=== PATIENT | female | born 1960 | race Caucasian/White ===

== ENCOUNTER → 2023-04-25 | Outpatient (CLI) | payer OTHER, SELFPAY ==
--- OUTSIDE RECORDS SUMMARY | 2023-04-25 17:25 | XMS RPT_ITS | CCD ---
Author Name Unknown Address [address] [place] [address] Organization [facility] Care Team Providers Care Logistics Team Leader Name Role Phone VITO BOYKINNE Unavailable Unavailable TABETCORINNA Unavailable Unavail able BRADLY COLON Attending Unavailable BRADLY COLON Referring Unavailable JACQUELINE MARTEL Primary Care Unavailable Jacqueline Martel Primary Care Provider [phone] Jacqueline Martel Primary Care Provider [phone] TONEY VARGAS Primary Care Unavailable TONEY VARGAS Attending Unavailable TONEY VARGAS Admitting Unavailable JACQUELINE CRONIN MD Admitting Unavailable JACQUELINE CRONIN MD Primary Care Unavailable JACQUELINE CRONIN MD Consulting Unavailable JACQUELINE CRONIN MD Attending Unavailable JACQUELINE CRONIN MD Referring Unavailable PROVIDER, UNKNOWN Consulting Unavailable PROVIDER, UNKNOWN Consulting Unavailable PROVIDER, UNKNOWN Consulting Unavailable ARACELIS, DR JHONY Robles Admitting Unavaila ble ARACELIS, DR JHONY Robles Primary Care Unavaila ble ARACELIS, DR JHONY Robles Attending Unavaila ble MANDYNICOLASA Grigsby PAC Admitting Unavailable MANDY NICOLASA PAC Primary Care Unavailable MANDY NICOLASA PAC Attending Unavailable JACQUELINE CRONIN MD Consulting Unavailable PROVIDER, UNKNOWN Consulting Unavailable PROVIDER, UNKNOWN Consulting Unavailable PROVIDER, UNKNOWN Consulting Unavailable TONEY VARGAS Admitting Unavailable TONEY VARGAS Primary Care Unavailable TONEY VARGAS Attending Unavailable MATT BUTLER DO Attending Unavailable JACQUELINE MARTEL MD Primary Care Unavailable Problems Active Problems Problem Classification Problem Date Documented Da te Episodic/Chronic Other congenital anomalies (1 source) Finding of lower limb; Translations: [Localized swelling, mass and lump, lower limb, bilateral] Chronic Other connective tissue disease (3 sources) Pain in left foot; Translations: [Pain in left foot] Onset: 01-14-2022 Episodic Other connective tissue disease (1 source) Pain in bilateral legs; Translations: [Pain in both lower extremities] Other non-traumatic joint disorders (1 source) Pain in left ankle and joints of left foot; Translations: [Pain in left ankle and joints of left foot] Onset: 01-14-2022 Episodic Sprains and strains (1 source) Unspecified sprain of left wrist, initial encounter; Translations: [Unspecified sprain of left wrist, initial encounter] Onset: 01-14-2022 Episodic Superficial injury; contusion (3 sources) Contusion of left wrist, initial encounter; Translations: [Contusion of left wrist, initial encounter] Onset: 01-27-2022 Episodic Unclassified (1 source) Cough, unspecified; Translations: [Cough, unspecified] Onset: 04-12-2021 Viral infection (1 source) COVID-19; Translations: [COVID-19] Onset: 04-12-2021 Past or Other Problems Problem Classification Problem Date Documented Da te Episodic/Chronic Other complications of (1 source) deep vein thrombosis - delivered; Translations: [Deep phlebothrombosis, antepartum, with delivery (HCC)] Episodic Screening and history of mental health and substance abuse codes (1 source) Personal history of nicotine dependence; Translations: [Personal history of nicotine dependence] Onset: 04-12-2021 Episodic Unclassified (4 sources) Encounter for screening for malignant neoplasm of cervix; Translations: [Encounter for screening for malignant neoplasm of cervix] Onset: 09-22-2017 Episodic Unclassified (1 source) Cough, unspecified; Translations: [Cough, unspecified] Onset: 04-12-2021 Results Test Name Value Interpretation Reference Range Facil ity Encounters Encounter Date Encounter Type Care Provider Facility Start: 01-27-2022 End: 02-16-2022 ambulatory NICOLASA GALVAN [facility] Start: 01-14-2022 End: 01-14-2022 ambulatory JACQUELINE CRONIN [facility] Start: 04-30-2021 End: 05-05-2021 ambulatory MATT BUTLER DO Facility:[facility] Start: 04-14-2021 End: 04-14-2021 ambulatory TONEY VARGAS [facility] Start: 04-13-2021 End: 04-13-[address] JHONY HSU [facility] Start: 04-12-2021 End: 04-12-2021 Emergency department patient visit TONEY VARGAS [facility] Start: 06-11-2020 End: 06-11-2020 Orders Only Alyx Huerta Work Phone: [facility] Start: 01-18-2019 End: 01-19-2019 Patient encounter procedure BRADLY COLON [facility] Start: 01-18-2019 End: 01-18-2019 Subsequent hospital visit by physician Bradly Colon Work Phone: [facility] Date Procedure Procedure Detail Performing Clinician Start: 01-18-2019 Dup-scan xtr veins c omplete bilateral study External Transcribed Plan of Treatment Date Care Activity Detail Author Start: 12-04-2019 Influenza vaccination given Se quential Influenza Vaccine (#1) [facility] Start: 12-03-2018 Influenza vaccination given SE QUENTIAL INFLUENZA VACCINE (#1) [facility] Start: 2012 Administration of he rpes zoster vaccine Zoster Vaccines (1 of 2) [facility] Start: 2012 Screening for malign ant neoplasm of colon [facility] Start: 1980 Hepatitis C antibody , confirmatory test Hepatitis C Screening [facility] Start: 1978 COVID-19 Vaccine (1 of 2) COVID-19 V accine (1 of 2) [facility] Start: 1977 HIV screening HIV Screening [facility] Start: 1974 Adolescent depressio n screening assessment Depression Screening (PHQ9) [facility] Start: 1965 History and physical examination, annual for health maintenance Wellness Visit [facility] Start: 1962 Hepatitis C antibody , confirmatory test HEPATITIS C SCREENING [facility] Start: 1962 Screening for malign ant neoplasm of cervix PAP SMEAR [facility] Start: 1962 Screening mammography Mamm[facility] Start: 1962 Tetanus vaccination [facility] Payers Date Payer Category Payer Unknown [id number] 2018 Unknown [employer] xxxxxxxxxxx 2018-Present xxxxxxxxxxx [id number] 2018 Unknown COMMERCIAL COMME RCIAL MISCELLANEOUS [id number] 2018-Present [id number] 2017 Unknown [id number] 1962 Unknown [id number] 1962 Unknown [id number] 1962 Unknown [id number] 1962 Unknown [id number] 1962 Unknown [id number] 1962 Unknown [id number] 1962 Unknown [id number] Social History Date Type Detail Facility Tobacco smoking status COIS Unknown if ev er smoked [facility] Sex Assigned At Not on file [facility] Progress note 08-29-2020 Note Date & Type Note Facility 08-29-2020 Note HNO ID: [id number] Author: Kolby Felton MD Service: ? Author Type: Physician Type: Progress Notes Filed: 08/29/2020 3:40 PM Note Text: INITIAL REFLECTIONS VEIN CENTER EVALUATION (This was a 30 minute office visit with more than 50% of time spent counseling the patient. 08/29/2020 Referring Physician: Juan R Romero MD [facility] [address] [facility] [address] Primary Care Physician: Jacqueline Martel CLINICAL INDICATION/HISTORY: The [facility] questionnaire was reviewed with the patient. The patient is a 59 year old female with a history of chronic longstanding venous insufficiency with varicosities involving the left leg and new onset of varicosities involving the right leg. The patient has had previous endovenous laser ablation of the left greater saphenous vein which appeared to have been successful and then had bilateral sclerotherapy with hypertonic saline. She feels that the varicosities in the left leg behind the distal thigh have become much more prominent. She has had significant diffuse increase in spider veins and venulectasias in each leg. There is a new varicosity that has developed over the right knee. She has constant ggbo-xis-[id number] sensation in her legs.She has been using compression stocking pantyhose to treat her varicosities and symptoms and they have progressed despite the use of conservative management. She also states that her compression stockings are starting to wear out and she wants a new set. FOCUSED PHYSICAL EXAM: Varicose Veins: There are large varicosities in the distal posterior thigh on the left and small varicosities over the anterior right knee. Reticular veins/venulectasias/spider veins: Extensive bilaterally. Swelling: Both calves are swollen. Hyperpigmentation: No Stasis dermatitis: No Ulceration: No US IMPRESSION: The left greater saphenous vein is still patent but it is small and shows no venous insufficiency. There is junctional reflux of the left anterior accessory greater saphenous vein with reflux of 1.4 seconds. It measures 5.1 mm. There is no other venous insufficiency in either leg. The varicosities around the right knee are primary. The deep venous system of each leg is normal. CEAP classification: C3 Ec As Pr RECOMMENDATION:The patient is being given a prescription for 20-30 mmHg Pair Pantyhose. She would be an excellent candidate for endovenous laser ablation of the junctionally refluxing left anterior accessory greater saphenous vein with follow-up ambulatory phlebectomy and/or sclerotherapy for residual varicosities. On the right leg the patient would require ambulatory phlebectomy and/or sclerotherapy for primary varicosities. Kolby Felton MD [facility] Summary Purpose Family History No Family History Records FoundNo Family History Records FoundNo Family History Records FoundNo Family History Records FoundNo Family History Records FoundNo Family History Records FoundNo Family History Records FoundNo Family History Records Found Advance Directives No Advanced Directives Records FoundDocuments on File Type Date Recorded Patient Assistant Cook Expl anation Advance Directives and Livin g Will 01/18/2019 10:59 AM Documents on File Type Date Recorded Patient Assistant Cook Expl anation Advance Directives and Livin g Will 01/18/2019 10:59 AM Reason for Referral Status Reason Specialty Diagnoses / Procedures Referre d By Contact Referred To Contact Closed Cardiology Diagnoses Localized swelling, mass and lump, lower limb, bilateral Deep phlebothrombosis, antepartum, with delivery (HCC) Pain in both lower extremities Procedures Ultrasound duplex venous legs Bradly Millan Kyra, DO [address] [facility] [address] [place] [address] Assessments Diagnosis Localized swelling, mass and lump, lower limb, bilateral Deep phlebothrombosis, antepartum, with delivery (HCC) Deep phlebothrombosis, antepartum, with delivery Pain in both lower extremities Additional Source Comments INFORMATION SOURCE (unrecogn ized section and content) DATE CREATED AUTHOR AUTHOR'S ORGANIZ ATION 08/19/2019 [facility] DATE CREATED AUTHOR AUTHOR'S ORGANIZ ATION 08/09/2020 [facility] DATE CREATED AUTHOR AUTHOR'S ORGANIZ ATION 09/29/2020 [facility] DATE CREATED AUTHOR AUTHOR'S ORGANIZ ATION 12/05/2020 [facility] DATE CREATED AUTHOR AUTHOR'S ORGANIZ ATION 05/11/2021 [facility] DATE CREATED AUTHOR AUTHOR'S ORGANIZ ATION 02/16/2022 [facility] DATE CREATED AUTHOR AUTHOR'S ORGANIZ ATION 04/03/2022 [facility] Reason for Visit (unrecogniz ed section and content) FOR RECORDS PERTAINING TO PATIENTS WHO ARE OR HAVE BEEN ENROLLED IN A CHEMICAL DEPENDENCY/SUBSTANCEABUSE PROGRAM, SOME INFORMATION MAY BE OMITTED. This clinical summary was aggregated from multiple sources. Caution should be exercised in using it in the provision of clinical care. This summary normalizes information from multiple sources, and as a consequence, information in this document may materially change the coding, format and clinical context of patient data. In addition, data may be omitted in some cases. CLINICAL DECISIONS SHOULD BE BASED ON THE PRIMARY CLINICAL RECORDS. [facility] [employer] provides no warranty or guarantee of the accuracy or completeness of information in this document.
[2023-04-28 13:08] LABS: HPV APTIMA, High Risk Negative (Negative)
== END | disposition home or self-care (01) ==
PROVIDERS: PCP Nurse Practitioner Family; Visit Provider Advanced Practice Midwife
DX: Z12.4 Encounter for screening for malignant neoplasm of cervix (principal)
CPT/HCPCS: 87624; 88175; G0145

== ENCOUNTER → 2023-05-04 | Outpatient (CLI) | payer OTHER, SELFPAY ==
--- NOTE | 2023-05-04 12:25 | US_ITS ---
STUDY: ULTRASOUND OF THE FEMALE PELVIS - COMPLETE REASON FOR EXAM: Female, 62 years old. Fibroid follow up LMP: Patient is postmenopausal. TECHNIQUE: Transvaginal TECHNICAL QUALITY: Adequate. COMPARISON: None. FINDINGS: The uterus is anteverted and is in a midline position. The uterus is enlarged and measures 14.1 cm x 10.6 cm x 10.8 cm. Normal uterine cervix. The endometrium was not measured due to the large fibroid. There is no demonstrated endometrial mass. There is a large uterine fibroid measuring 10.7 cm x 10.2 cm x 10.6 cm. I.U.D. - The patient does not have an I.U.D. The right ovary is non-visualized. The left ovary is non-visualized. There is no fluid in the cul-de-sac. US/Transvaginal Non- IMPRESSION: Large uterine fibroid measuring 10.7 cm x 10.2 cm x 10.6 cm. Electronically Signed: Addison Carlson MD at 14:47 EST ,
== END | disposition home or self-care (01) ==
PROVIDERS: PCP Nurse Practitioner Family; Referring Provider Advanced Practice Midwife; Visit Provider Advanced Practice Midwife
DX: D25.9 Leiomyoma of uterus, unspecified (principal)
CPT/HCPCS: 76830

== ENCOUNTER → 2023-05-26 | Outpatient (CLI) | payer OTHER, SELFPAY ==
--- NOTE | 2023-05-26 12:26 | BI_ITS ---
MAMMOGRAPHY - BILATERAL SCREENING REASON FOR EXAM: Female, 62 years old. Routine annual screening examination. PERTINENT HISTORY: Non-contributory. TECHNIQUE: Digital bilateral breast domo (3D mammographic acquisition) in the CC and MLO projections. 2-D mediolateral oblique (MLO) and craniocaudad (CC) views of both breasts were obtained. CAD: Full Field Digital Mammography with Computer Added Detection was performed. COMPARISON: Comparison is made with prior outside examination dated April 30, 2021. FINDINGS: Breast Composition: The breasts are almost entirely fatty. There are no dominant masses or suspicious calcifications. No other significant abnormalities are identified. There has been no significant change since the prior study. BI/SCRN MAMM (CAD)W/DOMO BILAT IMPRESSION: Stable bilateral screening mammogram. Yearly follow-up mammogram recommended. (A) ASSESSMENT CATEGORY: BIRADS Category 1: Negative. A letter regarding these results will be sent to the patient by the facility within 30 days. Approximately 10% of breast cancers are not detected by mammography. A normal mammogram should not delay biopsy of a clinically suspicious abnormality. [id number] Electronically Signed: Addison Carlson MD at 14:35 EST ,
--- NOTE | 2023-05-26 12:35 | BD_ITS ---
STUDY: DUAL ENERGY X-RAY ABSORPTIOMETRY / DXA REASON FOR EXAM: Female, 62 years old. Routine screening TECHNIQUE: Bone Mineral Density (BMD) measurements of lumbar spine and bilateral hips were obtained. COMPARISON: None. FINDINGS: Lumbar Spine (L1-L4): g/cm2 (0.789) / T-score (-2.6) / Z-score (-1.1) Findings are suggestive of osteoporosis with a high fracture risk. Left Femur Total: g/cm2 (0.757) / T-score (-1.5) / Z-score (-0.5) Left Femoral Neck: g/cm2 (0.593) / T-score (-2.3) / Z-score (-1.0) Right Femur Total: g/cm2 (0.758) / T-score (-1.5) / Z-score (-0.5) Right Femoral Neck: g/cm2 (0.674) / T-score (-1.6) / Z-score (-0.3) BD/Dexa Bone Density Study IMPRESSION: The patient is considered osteoporotic as outlined below according to World [employer] Organization (WHO) criteria with a high fracture risk. Reference Information: The T-score is the number of standard deviations above or below the standard which is normal for young adults at their peak bone mineral density. The World Health Organization (WHO) interprets the T-scores as follows: Above -1 Normal bone density Between -1 and -2.5 Osteopenia Equal to / or below -2.5 Osteoporosis As a practical clinical guideline, osteopenia may be graded as follows: Mild -1 through -1.5 Moderate -1.6 through -2.0 Severe -2.1 through -2.4 The Z-score is the number of standard deviations above or below age-matched controls. A Z-score of less than -1.5 would be considered abnormal. References: 1. NIH Osteoporosis and Related Bone Diseases www osteo.org 2. International Society for Clinical Densitometry www iscd.org 3. National Osteoporosis Foundation www nof.org Electronically Signed: Addison Carlson MD at 9:13 EST ,
== END | disposition home or self-care (01) ==
LOC: OPBD 12:24
PROVIDERS: PCP Internal Medicine; Referring Provider Advanced Practice Midwife; Visit Provider Advanced Practice Midwife
DX: M81.8 Other osteoporosis without current pathological fracture (principal); Z12.31 Encounter for screening mammogram for malignant neoplasm of breast
CPT/HCPCS: 77063; 77067; 77080

== ENCOUNTER → 2023-06-01 | Outpatient (CLI) | payer OTHER, SELFPAY ==
[2023-06-01 16:38] LABS: Absolute Lymphocyte Count 1.79 X10^3/uL (0.83-4.51); Absolute Neutrophil Count 4.3 X10^3/uL (2.0-7.7); Basophil# 0.05 X10^3/uL; Basophil% 0.7 % (0-1); Eosinophil# 0.15 X10^3/uL; Eosinophils% 2.2 % (0-5); Hematocrit 46.3 % (37-47); Hemoglobin 15.1 g/dL (12.0-15.0); Lymphocyte # 1.79 X10^3/ul (0.83-4.51); Lymphocyte % 26.6 % (19-41); Mean Corp Hgb Conc 32.6 g/dL (32-36); Mean Corpuscular Hgb 28.8 pg (27.0-32.0); Mean Corpuscular Volume 88.4 fL (81-99); Mean Platelet Vol. 10.6 fl (6.2-12.0); Monocyte# 0.43 X10^3/uL; Monocyte% 6.4 % (0-10); NRBC Flagged by Analyzer 0 % (0-5); Neutrophil # 4.29 X10^3/uL (2.7-7.7); Neutrophil % 63.8 % (47-70); Platelet Count 219 K/mm3 (150-450); RBC Distribution Width CV 12.9 % (11.6-14.6); RBC Distribution Width SD 41.6 fl (35.1-43.9); Red Blood Count 5.24 M/mm3 (4.2-5.4); White Blood Count 6.7 K/mm3 (4.4-11.0)
[2023-06-01 16:57] LABS: Vitamin D,25 Hydroxy 45.8 ng/mL
[2023-06-01 17:06] LABS: ALB/GLOB Ratio 1.2 RATIO (0.9-2.4); AST(SGOT) 26 U/L (15-37); Alanine Aminotransfer ALT/SGPT 43 U/L (13-56); Albumin, Serum 3.8 g/dL (3.2-5.0); Alkaline Phosphatase 61 U/L (45-117); Anion Gap 5 (5-15); BUN 15 mg/dL (7-18); BUN/Creat Ratio 20.2 RATIO (10-20); Chloride 106 mmol/L (98-107); Cholesterol 162 mg/dL (200); Creatinine, Serum 0.74 mg/dL (0.55-1.02); EST Glomerular Filtration Rate 85 mL/min (>60); Est Glom Filt Rate - Afr Amer 102 mL/min (>60); Globulin 3.2 g/dL (2.2-4.2); Glucose 86 mg/dL (74-106); High Density Lipoprotein 50 mg/dL; Potassium 4.3 mmol/L (3.5-5.1); Sodium Level 137 mmol/L (136-145); Thyroid Stim Hormone (TSH) 1.47 uIU/mL (0.358-3.74); Triglycerides 81 mg/dL; Very Low Density Lipoprotein 16 mg/dL (5-40)
--- OUTSIDE RECORDS SUMMARY | 2023-06-02 00:03 | XMS RPT_ITS | CCD ---
Author Name Unknown Address [address] [place] [address] Organization [facility] Care Team Providers Care Departure Clerk Name Role Phone CECILIAVITO BARTLETTNE Unavailable Unavailable CORINNA NICKERSON Unavailable Unavail able BRADLY COLON Attending Unavailable BRADLY COLON Referring Unavailable JACQUELINE MARTEL Primary Care Unavailable Jacqueline Martel Primary Care Provider Jacqueline Martel Primary Care Provider TONEY VARGAS Primary Care Unavailable TONEY VARGAS [...] ARACELIS, DR JHONY Robles Attending Unavaila ble MANDY, NICOLASA PAC Admitting Unavailable MANDY, NICOLASA PAC Primary Care Unavailable MANDY, NICOLASA PAC Attending Unavailable JACQUELINE CRONIN MD Consulting Unavailable PROVIDER, UNKNOWN Consulting Unavailable PROVIDER, UNKNOWN Consulting Unavailable PROVIDER, UNKNOWN Consulting Unavailable TONEY VARGAS Admitting Unavailable TONEY VARGAS Primary Care Unavailable TONEY VARGAS Attending Unavailable MATT BUTLER DO Attending Unavailable JACQUELINE MARTEL MD Primary Care Unavailable TAHMINA PETIT, MARTIN Loredo Unavailable [phone] ORTHOPEDICS, STEPHANIE Unavailable ORTHOPEDICS, MATTHEW Unavailable JERRY APODACA MD Unavailable ORTHOPEDICS, GENERAL Unavailable Unavailable BALTIC Unavailable Unavailable DAVID PETIT, TRACEY Van Unavailable MEETFÉLIX Unavailable Unavailable MEHRDAD PETIT, Nate HINOJOSA Unavailable THAMINA PETIT, JACQUELINE Robles Unavailable Tuan ESPITIA MD Unavailable LUCY PETIT, CATARINA Parker Unavailable Cuco STRONG, Kandy Unavailable Unavailable Ruchi RN, Seble Unavailable Unavaila ble DOREEN, SHEMAR Unavailable Unavailable Liang RN, Yulissa Unavailable Unavailable Cadence Alexander Unavailable Unavailable JESUSITA ESPITIA Unavailable Unavailable MICHELLE PARISH Unavailable Unavailable ALEXANDER RN, PRIETO Unavailable Unavailable Andreea Espitia Unavailable Unavailable GORDO ASBESTOS HANDLER-C, BRITTNEY Hayden Unavailable [phone] DOREEN STRONG, LULY Unavailable Unavaila ble Unavailable Unavailable Medications Current Medications Medication Drug Class(es) Dates Sig (Normalized) Sig (Original) DAILY MULTIPLE VITAMINS (Oral Tablet) (1 source) take 1 tablet by anupama th once daily DAILY MULTIPLE VITAMINS (Oral Tablet) ; 1 daily Completed/Discontinued Medications Medication Drug Class(es) Dates Sig (Normalized) Sig (Original) atropine sulfate 0.0194 mg / hyoscyamine sulfate 0.1037 mg / PHENobarbital 16.2 mg / scopolamine hydrobromide 0.0065 mg oral tablet (1 source) Anticholinergic, Cholinergic Muscarinic Antagonist Start: 08-27-2010 End: 09-03-2010 take 1 tablet by mouth four times daily as needed BELLADONNA ALK-PHENOBARBITA L, 16.2MG (Oral Tablet) ; 1 Tablet four times daily, as needed for 7 days Quantity: 21 {Tablet} Refills: 0 Ordered: 03-Sep-2010 MD CATARINA AYALA Start: 27-Aug-2010 End: 03-Sep-2010 Status: Inactive Comments: Medication taken as needed. Problems Active Problems Problem Classification Problem Date Documented Da te Episodic/Chronic Administrative/social admission (7 sources) Patient encounter status; Translations: [Counseling, unspecified] 04-02-2022 Episodic Benign neoplasm of uterus (3 sources) Uterine leiomyoma; Translations: [Leiomyoma of uterus, unspecified] 08-21-2020 Episodic Cancer; other and unspecified primary (2 sources) History of gynecological disorder; Translations: [Personal history of other benign neoplasm] 02-03-2017 Episodic Gastroduodenal ulcer (except hemorrhage) (3 sources) Peptic ulcer; Translations: [Peptic ulcer, site unspecified, unspecified as acute or chronic, without hemorrhage or perforation] 2010 Chronic Genitourinary symptoms and ill-defined conditions (2 sources) Female stress incontinence; Translations: [Stress incontinence (female) (male)] 04-02-2022 Chronic Immunizations and screening for infectious disease (5 sources) Requires varicella vaccination; Translations: [Encounter for immunization] 04-02-2022 Episodic Lymphadenitis (1 source) Cervical lymphadenopathy; Translations: [Localized enlarged lymph nodes] 07-25-2020 Episodic Malaise and fatigue (1 source) Fatigue; Translations: [Other fatigue] 07-25-2020 Episodic Menopausal disorders (1 source) Postmenopausal bleeding; Translations: [Postmenopausal bleeding] 10-31-2018 Chronic Noninfectious gastroenteritis (2 sources) Acute gastroenteritis; Translations: [Noninfective gastroenteritis and colitis, unspecified] 09-10-2010 Episodic Osteoporosis (4 sources) Osteoporosis; Translations: [Age-related osteoporosis without current pathological fracture] 04-02-2022 Chronic Other and unspecified benign neoplasm (2 sources) Adrenal adenoma; Translations: [Benign neoplasm of unspecified adrenal gland] 04-02-2022 Episodic Other bone disease and musculoskeletal deformities (5 sources) Osteopenia; Translations: [Other specified disorders of bone density and structure, right thigh] 04-02-2022 Episodic Past or Other Problems Problem Classification Problem Date Documented Date Episodic/Chronic Other complications of (1 source) deep vein thrombosis - delivered; Translations: [Deep phlebothrombosis, antepartum, with delivery (HCC)] Episodic Screening and history of mental health and substance abuse codes (1 source) Personal history of nicotine dependence; Translations: [Personal history of nicotine dependence] Onset: 04-12-2021 Episodic Unclassified (1 source) Cough, unspecified; Translations: [Cough, unspecified] Onset: 04-12-2021 Unclassified (1 source) !Patient notification of lab results - Dr. Espitia. Note for !Patient notification of lab results : Kina, your labs looked great. You will see that your triglycerides are marked as elevated. That is not very accurate if you aren't fasting, so no worries there. Your cholesterol panel is actually excellent. I suspect you will never have trouble with your cholesterol and wouldn't recommend that you recheck that any sooner than in 5 years.Let us know if you have any questions. 04-06-2022 Unclassified (1 source) Physical examination - The patient is here for a annual physical. The patinet denies tobacco use. Note for Physical examination : sees [facility] yearly for pap, mammogram and bone density. Last visit 04-25. 04-02-2022 Unclassified (1 source) [ADDITIONAL REASON] Immunization - Note for For immmunization : declines flu shot, Last tetanus 2005. Did not have shingles vaccine. 04-02-2022 Unclassified (1 source) !Patient notification of lab results - Dr. Cronin. The test(s) that you had done were/was an xray of the foot and ankle (The xray of the wrist showed no obvious fracture, but based on your pain, I think you should keep the appointment with the orthopedic doctor. Sometimes a CT scan or bone scan are used to evaluate for a very subtle fracture so you may discuss these options with the orthopedic doctor.You do have a bone spur of the left heel so I would suggest that we schedule you a visit with Dr. Mcdonald (our local sample tester grinder).). You should call our office if you have any questions. 01-18-2022 Unclassified (1 source) Wrist Pain - The injury involved the left wrist. This occurred 2 month(s) ago at home. The injury resulted from a fall onto the hand. 01-14-2022 Unclassified (1 source) [ADDITIONAL REASON] Ankle Pain - This condition occurred following a specific injury (fall). This occurred at home. 01-14-2022 Unclassified (1 source) [ADDITIONAL REASON] Foot pain - Note for Foot pain : Left foot pain after fall 01-14-2022 Unclassified (1 source) Leg pain - The leg pain has been occurring for 3 days. The leg pain is described as being located in the posterior thigh (Reddened and painful.). Note for Leg pain : Pt. states she has had vascular procedures on this leg in the past. 11-26-2020 Unclassified (1 source) Abdominal Pain, Female - Symptoms include abdominal pain. The pain is located in the left lower quadrant. Onset was gradual 2 month(s) ago. Note for Abdominal pain : Pt. has also had more pelvic pressure that causes her to urinate more frequently. This symptoms has happened for some time. 08-21-2020 Unclassified (1 source) [ADDITIONAL REASON] test results - Pt. here to discuss results of scans. 08-21-2020 Unclassified (1 source) !Patient notification of lab results - FRANK Hernadez. The test(s) that you had done were/was a CT scan. Your tests were abnormal You should call our office to schedule a referral. Please follow up as scheduled. Note for !Patient notification of lab results : Your US showed the uterine fibroid has gotten just a little bit larger. If you aren't having symptoms such as bleeding or pain, I wouldn't worry about it. However, the CT scan showed an adrenal adenoma. This is a benign (not dangerous) tumor on your adrenal gland. This isn't something to worry about. What I am concerned about, is another fracture. There was an old T7 fracture that wasn't seen on any of your previous images. I would like you to see either endocrinology again or a manpower development specialist to get some answers as to why you have had so many vertebral compression fractures with relatively little trauma. Please let me know if you are willing to do this. Thanks! 08-20-2020 Unclassified (1 source) Skin lesion - Note for Skin lesion : Pt c/o lump on right hand 5th finger. Getting bigger and more painful. 07-30-2020 Unclassified (1 source) !Patient notification of lab results - Dr. Martel. The test(s) that you had done were/was an EMG and nerve conduction test of the left arm. The results of your testing were normal (no sign of carpal tunnel syndrome or nerve damage) . Please let us know if your symptoms do not improve (may consider a medication for nerve irritation). 11-07-2018 Unclassified (1 source) Leg pain - The onset of the leg pain has been sudden and has been occurring for 1 month. The leg pain involves the right leg. The leg pain is described as being located in the calf. There has been associated numbness and tingling. Note for Leg pain : Was seen by Dr. Landeros - had US which showed Blood Clot in Muscle. Took ASA for 12 days.. 10-31-2018 Unclassified (1 source) [ADDITIONAL REASON] Chest pain - The onset of the chest pain has been sudden. Note for Chest pain : Has had intermittent pain since Leg Pain - Dr. Landeros was not concerned. Patient concerned about numbness of upper extremity and Blood Clots in Lung 10-31-2018 Unclassified (1 source) Transition into care - The patient is transitioning into care from a hospital ([place]) and a summary of care was reviewed. Note for Transition into care : Patient had back surgery by Dr. Nickerson. Patient had low oxygen level and abnormal chest xray. Here for evaluation 10-11-2017 Unclassified (1 source) [ADDITIONAL REASON] Abnormal Chest Imaging - Note for Abnormal chest imaging : See Report. 10-11-2017 Unclassified (1 source) Pre-Op Visit - The procedure scheduled is a T8 Kyphoplasty on 09/30/17. The surgeon for the procedure will be Dr. Nickerson. Note for Pre-op visit : . 09-29-2017 Unclassified (1 source) !Patient notification of lab results - Martel. The test(s) that you had done were/was x-rays. The results of your testing were negative (no new fractures were seen) . Please be aware that we have sent copies to Dr Nickerson. 02-04-2017 Unclassified (1 source) Injury - The patient reports that it was accidental. The date of the injury was on 01/28/17. The injury happened due to a falling down (stairs). Note for Injury : Pt had back surgery recently by Dr. Nickerson. She said her left butt and upper leg are bruised.. 02-03-2017 Unclassified (1 source) !Patient notification of lab results - Martel. The test(s) that you had done were/was blood work. The results of your testing were normal . Please note that we have included copies of your results. 01-13-2017 Unclassified (1 source) recheck after being in the hospital - The patient reports feeling improved. The date of admission was 12/27/2016 (procedure with Dr Nickerson, outpatient). The hospitalization was at [facility]. Note for recheck after being in the hospital : . 01-11-2017 Unclassified (1 source) [ADDITIONAL REASON] Transition into care 01-11-2017 Unclassified (1 source) !Patient notification of lab results - Tahmina. The test(s) that you had done were/was an ultrasound exam (there appears to be a benign fibroid growth on the uterus). Please follow up as scheduled (fibroids usually do not need treatment if not causing problems). 12-28-2016 Unclassified (1 source) Back Pain - The last clinic visit was 1 week(s) ago. Management changes made at the last visit include adding Prednisone (took last pill today). Symptoms are located in the left lower back. Note for Back pain : Pt would like referral to Dr Nickerson. XRay done 12/15/16.. 12-21-2016 Unclassified (1 source) !Patient notification of lab results - Tahmina. The test(s) that you had done were/was x-rays. Your tests showed the following abnormalities: there is a partial collapse (10-20%) of the L-1 vertebra . You should call our office to schedule a referral (recommend seeing an instructional specialist to see if you are a candidiate for kyphoplasty to restore the height of the vertebra). 12-16-2016 Unclassified (1 source) Back Pain Lumbar, Acute - This condition occurred following a specific injury (lifting). Symptoms are located in the left low back. There is no radiation. Note for Acute lumbar back pain : Saw Dr Tristin Martel on 12/03/16, given Naproxen and Flexeril, not much improvement. Back surgery in 1999.. 12-14-2016 Unclassified (1 source) Back Pain Lumbar, Acute - This occurred 6 hour(s) ago at home. The injury resulted from lifting. Symptoms include pain, muscle spasm and decreased range of motion. Symptoms are located symmetrically. The patient describes the pain as throbbing. Past treatment has included back surgery (1999, Dr. Nickerson). 12-03-2016 Unclassified (1 source) Immunization - Influenza immunization was given. An immunization information sheet was provided. 01-06-2012 Unclassified (1 source) Peptic Ulcer Disease - Symptoms do not include pain or heartburn. 2010 Unclassified (1 source) [ADDITIONAL REASON] Obesity - Note for Obesity : concerned with weight 2010 Unclassified (1 source) [ADDITIONAL REASON] recheck pud and gastritis - feeling well. 2010 Unclassified (1 source) *Patient notification of lab results 1 - Dr. Ayala. The test(s) that you had done were/was a liver panel. The results of your testing were normal . 09-11-2010 Unclassified (1 source) Abdominal pain - Note for Abdominal pain : feeling much better. Using no meds any longer. 09-10-2010 Unclassified (1 source) [ADDITIONAL REASON] Edema - The edema involves both lower extremities. Onset was sudden. Note for Edema : noted ankle edema on 09/05-09/06 but has now resolved. 09-10-2010 Unclassified (1 source) *Patient notification of lab results 1 - Dr. Ayala. The test(s) that you had done were/was a stool O&P. The results of your testing were normal . 09-04-2010 Unclassified (1 source) *Patient notification of lab results 1 - Dr. Ayala. The test(s) that you had done were/was a stool culture. The results of your testing were normal . 09-02-2010 Unclassified (1 source) *Patient notification of lab results 1 - Dr. Ayala. The test(s) that you had done were/was CBC (checks for anemia and infection) and CMP (kidneys, liver, nutrition, sugar). For your age and medical condition your tests showed the following abnormalities: mildly elevated liver enzymes . You should call our office to schedule an appointment for repeat lab in 2 weeks. 08-28-2010 Unclassified (1 source) Vomiting - The onset of the vomiting has been acute and has been occurring in an intermittent pattern for 9 days. The course has been constant. The symptoms have been associated with abdominal pain (intermittent), diarrhea (8x/day), fever, headache, myalgia and vertigo. Note for Vomiting : had vomiting for first 24 hrs then started with diarrhea daily x 8 days. stormach rolls and rolls. is very weak and lightheaded. 08-27-2010 Results Test Name Value Interpretation Reference Range Facil ity Vital Signs Date Time Vital Sign Value Performing Clinician Marlin sahni 04-02-2022 14:21-0500 Body height 161.29 cm Seble Hopper RN [facility] [employer] [facility] [employer] [facility] 04-02-2022 14:21-0500 Body mass index (BMI) [Ratio] 33.51 kg/m2 Seble Hopper RN [facility] [employer] [facility] 04-02-2022 14:21-0500 Body surface area Derived from formula 1.91 m2 Seble Hopper [facility] [employer] [facility] 04-02-2022 14:0500 Body weight 87.18 kg Seble Hopper RN [facility] [employer] [facility] [employer] [facility] [employer] [facility] 04-02-2022 14:0500 Diastolic blood pressure 86 mm[Hg] Seble Hopper RN [facility] [facility] [employer] [facility] Encounters Encounter Date Encounter Type Care Provider Facility Start: 04-03-2022 End: 04-03-2022 Results Review MARTIN MARTEL MD Work Phone: [facility] [employer] [facility] Start: 04-02-2022 End: 04-02-2022 Lab Only MARTIN MARTEL MD Work Phone: [facility] [employer] [facility] [employer] Start: 04-02-2022 End: 04-02-2022 Office outpatient visit 25 minutes MARTIN MARTEL MD Work Phone: [facility] [employer] [facility] [employer] Start: 04-02-2022 End: 04-02-2022 Patient encounter status MARTIN MARTEL MD Work Phone: [facility] [employer] [facility] [employer] [facility] [employer] Start: 01-27-2022 End: 02-16-2022 ambulatory [facility] Start: 01-16-2022 End: 01-16-2022 Patient encounter procedure MARTIN MARTEL MD Work Phone: [facility] [employer] [facility] Start: 01-14-2022 End: 01-14-2022 ambulatory JACQUELINE CRONIN [facility] Start: 01-14-2022 End: 01-14-2022 Patient encounter procedure MARTIN MARTEL MD Work Phone: [facility] [facility] [employer] Start: 04-30-2021 End: 05-05-2021 ambulatory MATT BUTLER Facility:A Start: 04-14-2021 End: 04-14-2021 ambulatory TONEY Trejo [facility] Start: 04-13-2021 End: 04-13-[address] JHONY HSU [facility] Start: 04-12-2021 End: 04-12-2021 Emergency department patient visit TONEY Trejo [facility] Start: 11-26-2020 End: 11-26-2020 Office outpatient visit 15 minutes MARTIN MARTEL MD [facility] [employer] Start: 08-21-2020 End: 08-21-2020 Office outpatient visit 15 minutes MARTIN MARTEL MD Work Phone: [facility] [employer] [facility] Start: 08-20-2020 End: 08-20-2020 Follow-up encounter MARTIN MARTEL MD Work Phone: [facility] [employer] Start: 08-15-2020 End: 08-15-2020 Procedure Order MARTIN MARTEL MD Work Phone: [facility] [employer] Start: 08-07-2020 End: 08-07-2020 Procedure Order MARTIN MARTEL MD Work Phone: [facility] Start: 07-30-2020 End: 07-30-2020 Office outpatient visit 15 minutes MARTIN MARTEL MD Work Phone: [facility] [employer] [facility] Start: 07-28-2020 End: 07-28-2020 Procedure Order MARTIN MARTEL [facility] Start: 07-25-2020 End: 07-25-2020 Office outpatient visit 40 minutes [facility]IN [facility]ARTEL MD [facility] Start: 06-11-2020 End: 06-11-2020 Orders Only Alyx Huerta Work Phone: [facility] Start: 01-18-2019 End: 01-19-2019 Patient encounter procedure BRADLY SERA [facility] Start: 01-18-2019 End: 01-18-2019 Subsequent hospital visit by physician Bradly Colon Work Phone: [facility] Date Procedure Procedure Detail Performing Clinician Start: 04-02-2022 End: 04-02-2022 Shingrix Tuan ESPITIA MD Work Phone: Start: 04-02-2022 End: 04-02-2022 TDAP - Adacel/Boostrix Tuan ESPITIA MD Work Phone: Start: 01-16-2022 End: 01-16-2022 Radex wrist complete minimum 3 views R JACQUELINE CRONIN MD Work Phone: Start: 01-14-2022 End: 01-14-2022 Dischrg meds reconciled w/current med list MARTIN MARTEL MD Work Phone: Start: 04-30-2021 End: 04-30-2021 Screening mammography Tuan ESPITIA MD Work Phone: Plan of Treatment Date Care Activity Detail Author Start: 01-14-2022 Radex foot complete minimum 3 views X-RAY FOOT - COMPLETE - 3 VIEWS (83754) : Fall 6 weeks ago. L 5th metatarsal pain Start: 14-Jan-2022 [facility] [employer] [facility] Start: 11-26-2020 Dup-scan xtr veins unilateral/limited study UNILATERAL DOPPLER ULTRASOUND OF VEINS OF EXTREMITIES (25001) : left lower extremity Start: 26-Nov-2020 [facility] Start: 11-26-2020 Patient Education [facility] [employer] Start: 08-07-2020 Us pelvic nonobstetr ic real-time image complete US PELVIS, COMPLETE (08774) Start: 07-Aug-2020 [facility] [employer]; [facility] Start: 07-30-2020 Mri spinal canal lum bar w/o & w/contr matrl MRI LUMBAR SPINE W/O & W CONTRAST for post surgery/mass/infection (82653) - IV Contrast per Protocol Start: 30-Jul-2020 Intent Comments: 6MM lesion in L5 vertebral body [facility] [employer]; [facility] [employer] Immunizations Immunization Date Immunization Notes Care Provider [facility] 04-02-2022 zoster vaccine recombinant MARTIN MARTEL MD Work Phone: [facility]; [facility] [employer] Payers Date Payer Category Payer Unknown [id number] 2018 Unknown [employer] [facility] [employer] xxxxxxxxxxx 2018-Present xxxxxxxxxxx [id number] 2018 Unknown [employer] RCIAL MISCELLANEOUS [id number] 2018-Present [id number] 2017 Unknown [id number] 1962 Unknown [id number] 1962 Unknown [id number] 1962 Unknown [id number] 1962 Unknown [id number] 1962 Unknown [id number] 1962 Unknown [id number] 1962 Unknown [id number] Unknown [facility] Social History Date Type Detail Facility Tobacco smoking status NHIS Unknown if ev er smoked [facility] file [facility] Alcohol Use: Alcohol Use: ; N o Alcohol Use. [employer]; [employer] [facility] [employer] [facility] Tobacco use: Tobacco use: ; F ormer smoker. [employer] [facility] [employer] [facility] [employer]. Female [facility] [employer] [facility] IllIntent [employer]; [place] [employer] [facility] [employer] Work Phone: Ex-smoker [facility] [employer]; [employer] [facility] [employer] [facility] IllForesight [employer]otherapeutics Work Phone: Progress note 08-29-2020 Note Date & Type Note Facility 08-29-2020 Note HNO ID: [id number] Author: Kolby Felton MD Service: ? Author Type: Physician Type: Progress Notes Filed: 08/29/2020 3:40 PM Note Text: [facility]IAL [facility] EVALUATION (This was a 30 minute office visit with more than 50% of time spent counseling the patient. 08/29/2020 Referring Physician: Juan R Espitia MD [address] [place] [phone] Primary Care Physician: Jacqueline Martel CLINICAL INDICATION/HISTORY: The [facility] questionnaire was reviewed with the [...] over the right knee. 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 oKlby Felton MD [facility] Summary Purpose Family History Brother (s) Status:Active Comments:In good health. 2. Father Status:Active Comments:In good health. Mother Status:Active Comments:In good health. Genie Gatten. Osteoporosis. Sister (s) Status:Active Comments:0. Advance Directives Documents on File Type Date Recorded Patient Business Resiliency Manager Expl anation Advance Directives and Iliana núñez Will 01/18/2019 10:59 AM Documents on File Type Date Recorded Patient Business Resiliency Manager Expl teri Advance Directives and Iliana núñez Will 01/18/2019 10:59 AM Reason for Referral Status Reason Specialty Diagnoses / Procedures Referre d By Contact Referred To Contact Closed Cardiology Diagnoses Localized swelling, mass and lump, lower limb, bilateral Deep phlebothrombosis, antepartum, with delivery (HCC) Pain in both lower extremities Procedures Ultrasound duplex venous legs Bradly Millan, DO [address] [address] Assessments Diagnosis Localized swelling, mass and lump, lower limb, bilateral Deep phlebothrombosis, antepartum, with delivery (HCC) Deep phlebothrombosis, antepartum, with delivery Pain in both lower extremities Additional Source Comments INFORMATION SOURCE (unrecogn ized section and content) DATE CREATED AUTHOR AUTHOR'S ORGANIZ ATION 08/19/2019 [facility] DATE CREATED AUTHOR AUTHOR'S ORGANIZ ATION 08/09/2020 [facility] DATE CREATED AUTHOR AUTHOR'S ORGANIZ ATION 09/29/2020 [facility] DATE CREATED AUTHOR AUTHOR'S ORGANIZ ATION 12/05/2020 [facility] DATE CREATED AUTHOR AUTHOR'S ORGANIZ ATION 05/11/2021 [facility] DATE CREATED AUTHOR AUTHOR'S ORGANIZ ATION 02/16/2022 [facility] DATE CREATED AUTHOR AUTHOR'S ORGANIZ ATION 04/03/2022 [facility] Reason for Visit (unrecogniz ed section [...] BE BASED ON THE PRIMARY CLINICAL RECORDS. [facility]. provides no warranty or guarantee of the accuracy or completeness of information in this document.
== END | disposition home or self-care (01) ==
LOC: BIMLAB 14:45
PROVIDERS: PCP Internal Medicine; Visit Provider Internal Medicine
DX: Z13.6 Encounter for screening for cardiovascular disorders (principal); M81.0 Age-related osteoporosis without current pathological fracture
CPT/HCPCS: 36415; 80053; 80061; 82306; 84443; 85025

== ENCOUNTER → 2023-07-25 | Outpatient (CLI) | payer OTHER, SELFPAY ==
--- NOTE | 2023-07-25 14:05 | VDLE_ITS ---
Reason For Study: Swelling BLE RIGHT LEFT GSV is normal. CFV is compressible, spontaneous, phasic, CFV is compressible, spontaneous, phasic, competent, and demonstrates normal competent and demonstrates normal augmentation. augmentation. FV is compressible, spontaneous, phasic, FV is compressible, spontaneous, phasic, competent and demonstrates normal competent and demonstrates normal augmentation. augmentation. POP V is compressible, spontaneous, phasic, POP V is compressible, spontaneous, phasic, competent and demonstrates normal competent and demonstrates normal augmentation. augmentation. T/P Trunk is compressible. T/P Trunk is compressible. PTV is compressible. PTV is compressible. LT PerV is compressible. RT PerV is compressible. SFJ is competent and measures 0.69cm x 0.63 SFJ is competent and measures 0.54cmx 0.59 cm. cm. GSV proximal thigh measures 0.36cm x 0.37 cm. GSV proximal thigh measures 0.51cm x 0.55 cm. GSV at knee measures 0.25cm x 0.25 cm. GSV at knee measures 0.28cmx 0.29 cm. GSV INCOMPETENT throughout for greater than GSV is competent throughout. 0.5 seconds. ASV proximal thigh is INCOMPETENT for greater ASV proximal calf is INCOMPETENT for greater than 0.5 seconds and measures 0.30cm x 0.32 than 0.5 seconds and measures 0.29cm x 0.31 cm. cm. SSV proximal calf is competent and measures SSV proximal calf is competent and measures 0.28cm x 0.25 cm. 0.25cm x0.24 cm. Procedure This is a venous duplex using B-mode, color flow and spectral Doppler. Exam performed in department. A preliminary report was called and/or faxed to Michelle Tuttle. VL/Venous Duplex US - Young Extrem Interpretation Summary Deep veins of the bilateral lower extremities are patent and compressible segme ntally. There is no evidence of bilateral lower extremity deep vein thrombosis. The bilateral great saphenous veins appear patent and compressible segmentally. Positive for reflux in the right thigh accessory saphenous vein. Positive for reflux in the left great saphenous vein throughout, accessory saph enous vein in the calf Ordering Physician: Michelle Tuttle Referring Physician: Leeann Riley Performed By: Marta Ladd, MICHELE, RVT
== END | disposition home or self-care (01) ==
LOC: CVS 14:04
PROVIDERS: PCP Internal Medicine; Referring Provider Physician Assistant; Visit Provider Physician Assistant
DX: I87.2 Venous insufficiency (chronic) (peripheral) (principal); R60.0 Localized edema
CPT/HCPCS: 93970

== ENCOUNTER → 2023-08-08 | Outpatient (CLI) | payer OTHER, SELFPAY ==
--- NOTE | 2023-08-08 16:55 | RAD_ITS ---
INDICATION: chest pain EXAMINATION/TECHNIQUE: X-RAY - XR Chest 2 Views COMPARISON: No previous relevant examinations available for comparison.. FINDINGS: LIFE-SUPPORT AND LINES: 1. None HEART AND VESSELS: The cardiac silhouette, pulmonary vasculature have normal appearance. No evidence of congestive failure. LUNGS AND PLEURAL SPACES: Lungs are clear. No focal infiltrate, consolidation or effusions. No evidence of pneumothorax. No pulmonary mass is noted. MEDIASTINUM AND HILAR REGIONS: No masses adenopathy noted. No areas of calcification. Visualized upper airway is normal in position. BONY ELEMENTS: Previous kyphoplasty is noted in the midthoracic spine, estimated at T8, and at approximately L1. No acute bony changes noted. There is osteopenia RAD/Chest PA and Lateral IMPRESSION: 1. No evidence of acute cardiopulmonary process 2. Prior kyphoplasty in the mid thoracic spine at approximately T8, as well as at L1. No acute bony changes. Electronically Signed: Aki Villagomez MD at 17:21 EDT ,
== END | disposition home or self-care (01) ==
LOC: RAD 16:54
PROVIDERS: PCP Internal Medicine; Referring Provider Internal Medicine; Visit Provider Internal Medicine
DX: R07.9 Chest pain, unspecified (principal)
CPT/HCPCS: 71046

== ENCOUNTER 2023-08-19 05:23 | Inpatient (IN) | payer OTHER, SELFPAY ==
[2023-08-16 12:36] LABS: Hematocrit 46.2 % (37-47); Hemoglobin 15.1 g/dL (12.0-15.0); Mean Corp Hgb Conc 32.7 g/dL (32-36); Mean Corpuscular Hgb 28.8 pg (27.0-32.0); Mean Corpuscular Volume 88.2 fL (81-99); Mean Platelet Vol. 10.8 fl (6.2-12.0); Platelet Count 220 K/mm3 (150-450); RBC Distribution Width CV 13.2 % (11.6-14.6); RBC Distribution Width SD 42.5 fl (35.1-43.9); Red Blood Count 5.24 M/mm3 (4.2-5.4); White Blood Count 5.6 K/mm3 (4.4-11.0)
[2023-08-16 13:58] LABS: Magnesium 2.2 mg/dL (1.6-2.6)
[2023-08-16 14:00] LABS: ALB/GLOB Ratio 1.1 RATIO (0.9-2.4); AST(SGOT) 24 U/L (15-37); Alanine Aminotransfer ALT/SGPT 33 U/L (13-56); Albumin, Serum 3.7 g/dL (3.2-5.0); Alkaline Phosphatase 64 U/L (45-117); Anion Gap 6 (5-15); BUN 14 mg/dL (7-18); BUN/Creat Ratio 21.6 RATIO (10-20); Calcium,Total 9.1 mg/dL (8.5-10.1); Chloride 108 mmol/L (98-107); Creatinine, Serum 0.65 mg/dL (0.55-1.02); EST Glomerular Filtration Rate 99 mL/min (>60); Est Glom Filt Rate - Afr Amer 120 mL/min (>60); Globulin 3.3 g/dL (2.2-4.2); Glucose 94 mg/dL (74-106); Sodium Level 140 mmol/L (136-145)
[2023-08-19] VITALS (17 sets, daily range): BP systolic 101–143; BP diastolic 54–95; PULSE 55–88; RESP 14–16; TEMP 36.6–37.2; O2SAT 92–99; BMI 33.8
--- NOTE | 2023-08-19 02:54 | HP.PCM_ITS ---
History and Physical MR#: [id number] Acct: [id number] Name: LAN OTT Rep #: [id number] : 1960 Provider: Dr. Kayla Johnson MD Age/Sex: 62/F Location: [facility] Status: Signed Intake Vital Signs 06/23/2409:50 07/31/2412:37 07/31/2412:39 Height 5 ft 3 in 5 ft 3 in 5 ft 3 in Weight: 187 lb BMI 33.1 BP 121/81 H Intake Visit Reasons: BRINA [employer] Required: No Is patient in pain?: No Allergies No Known Allergies Allergy (Verified 08/01/23 13:38) Medications cholecalciferol (vitamin D3) 125 mcg (5,000 unit) capsule 125 mcg PO DAILY 09/17/20 [History Confirmed 08/01/23] omega-3 fatty acids 1,250 mg capsule 1,250 mg PO DAILY 09/17/20 [History Confirmed 08/01/23] calcium nekf-Q6-aoewfyij-inosit-silicon 300 mg-200 unit-37.5 mg tablet (Bone Density Calcium Plus D) tab PO 05/30/23 [History Confirmed 08/01/23] magnesium glycinate mg PO 05/30/23 [History Confirmed 08/01/23] multivitamin (Daily Multi-Vitamin tablet) 1 tab PO DAILY 05/30/23 [History Confirmed 08/01/23] Post menopausal: Yes : No PFSH Medical History (Updated 08/01/23 @ 13:[address] 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 current occupational exposures/hazards: No pets and animals: No history of recent travel: No sexually active: Yes Smoking Status: Former smoker quit date: 04/04/93 pack-years: 5 Electronic Cigarette Use: not used alcohol intake: never substance use type: does not use caffeine: Yes Type: coffee Number of servings: 2 eating out: rarely or never what type of physical activity do you participate in: walking and weight training frequency: 3-4 times per week dex/confucianism: None seatbelt use: always do you feel safe at home: Yes additional social history: - Er[employer] - [employer]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 HPI VIANEYHBANNIE garcia combo Details: LAN OTT is a 62 year old who presents for preop visit, planning hysterectomy for fibroid with urinary symptoms, no bleeding, has been 8-10 cm in size has seen since 2019, saw another provider and now wanting surgery. Female Reproductive History Menopausal Symptoms: No night sweats ROS Const Constitutional: Denies fatigue, night sweats, weight gain or weight loss ENT ENT: Reports system reviewed and no additional complaints, except as documented Cardio Card: Denies chest pain Resp Resp: Denies cough or dyspnea GI GI: Reports as per HPI; Denies constipation, nausea or vomiting : Reports urinary frequency, urinary incontinence and urinary urgency; Denies nipple discharge, urinary hesitancy, vaginal discharge, vaginal dryness, vaginal odor or vaginal pruritus Musc Musc: Denies arthralgias, back pain or muscle weakness Skin Skin/Breast: Denies alopecia, change in hair, dry skin, breast mass, breast pain, breast skin changes or nipple discharge Neuro Neuro: Reports system reviewed and no additional complaints, except as documented Psych Psych: Reports system reviewed and no additional complaints, except as documented Endo Endo: Denies cold intolerance, excessive sweating, heat intolerance or polydipsia Tejas/Lymph Hematologic/Lymphatic: Denies easy bleeding, Denies easy bruising and Denies lymphadenopathy Exam Const General: cooperative, healthy appearing, comfortable and no acute distress Orientation: alert HENDC Head: normal to inspection and normocephalic Ears: hearing grossly normal bilaterally and external ears normal Nose: external nose normal and nares normal Face and sinus: normal facial exam Neck Neck: normal visual inspection and no lymphadenopathy Thyroid: thyroid normal Chest Chest palpation & inspection: normal inspection of the chest Resp Effort & Inspection: normal respiratory effort Auscultation: clear to auscultation bilaterally Cardio Rate: regular rate Rhythm: regular rhythm Heart Sounds: S1 normal and S2 normal GI Inspection: normal to inspection and non-distended Palpation: soft and no hepatosplenomegaly Other: 16 week size uterus increased, tender. Musc Other: gross motor intact no deficits, full bilateral strength Skin General: no rashes or lesions noted Neuro General: patient alert, patient awake, moves all extremities and no focal motor deficits Motor: muscle tone normal throughout Extrem General: normal to inspection and no pedal edema Psych Appearance: grossly normal Mental Status: mental status grossly normal Affect: normal affect Speech and Movement: speech and movement normal Coding Level of Care Code No Charge Diagnoses Uterine leiomyoma, unspecified location D25.9 Uterine leiomyoma location: unspecified location Assessment and Plan Assessment and Plan (1) Fibroid uterus: Status: Acute Qualifiers: Uterine leiomyoma location: unspecified location Qualified Code(s): D25.9 - Leiomyoma of uterus, unspecified Comment: 10 cm fibroid uterus, discussed management, recommend surgical removal. plan LOLIS BSO. plan perioperative anticoagulation due to history of DVT. Plan After discussing the patient's diagnosis and treatment plan options, patient wishes to proceed with surgical management. I have discussed with the patient the risks, benefits, and alternatives of the procedure which include but are not limited to risks of anesthesia, bleeding, infection, possible damage to bowel, bladder, or surrounding vasculature which could lead to additional surgery to evaluate any complications. Patient agrees to procedure and wishes to proceed. ACOG/uptodate references given for additional information regarding procedure.
[2023-08-19] MEDS: dexAMETHasone 4 MG/ML Vial 8 MG IV (06:22)
[2023-08-19] MEDS: Lactated Ringers 1,000 ML 40 ML IV (06:22)
[2023-08-19] MEDS: Scopolamine 1mg/72hr Patch 1 PATCH TD (06:26)
[2023-08-19] MEDS: Enoxaparin 40 MG/0.4 ML Syringe SC (06:30)
[2023-08-19] MEDS: Phenazopyridine 95 MG Tablet 190 MG PO (06:47)
[2023-08-19] MEDS: Celecoxib 200 MG Capsule 400 MG PO (06:47)
[2023-08-19] MEDS: Magnesium 1 GM over 15 mins IV (06:47)
[2023-08-19] MEDS: Acetaminophen 500 MG Tablet 1000 MG PO (06:47)
[2023-08-19] MEDS: Gabapentin 600 MG Tablet PO (06:47)
--- NOTE | 2023-08-19 07:30 | HYST_PTH ---
PATIENT: LAN OTT LOC: MS3 U#:[id number] AGE/SX: 62/F ROOM: [facility] RE08/19/[address]: Dr. Kayla Johnson MD : 1960 BED: 1 DIS: 08/21/2023 SPEC #: [id number] RECD: 08/19/23 10:39 STATUS: GRETCHEN HERNANDEZ #: [id number] CLARA: 08/19/23 07:[address]: Kayla Johnson DEPT: SURGICAL PATHOLOGY RECD BY: Marianela Lubin ENTERED: 08/19/23 10:57 SP TYPE: HYSTERECT OTHR DR: MD Dr. Judith Shah MD Tissues: Uterus, NOS Procedures: Surgery Specimen Level V HEADER OPERATION: ERAS, hysterecetomy, LOLIS, bilateral salpingo-oopherectomy PRE-OP DIAGNOSIS: Fibroid uterus, leiomyoma of uterus, uterovaginal prolapse, incontience TISSUE SUBMITTED: Uterus, cervix, bilateral fallopian tubes and ovaries MICROSCOPIC DIAGNOSIS Uterus, hysterectomy: Cervix - Mild chronic inflammation Endometrium - Simple hyperplasia without atypia Myometrium - Leiomyoma , focally inflamed Right ovary- Corpora albicantia. Right fallopian tube- No pathologic change. Left ovary- Corpora albicantia. Left fallopian tube- No pathologic change. KEY/ 08/22/2023 MICROSCOPIC DESCRIPTION Slides are reviewed. GROSS DESCRIPTION Received in fixative is one container labeled with the patient's name and designated uterus, cervix, bilateral fallopian tubes and ovaries. The specimen consists of a hysterectomy specimen consisting of uterus, cervix with attached bilateral fallopian tubes, left ovary and possible right ovary. The uterus with cervix weighs 646 gm and measures 16.5 x 12.0 x 11.0 cm. The serosal surface is sifuentes glistening and unremarkable. The ectocervical mucosa is unremarkable. The external os is circular in contour. The endometrium is distorted due to the presence of large mass at the fundus. The endocervical canal measures 3.5 cm in length and the endocervical mucosa is sifuentes glistening and unremarkable. The endometrial cavity is compressed to one side and measures 6.0cm in length and 3.0cm in width. The endometrium is sifuentes glistening without any mass lesions and measures up to 0.3cm in thickness. Section of the uterine wall reveals a large nodular mass measuring 10.0cm in diameter. Sections of the mass reveal sifuentes whorled cut surfaces without areas of hemorrhage, necrosis or cystic degeneration. Uterine wall measures up to 3.5cm in thickness. Right fallopian tube measures 4.0cm in length and 0.6cm in diameter. The fimbral end is identified. Sections reveal unremarkable cut surfaces. Possible small right ovary is present measuring 1.0 x 1.0 x 0.5cm. The left fallopian tube measures 4.5cm in length and 0.5cm in diameter. It has a similar appearance to the right fallopian tube. The ovary measures 1.5 x 1.0 x 0.6cm. Sections reveal unremarkable cut surfaces. External Grinder sections are submitted in 11 cassettes as follows: 1 - anterior cervix, 2 - posterior cervix, 3 & 4 - anterior uterine wall, 5 & 6 - posterior uterine wall, 7-9- nodular mass, 10- right fallopian tube and ovary (right ovary submitted in entirety), 11- left fallopian tube and ovary. SJ: 08/19/2023 TC:1 CPT: 02568
[2023-08-19] MEDS: Cefazolin 2 GM in 0.9% Normal Saline (100mL Bag) 100 ML IV (08:00)
[2023-08-19 08:17] LABS: Bedside Glucose 81 mg/dL (74-106)
[2023-08-19] MEDS: Estrogens,Conj. 1 Tube 1 DOSE (11:24)
[2023-08-19] MEDS: Lidocaine 1% /Epi 1:100 (20ml) 20 ML Vial (11:24)
--- NOTE | 2023-08-19 11:38 | PCM.OPRPT ---
Report of Operation Date of Procedure: 08/19/23 Pre-Operative Diagnosis: Incomplete uterovaginal prolapse, stress urinary incontinence Post-Operative Diagnosis: Same Surgery/Procedure Performed:: Anterior repair, posterior repair, mid urethral sling insertion, cystoscopy with bilateral ureteral catheterization Surgeon: Judith Barnett Type of Anesthesia: General Estimated Blood Loss (mL): 25 cc Description of Procedure: The patient is a 62-year-old female with a large fibroid uterus and incomplete utero vaginal prolapse with stress incontinence who presents for surgical intervention. Informed consent was obtained. She underwent a total abdominal hysterectomy per Dr. Zackary Alexis. Once the patient was closed, the case was turned over to dc. At this time there was a small cystocele and a small rectocele remaining with no evidence of apical defect. A Bateman catheter was indwelling. Her mucosa was very fragile. The submucosa posteriorly was injected with 1% lidocaine with epinephrine for hydrostatic dissection and hemostatic control. A midline incision was then made and sharp and blunt dissection was performed very carefully until the rectovaginal fascia was identified. This was then brought together in a 2 layer closure using 3-0 PDS and 2-0 Vicryl interrupted sutures. Once the defect was completely closed, the vaginal mucosa was closed using running interlocking 2-0 Vicryl. Attention was then turned towards the anterior vaginal wall where it was once again injected and a midline incision was made. Sharp and blunt dissection was performed with care being taken to avoid entrance into the urinary bladder or ureteral injury. The pubocervical fascia was identified and brought together in a 2 layer closure with interrupted sutures using 3-0 PDS and 2-0 Vicryl. Once this closure was complete, the mucosa was closed with running interlocking 2-0 Vicryl. Attention was then turned to the mid urethra where once again the 1% lidocaine with epinephrine was injected for hydrostatic dissection and hemostatic control. A midline incision was made. Sharp and blunt dissection was performed on either side of the urethra with care being taken to avoid entrance into the urethra or the vaginal mucosa. Using the trocars provided, the Altis mid urethral sling trocars were placed through the obturator complexes bilaterally. The sling was positioned using the tensioning suture. When it lay flat against the urethra in good position, the tensioning suture was then cut. The incision was closed using running interlocking 2-0 Vicryl. The Bateman catheter was then removed and a cystoscope was inserted through the urethra under direct visualization revealing no evidence of injury to the urethra or the urinary bladder. There was no evidence of hemorrhage or foreign body present. Each ureteral orifice was cannulated with a 5 Luxembourger whistle-tip catheter with easy advancement up to 20 cm bilaterally. Each side was flushed with normal saline revealing proof that the ureters were intact bilaterally. At this time the cystoscope was removed and the Bateman catheter was reinserted with 10 cc of saline in the balloon. The vagina was then packed with vaginal packing and estrogen cream. She was awakened and taken to the recovery room in good condition. There were no complications during the procedure. Grafts/Implants Used: Altis mid urethral sling Complications None Admit VTE Documentation VTE Present on Admission: Yes VTE Mechan Device Prophylaxis: SCD's VTE Pharm Prophylaxis ordered?: Yes
--- NOTE | 2023-08-19 11:44 | DCINST_ITS ---
Discharge Instructions Diet Discharge Diet: No restrictions Activity Discharge Activity: May Shower May resume sexual activity in: 8 weeks Lifting Restrictions: 5 pounds for 8 weeks Additional Activity Instructions:: No exercise, strenuous activity, sexual activity, swimming, hot tubs or tub bathing Dressing / Incision Call your doctor if your incision/area has: Continuous Slow Oozing, Sudden Increased Bleeding, Increased Pain/ Swelling and Foul Smelling Discharge Call your doctor if you observe: Fever of 101 or Higher, Inability to urinate and Inability to have a bowel movement Follow Up Care Please Follow Up With: Judith Barnett MD When: The office will call the patient to make follow-up arrangements. Test Results: Test results from this visit will be discussed in further detail at your follow- up appointment, if applicable. Discharge Plan Admission Admit Date/Time: 08/19/23 05:23 Attending Provider: Kayla Johnson Primary Care Provider: Leeann Riley Consulting Providers: Judith Barnett Discharge Orders/Prescriptions Prescriptions: New oxycodone-acetaminophen [Percocet] 5-325 mg tablet 1 tab PO Q8H PRN (Reason: pain) 3 Days Qty: 10 0RF cephalexin 500 mg capsule 500 mg PO Q12 3 Days Qty: 6 0RF enoxaparin [Lovenox] 40 mg/0.4 mL syringe 40 mg SQ DAILY 40 Days Qty: 20 1RF Continued omega-3 fatty acids 1,250 mg capsule 1,250 mg PO DAILY cholecalciferol (vitamin D3) 125 mcg (5,000 unit) capsule 125 mcg PO DAILY Bone Density Calcium Plus D 300-200-37.5 mg-unit-mg tablet 1 tab PO DAILY multivitamin [Daily Multi-Vitamin] Tablet 1 tab PO DAILY magnesium glycinate 100 mg magnesium capsule 250 mg PO DAILY Referrals / Follow Up: Leeann Riley MD [Primary Care Provider] - Disposition Disposition (needs filled in before D/C Order can be placed): Home, Self Care
[2023-08-19] MEDS: Lactated Ringers 1,000 ML 100 ML IV ×2 (11:59→23:40)
[2023-08-19] MEDS: Ondansetron 4 MG/2 ML Vial IV (12:02)
--- NOTE | 2023-08-19 12:11 | DCINST_ITS ---
Discharge Instructions Diet Discharge Diet: No restrictions Activity Discharge Activity: Return to Normal Activity, May Not Drive (while taking narcotic pain medications.) and May Shower May resume sexual activity in: 8 weeks Weight Bearing Status: Weight bearing as tolerated Additional Activity Instructions:: No exercise, strenuous activity, sexual activity, swimming, hot tubs or tub bathing Dressing / Incision Call your doctor if your incision/area has: Continuous Slow Oozing, Sudden Increased Bleeding, Increased Pain/ Swelling and Foul Smelling Discharge Call your doctor if you observe: Fever of 101 or Higher, Inability to urinate and Inability to have a bowel movement Follow Up Care Please Follow Up With: Judith Barnett MD Test Results: Test results from this visit will be discussed in further detail at your follow- up appointment, if applicable. Discharge Plan Admission Admit Date/Time: 08/19/23 05:23 Attending Provider: Kayla Johnson Primary Care Provider: Leeann Riley Consulting Providers: Judith Barnett Discharge Orders/Prescriptions Prescriptions: New oxycodone-acetaminophen [Percocet] 5-325 mg tablet 1 tab PO Q8H PRN (Reason: pain) 3 Days Qty: 10 0RF cephalexin 500 mg capsule 500 mg PO Q12 3 Days Qty: 6 0RF Continued omega-3 fatty acids 1,250 mg capsule 1,250 mg PO DAILY cholecalciferol (vitamin D3) 125 mcg (5,000 unit) capsule 125 mcg PO DAILY Bone Density Calcium Plus D 300-200-37.5 mg-unit-mg tablet 1 tab PO DAILY multivitamin [Daily Multi-Vitamin] Tablet 1 tab PO DAILY magnesium glycinate 100 mg magnesium capsule 250 mg PO DAILY Referrals / Follow Up: Leeann Riley MD [Primary Care Provider] - Disposition Disposition (needs filled in before D/C Order can be placed): Home, Self Care
--- NOTE | 2023-08-19 12:11 | PCM.OPRPT ---
Problems Associated Problem List Diagnoses (1) Venous insufficiency (chronic) (peripheral): (2) ROWENA (stress urinary incontinence, female): (3) DVT (deep venous thrombosis): (4) Fibroid uterus: Report of Operation Date of Procedure: 08/19/23 Pre-Operative Diagnosis: see problem list Post-Operative Diagnosis: same Surgery/Procedure Performed:: BRINA Description of Surgical Findings:: enlarged fibroid uterus right pelvic congestion Surgeon: Kayla Johnson conditioning yard supervisor: Gloria Terry conditioning yard supervisor: Deven Calzada Specimen's removed: uterus tubes Estimated Blood Loss (mL): 200 Fluids Replaced: crystalloid Description of Procedure: The patient was taken to the operating room and placed under general anesthesia in the dorsal supine position. She was prepped and draped in the normal sterile fashion. Bateman catheter was placed in the bladder SCDs were on and preoperative antibiotics were given. A pfannensteil skin incision was made with the scalpel and carried through the underlying layer of the fascia with the scalpel, fascia was nicked in the midline, incision extended laterally. Rectus bellies were dissected off superiorly and inferiorly sharply and bluntly and peritoneum entered digitally, incision stretched laterally and the retractor was placed after the bowel was packed away. The uterus was identified and noted to be significantly enlarged approximately 18 cm. The ovaries were noted to be within normal limits. The fallopian tubes and ovaries were elevated bilaterally and the IP ligament was transected with the ligasure after suture ligating with monocryl and after the round ligaments were transected bilaterally and the broad ligament was opened up and the utero-ovarian ligament vessels were clamped cut and suture ligated with 0 Monocryl. The bladder flap was created taking down the vesicouterine peritoneum and the uterine vessels were skeletonized and clamped cut and ligated with the ligasure device. The cardinal ligament were then clamped cut and ligated with the ligasure followed by progressive bites of the parametrium down to the level of the cervix. Good attention was paid to keep the bladder inferior to the clamps and dissected off of the cervix and lower uterine corpus. The clamps were then placed underneath the cervix bilaterally the uterus amputated off of the vaginal stump and the vaginal cuff was suture ligated with 0 Monocryl [id number] sutures ?3. Excellent hemostasis was noted after irrigation. all instruments removed from the abdomen and the peritoneum was closed hemoblast placed over the muscles and then with 3-0 Monocryl fascia closed with 0 PDS subcutaneous tissue reapproximated with 3-0 Monocryl and the skin closed with 4-0 Monocryl. jose then performed her portion of the procedure Procedure Start Time: 07:57 Procedure Stop Time: 11:39 Multi Select Codes Urinary/Genital Urinary/Genital CPT Codes: 20765 [facility]
[2023-08-19] MEDS: Ketorolac 15 MG/ML Vial IV ×2 (12:17→23:40)
[2023-08-19 12:56] LABS: Hematocrit 43.7 % (37-47); Hemoglobin 14.1 g/dL (12.0-15.0); Mean Corp Hgb Conc 32.3 g/dL (32-36); Mean Corpuscular Hgb 28.3 pg (27.0-32.0); Mean Corpuscular Volume 87.6 fL (81-99); Mean Platelet Vol. 10.4 fl (6.2-12.0); Platelet Count 168 K/mm3 (150-450); RBC Distribution Width SD 41.4 fl (35.1-43.9); Red Blood Count 4.99 M/mm3 (4.2-5.4); White Blood Count 10.9 K/mm3 (4.4-11.0)
[2023-08-19 13:15] LABS: Anion Gap 4 (5-15); BUN 11 mg/dL (7-18); Calcium,Total 8.6 mg/dL (8.5-10.1); Chloride 108 mmol/L (98-107); Creatinine, Serum 0.79 mg/dL (0.55-1.02); EST Glomerular Filtration Rate 79 mL/min (>60); Est Glom Filt Rate - Afr Amer 96 mL/min (>60); Estimated Creatinine Clearance 76.11 ml/min; Glucose 160 mg/dL (74-106); Potassium 4.3 mmol/L (3.5-5.1); Sodium Level 139 mmol/L (136-145)
[2023-08-19] MEDS: Cefazolin 1 GM/50 ML BAG IV ×2 (15:53→23:40)
[2023-08-19] MEDS: 0.9% Saline Lock 10 ML Syringe IV (23:41)
[2023-08-20] MEDS: oxyCODONE 5 MG Tablet PO ×3 (00:33→17:06)
[2023-08-20 04:50] VITALS: BP 106/60; PULSE 79; RESP 18; TEMP 36.7; O2SAT 95
[2023-08-20] MEDS: 0.9% Saline Lock 10 ML Syringe IV ×3 (04:57→20:44)
[2023-08-20] MEDS: Morphine 4 MG/ML Syringe IV (04:57)
[2023-08-20] MEDS: Enoxaparin 40 MG/0.4 ML Syringe SC (06:15)
[2023-08-20 06:27] LABS: Absolute Lymphocyte Count 1.11 X10^3/uL (0.83-4.51); Absolute Neutrophil Count 6.9 X10^3/uL (2.0-7.7); Basophil# 0.02 X10^3/uL; Basophil% 0.2 % (0-1); Eosinophil# 0.02 X10^3/uL; Eosinophils% 0.2 % (0-5); Hematocrit 37.8 % (37-47); Hemoglobin 12.1 g/dL (12.0-15.0); Lymphocyte # 1.11 X10^3/ul (0.83-4.51); Lymphocyte % 12.7 % (19-41); Mean Corpuscular Hgb 28.3 pg (27.0-32.0); Mean Corpuscular Volume 88.3 fL (81-99); Mean Platelet Vol. 10.6 fl (6.2-12.0); Monocyte# 0.68 X10^3/uL; Monocyte% 7.8 % (0-10); NRBC Flagged by Analyzer 0 % (0-5); Neutrophil # 6.87 X10^3/uL (2.7-7.7); Neutrophil % 78.6 % (47-70); Platelet Count 164 K/mm3 (150-450); RBC Distribution Width CV 13.2 % (11.6-14.6); RBC Distribution Width SD 42.7 fl (35.1-43.9); Red Blood Count 4.28 M/mm3 (4.2-5.4); White Blood Count 8.7 K/mm3 (4.4-11.0)
[2023-08-20 08:27] VITALS: O2SAT 93
--- NOTE | 2023-08-20 08:37 | PN.URO_ITS ---
Subjective Subjective No issues overnight. Objective Data Objective Data O2 sats are little low, we discussed IS and deep breathing. Vital Signs: Vital Signs Temp Pulse Resp BP Pulse Ox O2 Del Method O2 Flow Rate 98.1 F 79 18 106/60 93 Room Air 2 08/20/23 04:50 08/20/23 04:50 08/20/23 04:50 08/20/23 04:50 08/20/23 08:27 08/20/23 08:27 08/19/23 19:00 Oxygen Flow Rate (L/min) 2 Oxygen Delivery Method Room Air Weight: 83.915 kg Body Mass Index (BMI) 33.8 Intake & Output: Intake and Output for Last 24 Hours 08/18/23 08/19/23 08/20/23 23:59 23:59 23:59 Intake Total 2622 / 3272 700 / 700 Output Total 550 / 1200 1100 / 1100 Balance 2071 / 2071 -400 / -400 Lab / Micro Data 08/20/23 05:50 08/19/23 12:25 Labs: Laboratory Results - last 24 hr 08/19/23 12:25: WBC 10.9, RBC 4.99, Hgb 14.1, Hct 43.7, MCV 87.6, MCH 28.3, MCHC 32.3, RDW Std Deviation 41.4, RDW Coeff of Madalyn 13.0, Plt Count 168, MPV 10.4, Sodium 139, Potassium 4.3, Chloride 108 H, Carbon Dioxide 27.0, Anion Gap 4 L, BUN 11, Creatinine 0.79, Estim Creat Clear Calc 76.11, Est GFR (MDRD) Af Amer 96, Est GFR (MDRD) Non-Af 79, BUN/Creatinine Ratio 14.0, Glucose 160 H, Calcium 8.6 08/20/23 05:50: WBC 8.7, RBC 4.28, Hgb 12.1, Hct 37.8, MCV 88.3, MCH 28.3, MCHC 32.0, RDW Std Deviation 42.7, RDW Coeff of Madalyn 13.2, Plt Count 164, MPV 10.6, Immature Gran % (Auto) 0.500, Neut % (Auto) 78.6 H, Lymph % (Auto) 12.7 L, Mitchell % (Auto) 7.8, Eos % (Auto) 0.2, Baso % (Auto) 0.2, Absolute Neuts (auto) 6.9, Absolute Lymphs (auto) 1.11, Nucleated RBC % 0 Physical Exam Narrative urine clear. SCD's in place. Bateman and packing removed without issues. Const alert, oriented x3 and no apparent distress Assessment & Plan Assessment/Plan (1) Incomplete uterovaginal prolapse: (2) ROWENA (stress urinary incontinence, female): PLAN: Plan trial of void today supportive care with increased IS, cough & deep breathing home later today is the plan
--- NOTE | 2023-08-20 08:51 | EKG12_ITS ---
Test Reason : Blood Pressure : / mmHG Vent. Rate : 070 BPM Atrial Rate : 070 BPM P-R Int : 150 ms QRS Dur : 092 ms QT Int : 402 ms P-R-T Axes : 040 005 019 degrees QTc Int : 434 ms Normal sinus rhythm Minor Nonspecific T wave changes Borderline No previous ECGs available Confirmed by Sarath Polo ([id number]), video news editor ASHOK BLAND ([id number]) on 08/24/2023 8:58:56 AM Referred By: Kayla Johnson Confirmed By:Sarath Polo
[2023-08-20 08:53] VITALS: BP 107/58; PULSE 74; RESP 18; TEMP 37.2; O2SAT 95
[2023-08-20 10:15] LABS: Troponin-I HS < 3 pg/mL (3.0-54.0)
--- NOTE | 2023-08-20 11:24 | PCM.PN.OB ---
Subjective Subjective pt tolerating po, no longer experiencing left shoulder pain. denies sob/cp/calf tenderness or pain. Objective Data Objective Data Vital Signs: Vital Signs Temp Pulse Resp BP Pulse Ox O2 Del Method O2 Flow Rate 99 F 74 18 107/58 L 95 Room Air 2 08/20/23 08:53 08/20/23 08:53 08/20/23 08:53 08/20/23 08:53 08/20/23 08:53 08/20/23 08:53 08/19/23 19:00 Oxygen Flow Rate (L/min) 2 Oxygen Delivery Method Room Air Weight: 185 lb Body Mass Index (BMI) 33.8 Intake & Output: Intake and Output for Last 24 Hours 08/18/23 08/19/23 08/20/23 23:59 23:59 23:59 Intake Total 2622 / 3272 1608.33 / 1608.33 Output Total 550 / 1200 1350 / 1350 Balance 2072 / 2072 258.33 / 258.33 Lab / Micro Data Attestation: I reviewed the patient's lab results. 08/20/23 05:50 08/19/23 12:25 Labs: Laboratory Results - last 24 hr 08/19/23 12:25: WBC 10.9, RBC 4.99, Hgb 14.1, Hct 43.7, MCV 87.6, MCH 28.3, MCHC 32.3, RDW Std Deviation 41.4, RDW Coeff of Madalyn 13.0, Plt Count 168, MPV 10.4, Sodium 139, Potassium 4.3, Chloride 108 H, Carbon Dioxide 27.0, Anion Gap 4 L, BUN 11, Creatinine 0.79, Estim Creat Clear Calc 76.11, Est GFR (MDRD) Af Amer 96, Est GFR (MDRD) Non-Af 79, BUN/Creatinine Ratio 14.0, Glucose 160 H, Calcium 8.6 08/20/23 05:50: WBC 8.7, RBC 4.28, Hgb 12.1, Hct 37.8, MCV 88.3, MCH 28.3, MCHC 32.0, RDW Std Deviation 42.7, RDW Coeff of Madalyn 13.2, Plt Count 164, MPV 10.6, Immature Gran % (Auto) 0.500, Neut % (Auto) 78.6 H, Lymph % (Auto) 12.7 L, Buchanan % (Auto) 7.8, Eos % (Auto) 0.2, Baso % (Auto) 0.2, Absolute Neuts (auto) 6.9, Absolute Lymphs (auto) 1.11, Nucleated RBC % 0 08/20/23 09:45: Troponin I High Sens < 3 L Physical Exam Const alert and oriented x3 Eyes PERRL Neck full ROM Chest inspection of chest normal Resp normal respiratory effort, normal air movement and no retractions Auscultation: clear to auscultation bilaterally Cardio regular rate and regular rhythm GI normal to inspection, nondistended, normoactive bowel sounds Narrative: no vaginal bleeding. Extremity normal to inspection and full ROM Skin no rashes or lesions noted Skin Narrative: dressing intact, old drainage marked. Psych mental status grossly normal Assessment & Plan (1) Incomplete uterovaginal prolapse: COMMENT: s/p LOLIS BSO (2) Fibroid uterus: QUALIFIERS: Uterine leiomyoma location: unspecified location Qualified Code(s): D25.9 - Leiomyoma of uterus, unspecified COMMENT: 10 cm fibroid uterus, discussed management, recommend surgical removal. plan LOLIS BSO. plan perioperative anticoagulation due to history of DVT. PLAN: s/p LOLIS BSO. on lovenox. PLAN: Plan -pending medical consult for chest pain, negative troponin. currently stable VS and no longer complaining of chest pain or left shoulder pain. - due to void -discharge per Dr. Barnett
[2023-08-20 12:26] LABS: Troponin-I HS 3 pg/mL (3.0-54.0)
--- NOTE | 2023-08-20 13:00 | CASEMGMT ---
Addendum entered by Damon Burris 08/20/23 15:33: Rx's for Lovenox, cephalexin, and percocet were e-scribed to [facility] retail pharmacy yesterday by Dr Johnson. Pt states she has received a call from the pharmacy and was told the cost would be approx $31/32 and they will deliver medications to pt's room. Per RNRabia, Dr Barnett states pt is not discharging home today. Rabia aware meds are being delivered to pt's room and she will lock them up. Pt to be given medications at discharge. Original Note: RN?CM?VASCULAR PHYSICIAN?CM?to room to meet with patient for initial transition planning/care coordination?assessment.?RN?CM?introduced self and role at [facility].? Pt voices understanding and consents to?assessment?at this time.? Pt resting in bed in no distress at this time.? Pt is A/O at this time and answers all questions appropriately.?? Care providers, pharmacy, and demographics verified/updated at this time. PCP: Dr Riley Specialists: Dr Barnett-SEWAGE DISPOSAL WORKER. Dr Curran-endocrinology (1st appt is scheduled in October). Dr Michel-vascular Preferred Pharmacy: [facility] in [place] @ [place]. Insurance: [employer] Prescription Benefit:?yes LNOK: , Ernie Living Arrangements: Lives w/ in 2-story home w/2 steps to enter. [employer]. Independent. Transportation:?Pt states drives self and states no transportation concerns at this time.? also drives. DME: ? Denies using any DME and denies needs.? HHC/SNF: No hx of either. No needs identified. Pt wishes to return home and states has no concerns with going home at time of discharge.? Follow for any further discharge planning/needs.? Pt voices no further concerns/needs at this time. PLAN:??Home. Pt to discharge home on Lovenox injections. Nursing to education on self-administration. Paul BSN?RN?CM
--- NOTE | 2023-08-20 13:04 | PN.HOSP_ITS ---
Reason for Visit Reason for Visit: Diagnoses Leiomyoma of uterus, unspecified (08/19/23) Acute embolism and thrombosis of unspecified deep veins of unspecified lower extremity (08/19/23) Venous insufficiency (chronic) (peripheral) (08/19/23) Stress incontinence (female) (male) (08/19/23) Incomplete uterovaginal prolapse (08/19/23) Encounter for other preprocedural examination (08/19/23) Subjective Subjective Patient was seen and examined today at the request of her attending urologist, last night the patient had an episode of right shoulder discomfort which lasted several hours according to the patient, she was told this could be secondary to gas, she denied any chest discomfort, she denied any shortness of breath. She is not able to fully describe what the shoulder pain felt like-she said it had a sharp nature and a dull nature to it. Patient has no history of cardiac disease. Patient underwent surgery yesterday for incomplete uterovaginal prolapse and stress urinary incontinence. She underwent a total abdominal hysterectomy and anterior and posterior repair with mid urethral sling insertion and cystoscopy with bilateral ureteral catheterization. Patient's EKG done preop does not show any evidence of injury pattern or ischemia. Patient had a repeat twelve-lead EKG today which showed no evidence of any ischemic changes or injury pattern also. Patient also a troponin series drawn, the first 2 results were normal, the third one has yet to result. At this time, patient has no complaints of any chest discomfort or shoulder pain, she has no complaints of any shortness of breath. Her pulse ox is 95% on room air. Objective Data Objective Data Vital Signs: Vital Signs Temp Pulse Resp BP Pulse Ox O2 Del Method O2 Flow Rate 99 F 74 18 107/58 L 95 Room Air 2 08/20/23 08:53 08/20/23 08:53 08/20/23 08:53 08/20/23 08:53 08/20/23 08:53 08/20/23 08:53 08/19/23 19:00 Oxygen Flow Rate (L/min) 2 Oxygen Delivery Method Room Air Weight: 83.915 kg Body Mass Index (BMI) 33.8 Intake & Output: Intake and Output for Last 24 Hours 08/18/23 08/19/23 08/20/23 23:59 23:59 23:59 Intake Total 2622 / 3272 1848.33 / 1848.33 Output Total 550 / 1200 1350 / 1350 Balance 2071 498.33 / 498.33 Lab / Micro Data 08/20/23 05:50 08/19/23 12:25 Labs: Laboratory Results - last 24 hr 08/19/23 12:25: Sodium 139, Potassium 4.3, Chloride 108 H, Carbon Dioxide 27.0, Anion Gap 4 L, BUN 11, Creatinine 0.79, Estim Creat Clear Calc 76.11, Est GFR (MDRD) Af Amer 96, Est GFR (MDRD) Non-Af 79, BUN/Creatinine Ratio 14.0, Glucose 160 H, Calcium 8.6 08/20/23 05:50: WBC 8.7, RBC 4.28, Hgb 12.1, Hct 37.8, MCV 88.3, MCH 28.3, MCHC 32.0, RDW Std Deviation 42.7, RDW Coeff of Madalyn 13.2, Plt Count 164, MPV 10.6, Immature Gran % (Auto) 0.500, Neut % (Auto) 78.6 H, Lymph % (Auto) 12.7 L, Richardson % (Auto) 7.8, Eos % (Auto) 0.2, Baso % (Auto) 0.2, Absolute Neuts (auto) 6.9, Absolute Lymphs (auto) 1.11, Nucleated RBC % 0 08/20/23 09:45: Troponin I High Sens < 3 L 08/20/23 09:45: Troponin I High Sens 3 Physical Exam Const alert, oriented x3, no apparent distress and healthy appearing General Appearance: cooperative, well kempt and well developed Orientation / Consciousness: awake, oriented to person, oriented to place and oriented to time HEENT normocephalic, head/scalp atraumatic and moist oral mucous membranes Eyes PERRL, EOMs intact bilaterally and conjunctivae normal Neck supple, no JVD, thyroid normal and no carotid bruits General: trachea midline Resp normal respiratory effort, no retractions, no use of accessory muscles and clear to auscultation bilaterally Auscultation: Negative for rales, rhonchi or wheezes Cardio regular rate, regular rhythm, S1 normal heart sound, S2 normal heart sound, no murmurs, no rub and no gallops Extremity no clubbing, cyanosis or edema Skin no rashes or lesions noted Neuro oriented x3, CN's II-XII intact bilaterally, no focal motor deficits and no sensory deficits noted Sensorium / Orientation: awake and alert Speech: speech normal Psych affect normal Assessment & Plan Assessment/Plan (1) Right shoulder pain: PLAN: Plan 1. Right shoulder pain-etiology unclear, I think this is unlikely to be an anginal equivalent, patient's troponins have remained normal so far with one left to result. I do not feel the patient needs to be monitored on telemetry. I think it is unlikely the patient has had a pulmonary embolism. #2 degenerative disc disease lumbar spine #3 status post hysterectomy with urological surgery for urinary incontinence Total clinical time spent by myself addressing the patient's medical issues, reviewing all of her data, and collaborating with patient's care team: 25 minutes Charges/Coding Visit Charges Inpatient E&M: 28535 Subs Hosp L1
[2023-08-20 14:07] VITALS: BP 122/79; PULSE 75; RESP 18; TEMP 36.8; O2SAT 96
--- NOTE | 2023-08-20 14:29 | DCINST_ITS ---
Discharge Instructions Diet Discharge Diet: No restrictions Activity May resume sexual activity in: 8 weeks Weight Bearing Status: Weight bearing as tolerated Additional Activity Instructions:: No exercise, strenuous activity, sexual activity, swimming, hot tubs or tub bathing Dressing / Incision Call your doctor if your incision/area has: Continuous Slow Oozing, Sudden Increased Bleeding, Increased Pain/ Swelling and Foul Smelling Discharge Call your doctor if you observe: Fever of 101 or Higher, Inability to urinate and Inability to have a bowel movement Follow Up Care Please Follow Up With: Judith Barnett MD Test Results: Test results from this visit will be discussed in further detail at your follow- up appointment, if applicable. Discharge Plan Admission Admit Date/Time: 08/19/23 05:23 Attending Provider: Kayla Johnson Primary Care Provider: Leeann Riley Consulting Providers: Judith Barnett; Zackary Kerns Discharge Orders/Prescriptions Prescriptions: New oxycodone-acetaminophen [Percocet] 5-325 mg tablet 1 tab PO Q8H PRN (Reason: pain) 3 Days Qty: 10 0RF cephalexin 500 mg capsule 500 mg PO Q12 3 Days Qty: 6 0RF enoxaparin [Lovenox] 40 mg/0.4 mL syringe 40 mg SQ DAILY 40 Days Qty: 20 1RF enoxaparin [Lovenox] 40 mg/0.4 mL syringe 40 mg subcut Q24H 42 Days Qty: 16.8 0RF Continued omega-3 fatty acids 1,250 mg capsule 1,250 mg PO DAILY cholecalciferol (vitamin D3) 125 mcg (5,000 unit) capsule 125 mcg PO DAILY Bone Density Calcium Plus D 300-200-37.5 mg-unit-mg tablet 1 tab PO DAILY multivitamin [Daily Multi-Vitamin] Tablet 1 tab PO DAILY magnesium glycinate 100 mg magnesium capsule 250 mg PO DAILY Referrals / Follow Up: Leeann Riley MD [Primary Care Provider] - Disposition Disposition (needs filled in before D/C Order can be placed): Home, Self Care
[2023-08-20] MEDS: Ketorolac 15 MG/ML Vial IV ×2 (14:40→20:44)
[2023-08-20 16:11] LABS: Troponin-I HS < 3 pg/mL (3.0-54.0)
[2023-08-20 17:28] VITALS: BP 119/85; PULSE 82; RESP 18; TEMP 36.8; O2SAT 96
[2023-08-20 20:38] VITALS: BP 112/75; PULSE 80; RESP 16; TEMP 36.8; O2SAT 95
[2023-08-21] MEDS: oxyCODONE 5 MG Tablet PO ×3 (03:41→16:10)
[2023-08-21 03:59] VITALS: BP 122/76; PULSE 61; RESP 16; TEMP 36.6; O2SAT 96
[2023-08-21] MEDS: Enoxaparin 40 MG/0.4 ML Syringe SC (06:31)
[2023-08-21] MEDS: Ketorolac 15 MG/ML Vial IV (06:31)
[2023-08-21 07:49] VITALS: O2SAT 95
--- NOTE | 2023-08-21 09:35 | PCM.PN.OB ---
Subjective Subjective pt tolerating po, no nausea/vomiting. pain controlled by PO medication.ambulating in halls, pain to left shoulder described as a burning sensation only with ambulation, is not experiencing any pain currently. denies sob/cp/calf tenderness or pain. 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 Vital Signs: Vital Signs Temp Pulse Resp BP Pulse Ox O2 Del Method O2 Flow Rate 97.8 F 61 16 122/76 H 95 Room Air 2 08/21/23 03:59 08/21/23 03:59 08/21/23 03:59 08/21/23 03:59 08/21/23 07:49 08/21/23 07:49 08/19/23 19:00 Oxygen Flow Rate (L/min) 2 Oxygen Delivery Method Room Air Weight: 185 lb Body Mass Index (BMI) 33.8 Intake & Output: Intake and Output for Last 24 Hours 08/19/23 08/20/23 08/21/23 23:59 23:59 23:59 Intake Total 2622 / 3272 2088.33 / 2088.33 400 / 400 Output Total 550 / 1200 1375 / 1375 650 / 650 Balance 2071 / 2071 713.33 / 713.33 -250 / -250 Lab / Micro Data Attestation: I reviewed the patient's lab results. 08/20/23 05:50 08/19/23 12:25 Labs: Laboratory Results - last 24 hr 08/20/23 09:45: Troponin I High Sens < 3 L 08/20/23 09:45: Troponin I High Sens 3 08/20/23 15:45: Troponin I High Sens < 3 L Physical Exam Const alert, oriented x3, no apparent distress and healthy appearing General Appearance: cooperative, well kempt and well developed Orientation / Consciousness: awake, oriented to person, oriented to place and oriented to time HEENT normocephalic, head/scalp atraumatic and moist oral mucous membranes Eyes PERRL, EOMs intact bilaterally and conjunctivae normal Neck supple, no JVD, thyroid normal and no carotid bruits General: trachea midline Chest inspection of chest normal Resp normal respiratory effort, no retractions, no use of accessory muscles and clear to auscultation bilaterally Auscultation: Negative for rales, rhonchi or wheezes Cardio regular rate, regular rhythm, S1 normal heart sound, S2 normal heart sound, no murmurs and no rub GI normal to inspection, nondistended, normoactive bowel sounds Narrative: no vaginal bleeding. Extremity no clubbing, cyanosis or edema Skin no rashes or lesions noted Skin Narrative: dressing intact, old drainage marked. Neuro oriented x3, CN's II-XII intact bilaterally, no focal motor deficits and no sensory deficits noted Sensorium / Orientation: awake and alert Speech: speech normal Psych affect normal Assessment & Plan (1) Right shoulder pain: PLAN: negative cardiac enzymes. recommended abdominal binder during ambulation (2) Incomplete uterovaginal prolapse: COMMENT: s/p LOLIS BSO PLAN: stable postoperative course. discharge based on Dr. Barnett pain well managed.
[2023-08-21 09:59] VITALS: BP 109/69; PULSE 75; RESP 18; TEMP 36.9; O2SAT 94
--- NOTE | 2023-08-21 14:16 | PCM.PN.GU ---
Subjective Subjective She is feeling much better this afternoon. The pain is improved. She is now passing flatus and there is no nausea or any issue with oral intake. There is no shortness of breath. She is ready to go home. We discussed her removing the catheter Tuesday and seeing me in the office on Tuesday. Objective Data Objective Data Vital Signs: Vital Signs Temp Pulse Resp BP Pulse Ox O2 Del Method O2 Flow Rate 98.5 F 75 18 109/69 94 Room Air 2 08/21/23 09:59 08/21/23 09:59 08/21/23 09:59 08/21/23 09:59 08/21/23 09:59 08/21/23 09:59 08/19/23 19:00 Oxygen Flow Rate (L/min) 2 Oxygen Delivery Method Room Air Weight: 83.915 kg Body Mass Index (BMI) 33.8 Intake & Output: Intake and Output for Last 24 Hours 08/19/23 08/20/23 08/21/23 23:59 23:59 23:59 Intake Total 2622 / 3272 2088.33 / 2088.33 640 / 640 Output Total 550 / 1200 1375 / 1375 650 / 650 Balance 2072 / 2072 713.33 / 713.33 -10 / -10 Lab / Micro Data 08/20/23 05:50 08/19/23 12:25 Labs: Laboratory Results - last 24 hr 08/20/23 15:45: Troponin I High Sens < 3 L Physical Exam Narrative Urine is clear, abdomen is soft. SCDs are in place. Const alert, oriented x3 and no apparent distress Assessment & Plan Assessment/Plan (1) Incomplete uterovaginal prolapse: PLAN: Discharge home with follow-up on Tuesday Prescription written, she will continue Lovenox for 6 weeks and antibiotics for 3 days (2) ROWENA (stress urinary incontinence, female):
[2023-08-21 14:19] VITALS: BP 105/76; PULSE 81; RESP 18; TEMP 37.1; O2SAT 94
== END 2023-08-21 16:56 | disposition home or self-care (01) | DRG 743 ==
LOC: ACINP 05:23 → MS3 11:47
PROVIDERS: Anesthesiology; Urology; Admitting Provider Obstetrics & Gynecology; PCP Internal Medicine; Referring Provider Obstetrics & Gynecology; Visit Provider Obstetrics & Gynecology
PROC: 0UT90ZZ Resection of Uterus, Open Approach (ICD-10-PCS; CPT 58150; principal; 2023-08-19 07:10)
PROC: 0TSC0ZZ Reposition Bladder Neck, Open Approach (ICD-10-PCS; CPT 57260; 2023-08-19 07:10)
DX: D25.9 Leiomyoma of uterus, unspecified (principal); I87.2 Venous insufficiency (chronic) (peripheral); M25.512 Pain in left shoulder; N81.2 Incomplete uterovaginal prolapse; N83.291 Other ovarian cyst, right side; N83.292 Other ovarian cyst, left side; N39.46 Mixed incontinence; N32.81 Overactive bladder; N95.2 Postmenopausal atrophic vaginitis; N94.11 Superficial (introital) dyspareunia; Z79.01 Long term (current) use of anticoagulants; Z86.718 Personal history of other venous thrombosis and embolism; Z87.891 Personal history of nicotine dependence
CPT/HCPCS: 36415; 80048; 80053; 82962; 83735; 84484; 85025; 85027; 86850; 86900; 86901; 88307; 93005; 94668; J7120; A4216; C1758; J2405; J3475

== ENCOUNTER → 2023-10-24 | Outpatient (CLI) | payer OTHER, SELFPAY ==
[2023-10-24 17:40] LABS: PTHIN 35.4 pg/mL (18.4-80.1)
[2023-10-24 17:42] LABS: AST(SGOT) 17 U/L (15-37); Alanine Aminotransfer ALT/SGPT 27 U/L (13-56); Albumin, Serum 3.6 g/dL (3.2-5.0); Alkaline Phosphatase 65 U/L (45-117); Anion Gap 5 (5-15); BUN 23 mg/dL (7-18); BUN/Creat Ratio 34.5 RATIO (10-20); Calcium,Total 9.1 mg/dL (8.5-10.1); Chloride 105 mmol/L (98-107); Creatinine, Serum 0.67 mg/dL (0.55-1.02); EST Glomerular Filtration Rate 96 mL/min (>60); Est Glom Filt Rate - Afr Amer 116 mL/min (>60); Globulin 3.6 g/dL (2.2-4.2); Glucose 96 mg/dL (74-106); Potassium 3.7 mmol/L (3.5-5.1); Protein, Total 7.2 g/dL (6.4-8.2); Sodium Level 140 mmol/L (136-145)
[2023-10-24 17:43] LABS: Vitamin D,25 Hydroxy 50.7 ng/mL
== END | disposition home or self-care (01) ==
LOC: LAB 16:11
PROVIDERS: PCP Internal Medicine; Referring Provider Internal Medicine Endocrinology, Diabetes & Metabolism; Visit Provider Internal Medicine Endocrinology, Diabetes & Metabolism
DX: E55.9 Vitamin D deficiency, unspecified (principal); M81.0 Age-related osteoporosis without current pathological fracture
CPT/HCPCS: 36415; 80053; 82306; 83970

== ENCOUNTER → 2023-11-24 | Outpatient (CLI) | payer OTHER, SELFPAY ==
--- NOTE | 2023-11-24 12:45 | RAD_ITS ---
STUDY: X-RAY - PELVIS AND RIGHT HIP REASON FOR EXAM: Female, 63 years old. Acute on chronic back pain. TECHNIQUE: 3 views of the pelvis and hip. COMPARISON: None. FINDINGS: Normal bowel gas pattern. Moderate amount feces colon. Mild osteopenia. Normal bilateral iliac wings, sacroiliac joints and visualized sacrum. Normal bilateral superior and inferior pubic rami. Normal pubic symphysis. Normal bilateral ischial tuberosities. Normal visualized femoral head. Normal acetabulum. Normal hip joint. RAD/HIP, UNI W/ Pelvis 2-3 Views IMPRESSION: Osteopenia with no other abnormality. Electronically Signed: Darrius Dorado MD at 15:01 EDT ,
--- NOTE | 2023-11-24 12:45 | RAD_ITS ---
STUDY: X-RAY - LUMBAR SPINE REASON FOR EXAM: Female, 63 years old. Acute on chronic back pain. TECHNIQUE: 2 view(s) of the lumbar spine were obtained. COMPARISON: None FINDINGS: Osteopenia. Slight exaggerated lordosis. No scoliosis. 7 mm of anterolisthesis of L3 on L4. Loss of height of the L1 vertebral body status post kyphoplasty. Kyphoplasty of the T8 vertebral body. Loss of height of the T11 vertebral body. Endplate can cavities compatible with osteoporosis. Diffuse moderate lower thoracic and lumbosacral facet sclerosis. Intervertebral disc space narrowing most marked at L3-4 and L4-5. Vascular calcification. RAD/Lumbar Spine 2 or 3 Views IMPRESSION: Osteopenia with kyphoplasty of L1, endplate concavities compatible with osteoporosis and moderate lower lumbosacral spondylosis. Electronically Signed: Darrius Dorado MD at 15:34 EDT ,
--- NOTE | 2023-11-24 12:45 | RAD_ITS ---
STUDY: X-RAY - THORACIC SPINE REASON FOR EXAM: Female, 63 years old. Acute on chronic back pain. TECHNIQUE: 2 view(s) of the thoracic spine were obtained. COMPARISON: None. FINDINGS: Osteopenia. Marked increased kyphosis. Minimal thoracolumbar scoliosis. Kyphoplasty changes at T8 and L1 with loss of height of both vertebral bodies. Loss of height of the T12 vertebral body. Endplate can cavities compatible with osteoporosis. Diffuse mild intervertebral disc space narrowing with small osteophytes. Vascular calcification. RAD/Thoracic Spine 2 Views IMPRESSION: Osteopenia with diffuse moderate thoracic spondylosis and increased kyphosis. Loss of height of the T8, T12 and L1 vertebral bodies with kyphoplasty changes at T8 and L1. Electronically Signed: Darrius Dorado MD at 15:35 EDT ,
== END | disposition home or self-care (01) ==
LOC: RAD 12:36
PROVIDERS: PCP Internal Medicine; Referring Provider Nurse Practitioner Family; Visit Provider Nurse Practitioner Family
DX: M54.50 Low back pain, unspecified (principal)
CPT/HCPCS: 72070; 72100; 73502

== ENCOUNTER 2024-01-11 08:29 | Day surgery (SDC) | payer OTHER, SELFPAY ==
[2024-01-11 08:56] LABS: Hematocrit 42.7 % (37-47); Mean Corp Hgb Conc 32.8 g/dL (32-36); Mean Corpuscular Hgb 28.5 pg (27.0-32.0); Mean Corpuscular Volume 86.8 fL (81-99); Mean Platelet Vol. 9.4 fl (6.2-12.0); Platelet Count 224 K/mm3 (150-450); RBC Distribution Width CV 12.7 % (11.6-14.6); Red Blood Count 4.92 M/mm3 (4.2-5.4); White Blood Count 5.5 K/mm3 (4.4-11.0)
[2024-01-11 09:08] VITALS: BMI 34.0
--- NOTE | 2024-01-11 09:30 | HP.PCM_ITS ---
HPI - General HPI Narrative LAN OTT, is a 63 F who presents to the office today for follow up of bilateral lower extremity tightness/pain/edema, painful varicose veins, reticular veins, prior GSV ablations and phlebectomies. She also had a significantly enlarged uterus and recently underwent hysterectomy. There was hope that removal of enlarged uterus would relieve any potential compression of pelvic veins but she unfortunately has had no significant change in symptoms. [facility] Medical History Incomplete uterovaginal prolapse Wears contact lenses Wears glasses Post-menopausal Arthritis Injury of back Back pain History of diverticulitis Former smoker History of pain when walking History of edema DVT (deep venous thrombosis) Psoriasis Roxanne's disease Vision problems Vascular disease Osteoporosis Osteopenia Bone fracture Back problem Fibroid uterus Home Medications ?Medication ?Instructions ?Recorded ?Last Taken ?Type omega-3 fatty acids 1,250 mg 1,250 mg PO DAILY SUPPLEMENT 09/17/20 08/12/23 History capsule calcium 1 tab PO DAILY SUPPLEMENT 05/30/23 08/12/23 History [id number]-inosit-silicon 300 mg-200 unit-37.5 mg tablet (Bone Density Calcium Plus D) magnesium glycinate 250 mg PO DAILY SUPPLEMENT 05/30/23 08/12/23 History multivitamin (Daily Multi-Vitamin 1 tab PO DAILY SUPPLEMENT 05/30/23 08/12/23 History tablet) Evenity 210 mg/2.34 mL (105 210 mg (2.34 mL) subcut QMONTH 12 10/24/23 Unknown Rx mg/1.17 mL x 2) subcutaneous months #2.34 mL syringe (romosozumab-aqqg) estradiol 0.01% (0.1 mg/gram) 2 g vaginal 2XW 10/24/23 Unknown History vaginal cream Allergy/AdvReac Type Severity Reaction Status Date / Time gluten Allergy Intermediate Upset Verified 11/10/23 13:35 Stomach Family History Mother Age: 83 Osteoporosis Diabetes Hypertension Grandmother Heart disease Grandfather Myocardial infarction Surgical History Status post LOLIS-BSO Status post ablation of incompetent vein using laser H/O kyphoplasty History of back surgery S/P T&A (status post tonsillectomy and adenoidectomy) Social History adopted: No household members: spouse housing: house number of children: 2 current occupational status: employed 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 current occupational exposures/hazards: No pets and animals: No history of recent travel: No sexually active: Yes Smoking Status: Former smoker quit date: 04/04/93 pack-years: 5 Electronic Cigarette Use: not used alcohol intake: never substance use type: does not use caffeine: Yes Type: coffee Number of servings: 2 eating out: rarely or never what type of physical activity do you participate in: walking and weight training frequency: 3-4 times per week dex/confucianist: None seatbelt use: always do you feel safe at home: Yes additional social history: - [employer] - [employer]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 ROS Constitutional Constitutional: Denies chills, fever(s), frequent falls, lethargy or weakness Eyes Eyes: Denies blind spots, change in vision or loss of vision ENT HEENT: Denies bleeding gums, hoarseness or sore throat Cardiovascular Cardiovascular: Denies abdominal pain, bluish discoloration of hand/feet, chest pain with activity, claudication, cold extremities, cyanosis, dyspnea on exertion, erythema on extremities, irregular heart rhythm, leg edema, leg ulcers, numbness in extremities or weakness in extremities Respiratory/Chest Respiratory/Chest: Denies cough, excessive phlegm production, shortness of breath at rest, shortness of breath with exertion or wheezing Gastrointestinal Gastrointestinal: Denies anorexia, change in stool character, constipation, diarrhea, melena or rectal bleeding Genitourinary Genitourinary: Denies dysuria or hematuria Musculoskeletal Musculoskeletal: Denies abnormal gait Integumentary Integumentary: Reports other Details: ; Denies erythema, non-healing lesions or wounds Neurologic Neurologic: Denies abnormal speech, focal weakness, headache(s), loss of vision, numbness, paresthesias or sensory deficit Hematologic/Lymphatic Hematologic/Lymphatic: Denies easy bleeding, easy bruising or lymphadenopathy Vital Signs Vital Signs Vital Signs: Weight Weight: 186 lb Body Mass Index (BMI) 34.0 Physical Exam Const alert, oriented x3, no apparent distress and healthy appearing General Appearance: cooperative; Negative for combative or lethargic Orientation / Consciousness: awake Exam Limitations: no limitations HEENT Head and Scalp: normocephalic and atraumatic Eyes EOMs intact bilaterally General Eye: normal appearance of both eyes Neck full ROM, no lymphadenopathy and thyroid normal General: trachea midline Thyroid: thyroid normal Resp normal respiratory effort and no use of accessory muscles Effort and Inspection: Negative for labored, stridor or audible wheezes Cardio regular rate and regular rhythm Back/Spine Cervical Spine: cervical ROM normal Extremity full ROM, normal capillary refill and no clubbing, cyanosis or edema Skin no rashes or lesions noted and no wounds Neuro oriented x3, CN's II-XII intact bilaterally, no focal motor deficits and no sensory deficits noted Psych thought process normal, cooperative, affect normal, speech normal and activity/motor behavior normal Results Lab / Micro Data 01/11/24 08:38 01/11/24 08:38 Labs: Laboratory Results - last 24 hr 01/11/24 08:38: WBC 5.5, RBC 4.92, Hgb 14.0, Hct 42.7, MCV 86.8, MCH 28.5, MCHC 32.8, RDW Std Deviation 40.0, RDW Coeff of Madalyn 12.7, Plt Count 224, MPV 9.4 Assessment & Plan Assessment/Plan (1) Varicose veins of bilateral lower extremities with pain: PLAN: -venogram
[2024-01-11 09:42] LABS: Anion Gap 4 (5-15); BUN 17 mg/dL (7-18); Calcium,Total 8.9 mg/dL (8.5-10.1); Chloride 109 mmol/L (98-107); Creatinine, Serum 0.71 mg/dL (0.55-1.02); EST Glomerular Filtration Rate 89 mL/min (>60); Est Glom Filt Rate - Afr Amer 108 mL/min (>60); Estimated Creatinine Clearance 83.82 ml/min; Glucose 96 mg/dL (74-106); Potassium 4.1 mmol/L (3.5-5.1); Sodium Level 140 mmol/L (136-145)
--- NOTE | 2024-01-11 17:27 | PCM.OPRPT ---
Report of Operation Date of Procedure: 01/11/24 Pre-Operative Diagnosis: Varicose veins of the bilateral lower extremities with pain Post-Operative Diagnosis: Same Surgery/Procedure Performed:: Venogram inferior vena cava, bilateral common iliac veins, bilateral external iliac veins Intravascular ultrasound of inferior vena cava, bilateral common iliac veins, bilateral external iliac veins Surgeon: Juan R iMchel Type of Anesthesia: Local and Sedation,Conscious Estimated Blood Loss (mL): 3 Description of Procedure: HPI: Patient is a 63-year-old female with recurrent bilateral lower extremity painful varicose veins with prior history of bilateral saphenous vein treatment. Given her recurring symptoms and varicosities despite prior ablation she is taken now for venogram to assess for any central venous pathology for further pursuit of infrainguinal venous disease. Description of procedure: Upon obtaining form consent and verification correct patient procedure site patient taken to the Actuarial Consultant she was positioned prepped and draped in usual sterile fashion. Timeouts performed conscious sedation was administered Versed and fentanyl. Skin overlying the right common femoral vein was anesthetized 1% lidocaine the vessel accessed with a micropuncture needle wire under ultrasound guidance. This was exchanged for micropuncture sheath through which an ileal caval venogram was performed revealing satisfactory positioning no extravasation or dissection. This also revealed patent normal-appearing right iliac vein system with brisk contrast transit into the vena cava. Through the micropuncture sheath Bentson wire was advanced and the micropuncture sheath exchanged for an 8 [place] sheath. Intravascular thrombi was then advanced recorded pullback performed of the IVC, right common iliac vein, right external iliac vein. This revealed normal caliber right iliac vein system with no obstruction or compression. Neck skin overlying the left common femoral vein was anesthetized 1% lidocaine the vessel accessed with micropuncture needle wire under ultrasound guidance. This was exchanged for micropuncture sheath through which injection ilio caval venogram was performed revealed satisfactory position with no extravasation or dissection. This also revealed brisk contrast transit with an area of luminal irregularity in the mid common iliac vein but otherwise no other suggestion of obstruction and no significant pelvic collaterals. Through the micropuncture sheath Bentson wire is advanced the micropuncture sheath exchanged for an 8 [place] Island[place] sheath. Through this an intravascular ultrasound probe was advanced and recorded pullback performed of the IVC, left common iliac vein, left external leg vein. This revealed minimal compression of the mid common iliac vein which was very eccentric and focused on the lateral to the vessel though less than 50% loss. Is felt that this lesion did not require treatment so wires and catheters were withdrawn. The sheath withdrawn a minute pressure held for 5 minutes until hemostasis was noted at which point patient was taken to the recovery area for bedrest prior to discharge home. Of note she did develop a small right groin hematoma which stabilized with further manual pressure.
== END 2024-01-11 14:35 | disposition home or self-care (01) ==
PROVIDERS: PCP Internal Medicine; Referring Provider Surgery Trauma Surgery; Visit Provider Surgery Trauma Surgery
DX: I83.813 Varicose veins of bilateral lower extremities with pain (principal); Z87.891 Personal history of nicotine dependence; Z86.718 Personal history of other venous thrombosis and embolism
CPT/HCPCS: 36010; 36415; 37252; 37253; 75825; 76937; 80048; 85027; 86850; 86900; 86901; 99152; 99153; C1753; C1769; C1894; J7040; Q9967

== ENCOUNTER 2024-03-15 08:13 | Day surgery (SDC) | payer OTHER, SELFPAY ==
[2024-03-14 08:42] VITALS: BMI 33.3
[2024-03-15 08:39] LABS: Hematocrit 46.6 % (37-47); Hemoglobin 15.2 g/dL (12.0-15.0); Mean Corp Hgb Conc 32.6 g/dL (32-36); Mean Corpuscular Hgb 28.4 pg (27.0-32.0); Mean Corpuscular Volume 86.9 fL (81-99); Platelet Count 187 K/mm3 (150-450); RBC Distribution Width CV 12.5 % (11.6-14.6); RBC Distribution Width SD 39.6 fl (35.1-43.9); Red Blood Count 5.36 M/mm3 (4.2-5.4); White Blood Count 5.6 K/mm3 (4.4-11.0)
[2024-03-15 09:05] LABS: Anion Gap 5 (5-15); BUN 13 mg/dL (7-18); BUN/Creat Ratio 19.3 RATIO (10-20); Calcium,Total 9.4 mg/dL (8.5-10.1); Chloride 109 mmol/L (98-107); Creatinine, Serum 0.68 mg/dL (0.55-1.02); EST Glomerular Filtration Rate 94 mL/min (>60); Est Glom Filt Rate - Afr Amer 114 mL/min (>60); Estimated Creatinine Clearance 86.52 ml/min; Glucose 99 mg/dL (74-106); Potassium 3.8 mmol/L (3.5-5.1); Sodium Level 141 mmol/L (136-145)
--- NOTE | 2024-03-15 10:13 | PCM.HP.STD ---
HPI - General HPI Narrative LAN OTT, is a 63 F who presents with recurrent LLE venous insufficiency with heaviness/pain and painful varicose veins worse at the end of the day. She previously underwent GSV ablation and it appears to have recanalized. [facility] Medical History Incomplete uterovaginal prolapse Wears contact lenses Wears glasses Post-menopausal Arthritis Injury of back Back pain History of diverticulitis Former smoker History of pain when walking History of edema DVT (deep venous thrombosis) Psoriasis Roxanne's disease Vision problems Vascular disease Osteoporosis Osteopenia Bone fracture Back problem Fibroid uterus Home Medications ?Medication ?Instructions ?Recorded ?Last Taken ?Type omega-3 fatty acids 1,250 mg 1,250 mg PO DAILY SUPPLEMENT 09/17/20 08/12/23 History capsule calcium 1 tab PO DAILY SUPPLEMENT 05/30/23 08/12/23 History qtky-Y5-iyydhzky-inosit-silicon 300 mg-200 unit-37.5 mg tablet (Bone Density Calcium Plus D) magnesium glycinate 250 mg PO DAILY SUPPLEMENT 05/30/23 08/12/23 History multivitamin (Daily Multi-Vitamin 1 tab PO DAILY SUPPLEMENT 05/30/23 08/12/23 History tablet) estradiol 0.01% (0.1 mg/gram) 2 g vaginal 2XW 10/24/23 Unknown History vaginal cream Allergy/AdvReac Type Severity Reaction Status Date / Time gluten Allergy Intermediate Upset Verified 02/01/24 08:31 Stomach Family History Mother Age: 84 Osteoporosis Diabetes Hypertension Grandmother Heart disease Grandfather Myocardial infarction Surgical History Status post LOLIS-BSO Status post ablation of incompetent vein using laser H/O kyphoplasty History of back surgery S/P T&A (status post tonsillectomy and adenoidectomy) Social History adopted: No household members: spouse housing: house number of children: 2 current occupational status: employed 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 current occupational exposures/hazards: No pets and animals: No history of recent travel: No sexually active: Yes Smoking Status: Former smoker quit date: 04/04/93 pack-years: 5 Electronic Cigarette Use: not used alcohol intake: never substance use type: does not use caffeine: Yes Type: coffee Number of servings: 2 eating out: rarely or never what type of physical activity do you participate in: walking and weight training frequency: 3-4 times per week dex/yarsanism: None seatbelt use: always do you feel safe at home: Yes additional social history: - Er[employer] - [employer]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 ROS Constitutional Constitutional: Denies chills, fever(s), frequent falls, lethargy or weakness Eyes Eyes: Denies blind spots, change in vision or loss of vision ENT HEENT: Denies bleeding gums, hoarseness or sore throat Cardiovascular Cardiovascular: Denies abdominal pain, bluish discoloration of hand/feet, chest pain with activity, claudication, cold extremities, cyanosis, dyspnea on exertion, erythema on extremities, irregular heart rhythm, leg edema, leg ulcers, numbness in extremities or weakness in extremities Respiratory/Chest Respiratory/Chest: Denies cough, excessive phlegm production, shortness of breath at rest, shortness of breath with exertion or wheezing Gastrointestinal Gastrointestinal: Denies anorexia, change in stool character, constipation, diarrhea, melena or rectal bleeding Genitourinary Genitourinary: Denies dysuria or hematuria Musculoskeletal Musculoskeletal: Denies abnormal gait Integumentary Integumentary: Reports other Details: ; Denies erythema, non-healing lesions or wounds Neurologic Neurologic: Denies abnormal speech, focal weakness, headache(s), loss of vision, numbness, paresthesias or sensory deficit Hematologic/Lymphatic Hematologic/Lymphatic: Denies easy bleeding, easy bruising or lymphadenopathy Vital Signs Vital Signs Vital Signs: Weight Weight: 182 lb Body Mass Index (BMI) 33.3 Physical Exam Const alert, oriented x3, no apparent distress and healthy appearing General Appearance: cooperative; Negative for combative or lethargic Orientation / Consciousness: awake Exam Limitations: no limitations HEENT Head and Scalp: normocephalic and atraumatic Eyes EOMs intact bilaterally General Eye: normal appearance of both eyes Neck full ROM General: trachea midline Resp normal respiratory effort and no use of accessory muscles Effort and Inspection: Negative for labored, stridor or audible wheezes Cardio regular rate and regular rhythm Back/Spine Cervical Spine: cervical ROM normal Extremity full ROM, normal capillary refill and no clubbing, cyanosis or edema Skin no rashes or lesions noted and no wounds Neuro oriented x3, CN's II-XII intact bilaterally, no focal motor deficits and no sensory deficits noted Psych thought process normal, cooperative, affect normal, speech normal and activity/motor behavior normal Results Lab / Micro Data 03/15/24 08:27 03/15/24 08:27 Labs: Laboratory Results - last 24 hr 03/15/24 08:27: WBC 5.6, RBC 5.36, Hgb 15.2 H, Hct 46.6, MCV 86.9, MCH 28.4, MCHC 32.6, RDW Std Deviation 39.6, RDW Coeff of Madalyn 12.5, Plt Count 187, MPV 10.0, Sodium 141, Potassium 3.8, Chloride 109 H, Carbon Dioxide 27.0, Anion Gap 5, BUN 13, Creatinine 0.68, Estim Creat Clear Calc 86.52, Est GFR (MDRD) Af Amer 114, Est GFR (MDRD) Non-Af 94, BUN/Creatinine Ratio 19.3, Glucose 99, Calcium 9.4 Assessment & Plan Assessment/Plan (1) Symptomatic varicose veins of left lower extremity: PLAN: -SFJ ligation -chemical ablation
--- NOTE | 2024-03-15 13:17 | PCM.OPRPT ---
Operative Report (Standard) Operative Information Date of Procedure: 03/15/24 Pre-Operative Diagnosis: Painful varicose veins of the left lower extremity Post-Operative Diagnosis: Same Surgery/Procedure Performed: Left saphenofemoral junction ligation sunglass clip attacher: No Type of Anesthesia: Local and MAC Procedure Start Time: 10:00 Procedure Stop Time: 12:00 Select all DRAINS/GRAFTS/IMPLANTS that apply: None Estimated Blood Loss: 4 Specimen collected: No Description of surgery: HPI: Patient is a 63-year-old female with recurrent painful left lower extremity varicose veins despite prior ablation many years prior. She had reflux venous duplex which revealed reflux within what appeared to be a recanalized great saphenous vein. She also had significant reflux at the saphenofemoral junction which was enlarged with multiple accessory branches emanating from this point. She is felt to be appropriate for saphenofemoral ligation and chemical ablation if possible of the great saphenous vein. Description of procedure: Upon obtaining form consent and verification correct patient procedure site patient was taken to the Foreign Language Instructor where she was positioned prepped and draped in you sterile fashion. Time was performed and conscious sedation administered Versed and fentanyl. Ultrasound used to evaluate the great saphenous vein from the mid calf to the saphenofemoral junction. This was noted to be small in caliber, tortuous at some segments, and potentially in discontinuity with some segments of the prior ablation appeared to be intact. The hope was that if we were able to access in the proximal calf would be able to perform chemical ablation up to the proximal thigh though not entirely to the saphenofemoral junction. The saphenofemoral junction was significantly dilated with multiple branches so the ligation was likely to be of significant benefit. Skin overlying the saphenofemoral junction was anesthetized 1% lidocaine and transverse incision made. Bovie electrocautery was dissect down through subcutaneous tissue and self-retaining retractors put in position. Further dissection was carried down to the proximal great saphenous vein was identified. Sharp dissection was then used to dissect free proximal to the saphenofemoral junction with sidebranches ligated with silk ties and divided. The vessel proximal and distal were then clamped and the vessel divided and then oversewn with 5-0 Prolene in 2 layers both proximal and distal. The clamps removed and satisfactory stasis was noted. We then turned our attention to the saphenous vein and upon further ultrasound evaluation it was even smaller caliber than upon initial evaluation. We did feel that we potentially could still access it so skin overlying the proximal calf saphenous vein was anesthetized and the vessel accessed under ultrasound guidance with a micropuncture needle wire. We order to advance the wire however 1 we exchanged for the 7 [place] sheath the vessel did not accommodate the sheath and we were unable to advance without significant discomfort. Further assessment revealed the vessel was even further constricted and it was felt that further efforts would be unlikely to be successful and only potentially cause harm. Manual pressure was held at the puncture site. The femoral incision was then closed with 3-0 Vicryl, 4-0 Vicryl, 4 Monocryl and Dermabond for the skin. The patient was then taken the recovery with plan discharged home Surgical Findings: See above Complications Complications: No
== END 2024-03-15 13:20 | disposition home or self-care (01) ==
PROVIDERS: PCP Internal Medicine; Referring Provider Surgery Trauma Surgery; Visit Provider Surgery Trauma Surgery
DX: I83.812 Varicose veins of left lower extremity with pain (principal); I87.2 Venous insufficiency (chronic) (peripheral); Z87.891 Personal history of nicotine dependence; Z86.718 Personal history of other venous thrombosis and embolism
CPT/HCPCS: 36415; 37700; 80048; 85027; 99152; 99153; C1894

== ENCOUNTER → 2024-03-19 | Outpatient (CLI) | payer OTHER, SELFPAY ==
--- NOTE | 2024-03-19 13:20 | VDLE_ITS ---
Reason For Study: HX LLE Ligation/ Ablation RIGHT LEFT FV is compressible, spontaneous, phasic, HX GSV Stripping / SFJ Ligation. Vessel is competent and demonstrates normal dilated and NONCOMPRESSIBLE at prox. augmentation. GSV / ASV compressible from mid to ankle. Procedure CFV is compressible, spontaneous, phasic, This is a venous duplex using B-mode, color competent and demonstrates normal flow and spectral Doppler. augmentation. Exam performed in department. FV is compressible, spontaneous, phasic, The exam was diagnostic. competent and demonstrates normal augmentation. POP V is compressible, spontaneous, phasic, competent and demonstrates normal augmentation. T/P Trunk is compressible. PTV is compressible. Aneudy V is compressible. VL/Venous Duplex US, Unilateral Interpretation Summary Left saphenofemoral junction and proximal great saphenous vein occluded consist ent with recent ligation. Deep veins of the left lower extremity are patent and compressible segmentally. There is no evidence of left lower extremity deep vein thrombosis. Ordering Physician: Michelle Tuttle Referring Physician: Leeann Riley Performed By: Beto Espinal RVT
== END | disposition home or self-care (01) ==
LOC: CVS 13:20
PROVIDERS: PCP Internal Medicine; Referring Provider Physician Assistant; Visit Provider Physician Assistant
DX: I83.892 Varicose veins of left lower extremity with other complications (principal); Z48.812 Encounter for surgical aftercare following surgery on the circulatory system
CPT/HCPCS: 93971

== ENCOUNTER → 2024-06-13 | Outpatient (CLI) | payer OTHER, SELFPAY ==
--- NOTE | 2024-06-13 07:56 | BI_ITS ---
PROCEDURE: SCRN MAMM (CAD)W/DOMO BILAT REASON FOR EXAM: F, Age 63 y/o , SCREENING MAMMOGRAM FOR BREAST CANCER. No family history of breast cancer. TECHNIQUE: Bilateral screening digital breast tomosynthesis with 2D and 3D images. Computer aided detection. COMPARISON: 05/26/2023 FINDINGS: The breasts are almost entirely fatty. No suspicious masses, areas of developing architectural distortion, or suspicious calcifications. BI/SCRN MAMM (CAD)W/DOMO BILAT IMPRESSION: There is no mammographic evidence of malignancy. BI-RADS 1: NEGATIVE. RECOMMEND ANNUAL MAMMOGRAPHIC SCREENING. Follow-up code: Routine Follow-up The patient will be notified of the results by letter. Reading Location: [id number]
== END | disposition home or self-care (01) ==
LOC: OPBI 07:53
PROVIDERS: PCP Internal Medicine; Referring Provider Advanced Practice Midwife; Visit Provider Advanced Practice Midwife
DX: Z12.31 Encounter for screening mammogram for malignant neoplasm of breast (principal)
CPT/HCPCS: 77063; 77067

== ENCOUNTER 2025-01-06 18:50 | Emergency (ER) | payer OTHER, SELFPAY ==
[2025-01-06 18:51] VITALS: BP 173/102; PULSE 99; RESP 20; TEMP 36.1; O2SAT 98; BMI 33.0
--- NOTE | 2025-01-06 19:12 | ED.RN ---
Per Dr. Ling, we can order a CT non contrast of chest.
--- NOTE | 2025-01-06 19:20 | CT_ITS ---
PROCEDURE: CHEST WITHOUT CONTRAST 01/06/2025 REASON FOR EXAM: FALL TECHNIQUE: Chest CT without contrast. Coronal and Sagittal reconstruction series were provided. One or more dose reduction techniques were used (e.g., Automated exposure control, adjustment of the mA and/or kV according to patient size, use of iterative reconstruction technique RADIATION DOSE SUMMARY: DLP: 417 mGycm COMPARISON: None FINDINGS: LUNGS AND PLEURA: No focal consolidations. Left base atelectasis. Mild pulmonary emphysema. No pleural effusion. No pneumothorax. No pleural thickening. No nodules or masses. MEDIASTINUM: No lymphadenopathy or mass. The heart shows no acute findings. The aorta shows no acute findings. Atherosclerotic aortic arch. The pulmonary trunk and branches of the vessels in the mediastinum are within normal limits. SUPRACLAVICULAR AND AXILLARY: No abnormalities seen in these regions. No mass or significant lymphadenopathy. UPPER ABDOMEN: Right adrenal gland nodule measuring 1.5 x 1.3 cm. Scattered tiny subcentimeter hypodensities too small to accurately characterize. BONES AND SOFT TISSUES: T8 and L1 vertebral body cement vertebroplasty material. Mild T12 vertebral body compression deformity. The subcutaneous soft tissues are unremarkable. CT/Chest without Contrast IMPRESSION: No focal consolidations. Left base atelectasis. Mild pulmonary emphysema. T8 and L1 vertebral body cement vertebroplasty material. Mild T12 vertebral body compression deformity of indeterminate acuity. Reading Location: [facility]
--- OUTSIDE RECORDS SUMMARY | 2025-01-06 21:07 | XMS RPT_ITS | CCD ---
Author Organization [facility] Inform ion Partnership [facility] Care Team Providers Care Helicopter Pilot Name Role Phone MARISELA BOYKIN Unavailable Unavailable TABETCORINNA Unavailable Unavail able SMITHA CARRION Attending Unavailable SMITHA CARRION Referring Unavailable ASHISH MARTEL Primary Care Unavailable Ashish Martel Primary Care Provider [phone] Ashish Martel Primary Care Provider MATT BUTLER DO Attending Unavailable ASHISH MARTEL MD Primary Care Unavailable Gordo SOIL CONSERVATION AIDE, SOIL CONSERVATION AIDE-C Renetta Primary Care Provide r Gordo SOIL CONSERVATION AIDE, SOIL CONSERVATION AIDE-C Renetta Referring Provider FERNANDO Lerma Attending Provider [phone] TAHMINA PETIT, MARTIN Loredo Unavailable ORTHOPEDICS, HENOK Unavailable ORTHOPEDICS, MATTHEW Unavailable [phone] JERRY APODACA MD Unavailable ORTHOPEDICS, GENERAL Unavailable Unavailable [place] Unavailable Unavailable TRACEY HERNANDEZ MD Unavailable [phone] FÉLIX DSOUZA Unavailable Unavailable MEHRDAD PETIT, Nate HINOJOSA Unavailable ASHISH MARTEL MD Unavailable Tuan ROMERO MD Unavailable CATARINA DRUMMOND MD Unavailable Cuco STRONG, Kandy Unavailable Unavailable Ruchi STRONG, Seble Unavailable UnavailSHEMAR Hancock Unavailable Unavailable Liang STRONG, Yulissa Unavailable Unavailable Benjamin, Cadence Unavailable Unavailable ROMERO, CODEE D Unavailable Unavailable MICHELLE PARISH Unavailable Unavailable ALEXANDER RN, PRIETO Unavailable Unavailable Nupur Andreea A Unavailable Unavailable GORDO SYRUP MIXER ASSISTANT-C, RENETTA M Unavailable DOREEN RN, LULY Unavailable Unavaila ble Unavailable Unavailable Dr. Andre Graves Attending Provider Dr. Kayla Johnson Attending Provider [phone] Dr. Orlando Riley Primary Care Provider Dr. Orlando Riley Attending Provider [phone] Gordo SOIL CONSERVATION AIDE, SOIL CONSERVATION AIDE-C Renetta Primary Care Provide r Gordo SOIL CONSERVATION AIDE, SOIL CONSERVATION AIDE-C Renetta Referring Provider FERNANDO Lerma Attending Provider Dr. Andre Graves Attending Provider Dr. Kayla Johnson Attending Provider Dr. Orlando Riley Primary Care Provider Dr. Orlando Riley Attending Provider [phone] Dr. Orlando Riley Referring Provider [phone] MARCELA Tuttle Attending Provider [phone] Sammie Michel Attending Provider [phone] MARCELA Tuttle Referring Provider [phone] NUPUR SYRUP MIXER ASSISTANT-BC, MORENITA R Unavailable Unavailable Unavailable Ashish Martel Primary Care Provider UnavailJOANNA Zhao Referring Unavailable ASHISH MARTEL Primary Care Unavailable Unavailable Primary Care Provider UnavailDr. Orlando Escalona MD Primary Care Provider [phone] Michelle Landis Other Provider Dr. Sammie Michel MD Attending Provider [phone] Dr. Sammie Michel MD Referring Provider [phone] Marilu MD, Dr. Sammie Other Provider [phone] Michelle Landis Attending Provider [phone] Michelle Landis Referring Provider Dr. Orlando Riley MD Referring Provider Karl CNM, Joanna Attending Provider Karl CNM, Joanna Referring Provider VICKIE, ANABELLE Admitting Unavailable ANABELLE CASTELLON Attending Unavailable VICKIE, ANABELLE Consulting Unavailable SPAR, JENNIFER Primary Care Unavailable HORN, FÉLIX DPM Primary Care Unavailable HORN, FÉLIX DPM Admitting Unavailable ORLANDO RILEY MD Consulting Unavailable HORN, FÉLIX DPM Attending Unavailable PROVIDER, UNKNOWN Consulting Unavailable HORN, FÉLIX DPM Attending Unavailable HORN, FÉLIX DPM Primary Care Unavailable HORN, FÉLIX DPM Admitting Unavailable ORLANDO RILEY MD Consulting Unavailable PROVIDER, UNKNOWN Consulting Unavailable Abernathy, Sammie Attending Unavailable Osvaldo, Orlando Primary Care Unavailable Tuttle, Michelle Referring Unavailable Osvaldo, Orlando Primary Care Unavailable Magdy, Juan A Referring Unavailable Magdy, Juan A Attending Unavailable Osvaldo, Orlando Primary Care Unavailable Greer, Orlando Attending Unavailable Osvaldo, Orlando Referring Unavailable Greer, Orlando Primary Care Unavailable Osvaldo, Orlando Referring Unavailable Osvaldo, Orlando Attending Unavailable My Malin Attending Unavailable Osvaldo, Orlando Primary Care Unavailable Osvaldo, Orlando Referring Unavailable Greer, Orlando Primary Care Unavailable Tuttle, Michelle Referring Unavailable Tuttle, Michelle Attending Unavailable Abernathy, Sammie Referring Unavailable Marilu, Sammie Attending Unavailable Greer, Orlando Primary Care Unavailable Greer, Orlando Primary Care Unavailable Joanna Lerma Referring Unavailable Joanna Lerma Attending Unavailable Osvaldo, Orlando Primary Care Unavailable Referred, Self Referring Unavailable Referred, Self Attending Unavailable Greer, Orlando Referring Unavailable Osvaldo, Orlando Primary Care Unavailable Tuttle, Michelle Attending Unavailable Osvaldo, Orlando Primary Care Unavailable Greer, Orlando Referring Unavailable Tuttle, Michelle Attending Unavailable Morenita Romero Referring Unavailable Morenita Romero Attending Unavailable Osvaldo, Orlando Primary Care Unavailable Abernathy, Sammie Attending Unavailable Marilu, Sammie Referring Unavailable Tuttle, Michelle Consulting Unavailable Greer, Orlando Primary Care Unavailable Osvaldo, Orlando Primary Care Unavailable Greer, Orlando Referring Unavailable Joanna Lerma Attending Unavailable Osvaldo, Orlando Primary Care Unavailable Greer, Orlando Attending Unavailable Osvaldo, Orlando Referring Unavailable Osvaldo, Orlando Attending Unavailable Osvaldo, Orlando Primary Care Unavailable Greer, Orlando Referring Unavailable Greer, Orlando Referring Unavailable Osvaldo, Orlando Primary Care Unavailable Juan A Curran Attending Unavailable Marilu, Sammie Attending Unavailable Marilu, Sammie Consulting Unavailable Marilu, Sammie Referring Unavailable Greer, Orlando Primary Care Unavailable Greer, Orlando Primary Care Unavailable Juan A Curran Attending Unavailable Greer, Orlando Referring Unavailable Abernathy, Sammie Attending Unavailable Greer, Orlando Primary Care Unavailable Abernathy, Sammie Attending Unavailable Abernathy, Sammie Referring Unavailable Osvaldo, Orlando Primary Care Unavailable Tuttle, Michelle Consulting Unavailable Abernathy, Sammie Consulting Unavailable Osvaldo, Orlando Referring Unavailable Abernathy, Sammie Attending Unavailable Allergies Allergy Classification Reported Allergen(s) Allergy Type Date of Onset Reaction(s) Facility (2 sources) Wheat gluten extract Drug Allergy 08-08-2023 Upset Stomach [facility] (1 source) Gluten Drug allergy (disorder) 08-01-2024 [facility] Repository Medications Current Medications Medication Drug Class(es) Dates Sig (Normalized) Sig (Original) Ca Snfb-C7-Wehsai-Inos- Silicon (Bone Density Calcium Plus D) 300-200-37.5 mg-unit-mg tablet (4 sources) Start: 05-30-2023 Ca Eyae-Y9-Llsyxt-Inos -Silicon (Bone Density Calcium Plus D) 300-200-37.5 mg-unit-mg tablet Active 1 {tbl} PO DAILY May 30, 2023 1:00am Start: 05-30-2023 [facility] Ca Scmo-E7-Tssrvu-Inos-Silicon (Bone Den sity Calcium Plus D) 300-200-37.5 mg-unit-mg tablet Active 1 TABLET PO DAILY May 30, 2023 1:00am Start: 05-30-2023 take 1 tablet by anupama th once Ca Gbco-L0-Yfwxph-Inos-Silicon (Bone Den sity Calcium Plus D) 300-200-37.5 mg-unit-mg tablet Active TABLET PO May 30, 2023 1:00am Start: 05-30-2023 take 1 tablet by anupama th once Ca Tyua-J2-Tyozya-Inos-Silicon (Bone Den sity Calcium Plus D) 300-200-37.5 mg-unit-mg tablet Active TABLET PO May 30, 2023 12:00am cyclobenzaprine hydrochloride 5 mg oral tablet (5 sources) Muscle Relaxant Start: 11-23-2023 cyclobenzaprin e 5 mg tablet ; 1 (one) Tablet three times daily for 0 days Quantity: 21 {Tablet} Refills: 1 Ordered: 23-Nov-2023 KERWIN ROMERO Start: 23-Nov-2023 Start: 01-06-2017 End: 01-11-2017 take 1 tablet by mouth three times daily Cyclobenzaprine HCl 5 MG Oral Tablet ; 1 (one) Tablet three times daily for 0 days Quantity: 21 {Tablet} Refills: 1 Ordered: 11-Jan-2017 JESUSITA ROMERO Start: 06-Jan-2017 End: 11-Jan-2017 Status: Inactive DAILY MULTIPLE VITAMINS (Oral Tablet) (5 sources) take 1 tablet by mouth once daily DAILY MULTIPLE VITAMINS (Oral Tablet) ; 1 daily estradiol 0.1 mg/ml vaginal cream (1 source) Estrogen Start: 10-24-2023 Estradiol 0.01 % (0.1 mg/gram) cream Active 2 g VAGINAL TWICE A WEEK October 24, 2023 12:00am Magnesium glycinate (3 sources) Start: 05-30-2023 take 250 mg by mouth once daily Magnesium Glycinate Active 250 MG PO DAILY May 30, 2023 1:00am Start: 05-30-2023 Magnesium Glyc inate Active MG PO May 30, 2023 1:00am Start: 05-30-2023 Magnesium Glyc inate Active MG PO May 30, 2023 12:00am Magnesium Glycinate 100 mg magnesium capsule (1 source) Start: 05-30-2023 Magnesium Glyc inate 100 mg magnesium capsule Active 250 mg PO DAILY May 30, 2023 1:00am Multivitamin (Daily Multi-Vitamin) tablet (4 sources) Start: 05-30-2023 Multivitamin ( Daily Multi-Vitamin) tablet Active 1 {tbl} PO DAILY May 30, 2023 1:00am Start: 05-30-2023 take 1 tablet by anupama th once daily Multivitamin (Daily Multi-Vitamin) tablet Active 1 TABLET PO DAILY May 30, 2023 1:00am Start: 05-30-2023 take 1 tablet by anupama th once daily Multivitamin (Daily Multi-Vitamin) tablet Active 1 TABLET PO DAILY May 30, 2023 12:00am naproxen 500 mg oral tablet (5 sources) Nonsteroidal Anti-inflammatory Drug Start: 11-23-2023 naproxen 500 mg tablet ; 1 (one) Tablet two times daily for 0 days Quantity: 30 {Tablet} Refills: 1 Ordered: 23-Nov-2023 KERWIN ROMERO Start: 23-Nov-2023 Start: 12-14-2016 End: 01-11-2017 take 1 tablet by mouth twice daily Naproxen 500 MG Oral Tablet ; 1 (one) Tablet two times daily for 0 days Quantity: 30 {Tablet} Refills: 1 Ordered: 11-Jan-2017 JESUSITA ROMERO Start: 14-Dec-2016 End: 11-Jan-2017 Status: Inactive [place]-3 Fatty Acids (6 sources) Start: 09-17-2020 take 1 capsule by mo uth once daily [place]-3 Fatty Acids 1,250 mg capsule Active 1250 mg PO DAILY September 17, 2020 12:00am Start: 09-17-2020 take 1250 mg by mouth once manav ly [place]-3 Fatty Acids Active 1250 MG PO DAILY September 17, 2020 12:00am Start: 09-17-2020 take 1250 mg by mouth once manav ly [place]-3 Fatty Acids Active 1250 MG PO DAILY September 16, 2020 11:00pm Completed/Discontinued Medications Medication Drug Class(es) Dates Sig (Normalized) Sig (Original) acetaminophen 325 mg / oxyCODONE hydrochloride 5 mg oral tablet (1 source) Opioid Agonist Start: 08-19-2023 End: 10-24-2023 Oxycodone-Acetamino phen (Percocet) 5-325 mg tablet Discontinued 1 {tbl} PO Q8H as needed for pain 10 3 August 19, 2023 October 234 2:32pm atropine sulfate 0.0194 mg / hyoscyamine sulfate 0.1037 mg / PHENobarbital 16.2 mg / scopolamine hydrobromide 0.0065 mg oral tablet (5 sources) Anticholinergic, Cholinergic Muscarinic Antagonist Start: 08-27-2010 End: 09-03-2010 take 1 tablet by mouth four times daily as needed BELLADONNA ALK-PHENOBARBITAL, 16.2MG (Oral Tablet) ; 1 Tablet four times daily, as needed for 7 days Quantity: 21 {Tablet} Refills: 0 Ordered: 03-Sep-2010 MD CATARINA DRUMMOND Start: 27-Aug-2010 End: 03-Sep-2010 Status: Inactive Comments: Medication taken as needed. Comment on above: Medication taken as needed. cephalexin 500 mg oral capsule (1 source) Cephalosporin Antibacterial Start: 08-19-2023 End: 10-24-2023 take 1 capsule by mouth every twelve hours Cephalexin 500 mg capsule Discontinued 500 mg PO EVERY 12 HOURS 6 3 August 19, 2023 12:00am October 24, 2023 2:31pm cholecalciferol 0.125 mg oral capsule (6 sources) Vitamin D Start: 09-17-2020 End: 10-24-2023 take 1 capsule by mouth once daily Cholecalciferol (Vitamin D3) 125 mcg (5,000 unit) capsule Discontinued 125 ug PO DAILY September 17, 2020 12:00am October 24, 2023 2:32pm clobetasol propionate 0.5 mg/ml topical foam (3 sources) Corticosteroid Start: 06-19-2024 clobetasoL (OLUX) 0.05 % foam Apply 1 Application topically 2 (two) times daily 06/19/2024 Active Start: 05-24-2024 Clobetasol 0.0 5 % foam Active TOPICAL TWICE A DAY as needed May 24, 2024 1:00am Start: 05-07-2024 clobetasoL (TE MOVATE) 0.05 % cream Apply 1 Application topically 2 (two) times daily 05/07/2024 Active Comment on above: Apply 1 Application topically 2 (two) times daily 0.4 ml enoxaparin sodium 100 mg/ml prefilled syringe (2 sources) Low Molecular Weight Heparin Start: 08-20-2023 End: 10-24-2023 Enoxaparin (Lovenox) 40 mg/0.4 mL syringe Discontinued 40 mg SC Q24H 16.8 42 August 20, 2023 12:00am October 24, 2023 2:32pm Start: 08-19-2023 End: 10-24-2023 Enoxaparin (Lovenox) 40 mg/0 .4 mL syringe Discontinued 40 mg SQ DAILY 20 40 August 19, 2023 12:00am October 24, 2023 2:32pm esomeprazole 20 mg delayed release oral capsule (6 sources) Proton Pump Inhibitor Start: 09-17-2020 End: 05-30-2023 take 1 capsule by mouth once daily Esomeprazole Magnesium 20 mg capsule,delayed release(DR/EC) Discontinued 20 mg PO DAILY September 17, 2020 12:00am May 30, 2023 11:55am omeprazole 20 mg delayed release oral capsule (5 sources) Proton Pump Inhibitor Start: 08-27-2010 End: 12-03-2016 Omeprazole 20 MG Oral Capsule Delayed Release ; [address] daily for 14 days Quantity: 14 {Capsule_DR} Refills: 1 Ordered: 03-Dec-2016 Andreea Romero Start: 27-Aug-2010 End: 03-Dec-2016 Status: Inactive oxyCODONE hydrochloride 5 mg oral tablet (1 source) Opioid Agonist Start: 03-15-2024 End: 03-17-2024 take 1 tablet by mouth every eight hours as needed for pain Oxycodone 5 mg tablet Discontinued 5 mg PO Q8H as needed for pain 6 2 March 15, 2024 March 16, 2024 1:00am March 17, 2024 1:17am predniSONE 20 mg oral tablet (5 sources) Start: 12-14-2016 End: 01-11-2017 take 1 tablet by mouth twice daily, then take 1 tablet by mouth once daily PredniSONE 20 MG Oral Tablet ; 1 (one) Tablet Tablet two times daily for 2 days, then 1 daily for 0 days Quantity: 10 {Tablet} Refills: 1 Ordered: 11-Jan-2017 JESUSITA ROMERO Start: 14-Dec-2016 End: 11-Jan-2017 Status: Inactive Romosozumab-Aqqg (1 source) Start: 10-24-2023 End: 02-01-2024 Romosozumab-Aqqg (Evenity) 210mg/2.34mL ( 105mg/1.17mLx2) syringe Discontinued 210 mg SC EVERY MONTH 2.34 360 October 24, 2023 12:00am October 17, 2024 12:00am February 01, 2024 8:31am zinc acetate 50 mg oral capsule (6 sources) Start: 09-17-2020 End: 05-30-2023 take 1 capsule by mouth once daily Zinc Acetate (Galzin) 50 mg (zinc) capsule Discontinued 50 mg PO DAILY September 17, 2020 12:00am May 30, 2023 11:55am Problems Active Problems Problem Classification Problem Date Documented Da te Episodic/Chronic Administrative/social admission (20 sources) Patient encounter status; Translations: [Counseling, unspecified] 04-02-2022 Episodic Benign neoplasm of uterus (20 sources) Uterine leiomyoma; Translations: [Leiomyoma of uterus, unspecified] 04-25-2023 Episodic Comment on above: 10 cm fibroid uterus , discussed management, recommend surgical removal. plan LOLIS BSO. plan perioperative anticoagulation due to history of DVT. Cancer; other and unspecified primary (10 sources) History of gynecological disorder; Translations: [Personal history of other benign neoplasm] 02-03-2017 Episodic Gastroduodenal ulcer (except hemorrhage) (15 sources) Peptic ulcer; Translations: [Peptic ulcer, site unspecified, unspecified as acute or chronic, without hemorrhage or perforation] 2010 Chronic Genitourinary symptoms and ill-defined conditions (14 sources) Female stress incontinence; Translations: [Stress incontinence (female) (male)] 04-02-2022 Chronic Immunizations and screening for infectious disease (20 sources) Requires varicella vaccination; Translations: [Encounter for immunization] 04-02-2022 Episodic Lymphadenitis (5 sources) Cervical lymphadenopathy; Translations: [Localized enlarged lymph nodes] 07-25-2020 Episodic Malaise and fatigue (5 sources) Fatigue; Translations: [Other fatigue] 07-25-2020 Episodic Menopausal disorders (5 sources) Postmenopausal bleeding; Translations: [Postmenopausal bleeding] 10-31-2018 Chronic Noninfectious gastroenteritis (10 sources) Acute gastroenteritis; Translations: [Noninfective gastroenteritis and colitis, unspecified] 09-10-2010 Episodic Nonspecific chest pain (1 source) Chest pain, unspecified; Translations: [Chest pain, unspecified] 08-08-2023 Episodic Nutritional deficiencies (1 source) Vitamin D deficiency, unspecified; Translations: [Vitamin D deficiency, unspecified] Onset: 4 Chronic Osteoporosis (20 sources) Adult idiopathic generalized osteoporosis; Translations: [Other osteoporosis without current pathological fracture] Onset: 4 09-17-2020 Chronic Other acquired deformities (6 sources) Degenerative spondylolisthesis; Translations: [Spondylolisthesis, site unspecified] 09-17-2020 Episodic Other and unspecified benign neoplasm (10 sources) Adrenal adenoma; Translations: [Benign neoplasm of unspecified adrenal gland] 04-02-2022 Episodic Other bone disease and musculoskeletal deformities (20 sources) Osteopenia; Translations: [Other specified disorders of bone density and structure, right thigh] 04-02-2022 Episodic Comment on above: and hips Other bone disease and musculoskeletal deformities (5 sources) Lesion of vertebra; Translations: [Disorder of bone, unspecified] 07-30-2020 Episodic Other congenital anomalies (1 source) Finding of lower limb; Translations: [Localized swelling, mass and lump, lower limb, bilateral] Chronic Other connective tissue disease (10 sources) History of osteopenia; Translations: [Personal history of other diseases of the musculoskeletal system and connective tissue] 04-02-2022 Episodic Other connective tissue disease (5 sources) Calcaneal spur of left foot; Translations: [Calcaneal spur, left foot] 01-18-2022 Episodic Other connective tissue disease (5 sources) Pain in left foot; Translations: [Pain in left foot] 01-14-2022 Episodic Other connective tissue disease (5 sources) Tenderness in lower limb; Translations: [Pain in left leg] 11-26-2020 Episodic Other connective tissue disease (10 sources) Digital mucous cyst; Translations: [Ganglion, unspecified hand] 07-30-2020 Episodic Other connective tissue disease (3 sources) Pain in right foot; Translations: [Pain in limb] Onset: 5 08-08-2023 Episodic Other connective tissue disease (1 source) Pain in bilateral legs; Translations: [Pain in both lower extremities] Other diseases of veins and lymphatics (3 sources) Peripheral venous insufficiency; Translations: [Venous insufficiency (chronic) (peripheral)] 06-15-2023 Episodic Other ear and sense organ disorders (1 source) Impacted cerumen, unspecified ear; Translations: [Impacted cerumen, unspecified ear] Onset: Episodic Other endocrine disorders (5 sources) Adrenal mass; Translations: [Other specified disorders of adrenal gland] 07-25-2020 Chronic Other female genital disorders (10 sources) Mass of uterus; Translations: [Other specified noninflammatory disorders of uterus] Onset: 7 04-02-2022 Episodic Comment on above: apparent fibroid on US Other fractures (10 sources) Fracture of seventh thoracic vertebra; Translations: [Wedge compression fracture of T7-T8 vertebra, initial encounter for closed fracture] 08-21-2020 Episodic Other fractures (5 sources) Closed fracture thoracic vertebra; Translations: [Unspecified fracture of T7-T8 vertebra, sequela] 10-11-2017 Episodic Other fractures (5 sources) Compression fracture of thoracic spine; Translations: [Collapsed vertebra, not elsewhere classified, thoracic region, initial encounter for fracture] 09-29-2017 Episodic Other fractures (10 sources) Compression fracture of lumbar spine; Translations: [Wedge compression fracture of first lumbar vertebra, initial encounter for closed fracture] 01-11-2017 Episodic Other infections; including parasitic (5 sources) Personal history of other infectious and parasitic diseases 07-30-2020 Episodic Other inflammatory condition of skin (3 sources) Psoriasis, unspecified; Translations: [Other psoriasis] 05-30-2023 Chronic Other inflammatory condition of skin (1 source) Psoriasis; Translations: [Psoriasis, unspecified] 06-28-2024 Chronic Other injuries and conditions due to external causes (15 sources) H/O: vertebral fracture; Translations: [Personal history of (healed) traumatic fracture] 04-02-2022 Episodic Other liver diseases (5 sources) Elevated liver enzymes level; Translations: [Abnormal levels of other serum enzymes] 09-10-2010 Episodic Other nervous system disorders (5 sources) Polyneuropathy; 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] 10-31-2018 Chronic Other nervous system disorders (1 source) Paresthesia of hand ; Translations: [Anesthesia of skin] 11-06-2018 Episodic Other non-traumatic joint disorders (5 sources) Ankle pain; Translations: [Pain in left ankle and joints of left foot] 01-14-2022 Episodic Other non-traumatic joint disorders (5 sources) Joint pain; Translations: [Pain in unspecified joint] 07-25-2020 Episodic Other non-traumatic joint disorders (1 source) Pain in right shoulder; Translations: [Right shoulder pain] 08-20-2023 Episodic Other nutritional; endocrine; and metabolic disorders (15 sources) Overweight; Translations: [Overweight] 2010 Episodic Phlebitis; thrombophlebitis and thromboembolism (9 sources) Thrombophlebitis of superficial vein of left lower limb; Translations: [Phlebitis and thrombophlebitis of superficial vessels of left lower extremity] 11-26-2020 Episodic Comment on above: after back surgery Pleurisy; pneumothorax; pulmonary collapse (10 sources) Atelectasis; Translations: [Atelectasis] 08-21-2020 Episodic Prolapse of female genital organs (1 source) Incomplete uterovaginal prolapse; Translations: [Incomplete uterovaginal prolapse] 08-20-2023 Chronic Comment on above: s/p LOLIS BSO Residual codes; unclassified (3 sources) Immunization not carried out because of patient refusal; Translations: [Vaccination not carried out because of patient refusal] 05-30-2023 Episodic Spondylosis; intervertebral disc disorders; other back problems (20 sources) Degeneration of lumbar intervertebral disc; Translations: [Other intervertebral disc degeneration, lumbar region] 09-17-2020 Chronic Spondylosis; intervertebral disc disorders; other back problems (20 sources) Radicular syndrome of lower limbs; Translations: [Radiculopathy, site unspecified] 10-31-2018 Episodic Comment on above: Has seen Dr Krishan wolf spinal surgery as well as Dr. Zaragoza in [place]; both of which have retired. Dr. Duong has taken over [facility]. Sprains and strains (10 sources) Injury of wrist; Translations: [Strain of unspecified muscle, fascia and tendon at wrist and hand level, left hand, initial encounter] 01-14-2022 Episodic Superficial injury; contusion (10 sources) Hematoma of lower limb; Translations: [Contusion of right lower leg, initial encounter] 10-31-2018 Episodic Unclassified (4 sources) Hand pain - The pain affects the right hand. The pain is located in the small finger. Note for Hand pain: Pt states thought she had a splinter in top of finger at distal knuckle -- present for few months. Tried to remove splinter but nothing found. squeezes it and white gel like substance comes out. Pt states very tender to touch. Pt is right handed and area painful w/ bumping. 07-25-2020 Unclassified (5 sources) [ADDITIONAL REASON] Varicose Veins - Note for Varicose veins: Pt concerned w/ spider veins & varicosities bilaterally. H/O superficial clot in right calf approx 2 yrs ago[address] Pt saw Dr. Montalvo. Removed greater sapphenous vein on left leg. Varicosities started after that. Pt states constant pressure now in right calf. 07-25-2020 Unclassified (4 sources) [ADDITIONAL REASON] adrenal nodule - Pt had MRI thoracic spine 09/27/[address] Nickerson. Adrenal nodule seen. Pt wondering about follow up on this.Uterine Mass seen on Lumbar MRI and US Pelvis. Pt questions follow up.MRIs of spine show abnormalities and pt questions follow up on these as well. 07-25-2020 Unclassified (4 sources) Low back pain - The onset of the low back pain has been sudden following no specific incident (fell on steps approx 10 days ago - sat down hard) and has been occurring in a persistent pattern for 10 days. The low back pain is described as a dull aching (low back). The pain radiates to the right thigh (sharp pain in hip) and right foot (numbness). Note for Low back pain: Pt. reports history of back problems - had kyphoplasty in the past 11-23-2023 Unclassified (1 source) adrenal nodule - Pt had MRI thoracic spine 09/27/[address] Nickerson. Adrenal nodule seen. Pt wondering about follow up on this.Uterine Mass seen on Lumbar MRI and US Pelvis. Pt questions follow up.MRIs of spine show abnormalities and pt questions follow up on these as well. 07-25-2020 Unclassified (1 source) [ADDITIONAL REASON] Hand pain - The pain affects the right hand. The pain is located in the small finger. Note for Hand pain: Pt states thought she had a splinter in top of finger at distal knuckle -- present for few months. Tried to remove splinter but nothing found. squeezes it and white gel like substance comes out. Pt states very tender to touch. Pt is right handed and area painful w/ bumping. 07-25-2020 Unclassified (2 sources) Spider veins of both lower extremities; Translations: [I83.93 - Asymptomatic varicose veins of bilateral lower extremities] Unclassified (1 source) Low back pain, unspecified; Translations: [Low back pain, unspecified] Onset: Past or Other Problems Problem Classification Problem Date Documented Date Episodic/Chronic Hemorrhoids (1 source) Unspecified hemorrhoids; Translations: [Unspecified hemorrhoids] Onset: 07-17-2024 Episodic Other complications of (1 source) deep vein thrombosis - delivered; Translations: [Deep phlebothrombosis, antepartum, with delivery (HCC)] Episodic Other diseases of veins and lymphatics (3 sources) Venous insufficiency (chronic) (peripheral); Translations: [Venous (peripheral) insufficiency, unspecified] Onset: 03-14-2024 06-15-2023 Episodic Unclassified (20 sources) Encounter for screening for malignant neoplasm of cervix; Translations: [Patient encounter status] Onset: 09-22-2017 Episodic Unclassified (5 sources) !Patient notification of lab results - Dr. Romero. Note for !Patient notification of lab results : Reyna, your labs looked great. You will see [...] if you have any questions. 04-06-2022 Unclassified (5 sources) Physical examination - The patient is here for a annual physical. The patinet denies tobacco use. Note for Physical examination: sees [facility] yearly for pap, mammogram and bone density. Last visit -. 04-02-2022 Unclassified (5 sources) [ADDITIONAL REASON] Immunization - Note for For immmunization: declines flu shot, Last tetanus 2005. Did not have shingles vaccine. 04-02-2022 Unclassified (5 sources) !Patient notification of lab results - Dr. Kornhaus. The test(s) that you had done were/was [...] we schedule you a visit with Dr. Dsouza (our local skin care technician).). You should call our office if you have any questions. 01-18-2022 Unclassified (5 sources) Wrist Pain - The injury involved the left wrist. This occurred 2 month(s) ago at home. The injury resulted from a fall onto the hand. 01-14-2022 Unclassified (5 sources) [ADDITIONAL REASON] Ankle Pain - This condition occurred following a specific injury (fall). This occurred at home. 01-14-2022 Unclassified (5 sources) [ADDITIONAL REASON] Foot pain - Note for Foot pain: Left foot pain after fall 01-14-2022 Unclassified (5 sources) Leg pain - The leg pain has been occurring for 3 days. The leg pain is described as being located in the posterior thigh (Reddened and painful.). Note for Leg pain: Pt. states she has had vascular procedures on this leg in the past. 11-26-2020 Unclassified (5 sources) Abdominal Pain, Female - Symptoms include abdominal pain. The pain is located in the left lower quadrant. Onset was gradual 2 month(s) ago. Note for Abdominal pain: Pt. has also had more pelvic pressure that causes her to urinate more frequently. This symptoms has happened for some time. 08-21-2020 Unclassified (5 sources) [ADDITIONAL REASON] test results - Pt. here to discuss results of scans. 08-21-2020 Unclassified (5 sources) !Patient notification of lab results - FRANK [...] to see either endocrinology again or a management specialist to get some answers as to why you have had so many vertebral compression fractures with relatively little trauma. Please let me know if you are willing to do this. Thanks! 08-20-2020 Unclassified (5 sources) Skin lesion - Note for Skin lesion: Pt c/o lump on right hand 5th finger. Getting bigger and more painful. 07-30-2020 Unclassified (5 sources) !Patient notification of lab results - Dr. Martel. The test(s) that you had done were/was an EMG and nerve conduction test of the left arm. The results of your testing were normal (no sign of carpal tunnel syndrome or nerve damage) . Please let us know if your symptoms do not improve (may consider a medication for nerve irritation). 11-07-2018 Unclassified (4 sources) Leg pain - The onset of the leg pain has been sudden and has been occurring for 1 month. The leg pain involves the right leg. The leg pain is described as being located in the calf. There has been associated numbness and tingling. Note for Leg pain: Was seen by Dr. Montalvo - had US which showed Blood Clot in Muscle. Took ASA for 12 days.. 10-31-2018 Unclassified (4 sources) [ADDITIONAL REASON] Chest pain - The onset of the chest pain has been sudden. Note for Chest pain: Has had intermittent pain since Leg Pain - Dr. Montalvo was not concerned. Patient concerned about numbness of upper extremity and Blood Clots in Lung 10-31-2018 Unclassified (4 sources) Transition into care - The patient is transitioning into care from a hospital ([facility]) and a summary of care was reviewed. Note for Transition into care: Patient had back surgery by Dr. Nickerson. Patient had low oxygen level and abnormal chest xray. Here for evaluation 10-11-2017 Unclassified (4 sources) [ADDITIONAL REASON] Abnormal Chest Imaging - Note for Abnormal chest imaging: See Report. 10-11-2017 Unclassified (5 sources) Pre-Op Visit - The procedure scheduled is a T8 Kyphoplasty on 09/30/17. The surgeon for the procedure will be Dr. Nickerson. Note for Pre-op visit: . 09-29-2017 Unclassified (5 sources) !Patient notification of lab results - Martel. The test(s) that you had done were/was x-rays. The results of your testing were negative (no new fractures were seen) . Please be aware that we have sent copies to Dr Nickerson. 02-04-2017 Unclassified (5 sources) Injury - The patient reports that it was accidental. The date of the injury was on 01/28/17. The injury happened due to a falling down (stairs). Note for Injury: Pt had back surgery recently by Dr. Nickerson. She said her left butt and upper leg are bruised.. 02-03-2017 Unclassified (5 sources) !Patient notification of lab results - Martel. The test(s) that you had done were/was blood work. The results of your testing were normal . Please note that we have included copies of your results. 01-13-2017 Unclassified (4 sources) recheck after being in the hospital - The patient reports feeling improved. The date of admission was 12/27/2016 (procedure with Dr Nickerson, outpatient). The hospitalization was at [facility]. Note for recheck after being in the hospital: . 01-11-2017 Unclassified (4 sources) [ADDITIONAL REASON] Transition into care 01-11-2017 Unclassified (5 sources) !Patient notification of lab results - Martel. The test(s) that you had done were/was an ultrasound exam (there appears to be a benign fibroid growth on the uterus). Please follow up as scheduled (fibroids usually do not need treatment if not causing problems). 12-28-2016 Unclassified (5 sources) Back Pain - The last clinic visit was 1 week(s) ago. Management changes made at the last visit include adding Prednisone (took last pill today). Symptoms are located in the left lower back. Note for Back pain: Pt would like referral to Dr Nickerson. XRay done 12/15/16.. 12-21-2016 Unclassified (5 sources) !Patient notification of lab results - Martel. The test(s) that you had done were/was x-rays. Your tests showed the following abnormalities: there is a partial collapse (10-20%) of the L-1 vertebra . You should call our office to schedule a referral (recommend seeing an ehs specialist to see if you are a candidiate for kyphoplasty to restore the height of the vertebra). 12-16-2016 Unclassified (5 sources) Back Pain Lumbar, Acute - This condition occurred following a specific injury (lifting). Symptoms are located in the left low back. There is no radiation. Note for Acute lumbar back pain: Saw Dr Tristin Martel on 12/03/16, given Naproxen and Flexeril, not much improvement. Back surgery in 1999.. 12-14-2016 Unclassified (5 sources) Back Pain Lumbar, Acute - This occurred 6 hour(s) ago at home. The injury resulted from lifting. Symptoms include pain, muscle spasm and decreased range of motion. Symptoms are located symmetrically. The patient describes the pain as throbbing. Past treatment has included back surgery (1999, Dr. Nickerson). 12-03-2016 Unclassified (5 sources) Immunization - Influenza immunization was given. An immunization information sheet was provided. 01-06-2012 Unclassified (4 sources) Peptic Ulcer Disease - Symptoms do not include pain or heartburn. 2010 Unclassified (5 sources) [ADDITIONAL REASON] Obesity - Note for Obesity: concerned with weight 2010 Unclassified (4 sources) [ADDITIONAL REASON] recheck pud and gastritis - feeling well. 2010 Unclassified (5 sources) *Patient notification of lab results 1 - Dr. Drummond. The test(s) that you had done were/was a liver panel. The results of your testing were normal . 09-11-2010 Unclassified (5 sources) Abdominal pain - Note for Abdominal pain: feeling much better. Using no meds any longer. 09-10-2010 Unclassified (5 sources) [ADDITIONAL REASON] Edema - The edema involves both lower extremities. Onset was sudden. Note for Edema: noted ankle edema on 09/05-09/06 but has now resolved. 09-10-2010 Unclassified (5 sources) *Patient notification of lab results 1 - Dr. Drummond. The test(s) that you had done were/was a stool O&P. The results of your testing were normal . 09-04-2010 Unclassified (5 sources) *Patient notification of lab results 1 - Dr. Drummond. The test(s) that you had done were/was a stool culture. The results of your testing were normal . 09-02-2010 Unclassified (5 sources) *Patient notification of lab results 1 - Dr. Drummond. The test(s) that you had done were/was CBC (checks for anemia and infection) and CMP (kidneys, liver, nutrition, sugar). For your age and medical condition your tests showed the following abnormalities: mildly elevated liver enzymes . You should call our office to schedule an appointment for repeat lab in 2 weeks. 08-28-2010 Unclassified (5 sources) Vomiting - The onset of the vomiting has been acute and has been occurring in an intermittent pattern for 9 days. The course has been constant. The symptoms have been associated with abdominal pain (intermittent), diarrhea (8x/day), fever, headache, myalgia and vertigo. Note for Vomiting: had vomiting for first 24 hrs then started with diarrhea daily x 8 days. stormach rolls and rolls. is very weak and lightheaded. 08-27-2010 Unclassified (1 source) Chest pain - The onset of the chest pain has been sudden. Note for Chest pain: Has had intermittent pain since Leg Pain - Dr. Montalvo was not concerned. Patient concerned about numbness of upper extremity and Blood Clots in Lung 10-31-2018 Unclassified (1 source) [ADDITIONAL REASON] Leg pain - The onset of the leg pain has been sudden and has been occurring for 1 month. The leg pain involves the right leg. The leg pain is described as being located in the calf. There has been associated numbness and tingling. Note for Leg pain: Was seen by Dr. Montalvo - had US which showed Blood Clot in Muscle. Took ASA for 12 days.. 10-31-2018 Unclassified (1 source) Abnormal Chest Imaging - Note for Abnormal chest imaging: See Report. 10-11-2017 Unclassified (1 source) [ADDITIONAL REASON] Transition into care - The patient is transitioning into care from a hospital ([facility]) and a summary of care was reviewed. Note for Transition into care: Patient had back surgery by Dr. Nickerson. Patient had low oxygen level and abnormal chest xray. Here for evaluation 10-11-2017 Unclassified (1 source) Transition into care 01-11-2017 Unclassified (1 source) [ADDITIONAL REASON] recheck after being in the hospital - The patient reports feeling improved. The date of admission was 12/27/2016 (procedure with Dr Nickerson, outpatient). The hospitalization was at [facility]. Note for recheck after being in the hospital: . 01-11-2017 Unclassified (1 source) recheck pud and gastritis - feeling well. 2010 Unclassified (1 source) [ADDITIONAL REASON] Peptic Ulcer Disease - Symptoms do not include pain or heartburn. 2010 Unclassified (1 source) !Patient notification of lab results - Morenita Romero [employer]IST[employer]. The test(s) that you had done were/was an Xray of your thoracic & lumbar spine and right hip. Note for !Patient notification of lab results : There were no fractures noted on the xray, which is great news! I would continue to follow with endocrinology to see if they can get you on the needed medications for your osteopenia/osteoporos is. Let us know if you have any questions. 11-25-2023 Varicose veins of lower extremity (20 sources) Varicose veins of lower extremity; Translations: [Varicose veins of bilateral lower extremities with pain] Onset: 03-14-2024 04-02-2022 Episodic Results Test Name Value Interpretation Reference Range Facility MR FOOT W/O RTon 09-25-2024 MR FOOT W/O RT [place] [address] Patient: LAN OTT Phone#: : 1960 Age: 63 Gender: F Pt. Type: Out Account: [id number] Location: Ordering: FÉLIX DSOUZA Exam Date: 09/25/2024/12:53 Family Phys: ORLANDO RILEY Charge Code: 089320 Physician: [place] Order #: [id number] Dose#: PROCEDURE: MRI FOOT RT WITHOUT CONTRAST COMPARISON: None. INDICATIONS: Metatarsalgia TECHNIQUE: A complete multi-planar examination was performed without contrast. FINDINGS: BONES: Bipartite medial 1st sesamoid. There is mild amount of edema in the distal sesamoid. There is a small subchondral cyst at the proximal medial aspect of the cuboid. Remaining osseous structures are intact. No other areas of marrow edema. JOINTS: There is mild widening between the 4th and 5th MTP joints. There is fat signal soft tissue protruding between the joints, suggesting a focal lipoma. The suspected lipoma measures approximately 1.5 x 2.8 x 0.7 cm, series 4 image 22 to 26; and series 6 image 8-11. Normal interphalangeal and tarsometatarsal joints. PLANTAR FASCIA: The visualized portion of the plantar fascia is unremarkable. EFFUSIONS: None. No synovitis or loose bodies. TENDONS: Normal. No visible tendinitis, tear, or tenosynovitis. OTHER: No other significant findings. CONCLUSION: 1. Bipartite medial 1st sesamoid with small amount of edema in the distal half the sesamoid. 2. Widening between the 4th and 5th metatarsals with fat signal tissue protruding between the metatarsal joints, suggesting a lipoma. Dictated by: Radha Acuña MD on 10/02/2024 at 13:34 Approved by: Radha Acuña MD on 10/02/2024 at 13:48 Normal [facility] Surgery Visit Reporton 08-01 Surgery Visit Report [facility] [address] [place] [address]. [address] [place] [address] OFFICE VISIT Date of Service: 08/01/24 MR#: [id number] Acct: [id number] Name: LAN OTT Rep #: [id number] : 1960 Provider: Dr. My martinez MD Age/Sex: 63/F Location: [facility] Status: Signed Intake Vital Signs 07/17/24 11:03 08/01/24 08:33 Height 5 ft 2 in 5 ft 2 in Weight: 180 lb 179 lb 2 oz BMI 32.9 32.7 BP 124/82 H 110/74 Blood Pressure Location Lt brachial Rt brachial Position Sitting Sitting Respiration 18 17 Pulse 83 63 Pulse Source Monitor Monitor Temp 98.1 F 97.2 F L Temp Source Temporal Temporal Pulse Oximetry (%) 95 97 Oxygen Delivery Method room air room air Intake Visit Reasons: HEMORRHOIDS Chief Complaint: hemorrhoids Is patient in pain?: No Allergies gluten Allergy (Intermediate, Verified 08/01/24 08:34) Upset Stomach Medications ???Medication ???Instructions ???Recorded ???Confirmed ???Type omega-3 fatty acids 1,250 mg 1,250 mg PO DAILY SUPPLEMENT 09/1708/01/24 History capsule calcium 1 tab PO DAILY SUPPLEMENT 05/30/23 08/01/24 History oqvp-N1-aoxginvn-inosit-si shaquille 300 mg-200 unit-37.5 mg tablet (Bone Density Calcium Plus D) magnesium glycinate 250 mg PO DAILY SUPPLEMENT 4 08/01/24 History multivitamin (Daily Multi-Vitamin 1 tab PO DAILY SUPPLEMENT 4 08/01/24 History tablet) estradiol 0.01% (0.1 mg/gram) 2 g vaginal 2XW 10/24/23 08/01/24 History vaginal cream clobetasol 0.05 % topical foam topical BID PRN 05/24/24 08/01/24 History Hydrocortisone 2.5%/lidocaine 5% #30 ea 08/01/24 08/01/24 Rx suppository (cmpd) (hydrocortisone 2.5%/lidocaine 5% suppository (compound)) [facility] Medical History (Updated 08/01/24 @ 08:33 by Elizabeth Langston LPN) Hemorrhoids Incomplete uterovaginal prolapse Wears contact lenses Wears glasses Post-menopausal Arthritis Injury of back Back pain History of diverticulitis Former smoker History of pain when walking History of edema DVT (deep venous thrombosis) Psoriasis Roxanne's disease Vision problems Vascular disease Osteoporosis Osteopenia Bone fracture Back problem Fibroid uterus Surgical History Status post LOLIS-BSO Status post ablation of incompetent vein using laser H/O kyphoplasty History of back surgery S/P T A (status post tonsillectomy and adenoidectomy) Family History Mother Age: 84 Osteoporosis Diabetes Hypertension CVA (cerebral vascular accident) Grandmother Heart disease Grandfather Myocardial infarction Social History adopted: No household members: spouse housing: house number of children: 2 current occupational status: employed 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 current occupational exposures/hazards: No pets and animals: No history of recent travel: No sexually active: Yes Smoking Status: Former smoker quit date: 04/04/93 pack-years: 5 Electronic Cigarette Use: not used alcohol intake: never substance use type: does not use caffeine: Yes Type: coffee Number of servings: 2 eating out: rarely or never what type of physical activity do you participate in: walking and weight training frequency: 3-4 times per week dex/tenriism: None seatbelt use: always do you feel safe at home: Yes additional social history: - [employer] - [employer]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 HPI HPI HPI: 63-year-old female presents due to hemorrhoids as well as left upper back lipoma. Patient denies any family history of colon cancer. Patient's been dealing with her hemorrhoids since her daughter was born about 29 years ago. Patient states that currently they are worse now she has tried Preparation H which has not made much of a change. Patient has bowel movements daily denies any blood. Patient last colonoscopy was in 2014 normal per patient. Patient also states that she has subcutaneous lump on her lower neck/upper back PCP thought it was a lipoma. ROS General General: No weight change, appetite, fatigue, colon cancer, breast cancer or weakness HEENT HEENT: No difficulty swallowing, eye injury, eye surgery, swollen glands or hoarseness Endo Endocrine: No thyroid disease, diabetes mellitus, thyroid cancer, Hair loss, heat intolerance or cold intolerance Skin Skin: No rash or changing moles Musc Musculoskeletal: Yes back problems and arthritis; No rheumatoid arthritis, gout or joint pain Cardio Cardiovascular: No murmur, pacemaker, heart disease, atrial fibrillation, high blood pressure, heart attack, heart stent, palpitations, (more content not included)... Normal [facility] Internal Medicine Office Vis pati 07-17-2024 Internal Medicine Office Visit [facility] [address] [place] [address] OFFICE VISIT Date of Service: 07/17/24 MR#: [id number] Acct: [id number] Name: LAN OTT Rep #: [id number] : 1960 Provider: Dr. Orlando charlton MD Age/Sex: 63/F Location[facility] Status: Signed Intake Vital Signs 07/04/24 09:07 07/17/24 11:03 Height 5 ft 2 in 5 ft 2 in Weight: 180 lb BMI 32.9 BP 124/82 H Blood Pressure Location Lt brachial Position Sitting Respiration 18 Pulse 83 Pulse Source Monitor Temp 98.1 F Temp Source Temporal Pulse Oximetry (%) 95 Oxygen Delivery Method room air Intake Visit Reasons: LUMP ON UPPER BACK Chief Complaint: LUMP ON UPPER BACK Is patient in pain?: No Allergies gluten Allergy (Intermediate, Verified 07/17/24 11:06) Upset Stomach Medications ???Medication ???Instructions ???Recorded ???Confirmed ???Type omega-3 fatty acids 1,250 mg 1,250 mg PO DAILY SUPPLEMENT 09/1707/17/24 History capsule calcium 1 tab PO DAILY SUPPLEMENT 05/30/23 07/17/24 History bast-D7-vkrlolua-inosit-si shaquille 300 mg-200 unit-37.5 mg tablet (Bone Density Calcium Plus D) magnesium glycinate 250 mg PO DAILY SUPPLEMENT 4 07/17/24 History multivitamin (Daily Multi-Vitamin 1 tab PO DAILY SUPPLEMENT 4 07/17/24 History tablet) estradiol 0.01% (0.1 mg/gram) 2 g vaginal 2XW 10/24/23 07/17/24 History vaginal cream clobetasol 0.05 % topical foam topical BID PRN 05/24/24 07/17/24 History Have you fallen in the past year?: No Nurse's Note: pt has c/o of a lump on her upper back for approx 6 months pt indicating area at the base of her neck, denies pain. states that at times she does feel it interferes with neck ROM. pt states that this feels as if it is getting bigger. pt also voiced concern of lump on her right 5th finger joint, feels this is inhibiting ROM of the finger for the past year. [facility] Medical History Incomplete uterovaginal prolapse Wears contact lenses Wears glasses Post-menopausal Arthritis Injury of back Back pain History of diverticulitis Former smoker History of pain when walking History of edema DVT (deep venous thrombosis) Psoriasis Roxanne's disease Vision problems Vascular disease Osteoporosis Osteopenia Bone fracture Back problem Fibroid uterus Surgical History Status post LOLIS-BSO Status post ablation of incompetent vein using laser H/O kyphoplasty History of back surgery S/P T A (status post tonsillectomy and adenoidectomy) Family History Mother Age: 84 Osteoporosis Diabetes Hypertension CVA (cerebral vascular accident) Grandmother Heart disease Grandfather Myocardial infarction Social History adopted: No household members: spouse housing: house number of children: 2 current occupational status: employed 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 occupational exposures/hazards: No pets and animals: No history of recent travel: No sexually active: Yes Smoking Status: Former smoker quit date: 04/04/93 pack-years: 5 Electronic Cigarette Use: not used alcohol intake: never substance use type: does not use caffeine: Yes Type: coffee Number of servings: 2 eating out: rarely or never what type of physical activity do you participate in: walking and weight training frequency: 3-4 times per week dex/tenriism: None seatbelt use: always do you feel safe at home: Yes additional social history: - [employer] - [employer]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 HPI HPI Chief Complaint: LUMP ON UPPER BACK Details: LAN OTT, is a 63 F who presents to the office today for an acute visit with multiple concerns. She has concerns about a lump on her back. She reports that she was driving one day and felt the back of her neck and noticed a small lump. She states it has been there for at least 6 months, but thinks it may be getting bigger. She reports it is right off of her spine and it concerns her. She reports it doesn't cause any pain or discomfort. She denies any redness, increased warmth, open areas or drainage. She hasn't tried taking or doing anything for it. She reports it feels hard to touch, about the size of a quarter and thinks it may be 'a little' mobile. The patient also has concerns about her finger. She reports it has been bothering her for about a year. She reports it is the right 5th fingers of her distal joint. She feels that it seems to be extending across the joint now and isn't sure if there is anything to do about it. She reports her ROM in that finger seems to be less. (more content not included)... Normal [facility] Office Visit Reporton 2024 Office Visit Report [facility] [address] [place] [address] OFFICE VISIT Date of Service: 07/10/24 MR#: [id number] Acct: [id number] Patient: LAN OTT Rep #: [id number] : 1960 Provider: AP NURSE Age/Sex: 63/F Location[place] [facility] [place] Status: Signed Intake Vital Signs 07/04/24 09:07 Height 5 ft 2 in Weight: 181 lb BMI 33.0 BP 134/90 H Blood Pressure Location Lt brachial Position Sitting Respiration 16 Pulse 72 Pulse Source Monitor Temp 98.1 F Temp Source Temporal Pulse Oximetry (%) 99 Oxygen Delivery Method room air Intake Visit Reasons: EAR FLUSH Chief Complaint: Annual Allergies gluten Allergy (Intermediate, Verified 07/04/24 09:06) Upset Stomach Office Procedures Cerumen Removal Procedure BMS Cerumen Removal Procedure Procedure performed by: Félix Alexis Method of removal: loop and irrigation From which ear canal was the cerumen removed: right Amount of Cerumen: moderate Patient tolerated procedure: well Complications: none Assessment and Plan Assessment and Plan (1) Cerumen debris on tympanic membrane: Orders: Orders Cerumen Removal [facility] Today H61.20 - Impacted cerumen, unspecified ear 07/10/24 1554 Date Orlando Riley MD Cosigner Signature: Date (if applicable) CC: Normal [facility] Internal Medicine Office Vis adelaidan 07-03-2024 Internal Medicine Office Visit [facility] [address] [place] [address] OFFICE VISIT Date of Service: 07/04/24 MR#: [id number] Acct: [id number] Name: LAN OTT Rep #: [id number] : 1960 Provider: Dr. Orlando charlton MD Age/Sex: 63/F Location[place] [facility] [place] Status: Signed with Addenda ADDENDUM by Dr. Orlando Riley MD on 07/04/24 at 1207 Physical Exam HEENT External Auditory Canal: EAC's abnormal right cerumen impaction 07/04/24 1207 Date Orlando Riley MD cc: * Signed Intake Vital Signs 05/24/24 08:16 07/04/24 09:07 Height 5 ft 2 in 5 ft 2 in Weight: 181 lb BMI 33.0 BP 134/90 H Blood Pressure Location Lt brachial Position Sitting Respiration 16 Pulse 72 Pulse Source Monitor Temp 98.1 F Temp Source Temporal Pulse Oximetry (%) 99 Oxygen Delivery Method room air Intake Visit Reasons: yearly Chief Complaint: Annual Is patient in pain?: Yes (RIGHT FOOT) Pain scale (1-10): 5 Allergies gluten Allergy (Intermediate, Verified 07/04/24 09:06) Upset Stomach Medications ???Medication ???Instructions ???Recorded ???Confirmed ???Type omega-3 fatty acids 1,250 mg 1,250 mg PO DAILY SUPPLEMENT 09/1707/04/24 History capsule calcium 1 tab PO DAILY SUPPLEMENT 05/30/23 07/04/24 History uchg-U6-dfuqeltq-inosit-si shaquille 300 mg-200 unit-37.5 mg tablet (Bone Density Calcium Plus D) magnesium glycinate 250 mg PO DAILY SUPPLEMENT 4 07/04/24 History multivitamin (Daily Multi-Vitamin 1 tab PO DAILY SUPPLEMENT 4 07/04/24 History tablet) estradiol 0.01% (0.1 mg/gram) 2 g vaginal 2XW 10/24/23 07/04/24 History vaginal cream clobetasol 0.05 % topical foam topical BID PRN 05/24/24 07/04/24 History Have you fallen in the past year?: No PFSH Medical History Incomplete uterovaginal prolapse Wears contact lenses Wears glasses Post-menopausal Arthritis Injury of back Back pain History of diverticulitis Former smoker History of pain when walking History of edema DVT (deep venous thrombosis) Psoriasis Roxanne's disease Vision problems Vascular disease Osteoporosis Osteopenia Bone fracture Back problem Fibroid uterus Surgical History Status post LOLIS-BSO Status post ablation of incompetent vein using laser H/O kyphoplasty History of back surgery S/P T A (status post tonsillectomy and adenoidectomy) Family History (Updated 07/04/24 @ 09:[address] Orlando Riley MD) Mother Age: 84 Osteoporosis Diabetes Hypertension CVA (cerebral vascular accident) Grandmother Heart disease Grandfather Myocardial infarction Social History (Updated 07/04/24 @ 09:[address] 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 occupational exposures/hazards: No pets and animals: No history of recent travel: No sexually active: Yes Smoking Status: Former smoker quit date: 04/04/93 pack-years: 5 Electronic Cigarette Use: not used alcohol intake: never substance use type: does not use caffeine: Yes Type: coffee Number of servings: 2 eating out: rarely or never what type of physical activity do you participate in: walking and weight training frequency: 3-4 times per week dex/tenriism: None seatbelt use: always do you feel safe at home: Yes additional social history: - Rabia - [employer]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 Questionnaire PQH-9 BMS Over the last 2 weeks, how often have you been bothered by any of the following problems? 1. Little interest or pleasure in doing things: not at all 2. Feeling down, depressed, or hopeless: not at all 3. Trouble falling or staying asleep, or sleeping too much: several days 4. Feeling tired or having little energy: several days 5. Poor appetite or overeating: not at all 6. Feeling bad about yourself - or that you are a failure or have let yourself and your family down: not at all 7. Trouble concentrating on things, such as reading the newspaper or watching television: not at all 8. Moving or speaking so slowly that other people could have noticed? - Or the opposite - being so fidgety or restless that you have been moving around a lot more than usual: not at all 9. Thoughts that you would be better off or of hurting yourself in some way: not at all Total score: 2 If you checked off any problems, how difficult have these problems made it for you to do your work, take care of things at home, or get along with other people?: not difficult at all Source: Developed by Drs. Andre Acevedo, (more content not included)... Normal [facility] BD DXA - AXIAL SKELETONon BD DXA - AXIAL SKELETON * * *Final Report* * * DATE OF EXAM: Jun 15 2024 1:34PM CHRIS 0804 - BD DXA - AXIAL SKELETON B / PROCEDURE REASON: Z13.820 * * * * Physician Interpretation * * * * EXAMINATION: DXA BONE DENSITOMETRY BD DXA - AXIAL SKELETON, BD DXA TRABECLR BONE SCORE (TBS) PATIENT DEMOGRAPHICS: Age: 63 years, Gender: Female SCANNER INFORMATION: DXA Model: Date Scanned: 06/15/2024 1:34 PM CLINICAL HISTORY: DIAGNOSTIC Z13.820. RISK FACTORS FOR OSTEOPOROSIS AND ASSOCIATED FRACTURES REPORTED BY THIS PATIENT: Please refer to Bone Health Questionnaire in the EMR CURRENT THERAPY: Please refer to Bone Health Questionnaire in the EMR RESULTS: Lumbar spine (L2, L3, L4): 0.796 g/cm2, T-score -2.6, Z-score -1.0 Left Femoral Neck: 0.618 g/cm2, T-score -2.1, Z-score -0.7 Left Total Hip: 0.763 g/cm2, T-score -1.5, Z-score -0.4 No comparison data - the patient has not had a previous bone density in the [facility] or the previous bone density was performed on a different DXA machine (new, updated model or different location) within the [facility]. VERTEBRAL FRACTURE ASSESSMENT Not performed. TRABECULAR BONE ASSESSMENT TBS score: 1.186 Bone micro-architecture: Degraded (< or = 1.230) IMPRESSION: THE LOWEST T-SCORE IS -2.6 IN THE SPINE 1) DIAGNOSIS (based on BMD alone): OSTEOPOROSIS Caution: Medical conditions other than osteoporosis may cause low bone density, such as osteomalacia or renal osteodystrophy. Clinical correlation is necessary. 2) FRACTURE RISK (Based on TBS adjusted FRAX): 10-year absolute fracture risk: - major osteoporotic fracture = 19 % - hip fracture = 2.8 % - A diagnosis of Osteoporosis, a 10 year probability of hip fracture greater than or equal to 3% or a 10 year probability of any major osteoporosis-related fracture greater than or equal to 20% should be considered for treatment. - DXA scanner generated FRAX calculations may slightly differ from online FRAX calculations due to differences in software versions. - All recommendations and calculations are to be considered as guidelines and should not replace sound clinical judgement - Caution: Fracture risk may be increased independent of BMD in patients with corticosteroid use, age greater than 65 years, or a history of prior fragility fracture. RECOMMENDATIONS: Follow-up in 2 years or as clinically indicated. Patients that are taking corticosteroids, are transplant recipients or have hyperparathyroidism should have annual follow-up. Follow-up scans should always be done on the same machine for accurate comparison. FOR MORE INFORMATION ABOUT DIAGNOSIS AND TREATMENT: [facility] Center for Osteoporosis and Metabolic Bone Disease:? www.ccf.org/arthritis/oste o National Osteoporosis Foundation:? www.nof.org International Society of Clinical Densitometry www.iscd.org Apple Picking Supervisor: WILTON Transcribe Date/Time: Jun 18 2024 11:36A Dictated by : GUY EUGENE MD This examination was interpreted and the report reviewed and electronically signed by: GUY EUGENE MD on Jun 18 2024 11:38AM EST [id number] -2.6 Normal [facility] BD DXA TRABECLR BONE SCORE ( TBS)on 06-15-2024 BD DXA TRABECLR BONE SCORE (TBS) * * *Final Report* * * DATE OF EXAM: Jun 15 2024 1:34PM WRB 08Christopher - BD DXA TRABECLR BONE SCORE (TBS) / PROCEDURE REASON: Z13.820 * * * * Physician Interpretation * * * * EXAMINATION: DXA BONE DENSITOMETRY BD DXA - AXIAL SKELETON, BD DXA TRABECLR BONE SCORE (TBS) PATIENT DEMOGRAPHICS: Age: 63 years, Gender: Female SCANNER INFORMATION: DXA Model: Date Scanned: 06/15/2024 1:34 PM CLINICAL HISTORY: DIAGNOSTIC Z13.820. RISK FACTORS FOR OSTEOPOROSIS AND ASSOCIATED FRACTURES REPORTED BY THIS PATIENT: Please refer to Bone Health Questionnaire in the EMR CURRENT THERAPY: Please refer to Bone Health Questionnaire in the EMR RESULTS: Lumbar spine (L2, L3, L4): 0.796 g/cm2, T-score -2.6, Z-score -1.0 Left Femoral Neck: 0.618 g/cm2, T-score -2.1, Z-score -0.7 Left Total Hip: 0.763 g/cm2, T-score -1.5, Z-score -0.4 No comparison data - the patient has not had a previous bone density in the [facility] or the previous bone density was performed on a different DXA machine (new, updated model or different location) within the [facility]. VERTEBRAL FRACTURE ASSESSMENT Not performed. TRABECULAR BONE ASSESSMENT TBS score: 1.186 Bone micro-architecture: Degraded (< or = 1.230) IMPRESSION: THE LOWEST T-SCORE IS -2.6 IN THE SPINE 1) DIAGNOSIS (based on BMD alone): OSTEOPOROSIS Caution: Medical conditions other than osteoporosis may cause low bone density, such as osteomalacia or renal osteodystrophy. Clinical correlation is necessary. 2) FRACTURE RISK (Based on TBS adjusted FRAX): 10-year absolute fracture risk: - major osteoporotic fracture = 19 % - hip fracture = 2.8 % - A diagnosis of Osteoporosis, a 10 year probability of hip fracture greater than or equal to 3% or a 10 year probability of any major osteoporosis-related fracture greater than or equal to 20% should be considered for treatment. - DXA scanner generated FRAX calculations may slightly differ from online FRAX calculations due to differences in software versions. - All recommendations and calculations are to be considered as guidelines and should not replace sound clinical judgement - Caution: Fracture risk may be increased independent of BMD in patients with corticosteroid use, age greater than 65 years, or a history of prior fragility fracture. RECOMMENDATIONS: Follow-up in 2 years or as clinically indicated. Patients that are taking corticosteroids, are transplant recipients or have hyperparathyroidism should have annual follow-up. Follow-up scans should always be done on the same machine for accurate comparison. FOR MORE INFORMATION ABOUT DIAGNOSIS AND TREATMENT: [facility] Center for Osteoporosis and Metabolic Bone Disease:? www.ccf.org/arthritis/oste o National Osteoporosis Foundation:? www.nof.org International Society of Clinical Densitometry www.iscd.org Apple Picking Supervisor: PSCRancho Transcribe Date/Time: Jun 18 2024 11:36A Dictated by : GUY EUGENE MD This examination was interpreted and the report reviewed and electronically signed by: GUY EUGENE MD on Jun 18 2024 11:38AM EST [id number] -2.6 Normal [facility] Breast imaging reportOrdered By: Melba Garcia on 06-13-2024 Study report [facility] Imaging Services [address] [place] [address] SCRN MAMM (CAD)W/DOMO BILAT MR#: [id number] Acct: [id number] Name: LAN OTT Rep #: [id number] : 1960 F 63 From: Rabia Garcia MD PCP: Dr. Orlando Riley MD Status: [facility] Study:SCRN MAMM (CAD)W/DOMO BILAT Date of Exa m: 06/13/24 Exam# [id number] Ordering Dr: Joanna Lerma [facility] PROCEDURE: SCRN MAMM (CAD)W/DOMO BILAT REASON FOR EXAM: F, Age 63 y/o , SCREENING MAMMOGRAM FOR BREAST CANCER. No family history of breast cancer. TECHNIQUE: Bilateral screening digital breast tomosynthesis with 2D and 3D images. Computeraided detection. COMPARISON: 05/26/2023 FINDINGS: The breasts are almost entirely fatty. No suspicious masses, areas of developing architectural distortion, or suspicious calcifications. BI/SCRN MAMM (CAD)W/DOMO BILAT IMPRESSION: There is no mammographic evidence of malignancy. BI-RADS 1: NEGATIVE. RECOMMEND ANNUAL MAMMOGRAPHIC SCREENING. Follow-up code: Routine Follow-up The patient will be notified of the results by letter. Reading Location: [facility] CC: FERNANDO Lerma; Dr. Orlando Riley MD ~ Apple Picking Supervisor: Signed [facility] SCRN MAMM (CAD)W/DOMO BILATo n 06-13-2024 SCRN MAMM (CAD)W/DOMO BILAT [facility] Imaging Services [address] [place] [address] SCRN MAMM (CAD)W/DOMO BILAT MR#: [id number] Acct: [id number] Name: LAN OTT Rep #: [id number] : 1960 F 63 From: Melba Garcia MD PCP: Dr. Orlando Rilye MD Status: [facility] Study: SCRN MAMM (CAD)W/DOMO BILAT Date of Exam: 06/02 05/29 Exam# [id number] Ordering Dr: Joanna Lerma CNM PROCEDURE: SCRN MAMM (CAD)W/DOMO BILAT REASON FOR EXAM: F, Age 63 y/o , SCREENING MAMMOGRAM FOR BREAST CANCER. No family history of breast cancer. TECHNIQUE: Bilateral screening digital breast tomosynthesis with 2D and 3D images. Computer aided detection. COMPARISON: 05/26/2023 FINDINGS: The breasts are almost entirely fatty. No suspicious masses, areas of developing architectural distortion, or suspicious calcifications. BI/SCRN MAMM (CAD)W/DOMO BILAT IMPRESSION: There is no mammographic evidence of malignancy. BI-RADS 1: NEGATIVE. RECOMMEND ANNUAL MAMMOGRAPHIC SCREENING. Follow-up code: Routine Follow-up The patient will be notified of the results by letter. Reading Location: [id number] CC: FERNANDO Lerma; Dr. Orlando Riley MD Apple Picking Supervisor: Signed Normal [facility] Office Visit Reporton 05-24-2024 [facility] Office Visit Report [facility] [address], [address] [place] [address] OFFICE VISIT Date of Service: 05/24/24 MR#: [id number] Acct: [id number] Name: LAN OTT Rep #: [id number] : 1960 Provider: FERNANDO Delgado ams Age/Sex: 63/F [place] [facility] [place] Status: Signed Intake Vital Signs 03/15/24 08:52 05/24/24 08:16 Height 5 ft 2 in 5 ft 2 in Weight: 180 lb 8 oz BMI 33.0 BP 118/86 H 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) Chief Complaint: Annual Is patient in pain?: No Allergies gluten Allergy (Intermediate, Verified 05/24/24 08:22) Upset Stomach Medications ???Medication ???Instructions ???Recorded ???Confirmed ???Type omega-3 fatty acids 1,250 mg 1,250 mg PO DAILY SUPPLEMENT 09/1705/24/24 History capsule calcium 1 tab PO DAILY SUPPLEMENT 05/30/23 05/24/24 History lkjz-N4-cyfpvoji-inosit-si shaquille 300 mg-200 unit-37.5 mg tablet (Bone Density Calcium Plus D) magnesium glycinate 250 mg PO DAILY SUPPLEMENT 4 05/24/24 History multivitamin (Daily Multi-Vitamin 1 tab PO DAILY SUPPLEMENT 4 05/24/24 History tablet) estradiol 0.01% (0.1 mg/gram) 2 g vaginal 2XW 10/24/23 05/24/24 History vaginal cream clobetasol 0.05 % topical foam topical BID PRN 05/24/24 05/24/24 History PFSH Medical History Incomplete uterovaginal prolapse Wears contact lenses Wears glasses Post-menopausal Arthritis Injury of back Back pain History of diverticulitis Former smoker History of pain when walking History of edema DVT (deep venous thrombosis) Psoriasis Roxanne's disease Vision problems Vascular disease Osteoporosis Osteopenia Bone fracture Back problem Fibroid uterus Surgical History Status post LOLIS-BSO Status post ablation of incompetent vein using laser H/O kyphoplasty History of back surgery S/P T A (status post tonsillectomy and adenoidectomy) Family History Mother Age: 84 Osteoporosis Diabetes Hypertension Grandmother Heart disease Grandfather Myocardial infarction Social History adopted: No household members: spouse housing: house number of children: 2 current occupational status: employed 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 current occupational exposures/hazards: No pets and animals: No history of recent travel: No sexually active: Yes Smoking Status: Former smoker quit date: 04/04/93 pack-years: 5 Electronic Cigarette Use: not used alcohol intake: never substance use type: does not use caffeine: Yes Type: coffee Number of servings: 2 eating out: rarely or never what type of physical activity do you participate in: walking and weight training frequency: 3-4 times per week dex/tenriism: None seatbelt use: always do you feel safe at home: Yes additional social history: - Rabia - [employer]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 [employer] HPI Encounter for routine gynecological examination Details: LAN OTT is a 63 year old who presents for annual exam. Hx of total hysterectomy. Last PAP: 04/2023 History of abnormal PAP: [] Last mammogram: 2023 History of abnormal mammogram: no Colon cancer screenin Other preventative health care screenings: PCP Female Reproductive History Questions: sexually active: Yes, dyspareunia: No and PCB: No ROS Const Constitutional: Reports system reviewed and no additional complaints, except as documented Cardio Card: Reports system reviewed and no additional complaints, except as documented Resp Resp: Reports system reviewed and no additional complaints, except as documented GI GI: Reports system reviewed and no additional complaints, except as documented : Reports system reviewed and no additional complaints, except as documented; Denies difficulty voiding, dysuria or urinary frequency Skin Skin/Breast: Reports system reviewed and no additional complaints, except as documented Neuro Neuro: Reports system reviewed and no additional complaints, except as documented Psych Psych: Reports system reviewed and no additional complaints, except as documented; Denies anhedonia, anxiety or depression Exam Const General: cooperative, healthy appearing, comfortable and no acute distress Orientation: alert, awake and oriented x3 Neck Neck: normal visual inspection and full ROM Thyroid: thyroid normal Chest Breast inspection: normal inspection of the breasts and normal inspection of the axillae Breast palpation: normal palpation of the breasts and normal palpation of the axillae Resp Effort Inspection: normal respiratory effort, able to speak in complete sentences and symm (more content not included)... Normal [facility] Surgery Visit Reporton 03-29 Surgery Visit Report [facility] [address] [place] [address] OFFICE VISIT Date of Service: 03/29/24 MR#: [id number] Acct: [id number] Name: LAN OTT Rep #: [id number] : 1960 Provider: MARCELA Sprague Age/Sex: 63/F [place] [facility] Status: Signed Intake Vital Signs 01/11/24 09:08 03/15/24 08:52 03/29/24 10:18 Height 5 ft 2 in 5 ft 2 in Weight: 183 lb BP 129/85 H Blood Pressure Location Lt brachial Position Sitting Respiration 16 Pulse 71 Pulse Source Monitor Temp 98.4 F Temp Source Temporal Pulse Oximetry (%) 97 Oxygen Delivery Method room air Intake Visit Reasons: POST LLE SF LIGATION SAPHENOUS VEIN ABLATION FU Is patient in pain?: No Allergies gluten Allergy (Intermediate, Verified 03/29/24 10:21) Upset Stomach Medications ???Medication ???Instructions ???Recorded ???Confirmed ???Type omega-3 fatty acids 1,250 mg 1,250 mg PO DAILY SUPPLEMENT 09/17/20 03/29/24 History capsule calcium 1 tab PO DAILY SUPPLEMENT 05/30/23 03/29/24 History wndp-X4-lqvqunpb-inosit-si shaquille 300 mg-200 unit-37.5 mg tablet (Bone Density Calcium Plus D) magnesium glycinate 250 mg PO DAILY SUPPLEMENT 05/30/23 03/29/24 History multivitamin (Daily Multi-Vitamin 1 tab PO DAILY SUPPLEMENT 05/30/23 03/29/24 History tablet) estradiol 0.01% (0.1 mg/gram) 2 g vaginal 2XW 10/24/23 03/29/24 History vaginal cream Is last menstrual period known: No Post menopausal: Yes Patient : No Have you fallen in the past year?: No Subjective Details: LAN OTT, is a 63 F who presents to the office today for follow-up s/p L SFJ ligation on 03/15/24. She has already noticed an improvement in her LLE symptoms, most notably a significant decrease in the discomfort in her varicosities/reticular veins on the lateral and posterior aspect of her knee. She has not had any drainage, swelling, or other concerns at the L groin incision site though does still note some glue remains adherent. She has been wearing compression consistently. She would still like to consider cosmetic intervention for her bilateral numerous spider veins. Objective Details: A Ox3, NAD RRR Nonlabored respirations, able to speak in complete sentences L groin incision site well-healed, some skin glue remains adherent; no surrounding erythema or edema Numerous spider veins noted to bilateral thighs and calves Coding Level of Care Code Global Post Op Diagnoses Symptomatic varicose veins of left lower extremity I83.892 Spider veins of both lower extremities I83.93 [facility] Medical History Incomplete uterovaginal prolapse Wears contact lenses Wears glasses Post-menopausal Arthritis Injury of back Back pain History of diverticulitis Former smoker History of pain when walking History of edema DVT (deep venous thrombosis) Psoriasis Roxanne's disease Vision problems Vascular disease Osteoporosis Osteopenia Bone fracture Back problem Fibroid uterus Surgical History Status post LOLIS-BSO Status post ablation of incompetent vein using laser H/O kyphoplasty History of back surgery S/P T A (status post tonsillectomy and adenoidectomy) Family History Mother Age: 84 Osteoporosis Diabetes Hypertension Grandmother Heart disease Grandfather Myocardial infarction Social History adopted: No household members: spouse housing: house number of children: 2 current occupational status: employed 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 current occupational exposures/hazards: No pets and animals: No history of recent travel: No sexually active: Yes Smoking Status: Former smoker quit date: 04/04/93 pack-years: 5 Electronic Cigarette Use: not used alcohol intake: never substance use type: does not use caffeine: Yes Type: coffee Number of servings: 2 eating out: rarely or never what type of physical activity do you participate in: walking and weight training frequency: 3-4 times per week dex/tenriism: None seatbelt use: always do you feel safe at home: Yes additional social history: - Rabia - [employer]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 [employer] Assessment and Plan (No Qualifiers) Assessment and Plan (1) Symptomatic varicose veins of left lower extremity: Status: Acute Plan: She has noted significant improvement in her symptomatic varicosities so far s/p L SFJ ligation. The incision site is well-healed. Her initial post-op duplex showed successful ligation and was negative for any DVT. (2) Spider veins of both lower extremities: Status: Acute (more content not included)... Normal [facility] Venous Duplex US, Unilateral on 03-19-2024 Venous Duplex US, Unilateral [facility] [address] [place] [address] Venous Duplex US, Unilateral 03/19/24 1324 MR#: [id number] Acct: [id number] Name: LAN OTT Rep #: [id number] : 1960 63 From: Sammie Michel MD Attending Dr: MARCELA Sprague Status: REG CLI Ordering Dr: Michelle Tuttle Date: 03/19/24 Location: CVS Sex: F C Admitted: Reason For Study: HX LLE Ligation/ Ablation RIGHT LEFT FV is compressible, spontaneous, phasic, HX GSV Stripping / SFJ Ligation. Vessel is competent and demonstrates normal dilated and NONCOMPRESSIBLE at prox. augmentation. GSV / ASV compressible from mid to ankle. Procedure CFV is compressible, spontaneous, phasic, This is a venous duplex using B-mode, color competent and demonstrates normal flow and spectral Doppler. augmentation. Exam performed in department. FV is compressible, spontaneous, phasic, The exam was diagnostic. competent and demonstrates normal augmentation. POP V is compressible, spontaneous, phasic, competent and demonstrates normal augmentation. T/P Trunk is compressible. PTV is compressible. Aneudy V is compressible. VL/Venous Duplex US, Unilateral Interpretation Summary Left saphenofemoral junction and proximal great saphenous vein occluded consistent with recent ligation. Deep veins of the left lower extremity are patent and compressible segmentally. There is no evidence of left lower extremity deep vein thrombosis. Ordering Physician: Michelle Tuttle Referring Physician: Orlando Riley Performed By: Beto Espinal, T 03/20/241707 Date Sammie Michel MD CC: MARCELA Sprague; Dr. Orlando Riley MD Date Dictated: 03/19/241323 Date Transcribed: 03/20/241707 Apple Picking Supervisor: Signed Normal [facility] Basic Metabolic Profile (BMP )on 03-15-2024 BUN/CRE 19.3 RATIO Normal 10-20 [facility] Comment on above: Performed By: #### L 100.0500, L500.2500 ####[facility] [address] [place], [address] CA,Total 9.4 mg/dL Normal 8.5-10.1 [facility] Comment on above: Performed By: #### L 100.0500, L500.2500 ####[facility] [address] [place], [address] Chloride [Moles/Vol] 109 mmol/L High 98-107 [facility] Comment on above: Performed By: #### L 100.0500, L500.2500 ####[facility] [address] [place], [address] CO2 [Moles/Vol] 27.0 mmol/L Normal 21.0-32.0 [facility] Comment on above: Performed By: #### L 100.0500, L500.2500 ####[facility] [address] [place], [address] Creatinine [Mass/Vol] 0.68 mg/dL Normal 0.55-1.02 [facility] Comment on above: Result Comment: The validity of the calculated GFR GFRAA in patients over 70 years has not been determined. Clinical correlation is essential. Performed By: #### L 100.0500, L500.2500 ####[facility] [address] [place], [address] ECRCL 86.52 ml/min Normal [facility] Comment on above: Performed By: #### L 100.0500, L500.2500 ####[facility] [address] [place], [address] EST GFR - AA 114 mL/min Normal >60 [facility] Comment on above: Result Comment: Afri can German GFR Calc Performed By: #### L 100.0500, L500.2500 ####[facility] [address] [place], [address] GAP 5 Normal 5-15 [facility] Comment on above: Performed By: #### L 100.0500, L500.2500 ####[facility] [address] [place], [address] GFR/1.73 sq M.predicted among non-blacks MDRD (S/P/Bld) [Vol rate/Area] 94 mL/min/{1.73_m2} Normal >60 [facility] Comment on above: Result Comment: Non- GFR Calc Performed By: #### L 100.0500, L500.2500 ####[facility] [address] [place], [address] Glucose [Mass/Vol] 99 mg/dL Normal 74-106 [facility] Comment on above: Performed By: #### L 100.0500, L500.2500 ####[facility] [address] [place], [address] Potassium [Moles/Vol] 3.8 mmol/L Normal 3.5-5.1 [facility] Comment on above: Performed By: #### L 100.0500, L500.2500 ####[facility] [address] [place], [address] Sodium [Moles/Vol] 141 mmol/L Normal 136-145 [facility] Comment on above: Performed By: #### L 100.0500, L500.2500 ####[facility] [address] [place], [address] Urea nitrogen [Mass/Vol] 13 mg/dL Normal 7-18 [facility] Comment on above: Performed By: #### L 100.0500, L500.2500 ####[facility] [address] [place], [address] Blood urea nitrogen (BUN)/cr eatinine ratioOrdered By: Sammie Michel on 03-15-2024 Urea nitrogen/Creatinine [Mass ratio] 19.3 mg/mg 10-20 [facility] CBC-Complete Blood Cnt No Di ffon 03-15-2024 Erythrocyte distribution width (RBC) [Ratio] 12.5 % Normal 11.6-14.6 [facility] Comment on above: Performed By: #### L 100.0500, L500.2500 #### [facility] Laboratory [address] [place], [address] Hematocrit (Bld) [Volume fraction] 46.6 % Normal 37-47 [facility] Comment on above: Performed By: #### L 100.0500, L500.2500 #### [facility] [address] [place], [address] Hemoglobin (Bld) [Mass/Vol] 15.2 g/dL High 12.0-15.0 [facility] Comment on above: Performed By: #### L 100.0500, L500.2500 #### [facility] [address] [place], [address] MCH (RBC) [Entitic mass] 28.4 pg Normal 27.0-32.0 [facility] Comment on above: Performed By: #### L 100.0500, L500.2500 #### [facility] [address] [place], [address] MCHC (RBC) [Mass/Vol] 32.6 g/dL Normal 32-36 [facility] Comment on above: Performed By: #### L 100.0500, L500.2500 #### [facility] [address] [place], [address] MCV (RBC) [Entitic vol] 86.9 fL Normal 81-99 [facility] Comment on above: Performed By: #### L 100.0500, L500.2500 #### [facility] [address] [place], [address] Platelet mean volume (Bld) [Entitic vol] 10.0 fL Normal 6.2-12.0 [facility] Comment on above: Performed By: #### L 100.0500, L500.2500 #### [facility] [address] [place], [address] Platelets (Bld) [#/Vol] 187 10*3/uL Normal 150-450 [facility] Comment on above: Performed By: #### L 100.0500, L500.2500 #### [facility] [address] [place], [address] RBC (Bld) [#/Vol] 5.36 10*6/uL Normal 4.2-5.4 [facility] Comment on above: Performed By: #### L 100.0500, L500.2500 #### [facility] [address] [place], [address] RDW SD 39.6 fl Normal 35.1-43.9 [facility] Comment on above: Performed By: #### L 100.0500, L500.2500 #### [facility] [address] [place], [address] WBC (Bld) [#/Vol] 5.6 10*3/uL Normal 4.4-11.0 [facility] Comment on above: Performed By: #### L 100.0500, L500.2500 #### [facility] [address] [place], [address] Carbon dioxide measurementOr dered By: Sammie Michel on 03-15-2024 CO2 [Moles/Vol] 27.0 mmol/L 21.0-32.0 [facility] Chloride measurementOrdered By: Sammie Michel on 03-15-2024 Chloride [Moles/Vol] 109 mmol/L High 98-107 [facility] Erythrocyte distribution wid th ratioOrdered By: Sammie Michel on 03-15-2024 Erythrocyte distribution width (RBC) [Ratio] 12.5 % 11.6-14.6 [facility] Erythrocyte distribution wid th standard deviationOrdered By: Sammie Michel on 03-15-2024 Erythrocyte distribution width (RBC) [Entitic vol] 39.6 fL 35.1-43.9 [facility] Estimated glomerular filtrat ion rate (GFR) AmericanOrdered By: Sammie Michel on 03-15-2024 Estimated GFR (MDRD) Amer 114 mL/min >60 [facility] Comment on above: GFR Calc Estimation of creatinine bonnie aranceOrdered By: Sammie Michel on 03-15-2024 Estimated Creatinine Clearance Calc 86.52 ml/min [facility] Glomerular filtration rate ( GFR) estimationOrdered By: Sammie Michel on 03-15-2024 Estimated GFR (MDRD) Non-Af Amer 94 mL/min >60 [facility] Comment on above: Non- GFR Calc Glucose measurementOrdered B y: Sammie Michel on 03-15-2024 Glucose [Mass/Vol] 99 mg/dL 74-106 [facility] Hematocrit Auto (Bld) [Volum e fraction]Ordered By: Sammie Michel on 03-15-2024 Hematocrit (Bld) [Volume fraction] 46.6 % 37-47 [facility] Hemoglobin measurementOrdere d By: Sammie Michel on 03-15-2024 Hemoglobin (Bld) [Mass/Vol] 15.2 g/dL High 12.0-15.0 [facility] MCV (mean corpuscular volume ) determinationOrdered By: Sammie Michel on 03-15-2024 MCV (RBC) [Entitic vol] 86.9 fL 81-99 [facility] Mean corpuscular hemoglobin (MCH) determinationOrdered By: Sammie Michel on 03-15-2024 MCH (RBC) [Entitic mass] 28.4 pg 27.0-32.0 [facility] Mean corpuscular hemoglobin concentration (MCHC) determinationOrdered By: Sammie Michel on 03-15-2024 MCHC (RBC) [Mass/Vol] 32.6 g/dL 32-36 [facility] Mean platelet volume determi nationOrdered By: Sammie Michel on 03-15-2024 Platelet mean volume (Bld) [Entitic vol] 10.0 fL 6.2-12.0 [facility] Operative Reporton 4 Operative Report [facility] Medical Records Department [address] [place] [address] Operative Report 03/15/24 1317 MR#: [id number] Acct: [id number] Name: LAN OTT Rep #: [id number] : 1960 63 From: Sammie Michel MD PCP: Dr. Orlando Riley MD Status:[facility] Location: [facility] Operative Report (Standard) Operative Information Date of Procedure: 03/15/24 Pre-Operative Diagnosis: Painful varicose veins of the left lower extremity Post-Operative Diagnosis: Same Surgery/Procedure Performed: Left saphenofemoral junction ligation leather cutter: No Type of Anesthesia: Local and MAC Procedure Start Time: 10:00 Procedure Stop Time: 12:00 Select all DRAINS/GRAFTS/IMPLANTS that apply: None Estimated Blood Loss: 4 Specimen collected: No Description of surgery: HPI: Patient is a 63-year-old female with recurrent painful left lower extremity varicose veins despite prior ablation many years prior. She had reflux venous duplex which revealed reflux within what appeared to be a recanalized great saphenous vein. She also had significant reflux at the saphenofemoral junction which was enlarged with multiple accessory branches emanating from this point. She is felt to be appropriate for saphenofemoral ligation and chemical ablation if possible of the great saphenous vein. Description of procedure: Upon obtaining form consent and verification correct patient procedure site patient was taken to the [facility] where she was positioned prepped and draped in you sterile fashion. Time was performed and conscious sedation administered Versed and fentanyl. Ultrasound used to evaluate the great saphenous vein from the mid calf to the saphenofemoral junction. This was noted to be small in caliber, tortuous at some segments, and potentially in discontinuity with some segments of the prior ablation appeared to be intact. The hope was that if we were able to access in the proximal calf would be able to perform chemical ablation up to the proximal thigh though not entirely to the saphenofemoral junction. The saphenofemoral junction was significantly dilated with multiple branches so the ligation was likely to be of significant benefit. Skin overlying the saphenofemoral junction was anesthetized 1% lidocaine and transverse incision made. Bovie electrocautery was dissect down through subcutaneous tissue and self-retaining retractors put in position. Further dissection was carried down to the proximal great saphenous vein was identified. Sharp dissection was then used to dissect free proximal to the saphenofemoral junction with sidebranches ligated with silk ties and divided. The vessel proximal and distal were then clamped and the vessel divided and then oversewn with 5-0 Prolene in 2 layers both proximal and distal. The clamps removed and satisfactory stasis was noted. We then turned our attention to the saphenous vein and upon further ultrasound evaluation it was even smaller caliber than upon initial evaluation. We did feel that we potentially could still access it so skin overlying the proximal calf saphenous vein was anesthetized and the vessel accessed under ultrasound guidance with a micropuncture needle wire. We order to advance the wire however 1 we exchanged for the 7 [place] sheath the vessel did not accommodate the sheath and we were unable to advance without significant discomfort. Further assessment revealed the vessel was even further constricted and it was felt that further efforts would be unlikely to be successful and only potentially cause harm. Manual pressure was held at the puncture site. The femoral incision was then closed with 3-0 Vicryl, 4-0 Vicryl, 4 Monocryl and Dermabond for the skin. The patient was then taken the recovery with plan discharged home Surgical Findings: See above Complications Complications: No 03/15/24 1322 Cosigner Signature (if applicable): CC: MARCELA Sprague; Dr. Orlando Riley MD; Dr. Sammie Michel MD Signed Normal [facility] Platelet countOrdered By: Dyllan Michel on 03-15-2024 Platelets (Bld) [#/Vol] 187 10*3/uL 150-450 [facility] Potassium measurementOrdered By: Sammie Michel on 03-15-2024 Potassium [Moles/Vol] 3.8 mmol/L 3.5-5.1 [facility] RBC Auto (Bld) [#/Vol]Ordere d By: Sammie Michel on 03-15-2024 RBC (Bld) [#/Vol] 5.36 10*6/uL 4.2-5.4 [facility] Serum anion gap measurementO rdered By: Sammie Michel on 03-15-2024 Anion gap [Moles/Vol] 5 mmol/L 5-15 [facility] Serum or plasma calcium beverly urement (mass/volume)Ordered By: Sammie Michel on 03-15-2024 Calcium [Mass/Vol] 9.4 mg/dL 8.5-10.1 [facility] Serum or plasma creatinine m easurement (mass/volume)Ordered By: Sammie Michle on 03-15-2024 Creatinine [Mass/Vol] 0.68 mg/dL 0.55-1.02 [facility] Comment on above: The validity of the calculated GFR & GFRAA in patients over 70 years has not been determined. Clinical correlation is essential. Serum or plasma urea nitroge n measurement (mass/volume)Ordered By: Sammie Michel on 03-15-2024 Urea nitrogen [Mass/Vol] 13 mg/dL 7-18 [facility] Sodium levelOrdered By: Sammie Michel on 03-15-2024 Sodium [Moles/Vol] 141 mmol/L 136-145 [facility] White blood cell (WBC) count Ordered By: Sammie Michel on 03-15-2024 WBC (Bld) [#/Vol] 5.6 10*3/uL 4.4-11.0 [facility] MR/BMS.BVSon 02-01-2024 MR/BMS.BVS [facility] Vascular Surgery [address] [place] [address] OFFICE VISIT Date of Service: 02/01/24 MR#: [id number] Acct: [id number] Name: LAN OTT Rep #: [id number] : 1960 Provider: MARCELA Sprague Age/Sex: 63/F Location: [facility] Status: Signed Intake Vital Signs 10/24/23 14:28 12/15/23 13:45 01/11/24 09:08 02/01/24 08:30 Height 5 ft 2 in 5 ft 2 in 5 ft 2 in Weight: 182 lb BP 126/86 H Blood Pressure Location Lt brachial Position Sitting Respiration 14 Pulse 82 Pulse Source Monitor Temp 98.6 F Temp Source Temporal Pulse Oximetry (%) 98 Oxygen Delivery Method room air Intake Visit Reasons: POST VENOGRAM Is patient in pain?: Yes Allergies gluten Allergy (Intermediate, Verified 02/01/24 08:31) Upset Stomach Medications ???Medication ???Instructions ???Recorded ???Confirmed ???Type omega-3 fatty acids 1,250 mg 1,250 mg PO DAILY SUPPLEMENT 09/17/20 01/10/24 History capsule calcium 1 tab PO DAILY SUPPLEMENT 05/30/23 01/10/24 History vtpi-W4-qktbqlqy-inosit-si shaquille 300 mg-200 unit-37.5 mg tablet (Bone Density Calcium Plus D) magnesium glycinate 250 mg PO DAILY SUPPLEMENT 05/30/23 01/10/24 History multivitamin (Daily Multi-Vitamin 1 tab PO DAILY SUPPLEMENT 05/30/23 01/10/24 History tablet) estradiol 0.01% (0.1 mg/gram) 2 g vaginal 2XW 10/24/23 01/10/24 History vaginal cream Is last menstrual period known: No Post menopausal: Yes Patient : No Have you fallen in the past year?: No PFSH Medical History Incomplete uterovaginal prolapse Wears contact lenses Wears glasses Post-menopausal Arthritis Injury of back Back pain History of diverticulitis Former smoker History of pain when walking History of edema DVT (deep venous thrombosis) Psoriasis Roxanen's disease Vision problems Vascular disease Osteoporosis Osteopenia Bone fracture Back problem Fibroid uterus Surgical History Status post LOLIS-BSO Status post ablation of incompetent vein using laser H/O kyphoplasty History of back surgery S/P T A (status post tonsillectomy and adenoidectomy) Family History Mother Age: 84 Osteoporosis Diabetes Hypertension Grandmother Heart disease Grandfather Myocardial infarction Social History adopted: No household members: spouse housing: house number of children: 2 current occupational status: employed 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 current occupational exposures/hazards: No pets and animals: No history of recent travel: No sexually active: Yes Smoking Status: Former smoker quit date: 04/04/93 pack-years: 5 Electronic Cigarette Use: not used alcohol intake: never substance use type: does not use caffeine: Yes Type: coffee Number of servings: 2 eating out: rarely or never what type of physical activity do you participate in: walking and weight training frequency: 3-4 times per week dex/tenriism: None seatbelt use: always do you feel safe at home: Yes additional social history: - [employer] - [employer]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 HPI HPI HPI: LAN OTT, is a 63 F who presents to the office today for follow-up after recent venogram which was negative for any significant central venous compression. She tolerated the venogram procedure well. She had significant bruising at the access sites initially, but this has resolved. No persistent pain or edema at these sites. She continues to have lower extremity edema worse at the end of the day and sensation of tightness in her bilateral calves. In her left posterior calf and thigh she has numerous reticular/spider veins which are tender/painful despite compression therapy. She also notes that she has shooting/burning pain in her right calf and numbness/tingling in her her right toes, this is particularly provoked by driving. ROS General General: No weight change, appetite, fatigue, colon cancer, breast cancer or weakness HEENT HEENT: No difficulty swallowing, eye injury, eye surgery, swollen glands or hoarseness Endo Endocrine: No thyroid disease, diabetes mellitus, thyroid cancer, Hair loss, heat intolerance or cold intolerance Skin Skin: No rash or changing moles Musc Musculoskeletal: Yes back problems, arthritis and joint pain; No rheumatoid arthritis or gout Cardio Cardiovascular: No murmur, pacemaker, heart disease, atrial fibrillation, high blood pressure, heart attack, heart stent, palpitations, shortness of breat with exertion or chest pain Psych Psychiatric: No depression, anxiety or hearing (more content not included)... Normal [facility] Basic Metabolic Profile (BMP )on 01-11-2024 BUN/CRE 24.0 RATIO High 10-20 [facility] Comment on above: Performed By: #### L 100.0500, BTSPAT, L500.2500 ####[facility] [address] [place], [address] CA,Total 8.9 mg/dL Normal 8.5-10.1 [facility] Comment on above: Performed By: #### L 100.0500, BTSPAT, L500.2500 ####[facility] [address] [place], [address] Chloride [Moles/Vol] 109 mmol/L High 98-107 [facility] Comment on above: Performed By: #### L 100.0500, BTSPAT, L500.2500 ####[facility] [address] [place], [address] CO2 [Moles/Vol] 27.0 mmol/L Normal 21.0-32.0 [facility] Comment on above: Performed By: #### L 100.0500, BTSPAT, L500.2500 ####[facility] [address] [place], [address] Creatinine [Mass/Vol] 0.71 mg/dL Normal 0.55-1.02 [facility] Comment on above: Result Comment: The validity of the calculated GFR GFRAA in patients over 70 years has not been determined. Clinical correlation is essential. Performed By: #### L 100.0500, BTSPAT, L500.2500 ####[facility] [address] [place], [address] ECRCL 83.82 ml/min Normal [facility] Comment on above: Performed By: #### L 100.0500, BTSPAT, L500.2500 ####[facility] [address] [place], [address] EST GFR - AA 108 mL/min Normal >60 [facility] Comment on above: Result Comment: Afri can German GFR Calc Performed By: #### L 100.0500, BTSPAT, L500.2500 ####[facility] [address] [place], [address] GAP 4 Low 5-15 [facility] Comment on above: Performed By: #### L 100.0500, BTSPAT, L500.2500 ####[facility] [address] [place], [address] GFR/1.73 sq M.predicted among non-blacks MDRD (S/P/Bld) [Vol rate/Area] 89 mL/min/{1.73_m2} Normal >60 [facility] Comment on above: Result Comment: Non- GFR Calc Performed By: #### L 100.0500, BTSPAT, L500.2500 ####[facility] [address] [place], [address] Glucose [Mass/Vol] 96 mg/dL Normal 74-106 [facility] Comment on above: Performed By: #### L 100.0500, BTSPAT, L500.2500 ####[facility] [address] [place], [address] Potassium [Moles/Vol] 4.1 mmol/L Normal 3.5-5.1 [facility] Comment on above: Performed By: #### L 100.0500, BTSPAT, L500.2500 ####[facility] [address] [place], [address] Sodium [Moles/Vol] 140 mmol/L Normal 136-145 [facility] Comment on above: Performed By: #### L 100.0500, BTSPAT, L500.2500 ####[facility] [address] [place], [address] Urea nitrogen [Mass/Vol] 17 mg/dL Normal 7-18 [facility] Comment on above: Performed By: #### L 100.0500, BTSPAT, L500.2500 ####[facility] [address] [place], [address] CBC-Complete Blood Cnt No Di ffon 01-11-2024 Erythrocyte distribution width (RBC) [Ratio] 12.7 % Normal 11.6-14.6 [facility] Comment on above: Performed By: #### L 100.0500, BTSPAT, L500.2500 ####[facility] [address] [place], [address] Hematocrit (Bld) [Volume fraction] 42.7 % Normal 37-47 [facility] Comment on above: Performed By: #### L 100.0500, BTSPAT, L500.2500 ####[facility] [address] [place], [address] Hemoglobin (Bld) [Mass/Vol] 14.0 g/dL Normal 12.0-15.0 [facility] Comment on above: Performed By: #### L 100.0500, BTSPAT, L500.2500 ####[facility] [address] [place], [address] MCH (RBC) [Entitic mass] 28.5 pg Normal 27.0-32.0 [facility] Comment on above: Performed By: #### L 100.0500, BTSPAT, L500.2500 ####[facility] [address] [place], [address] MCHC (RBC) [Mass/Vol] 32.8 g/dL Normal 32-36 [facility] Comment on above: Performed By: #### L 100.0500, BTSPAT, L500.2500 ####[facility] [address] [place], [address] MCV (RBC) [Entitic vol] 86.8 fL Normal 81-99 [facility] Comment on above: Performed By: #### L 100.0500, BTSPAT, L500.2500 ####[facility] [address] [place], [address] Platelet mean volume (Bld) [Entitic vol] 9.4 fL Normal 6.2-12.0 [facility] Comment on above: Performed By: #### L 100.0500, BTSPAT, L500.2500 ####[facility] [address] [place], [address] Platelets (Bld) [#/Vol] 224 10*3/uL Normal 150-450 [facility] Comment on above: Performed By: #### L 100.0500, BTSPAT, L500.2500 ####[facility] [address] [place], [address] RBC (Bld) [#/Vol] 4.92 10*6/uL Normal 4.2-5.4 [facility] Comment on above: Performed By: #### L 100.0500, BTSPAT, L500.2500 ####[facility] [address] [place], [address] RDW SD 40.0 fl Normal 35.1-43.9 [facility] Comment on above: Performed By: #### L 100.0500, BTSPAT, L500.2500 ####[facility] [address] [place], [address] WBC (Bld) [#/Vol] 5.5 10*3/uL Normal 4.4-11.0 [facility] Comment on above: Performed By: #### L 100.0500, BTSPAT, L500.2500 ####[facility] [address] [place], [address] Operative Reporton 4 Operative Report [facility] Medical Records Department [address] [place] [address] Operative Report 01/11/24 1727 MR#: [id number] Acct: [id number] Name: LAN OTT Rep #: [id number] : 1960 63 From: Sammie Michel MD PCP: Dr. Orlando Riley MD Status:[facility] Location: [facility] Report of Operation Date of Procedure: 01/11/24 Pre-Operative Diagnosis: Varicose veins of the bilateral lower extremities with pain Post-Operative Diagnosis: Same Surgery/Procedure Performed:: Venogram inferior vena cava, bilateral common iliac veins, bilateral external iliac veins Intravascular ultrasound of inferior vena cava, bilateral common iliac veins, bilateral external iliac veins Surgeon: Sammie Michel Type of Anesthesia: Local and Sedation,Conscious Estimated Blood Loss (mL): 3 Description of Procedure: HPI: Patient is a 63-year-old female with recurrent bilateral lower extremity painful varicose veins with prior history of bilateral saphenous vein treatment. Given her recurring symptoms and varicosities despite prior ablation she is taken now for venogram to assess for any central venous pathology for further pursuit of infrainguinal venous disease. Description of procedure: Upon obtaining form consent and verification correct patient procedure site patient taken to the [facility] she was positioned prepped and draped in usual sterile fashion. Timeouts performed conscious sedation was administered Versed and fentanyl. Skin overlying the right common femoral vein was anesthetized 1% lidocaine the vessel accessed with a micropuncture needle wire under ultrasound guidance. This was exchanged for micropuncture sheath through which an ileal caval venogram was performed revealing satisfactory positioning no extravasation or dissection. This also revealed patent normal-appearing right iliac vein system with brisk contrast transit into the vena cava. Through the micropuncture sheath Bentson wire was advanced and the micropuncture sheath exchanged for an 8 [place] sheath. Intravascular thrombi was then advanced recorded pullback performed of the IVC, right common iliac vein, right external iliac vein. This revealed normal caliber right iliac vein system with no obstruction or compression. Neck skin overlying the left common femoral vein was anesthetized 1% lidocaine the vessel accessed with micropuncture needle wire under ultrasound guidance. This was exchanged for micropuncture sheath through which injection ilio caval venogram was performed revealed satisfactory position with no extravasation or dissection. This also revealed brisk contrast transit with an area of luminal irregularity in the mid common iliac vein but otherwise no other suggestion of obstruction and no significant pelvic collaterals. Through the micropuncture sheath Bentson wire is advanced the micropuncture sheath exchanged for an 8 [place] sheath. Through this an intravascular ultrasound probe was advanced and recorded pullback performed of the IVC, left common iliac vein, left external leg vein. This revealed minimal compression of the mid common iliac vein which was very eccentric and focused on the lateral to the vessel though less than 50% loss. Is felt that this lesion did not require treatment so wires and catheters were withdrawn. The sheath withdrawn a minute pressure held for 5 minutes until hemostasis was noted at which point patient was taken to the recovery area for bedrest prior to discharge home. Of note she did develop a small right groin hematoma which stabilized with further manual pressure. 01/11/24 1736 Cosigner Signature (if applicable): CC: Dr. Orlando Riley MD; Dr. Sammie Michel MD Signed Normal [facility] Type AND Screen - PAT ONLYon 01-11-2024 ABO and Rh group Nom (Bld) Blood group AB Rh(D) positive Normal [facility] Comment on above: Order Comment: [id number] Performed By: #### L 100.0500, BTSPAT, L500.2500 ####[facility] [address] [place], [address] No Panel Informationon 11-24 [facility]; [facility] HIP, UNI W/ Pelvis 2-3 Views on 11-24-2023 HIP, UNI W/ Pelvis 2-3 Views [facility] Imaging Services [address] [place] [address] HIP, UNI W/ Pelvis 2-3 Views MR#: [id number] Acct: [id number] Name: LAN OTT Rep #: [id number] : 1960 F 63 From: Darrius Dorado MD PCP: Dr. Orlando Riley MD Status: REG CL Study: HIP, UNI W/ Pelvis 2-3 Views Date of Exam: Exam# [id number] Ordering Dr: Morenita Romero [employer] AIDE-C [id number] STUDY: X-RAY - PELVIS AND RIGHT HIP REASON FOR EXAM: Female, 63 years old. Acute on chronic back pain. TECHNIQUE: 3 views of the pelvis and hip. COMPARISON: None. FINDINGS: Normal bowel gas pattern. Moderate amount feces colon. Mild osteopenia. Normal bilateral iliac wings, sacroiliac joints and visualized sacrum. Normal bilateral superior and inferior pubic rami. Normal pubic symphysis. Normal bilateral ischial tuberosities. Normal visualized femoral head. Normal acetabulum. Normal hip joint. RAD/HIP, UNI W/ Pelvis 2-3 Views IMPRESSION: Osteopenia with no other abnormality. Electronically Signed: Darrius Dorado MD at 15:01 EDT , CC: Morentia Romero; Dr. Orlando Riley MD Apple Picking Supervisor: Signed Normal [facility] Lumbar Spine 2 or 3 Viewson 11-24-2023 Lumbar Spine 2 or 3 Views [facility] Imaging Services [address] [place], [place] [address] Lumbar Spine 2 or 3 Views MR#: [id number] Acct: [id number] Name: LAN OTT Rep #: [id number] : 1960 F 63 From: Darrius Dorado MD PCP: Dr. Orlando Riley MD Status: REG CLI Study: Lumbar Spine 2 or 3 Views Date of Exam: Exam# [id number] Ordering Dr: Morenita Romero [id number] STUDY: X-RAY - LUMBAR SPINE REASON FOR EXAM: Female, 63 years old. Acute on chronic back pain. TECHNIQUE: 2 view(s) of the lumbar spine were obtained. COMPARISON: None FINDINGS: Osteopenia. Slight exaggerated lordosis. No scoliosis. 7 mm of anterolisthesis of L3 on L4. Loss of height of the L1 vertebral body status post kyphoplasty. Kyphoplasty of the T8 vertebral body. Loss of height of the T11 vertebral body. Endplate can cavities compatible with osteoporosis. Diffuse moderate lower thoracic and lumbosacral facet sclerosis. Intervertebral disc space narrowing most marked at L3-4 and L4-5. Vascular calcification. RAD/Lumbar Spine 2 or 3 Views IMPRESSION: Osteopenia with kyphoplasty of L1, endplate concavities compatible with osteoporosis and moderate lower lumbosacral spondylosis. Electronically Signed: Darrius Dorado MD at 15:34 EDT , CC: Morenita Romero; Dr. Orlando Riley MD Apple Picking Supervisor: Signed Normal [facility] No Panel Informationon 11-23 [facility] Thoracic Spine 2 Viewson Thoracic Spine 2 Views [facility] Imaging Services [address] [place] [address] Thoracic Spine 2 Views MR#: [id number] Acct: [id number] Name: LAN OTT Rep #: [id number] : 1960 F 63 From: Darrius Dorado MD PCP: Dr. Orlando Riley MD Status: REG CLI Study: Thoracic Spine 2 Views Date of Exam: 11/24/23 Exam# [id number] Ordering Dr: Morenita Romero [id number] STUDY: X-RAY - THORACIC SPINE REASON FOR EXAM: Female, 63 years old. Acute on chronic back pain. TECHNIQUE: 2 view(s) of the thoracic spine were obtained. COMPARISON: None. FINDINGS: Osteopenia. Marked increased kyphosis. Minimal thoracolumbar scoliosis. Kyphoplasty changes at T8 and L1 with loss of height of both vertebral bodies. Loss of height of the T12 vertebral body. Endplate can cavities compatible with osteoporosis. Diffuse mild intervertebral disc space narrowing with small osteophytes. Vascular calcification. RAD/Thoracic Spine 2 Views IMPRESSION: Osteopenia with diffuse moderate thoracic spondylosis and increased kyphosis. Loss of height of the T8, T12 and L1 vertebral bodies with kyphoplasty changes at T8 and L1. Electronically Signed: Darrius Dorado MD at 15:35 EDT Reading Location ID and State: [address] [place] [address] , Service support , CC: Morenita Romero; Dr. Orlando Riley MD Apple Picking Supervisor: Signed Normal [facility] No Panel Informationon 11-22 [facility], [facility].; [facility].; [facility], [facility]. MR/BMS.BVSon 11-10-2023 MR/BMS.BVS [facility] Vascular Surgery [address] [place], [place] [address] OFFICE VISIT Date of Service: 11/10/23 MR#: [id number] Acct: [id number] Name: LAN OTT Rep #: [id number] : 1960 Provider: Dr. Sammie Michel MD Age/Sex: 63/F Location[place] [facility] Status: Signed Intake Vital Signs 09/07/23 12:03 10/24/23 14:28 11/10/23 13:34 Height 5 ft 2 in 5 ft 2 in Weight: 182 lb 183 lb BMI 33.3 BP 128/85 H 120/82 H Blood Pressure Location Rt brachial Lt brachial Position Sitting Sitting Respiration 16 Pulse 81 87 Pulse Source Monitor Monitor Temp 98.6 F Temp Source Temporal Pulse Oximetry (%) 97 95 Oxygen Delivery Method room air room air Intake Visit Reasons: F/U AFTER HYSTERECTOMY Chief Complaint: painful legs Is patient in pain?: Yes Allergies gluten Allergy (Intermediate, Verified 11/10/23 13:35) Upset Stomach Medications ???Medication ???Instructions ???Recorded ???Confirmed ???Type omega-3 fatty acids 1,250 mg 1,250 mg PO DAILY SUPPLEMENT 09/17/20 11/10/23 History capsule calcium 1 tab PO DAILY SUPPLEMENT 05/30/23 11/10/23 History xzfn-T3-luyezagx-inosit-si shaquille 300 mg-200 unit-37.5 mg tablet (Bone Density Calcium Plus D) magnesium glycinate 250 mg PO DAILY SUPPLEMENT 05/30/23 11/10/23 History multivitamin (Daily Multi-Vitamin 1 tab PO DAILY SUPPLEMENT 05/30/23 11/10/23 History tablet) Evenity 210 mg/2.34 mL (105 210 mg (2.34 mL) subcut QMONTH 12 10/24/23 11/10/23 Rx mg/1.17 mL x 2) subcutaneous months #2.34 mL syringe (romosozumab-aqqg) estradiol 0.01% (0.1 mg/gram) 2 g vaginal 2XW 10/24/23 11/10/23 History vaginal cream Is last menstrual period known: No Post menopausal: No Patient : No Have you fallen in the past year?: No PFSH Medical History Incomplete uterovaginal prolapse Wears contact lenses Wears glasses Post-menopausal Arthritis Injury of back Back pain History of diverticulitis Former smoker History of pain when walking History of edema DVT (deep venous thrombosis) Psoriasis Roxanne's disease Vision problems Vascular disease Osteoporosis Osteopenia Bone fracture Back problem Fibroid uterus Surgical History Status post LOLIS-BSO Status post ablation of incompetent vein using laser H/O kyphoplasty History of back surgery S/P T A (status post tonsillectomy and adenoidectomy) Family History Mother Age: 83 Osteoporosis Diabetes Hypertension Grandmother Heart disease Grandfather Myocardial infarction Social History adopted: No household members: spouse housing: house number of children: 2 current occupational status: employed 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 current occupational exposures/hazards: No pets and animals: No history of recent travel: No sexually active: Yes Smoking Status: Former smoker quit date: 04/04/93 pack-years: 5 Electronic Cigarette Use: not used alcohol intake: never substance use type: does not use caffeine: Yes Type: coffee Number of servings: 2 eating out: rarely or never what type of physical activity do you participate in: walking and weight training frequency: 3-4 times per week dex/tenriism: None seatbelt use: always do you feel safe at home: Yes additional social history: - [employer]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 She also had a significantly enlarged uterus and recently underwent hysterectomy. There was hope that removal of enlarged uterus would relieve any potential compression of pelvic veins but she unfortunately has had no significant change in symptoms. ROS General General: No weight change, appetite, fatigue, colon cancer, breast cancer or weakness HEENT HEENT: No difficulty swallowing, eye injury, eye surgery, swollen glands or hoarseness Endo Endocrine: No thyroid disease, diabetes mellitus, thyroid cancer, Hair loss, heat intolerance or cold intolerance Skin Skin: No rash or changing moles Musc Musculoskeletal: Yes back problems, arthritis and joint pain; No rheumatoid arthritis or gout Cardio Cardiovascular: No murmur, pacemaker, heart disease, atrial fibrillation, high blood pressure, heart attack, heart stent, palpitations, shortness of breat with exertion or chest pain Psych Psychiatric: No depression, anxiety or hearing voices Resp Respirator (more content not included)... Normal [facility] FOOT COMPLETE RTon FOOT COMPLETE RT [place] [id number] Patient: LAN OTT Phone#: : 1960 Age: 63 Gender: F Pt. Type: Out Account: [id number] Location: Ordering: FÉLIX DSOUZA Exam Date: 10/25/2023/12:33 Family Phys: ORLANDO RILEY Charge Code: 405720 Physician: [place] Order #: [id number] Dose#: PROCEDURE: X-RAY FOOT RT COMPLETE MIN 3 VIEWS COMPARISON: None. INDICATIONS: Pain. FINDINGS: BONES: Calcaneal pitch angle measures 16.7. Hallux valgus angle measures 19.1, normal less than 15. First inter metatarsus angle measures 14.9, normal less than 10. No fracture dislocation. Bipartite medial 1st sesamoid. Second and 3rd toes are approximately 1.9 cm without contributing osseous abnormality. SOFT TISSUES: Negative. No visible soft tissue swelling. EFFUSION: None visible. OTHER: Negative. CONCLUSION: 1. Pes planus 2. Hallux valgus 3. Separation of the 2nd and 3rd digits, no osseous abnormality. This is of unknown etiology. Dictated by: Radha Acuña MD on 10/25/2023 at 14:34 Approved by: Radha Acuña MD on 10/25/2023 at 14:39 Normal [facility] Comprehensive Metabolic Prof ilon 10-24-2023 Albumin [Mass/Vol] 3.6 g/dL Normal 3.2-5.0 [facility] Comment on above: Performed By: #### L 500.4050, L509.1000, L506.1000 ####[facility] [address] [place], [address] Albumin/Globulin [Mass ratio] 1.0 {ratio} Normal 0.9-2.4 [facility] Comment on above: Performed By: #### L 500.4050, L509.1000, L506.1000 ####[facility] [address] [place], [address] ALK P 65 U/L Normal 45-117 [facility] Comment on above: Performed By: #### L 500.4050, L509.1000, L506.1000 ####[facility] [address] [place], [address] ALT [Catalytic activity/Vol] 27 U/L Normal 13-56 [facility] Comment on above: Performed By: #### L 500.4050, L509.1000, L506.1000 ####[facility] [address] [place], [address] AST [Catalytic activity/Vol] 17 U/L Normal 15-37 [facility] Comment on above: Performed By: #### L 500.4050, L509.1000, L506.1000 ####[facility] [address] [place], [address] Bilirubin [Mass/Vol] 0.50 mg/dL Normal 0.20-1.00 [facility] Comment on above: Result Comment: For patients on eltrombopag therapy, use of Dimension [place] TBIL is not recommended. Performed By: #### L 500.4050, L509.1000, L506.1000 ####[facility] [address] [place], [address] BUN/CRE 34.5 RATIO High 10-20 [facility] Comment on above: Performed By: #### L 500.4050, L509.1000, L506.1000 ####[facility] [address] [place], [address] CA,Total 9.1 mg/dL Normal 8.5-10.1 [facility] Comment on above: Performed By: #### L 500.4050, L509.1000, L506.1000 ####[facility] [address] [place], [address] Chloride [Moles/Vol] 105 mmol/L Normal 98-107 [facility] Comment on above: Performed By: #### L 500.4050, L509.1000, L506.1000 ####[facility] [address] [place], [address] CO2 [Moles/Vol] 30.0 mmol/L Normal 21.0-32.0 [facility] Comment on above: Performed By: #### L 500.4050, L509.1000, L506.1000 ####[facility] [address] [place], [address] Creatinine [Mass/Vol] 0.67 mg/dL Normal 0.55-1.02 [facility] Comment on above: Result Comment: The validity of the calculated GFR GFRAA in patients over 70 years has not been determined. Clinical correlation is essential. Performed By: #### L 500.4050, L509.1000, L506.1000 ####[facility] [address] [place], [address] EST GFR - AA 116 mL/min Normal >60 [facility] Comment on above: Result Comment: Afri can German GFR Calc Performed By: #### L 500.4050, L509.1000, L506.1000 ####[facility] [address] [place], [address] GAP 5 Normal 5-15 [facility] Comment on above: Performed By: #### L 500.4050, L509.1000, L506.1000 ####[facility] [address] [place], [address] GFR/1.73 sq M.predicted among non-blacks MDRD (S/P/Bld) [Vol rate/Area] 96 mL/min/{1.73_m2} Normal >60 [facility] Comment on above: Result Comment: Non- GFR Calc Performed By: #### L 500.4050, L509.1000, L506.1000 ####[facility] [address] [place], [address] Globulin (S) [Mass/Vol] 3.6 g/dL Normal 2.2-4.2 [facility] Comment on above: Performed By: #### L 500.4050, L509.1000, L506.1000 ####[facility] [address] [place], [address] Glucose [Mass/Vol] 96 mg/dL Normal 74-106 [facility] Comment on above: Performed By: #### L 500.4050, L509.1000, L506.1000 ####[facility] [address] [place], [address] Potassium [Moles/Vol] 3.7 mmol/L Normal 3.5-5.1 [facility] Comment on above: Performed By: #### L 500.4050, L509.1000, L506.1000 ####[facility] [address] [place], [address] Sodium [Moles/Vol] 140 mmol/L Normal 136-145 [facility] Comment on above: Performed By: #### L 500.4050, L509.1000, L506.1000 ####[facility] [address] [place], [address] T PROT 7.2 g/dL Normal 6.4-8.2 [facility] Comment on above: Performed By: #### L 500.4050, L509.1000, L506.1000 ####[facility] [address] [place], [address] Urea nitrogen [Mass/Vol] 23 mg/dL High 7-18 [facility] Comment on above: Performed By: #### L 500.4050, L509.1000, L506.1000 ####[facility] [address] [place], [address] Endocrinology Visit Reporton 10-24-2023 Endocrinology Visit Report [facility] [address] [place], [place] [address] OFFICE VISIT Date of Service: 10/24/23 MR#: [id number] Acct: [id number] Name: LAN OTT Rep #: [id number] : 1960 Provider: Jackelyn Huang Age/Sex: 63/F Location[place] [facility] [place] Status: Signed Intake Vital Signs 05/30/23 10:57 08/01/23 13:39 09/07/23 12:03 10/24/23 14:28 Height 5 ft 3 in 5 ft 3 in 5 ft 2 in 5 ft 2 in Weight: 182 lb BMI 33.3 BP 128/85 H Blood Pressure Location Rt brachial Position Sitting Pulse 81 Pulse Source Monitor Pulse Oximetry (%) 97 Oxygen Delivery Method room air Intake Visit Reasons: Osteoporosis Hot Wort Settler Required: No Accompanied by: Self Is patient in pain?: Yes (Low Back) Pain scale (1-10): 3 Allergies gluten Allergy (Intermediate, Verified 10/24/23 14:31) Upset Stomach Medications ???Medication ???Instructions ???Recorded ???Confirmed ???Type omega-3 fatty acids 1,250 mg 1,250 mg PO DAILY SUPPLEMENT 09/17/20 10/24/23 History capsule calcium 1 tab PO DAILY SUPPLEMENT 05/30/23 10/24/23 History ktnz-O3-ggocanig-inosit-si shaquille 300 mg-200 unit-37.5 mg tablet (Bone Density Calcium Plus D) magnesium glycinate 250 mg PO DAILY SUPPLEMENT 05/30/23 10/24/23 History multivitamin (Daily Multi-Vitamin 1 tab PO DAILY SUPPLEMENT 05/30/23 10/24/23 History tablet) Evenity 210 mg/2.34 mL (105 210 mg (2.34 mL) subcut QMONTH 12 10/24/23 10/24/23 Rx mg/1.17 mL x 2) subcutaneous months #2.34 mL syringe (romosozumab-aqqg) estradiol 0.01% (0.1 mg/gram) 2 g vaginal 2XW 10/24/23 10/24/23 History vaginal cream PFSH Medical History (Updated 10/25/23 @ 08:[address] Juan A Curran MD) Incomplete uterovaginal prolapse Wears contact lenses Wears glasses Post-menopausal Arthritis Injury of back Back pain History of diverticulitis Former smoker History of pain when walking History of edema DVT (deep venous thrombosis) Psoriasis Roxanne's disease Vision problems Vascular disease Osteoporosis Osteopenia Bone fracture Back problem Fibroid uterus Surgical History Status post LOLIS-BSO Status post ablation of incompetent vein using laser H/O kyphoplasty History of back surgery S/P T A (status post tonsillectomy and adenoidectomy) Family History Mother Age: 83 Osteoporosis Diabetes Hypertension Grandmother Heart disease Grandfather Myocardial infarction Social History adopted: No household members: spouse housing: house number of children: 2 current occupational status: employed 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 current occupational exposures/hazards: No pets and animals: No history of recent travel: No sexually active: Yes Smoking Status: Former smoker quit date: 04/04/93 pack-years: 5 Electronic Cigarette Use: not used alcohol intake: never substance use type: does not use caffeine: Yes Type: coffee Number of servings: 2 eating out: rarely or never what type of physical activity do you participate in: walking and weight training frequency: 3-4 times per week dex/tenriism: None seatbelt use: always do you feel safe at home: Yes 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 She reports compression fractures of T7,8,12 and L1 First fracture was in 2014. She had acute back pain, but fracture wasn't diagnosed. T-score LS -2.6 LFN -2.3 Mom had a vertebral fracture. She has remote history of smoking, about 6 pack years. Menarche age 14, menopause age 52 She is afraid of bone medications. Current Symptoms: presents with heartburn Nutritional Status: Yes: Milk (300mg), Yes: Cheese (250mg), Yes: Broccoli (180mg), Yes: Almonds (80mg), Yes: takes calcim and Yes: takes OTC vitamin D Risk Factors: has history of prior fracture Osteoporosis/Bone Results: Calcium Level 9.1 mg/dL (8.5-10.1) Albumin 3.6 g/dL (3.2-5.0) Parathyroid Hormone (Intact) 35.4 pg/mL (18.4-80.1) Vitamin D 25-Hydroxy 50.7 ng/mL ROS Const Constitutional: No anorexia, excessive sweating, malaise, night sweats, weight change or change in appetite Eyes Eyes: No change in vision ENT ENT: No hearing loss, nasal congestion or difficulty swallowing Cardio Cardiology: No chest pain at rest, chest pain with exertion, excessive sweating or shortness of breath Musc Musculoskeletal: Positive for back pain; No abnormal gait, numbness or tingling Neuro Neurology: No abnormal gait, memory loss, numbne (more content not included)... Normal [facility] PTHINon 10-24-2023 PTH 35.4 pg/mL Normal 18.4-80.1 [facility] Comment on above: Performed By: #### L 500.4050, L509.1000, L506.1000 ####[facility] [id number] [place], [address] Vitamin D,25 Hydroxyon 10-23 Vitamin D 25-OH 50.7 ng/mL Normal [facility] Comment on above: Result Comment: Karen min D 25(OH) Status Range Deficiency <20 ng/mL (50nmol/L) Insufficiency 20 - 30 ng/mL (50 - 75 nmol/L) Sufficiency 30 - 100 ng/mL (75 - 250 nmol/L) Toxicity >100 ng/mL (>250 nmol/L) Performed By: #### L 500.4050, L509.1000, L506.1000 ####[facility] [address] [place], [place], [id number] Absolute lymphocyte countOrd ered By: Orlando Riley on 06-01-2023 Lymphocytes Auto (Unsp spec) [#/Vol] 1.79 10*3/uL 0.83-4.51 [facility] Automated lymphocyte count a s percentage of total leukocytesOrdered By: Orlando Riley on 06-01-2023 Lymphocytes/100 WBC Auto (Unsp spec) 26.6 % 19-41 [facility] Basophil percentageOrdered B y: Orlando Riley on 06-01-2023 Basophils/100 WBC (Bld) 0.7 % 0-1 [facility] Bilirubin [Mass/Vol] 1.20 mg/dL 0.20-1.00 [facility] Comment on above: For patients on eltr ombopag therapy, use of Dimension [place] TBIL is not recommended. Chloride [Moles/Vol] 106 mmol/L 98-107 [facility] Cholesterol [Mass/Vol] 162 mg/dL <200 [facility] Comment on above: <200 mg/dL Desirable 200-240 mg/dL Borderline >240 mg/dL High Risk Eosinophils/100 WBC (Bld) 2.2 % 0-5 [facility] Glucose [Mass/Vol] 86 mg/dL 74-106 [facility] Hemoglobin (Bld) [Mass/Vol] 15.1 g/dL 12.0-15.0 [facility] Monocytes/100 WBC (Bld) 6.4 % 0-10 [facility] Neutrophils (Bld) [#/Vol] 4.3 10*3/uL 2.0-7.7 [facility] Neutrophils/100 WBC (Bld) 63.8 % 47-70 [facility] Potassium [Moles/Vol] 4.3 mmol/L 3.5-5.1 [facility] Protein [Mass/Vol] 7.0 g/dL 6.4-8.2 [facility] Sodium [Moles/Vol] 137 mmol/L 136-145 [facility] Triglyceride [Mass/Vol] 81 mg/dL <199 [facility] Comment on above: The drugs N-Acetylcy steine and Metamizole may falsely depress this assay.Serum Triglycerides Reference Interval Normal <150 mg/dL Borderline high 150 - 199 mg/dL High 200 - 499 mg/dL Very High > or = 500 mg/dL WBC (Bld) [#/Vol] 6.7 10*3/uL 4.4-11.0 [facility] Determination of erythrocyte mean corpuscular volume (MCV)Ordered By: Orlando Riley on 06-01-2023 MCV (RBC) [Entitic vol] 88.4 fL 81-99 [facility] Erythrocyte distribution wid th ratioOrdered By: Orlando Riley on 06-01-2023 Erythrocyte distribution width (RBC) [Ratio] 12.9 % 11.6-14.6 [facility] Erythrocyte distribution wid th standard deviationOrdered By: Orlando Riley on 06-01-2023 Erythrocyte distribution width (RBC) [Entitic vol] 41.6 fL 35.1-43.9 [facility] Hematocrit Auto (Bld) [Volum e fraction]Ordered By: Orlando Riley on 06-01-2023 Hematocrit (Bld) [Volume fraction] 46.3 % 37-47 [facility] Immature granulocytes/100 WB C Auto (Bld)Ordered By: Orlando Riley on 06-01-2023 Immature granulocytes/100 WBC (Bld) 0.300 % 0.0-0.9 [facility] Comment on above: IG% - Immature Granu locytes (promyelocytes, myelocytes and metamyelocytes) > 1% indicates that a LEFT SHIFT is Present. Laboratory - Chemistry and C hemistry - challengeOrdered By: Orlando Riley on 06-01-2023 Albumin/Globulin [Mass ratio] 1.2 {ratio} 0.9-2.4 [facility] ALP [Catalytic activity/Vol] 61 U/L 45-117 [facility] ALT [Catalytic activity/Vol] 43 U/L 13-56 [facility] Cholesterol in HDL [Mass/Vol] 50 mg/dL >40 [facility] Comment on above: The drugs N-Acetylcy steine and Metamizole may falsely depress this assay. Reference Range HDL <40 mg/dL Low HDL Cholesterol HDL >or= 60 mg/dL High HDL Cholesterol Cholesterol in LDL [Mass/Vol] 96 mg/dL 0-130 [facility] CO2 [Moles/Vol] 26.0 mmol/L 21.0-32.0 [facility] Globulin (S) [Mass/Vol] 3.2 g/dL 2.2-4.2 [facility] Urea nitrogen/Creatinine [Mass ratio] 20.2 mg/mg 10-20 [facility] Laboratory - Hematology and Cell countsOrdered By: Orlando Riley on 06-01-2023 MCH (RBC) [Entitic mass] 28.8 pg 27.0-32.0 [facility] MCHC (RBC) [Mass/Vol] 32.6 g/dL 32-36 [facility] Nucleated RBC/100 WBC (Bld) [Ratio] 0 % 0-5 [facility] Platelet mean volume (Bld) [Entitic vol] 10.6 fL 6.2-12.0 [facility] Platelets (Bld) [#/Vol] 219 10*3/uL 150-450 [facility] No Panel InformationOrdered By: Orlando Riley on 06-01-2023 Estimated GFR (MDRD) Amer 102 mL/min >60 [facility] Comment on above: GFR Calc Estimated GFR (MDRD) Non-Af Amer 85 mL/min >60 [facility] Comment on above: Non- GFR Calc Vitamin D 25-Hydroxy 45.8 ng/mL [facility] Comment on above: Vitamin D 25(OH) Sta tus Range Deficiency <20 ng/mL (50nmol/L) Insufficiency 20 - 30 ng/mL (50 - 75 nmol/L) Sufficiency 30 - 100 ng/mL (75 - 250 nmol/L) Toxicity >100 ng/mL (>250 nmol/L) VLDL Cholesterol 16 mg/dL 5-40 [facility] RBC Auto (Bld) [#/Vol]Ordere d By: Orlando Riley on 06-01-2023 RBC (Bld) [#/Vol] 5.24 10*6/uL 4.2-5.4 [facility] Serum or plasma calcium beverly urement (mass/volume)Ordered By: Orlando Riley on 06-01-2023 Calcium [Mass/Vol] 9.0 mg/dL 8.5-10.1 [facility] Serum or plasma creatinine m easurement (mass/volume)Ordered By: Orlando Riley on 06-01-2023 Creatinine [Mass/Vol] 0.74 mg/dL 0.55-1.02 [facility] Comment on above: The validity of the calculated GFR & GFRAA in patients over 70 years has not been determined. Clinical correlation is essential. Serum or plasma thyroid stim ulating hormone (TSH) measurement (units/volume)Ordered By: Orlando Riley on 06-01-2023 TSH Qn 1.47 uIU/mL 0.358-3.74 [facility] Serum or plasma urea nitroge n measurement (mass/volume)Ordered By: Orlando Riley on 06-01-2023 Urea nitrogen [Mass/Vol] 15 mg/dL 7-18 [facility] Thin prep Papanicolaou smear with manual screeningOrdered By: Orlando Riley on 06-01-2023 Thin prep Papanicolaou smear with manual screening 3.8 g/dL 3.2-5.0 [facility] Thin prep Papanicolaou smear with manual screening 26 U/L 15-37 [facility] Thin prep Papanicolaou smear with manual screening 5 5-15 [facility] No Panel Informationon 05-04 [facility] Cervical or vaginal specimen microscopic examination by liquid based cytology (reported as document)Ordered By: Joanna Lerma on 04-25-2023 Cytology report Cyto stain.thin prep Doc (Cvx/Vag) Comment . [facility] Comment on above: Criteria not met, HP V Genotype not performed.Performed at: - [facility] [id number] Director: Ana Mcmullen MD, Phone: [phone] at: =G - [facility] [address] [id number] Director: Ana Mcmullen MD, Phone: [phone] Cervical or vagninal specime n microscopic examination by cytology stain (reported asOrdered By: Joanna Lerma on 04-25-2023 Cytology report Cyto stain Doc (Cvx/Vag) Comment . [facility] Comment on above: The Pap smear is a s creening test designed to aid in thedetection of premalignant and malignant conditions of theuterine cervix. It is not a diagnostic procedure andshould not be used as the sole means of detecting cervicalcancer. Both false-positive and false-negative reports dooccur. Detection in cervical specim en of any of human papilloma virus (HPV) 16, 18, 31, 33,Ordered By: Joanna Lerma on 04-25-2023 HPV 16+18+31+33+35+39+45+5 1+52+56+58+59+66+68 DNA Probe+sig amp Ql (Cvx) Negative Negative [facility] Comment on above: This nucleic acid am plification test detects fourteen high- risk HPV types (16,18,31,33,35,39,45,51,52,56,58,59,66,68)without differentiation. Laboratory - CytologyOrdered By: Joanna Lerma on 04-25-2023 Accounts Payable Associate Cyto stain Nom (Cvx/Vag) [ID] Comment . [facility] Comment on above: Gagan Atwood, Tape Recording Machine Operator (ASCP) Laboratory - Miscellaneous t estsOrdered By: Joanna Lerma on 04-25-2023 Service comment (Unsp spec) [Interp] . . [facility] No Panel Informationon 04-25 ADEQ Comment [facility] [employer] [facility] [employer]. Work Phone: COMM . [employer] [facility] [employer] [facility] [employer] Work Phone: COMMENT Comment [employer] [facility].; [facility] [employer] [facility] [place], [employer]. Work Phone: DIAG Comment [employer] [facility] [employer].; [facility] [employer], [employer] Work Phone: HPV APTIMA, HR Negative Normal [facility] [employer] [facility], [place] [employer], [employer]. Work Phone: HPV Lynette Rfx Comment [employer] [facility] [employer] [facility] [place] [place] [employer] [facility] [employer]. Work Phone: PAPSMR Comment [employer] [facility].; [place] [employer] [facility] [employer], [employer]. Work Phone: PERFORM Comment [employer] [facility].; [place] [employer] [facility] [employer], [employer]. Work Phone: Thin prep Papanicolaou smear with manual screeningOrdered By: Joanna Lerma on 04-25-2023 Thin prep Papanicolaou smear with manual screening Comment . [facility] Comment on above: NEGATIVE FOR INTRAEP ITHELIAL LESION OR MALIGNANCY. This liquid based Th inPrep(R) pap test was screened withthe use of an image guided system. .GFRon 04-02-2022 GFR >60 Normal [facility] ([place]) Comment on above: Result Comment: GFR Population mean for , Non- Americans Ages 20-29 = 116 mL/min/1.73 sq.m. Ages 30-39 = 107 mL/min/1.73 sq.m. Ages 40-49 = 99 mL/min/1.73 sq.m. Ages 50-59 = 93 mL/min/1.73 sq.m. Ages 60-69 = 85 mL/min/1.73 sq.m. Ages 70+ = 75 mL/min/1.73 sq.m. Chronic Kidney Disease: Less than 60 mL/min/1.73 square meters End Stage Renal Disease: Less than 15 mL/min/1.73 square meters Performed By: #### B MP, GFR, LIPID #### [address] [address] GFR Non- >60 Normal [facility] ([place]) Comment on above: Result Comment: GFR Population mean for , Non- Americans Ages 20-29 = 116 mL/min/1.73 sq.m. Ages 30-39 = 107 mL/min/1.73 sq.m. Ages 40-49 = 99 mL/min/1.73 sq.m. Ages 50-59 = 93 mL/min/1.73 sq.m. Ages 60-69 = 85 mL/min/1.73 sq.m. Ages 70+ = 75 mL/min/1.73 sq.m. Chronic Kidney Disease: Less than 60 mL/min/1.73 square meters End Stage Renal Disease: Less than 15 mL/min/1.73 square meters Performed By: #### B MP, GFR, LIPID #### [address] [address] [facility] 04-02-2022 BUN/Creatinine Ratio 29.2 ratio High 10.0-22.0 [facility] ([place]) Comment on above: Performed By: #### B MP, GFR, LIPID #### [address] [address] Calcium [Mass/Vol] 9.4 mg/dL Normal 8.7 - 10. 4 mg/dL [facility], [facility] Comment on above: Performed By: #### B MP, GFR, LIPID #### [address] [address] Chloride [Moles/Vol] 106 mmol/L Normal 98 - 11 0 meq/L [facility] Comment on above: Performed By: #### B MP, GFR, LIPID #### [address] [address] CO2 [Moles/Vol] 28 mmol/L Normal 22 - 32 meq/L [facility]. Comment on above: Performed By: #### B MP, GFR, LIPID #### [address] [address] Creatinine [Mass/Vol] 0.65 mg/dL Normal 0.50 - 1.20 mg/dL [facility], [facility]. Comment on above: Performed By: #### B MP, GFR, LIPID #### [place] [id number] Electrolyte Balance 7.0 mEq/L Normal 4.0 - 15 .0 meq/L [facility], [facility]. Comment on above: Performed By: #### B MP, GFR, LIPID #### [address] [address] Glucose [Mass/Vol] 92 mg/dL Normal 70 - 110 mg/dL [facility], [facility]. Comment on above: Performed By: #### B MP, GFR, LIPID #### [address] [address] Potassium [Moles/Vol] 4.3 mmol/L Normal 3.5 - 5.0 meq/L [facility].; [facility], [facility]. Comment on above: Result Comment: Spec imen slightly hemolyzed. Performed By: #### B MP, GFR, LIPID #### [address] [address] Sodium [Moles/Vol] 141 mmol/L Normal 136 - 145 meq/L [facility].; [facility], [facility]. Comment on above: Performed By: #### B MP, GFR, LIPID #### [address] [address] Urea nitrogen [Mass/Vol] 19.0 mg/dL Normal 8.0 - 22.0 mg/dL [facility].; [facility]. Comment on above: Performed By: #### B MP, GFR, LIPID #### [address] [address] LIPIDon 04-02-2022 Cholesterol [Mass/Vol] 178 mg/dL Normal 50 - 199 mg/dL [facility].; [facility], [facility]. Comment on above: Result Comment: Chol esterol Reference Interval: Less than 200 Desirable 200-239 Borderline high risk 240 and above High risk Performed By: #### B MP, GFR, LIPID #### [address] [address] Cholesterol in HDL [Mass/Vol] 49 mg/dL Normal 40 - 59 mg/dL [facility].; [facility], [facility]. Comment on above: Performed By: #### B MP, GFR, LIPID #### [address] [address] Cholesterol in LDL [Mass/Vol] 86 mg/dL Normal 0 - 129 mg/dL [facility].; [facility]. Comment on above: Performed By: #### B MP, GFR, LIPID #### [address] [address] Triglyceride [Mass/Vol] 217 mg/dL Abnormal 3 - 149 mg/dL [facility], [facility]. Comment on above: Performed By: #### B MP, GFR, LIPID #### [address] [address] Laboratory - Chemistry and C hemistry - challengeon 04-02-2022 GFR/1.73 sq M.predicted among blacks MDRD (S/P/Bld) [Vol rate/Area] mL/min/{1.73_m2} Normal [facility], [facility] Work Phone: GFR/1.73 sq M.predicted among non-blacks MDRD (S/P/Bld) [Vol rate/Area] mL/min/{1.73_m2} Normal [facility]. Work Phone: Urea nitrogen/Creatinine [Mass ratio] 29.2 {ratio} Abnormal 10.0 - 22.0 {ratio} [facility], [facility] Laboratory - Hematology and Cell countson 04-02-2022 Basophils (Bld) [#/Vol] 0.0 {10^3/mcL} Normal 0.0 - 0.3 {10^3/mcL} [facility].; [facility]. Work Phone: Basophils/100 WBC (Bld) 0.7 % Normal 0.0 - 2.5 % [facility]. Work Phone: Eosinophils (Bld) [#/Vol] 0.1 {10^3/mcL} Normal 0.0 - 0.7 {10^3/mcL} [facility]. Work Phone: Eosinophils/100 WBC (Bld) 2.1 % Normal 0.0 - 6.0 % [facility] Work Phone: Erythrocyte distribution width (RBC) [Ratio] 13.2 % Normal 11.5 - 15.5 % [facility].; [facility], [facility]. Hematocrit (Bld) [Volume fraction] 43.7 % Normal 34.0 - 46.0 % [facility].; [facility], [facility] Hemoglobin (Bld) [Mass/Vol] 14.4 g/dL Normal 12.0 - 16.0 g/dL [facility] [employer] [facility] [place].; [facility], [facility] Lymphocytes (Bld) [#/Vol] 1.9 {10^3/mcL} Normal 0.9 - 4.3 {10^3/mcL} [facility] [employer] [facility] [place].; [facility], [employer]. Work Phone: Lymphocytes/100 WBC (Bld) 30.9 % Normal 20.0 - 40.0 % [facility].; [facility], [facility]. Work Phone: MCH (RBC) [Entitic mass] 28.9 pg Normal 27.0 - 33.0 pg [facility].; [facility], [facility]. MCHC (RBC) [Mass/Vol] 33.0 g/dL Normal 32.0 - 36.0 g/dL [facility].; [facility], [facility]. MCV (RBC) [Entitic vol] 87.5 fL Normal 80.0 - 99.0 fL [facility] [employer] [facility] [place].; [facility], [facility]. Monocytes (Bld) [#/Vol] 0.4 {10^3/mcL} Normal 0.1 - 1.4 {10^3/mcL} [facility] [employer] [facility] [place].; [facility], [employer]. Work Phone: Monocytes/100 WBC (Bld) 6.8 % Normal 2.0 - 13.0 % [facility] [employer] [facility] [place].; [facility], [facility]. Work Phone: Neutrophils (Bld) [#/Vol] 3.6 {10^3/mcL} Normal 2.3 - 8.1 {10^3/mcL} [facility] [employer] [facility] [place].; [facility], [facility]. Work Phone: Neutrophils/100 WBC (Bld) 59.5 % Normal 50.0 - 75.0 % [facility] [employer] [facility] [place] [employer] [facility] [place], [facility]. Work Phone: Platelet mean volume (Bld) [Entitic vol] 8.8 fL Normal 6.6 - 10.5 fL [facility] [employer] [facility] [place].; [facility], Inc[facility] Platelets (Bld) [#/Vol] 206 {10^3/mcL} Normal 150 - 450 {10^3/mcL} [facility] [employer] [facility] [place], Inc.; [facility] [employer] [facility] [place], Inc. RBC (Bld) [#/Vol] 5.00 {10^6/mcL} Normal 4.10 - 5.30 {10^6/mcL} [facility] [employer] [place], Inc.; [facility] [employer] [facility] [place], Inc. WBC (Bld) [#/Vol] 6.1 {10^3/mcL} Normal 4.5 - 10 .8 {10^3/mcL} [facility] [employer] [facility] [place], Inc.; [facility] [employer] [facility] [place], Inc. [facility] [employer] Cytology Reporton 2021 [facility] Cytology Report . Pathology Reports Accession: Collected Date/Time: Received Date/Time: Pathologist: [id number] 04/30/2021 10:57 EST 04/30/2021 18:00 EST [facility] Cyt[facility] Report SPECIMEN: Specimen Description: Liquid Prep Reflex ASCUS Specimen: Cervical/Endocervical Screening or Diagnostic: Screening RELEVANT HISTORY: LMP: NOT GIVEN SPECIMEN ADEQUACY: SATISFACTORY FOR EVALUATION ENDOCERVICAL/TRANSFORMATIO NAL ZONE COMPONENT PRESENCE CAN NOT BE DETERMINED DUE TO MARKED ATROPHY INTERPRETATION/RESULTS: NEGATIVE FOR INTRAEPITHELIAL LESION OR MALIGNANCY COMMENT: This Pap Test was successfully processed and evaluated with the assistance of the [employer] ThinPrep Test Imaging System. Electronically Signed by Pathology report verified by [facility] Screened by: KK Electronically signed by Tessa HOBSON (ASCP) Sign-Out Date: 05/04/2021 16:08 Performing Lab: [address] Disclaimer The Pap test is a screening test for cervical cancer. As evidenced by published data, it is subject to both inherent false negative and false positive results. Your patient's results should be interpreted in context with pertinent clinical history including gynecological examination. Normal [facility] ([place]) VENOUS DUPLEX OF SINGLE LEGo n 11-27-2020 [place]OUS [place] [address] Vascular Lab - I[facility]V Accredited in: Extracranial Cerebrovascular, Visceral Vascular, Vascular Screening & Peripheral Arterial & Venous Testing momondo REPORT Patient: REYNA OTT Dr: Nate CRONIN M.D. [id number] F Status: REG CLI CARD Reason for Visit: TENDERNESS LEFT LOWER EXTREMITY Service Date: 11/27/20 Access#: Procedure: VENOUS DUPLEX OF SINGLE LEG Conclusions: Left: 1. Positive for acute superficial venous thrombosis in the varicose veins at the distal posterior thigh. 2. Negative for superficial venous thrombosis 3. Positive for superficial venous incompetence with outward flow >0.5 seconds in the greater saphenous vein. 4. Positive for deep venous incompetence with outward flow > 0.5 seconds in the common femoral vein.PATITO Abbreviated Final Report. Full Report available via Link to [employer] in [employer] Image Viewer . Electronically Signed by: ANGELICA MONTALVO M.D. 12/02/20 1151 ANGELICA MONTALVO M.D. cc: Nate CRONIN M.D. << Signature on File>> Reported By: ANGELICA MONTALVO M.D. Signed By: ANGELICA MONTALVO M.D. Tests performed at: [address] [address] Normal [facility] 09-29-2020 CNCO Letter Text [facility] 09-19-2020 [facility] Telephone (MARJAN Shabazz) -- LAN OTT ([id number]) 1960 F Date Time Provider Department 09/19/20 KOLBY RAWLS During your visit today, we recorded the following information about you: Tonie Lerma [facility] 09/19/2020 1:48 PM Addendum September 29, 2020 8:59 AM Sent a letter for her to call and schedule. Anat Navasut 09/18/2020 Called patient to schedule procedures after going over her authorization with her. Only approved with out of network benefits. No answer and voice mail full September 19, 2020 1:47 PM Called patient again no answer and vm full. Did leave a message on spouses vm to have her call us. Tonie Lerma Cma Allergies As of Date: 09/19/2020 (No Known Allergies) Date Reviewed: 08/29/2020 Reviewed by: Kolby Rawls MD - Fully Assessed Reason for Visit: Schedule Surgery [1330] Problem List As Of Date 09/19/2020 Noted Resolved Numbness and tingling in both hands [R20.0, R20* Encounter Status:Closed by TONIE LERMA CMA on 09/19/20 [facility] CNOVon 08-29-2020 CNOV Office Visit (AGCARD VEIN) -- TRULAN ([id number]) 1960 F Date Time Provider Department 08/29/20 1:30 PM KOLBY RAWLS During your visit today, we recorded the following information about you: Kolby Rawls MD 08/29/2020 3:40 PM Signed [facility]IAL [facility] EVALUATION (This was a 30 minute office visit with more than 50% of time spent counseling the patient. 08/29/2020 Referring Physician: Sammie Romero MD [address] [place] [phone] Primary Care Physician: Ashish Martel CLINICAL INDICATION/HISTORY: [facility] [...] over the right knee. She has constant mvcf-art-rwgblec sensation in her legs.She has been using [...] phlebectomy and/or sclerotherapy for primary varicosities. Kolby Rawls MD Referring Provider: SAMMIE ROMERO [[id number]] Allergies As of Date: 08/29/2020 (No Known Allergies) Date Reviewed: 08/29/2020 Reviewed by: Kolby Rawls MD - Fully Assessed Primary Visit Diagnosis:Varicose veins of bilateral lower extremities with pain [I83.813] Order(s):US VEIN MAPPING LOWER BILAT [[id number]] Order #: [id number] FUTURE COMPRESSION STOCKINGS [[id number]] Order #: [id number] Problem List As Of Date 08/29/2020 Noted Resolved Numbness and tingling in both hands [R20.0, R20* Disposition: Return Pending insurance approval, for Ablation. Follow-up and Disposition History Recorded Letter Text Encounter Status:Closed by KOLBY RAWLS on 08/29/20 [facility] US VEIN MAPPING LOWER BILon 08-29-2020 US VEIN MAPPING LOWER NAZARIO * * *Final Report* * * DATE OF EXAM: Aug 29 2020 3:05PM A5U 1081 - US VEIN MAPPING LOWER NAZARIO / PROCEDURE REASON: Varicose veins of bilateral lower extremities with pain * * * * Physician Interpretation * * * * Exam Title: ULTRASOUND OF THE EACH LOWER EXTREMITY WITH DOPPLER AND COLOR DOPPLER DATE: August 29, 2020 at 2:17 PM Comparison: Outside vein mapping report from 2019. Clinical Indication/History: The patient is a 59-year-old female with recurrent symptomatic varicosities of the left leg and some new varicosities developing in the right leg. The patient has had previous endovenous laser ablation of the left greater saphenous vein in 2019. Technique: Real time ultrasound with graded compression and distal augmentation as well as Doppler and color Doppler imaging of the right and left deep and superficial venous systems is being performed to assess for deep venous thrombosis and venous insufficiency. ULTRASOUND: Right leg: The deep venous system is normal and shows no evidence of deep venous thrombosis or valvular insufficiency. There is no reflux involving the greater saphenous vein. There is no reflux involving the anterior accessory greater saphenous vein. There is no reflux involving the small saphenous vein. There are no incompetent perforators identified. Varicosities measuring as great as 3.4 mm. Venous diameters are as follows; the greater saphenous vein measures 5.3 mm in the upper thigh, 4.9 mm in the mid thigh, 3.2 mm in the lower thigh, 3.9 mm in the upper calf, 2.5 mm in the mid calf, and 2.5 mm in the lower calf. The small saphenous vein measures 1.9 mm in the upper calf, 1.8 mm in the mid calf, and 2 mm in the lower calf. Left leg: The deep venous system is normal and shows no evidence of deep venous thrombosis or valvular insufficiency. There is no reflux involving the greater saphenous vein. The vein is patent without reflux but relatively small and it ends in the mid calf. There is junction reflux involving the anterior accessory greater saphenous vein which measures 5.1 mm and refluxes from 1.4 seconds. There is no reflux involving the small saphenous vein. There are no incompetent perforators identified. Varicosities measuring as great as 6.3 mm. Venous diameters are as follows; the greater saphenous vein measures 2.6 mm in the upper thigh, 5.2 mm in the mid thigh, 3.6 mm in the lower thigh, 3.5 mm in the upper calf. The small saphenous vein measures 1.7 mm in the upper calf, 1.2 mm in the mid calf, and 2.4 mm in the lower calf. IMPRESSION: The previously treated left greater saphenous vein appears to have recanalized but is without venous insufficiency. There is junctional reflux of the left anterior accessory greater saphenous vein which measures 5.1 mm and refluxes from 1.4 seconds and feeds the symptomatic tributary varicosities. There is no other venous insufficiency in either leg. Varicosities over the right knee are primary. The deep venous system of each leg is normal. Apple Picking Supervisor: WILTON Transcribe Date/Time: Aug 29 2020 3:41P Dictated by : KOLBY RAWLS MD This examination was interpreted and the report reviewed and electronically signed by: KOLBY RAWLS MD on Aug 29 2020 3:44PM EST [id number] Normal [facility] Francie 08-07-2020 [facility] Telephone (AGCARDVEI N) -- REYNA OTT ([id number]) 1960 F Date Time Provider Department 08/07/20 UNKNOWN QUETA During your visit today, we recorded the following information about you: Tonie Lerma Cma 08/07/2020 2:40 PM Signed August 07, 2020 2:38 PM Received referral from Sammie Romero/[facility] for painful varicosities. Voice mail was full, unalble to leave a message. x2 Tonie Lerma [facility] Allergies As of Date: 08/07/2020 (No Known Allergies) Date Reviewed: 11/06/2018 Reviewed by: Arias Pittman - Fully Assessed Reason for Visit: Appointment [186] Problem List As Of Date 08/07/2020 Noted Resolved Numbness and tingling in both hands [R20.0, R20* Encounter Status:Closed by TONIE LERMA CMA on 08/07/20 Normal [facility] Laboratory - Chemistry and C hemistry - challengeon 07-25-2020 Albumin BCP dye [Mass/Vol] 4.4 g/dL Normal 3.2 - 4.8 g/dL [facility].; [facility], [facility]. Albumin/Globulin [Mass ratio] 1.7 {ratio} Abnormal 0.9 - 1.6 {ratio} [facility].; [facility], [employer]. ALP [Catalytic activity/Vol] 70 U/L Normal 38 - 126 U/L [facility].; [facility], Inc[employer] ALT No additional P-5'-P [Catalytic activity/Vol] 23 U/L Normal 10 - 49 U/L [facility].; [facility], Inc[employer] ALT With P-5'-P [Catalytic activity/Vol] 23 U/L Normal 10 - 49 U/L [facility].; [facility], Inc[employer] AST [Catalytic activity/Vol] 25 U/L Normal 8 - 34 U/L [facility].; [facility], Inc[employer] AST With P-5'-P [Catalytic activity/Vol] 25 U/L Normal 8 - 34 U/L [facility].; [facility] [employer] [facility], Inc. Bilirubin [Mass/Vol] 0.60 mg/dL Normal 0.20 - 1.20 mg/dL [facility].; [facility], Inc[employer] Calcium [Mass/Vol] 9.8 mg/dL Normal 8.7 - 10. 4 mg/dL [facility].; [facility], [facility] Chloride [Moles/Vol] 104 mmol/L Normal 98 - 11 0 meq/L [facility].; [facility] CO2 [Moles/Vol] 28 mmol/L Normal 22 - 32 meq/L [facility].; [facility] Creatinine [Mass/Vol] 0.56 mg/dL Normal 0.50 - 1.20 mg/dL [facility].; [facility] CRP [Mass/Vol] mg/L Normal 0.0 - 1.0 mg/dL [facility].; [facility] GFR/1.73 sq M.predicted among blacks MDRD (S/P/Bld) [Vol rate/Area] mL/min/{1.73_m2} Normal [facility].; [facility] Work Phone: GFR/1.73 sq M.predicted among non-blacks MDRD (S/P/Bld) [Vol rate/Area] mL/min/{1.73_m2} Normal [facility].; [facility] Work Phone: Globulin (S) [Mass/Vol] 2.6 g/dL Normal 1.5 - 3.8 g/dL [facility].; [facility], [facility] Glucose [Mass/Vol] 92 mg/dL Normal 70 - 110 mg/dL [facility].; [facility], [facility] Potassium [Moles/Vol] 4.3 mmol/L Normal 3.5 - 5.0 meq/L [facility].; [facility], [facility] Protein [Mass/Vol] 7.0 g/dL Normal 5.7 - 8.2 g/dL [facility].; [facility], [facility] Sodium [Moles/Vol] 141 mmol/L Normal 136 - 145 meq/L [facility]; [facility] TSH Qn 2.318 m[IU]/L Normal 0.550 - 4.780 m[iU]/mL [facility]; [facility] Urea nitrogen [Mass/Vol] 24.0 mg/dL Abnormal 8.0 - 22.0 mg/dL [facility]; [facility] Urea nitrogen/Creatinine [Mass ratio] 42.9 {ratio} Abnormal 10.0 - 22.0 {ratio} [facility].; [facility] Laboratory - Hematology and Cell countson 07-25-2020 Basophils (Bld) [#/Vol] 0.00 {10^3/mcL} Normal 0.00 - 0.27 {10^3/mcL} [facility]; [facility] Work Phone: Basophils/100 WBC (Bld) 0.5 % Normal 0.0 - 2.5 % [facility]; [facility] Work Phone: Eosinophils (Bld) [#/Vol] 0.10 {10^3/mcL} Normal 0.00 - 0.65 {10^3/mcL} [facility].; [facility] Work Phone: Eosinophils/100 WBC (Bld) 1.4 % Normal 0.0 - 6.0 % [facility]; [facility] Work Phone: Erythrocyte distribution width (RBC) [Ratio] 13.5 % Normal 11.5 - 15.5 % [facility]; [facility] ESR Photometric method (Bld) [Velocity] 32 mm/h Abnormal 0 - 30 mm/h [facility]; [facility] Hematocrit (Bld) [Volume fraction] 44.8 % Normal 34.0 - 46.0 % [facility].; [facility] Hemoglobin (Bld) [Mass/Vol] 14.9 g/dL Normal 12.0 - 16.0 g/dL [facility].; [facility], [facility] Lymphocytes (Bld) [#/Vol] 1.80 {10^3/mcL} Normal 0.90 - 4.32 {10^3/mcL} [facility].; [facility], [facility]. Work Phone: Lymphocytes/100 WBC (Bld) 24.4 % Normal 20.0 - 40.0 % [facility].; [facility] Work Phone: MCH (RBC) [Entitic mass] 29.5 pg Normal 27.0 - 33.0 pg [facility].; [facility], [facility]. MCHC (RBC) [Mass/Vol] 33.3 g/dL Normal 32.0 - 36.0 g/dL [facility].; [facility], [facility]. MCV (RBC) [Entitic vol] 88.6 fL Normal 80.0 - 99.0 fL [facility].; [facility] Monocytes (Bld) [#/Vol] 0.40 {10^3/mcL} Normal 0.09 - 1.40 {10^3/mcL} [facility].; [facility], [facility]. Work Phone: Monocytes/100 WBC (Bld) 5.5 % Normal 2.0 - 13.0 % [facility].; [facility], [facility]. Work Phone: Neutrophils (Bld) [#/Vol] 4.90 {10^3/mcL} Normal 2.25 - 8.10 {10^3/mcL} [facility] [employer] [facility], Inc[facility] Work Phone: Neutrophils/100 WBC (Bld) 68.2 % Normal 50.0 - 75.0 % [facility].; [facility] [employer]. Work Phone: Platelet mean volume (Bld) [Entitic vol] 8.4 fL Normal 6.6 - 10.5 fL [facility] [employer] [employer] [facility] [place]. Platelets (Bld) [#/Vol] 208 {10^3/mcL} Normal 150 - 450 {10^3/mcL} [facility] [employer] [facility] [place]. RBC (Bld) [#/Vol] 5.06 {10^6/mcL} Normal 4.10 - 5.30 {10^6/mcL} [facility] [employer] [facility] [place] [employer] [facility] [place]. WBC (Bld) [#/Vol] 7.20 {10^3/mcL} Normal 4.50 - 10.80 {10^3/mcL} [facility] [employer] Laboratory - Microbiology an d Antimicrobial susceptibilityon 07-25-2020 Streptolysin O Ab Qn 91.8 {Int_unit/mL} Normal 2 5.0 - 250.0 {Int_unit/m L} [facility] [employer] [employer] [facility] [place]. Laboratory - Serology - non- microon 07-25-2020 Nuclear Ab IF Ql (S) Neg 40-Neg 40 Normal [email or web address] [employer] [facility] [place]. Rheumatoid factor IgM IA Qn (S) <6.0 Normal [facility]; [facility] [employer] No Panel Informationon 07-25 Electrolyte Balance 9.0 meq/L Normal 4.0 - 15 .0 meq/L [email or web address] [employer] US DUPLEX VENOUS LEGS BILATE RALon 01-18-2019 US DUPLEX VENOUS LEGS BILATERAL Tech Limits: Difficult exam due patient body habitus. Interpretation: Right: Partially compressibile thrombosis of the right gastrocnemius vein. Normal compressibility of the veins of the right common femoral, saphenofemoral junction, profunda femoral,femoral, popliteal, posterior tibial, peroneal,great saphenous and small saphenous veins. Left: Normal compressibility of the veins of the left lower extremity. No evidence of venous obstruction of the left lower extremity. Impression: Right: Partially compressible chronic deep vein thrombosis of the right gastrocnemius vein. No evidence of thrombosis of the right great saphenous and small saphenous veins. No evidence of thrombosis of the right common femoral, saphenofemoral junction, profunda femoral, femoral, popliteal,posterior tibial and peroneal veins. Left: No evidence of venous thrombosis or obstruction in the left lower extremity. Comparison: Comments: Thank you for referring to the [facility]. Normal [facility] US DUPLEX VENOUS LEGS BILATERAL Tech Limits: Difficult exam due patient body habitus. Interpretation: Right: Partially compressibile thrombosis of the right gastrocnemius vein. Normal compressibility of the veins of the right common femoral, saphenofemoral junction, profunda femoral,femoral, popliteal, posterior tibial, peroneal,great saphenous and small saphenous veins. Left: Normal compressibility of the veins of the left lower extremity. No evidence of venous obstruction of the left lower extremity. Impression: Right: Partially compressible chronic deep vein thrombosis of the right gastrocnemius vein. No evidence of thrombosis of the right great saphenous and small saphenous veins. No evidence of thrombosis of the right common femoral, saphenofemoral junction, profunda femoral, femoral, popliteal,posterior tibial and peroneal veins. Left: No evidence of venous thrombosis or obstruction in the left lower extremity. Comparison: Comments: Thank you for referring to the [facility]. Dictated by: JHONY PRAKASH on TueJan 18, 2019 11:28:00 AM EDT Transcribed by: JHONY PRAKASH on TueJan 18, 2019 11:28:00 AM EDT Finalized by: JHONY PRAKASH on Puja Jan 18, 2019 11:28:[address] [facility] Ultrasound duplex venous leg s bilaton 01-18-2019 Tech Limits: Difficu lt exam due patient body habitus. Interpretation: Right: Partially compressibile thrombosis of the right gastrocnemius vein. Normal compressibility of the veins of the right common femoral, saphenofemoral junction, profunda femoral,femoral, popliteal, posterior tibial, peroneal,great saphenous and small saphenous veins. Left: Normal compressibility of the veins of the left lower extremity. No evidence of venous obstruction of the left lower extremity. Impression: Right: Partially compressible chronic deep vein thrombosis of the right gastrocnemius vein. No evidence of thrombosis of the right great saphenous and small saphenous veins. No evidence of thrombosis of the right common femoral, saphenofemoral junction, profunda femoral, femoral, popliteal,posterior tibial and peroneal veins. Left: No evidence of venous thrombosis or obstruction in the left lower extremity. Comparison: Comments: Thank you for referring to the [facility] at [facility]. [facility] Interface, Rad In artlab Xper Echopacs - 01/18/2019 10:23 PM EDT Tech Limits: Difficult exam due patient body habitus. Interpretation: Right: Partially compressibile thrombosis of the right gastrocnemius vein. Normal compressibility of the veins of the right common femoral, saphenofemoral junction, profunda femoral,femoral, popliteal, posterior tibial, peroneal,great saphenous and small saphenous veins. Left: Normal compressibility of the veins of the left lower extremity. No evidence of venous obstruction of the left lower extremity. Impression: Right: Partially compressible chronic deep vein thrombosis of the right gastrocnemius vein. No evidence of thrombosis of the right great saphenous and small saphenous veins. No evidence of thrombosis of the right common femoral, saphenofemoral junction, profunda femoral, femoral, popliteal,posterior tibial and peroneal veins. Left: No evidence of venous thrombosis or obstruction in the left lower extremity. Comparison: Comments: Thank you for referring to the [facility]. [facility] Laboratory - Chemistry and C hemistry - challengeon 09-28-2017 Albumin BCP dye [Mass/Vol] 3.9 g/dL Normal 3.2 - 4.8 g/dL [facility] [place] [place]. Work Phone: Albumin/Globulin [Mass ratio] 1.3 {ratio} Normal 0.9 - 1.6 {ratio} [facility]; [facility] Work Phone: ALP [Catalytic activity/Vol] 94 U/L Normal 38 - 126 U/L [facility]; [facility] Work Phone: ALT With P-5'-P [Catalytic activity/Vol] 24 U/L Normal 10 - 49 U/L [facility]; [facility] Work Phone: AST With P-5'-P [Catalytic activity/Vol] 19 U/L Normal 8 - 34 U/L [facility]; [facility] Work Phone: Bilirubin [Mass/Vol] 0.4 mg/dL Normal 0.2 - 1 .2 mg/dL [facility]; [facility] Work Phone: Bilirubin Ql (U) Negative Normal [facility]; [facility] Work Phone: Calcium [Mass/Vol] 8.4 mg/dL Normal 8.4 - 10. 1 mg/dL [facility]; [facility] Work Phone: Chloride [Moles/Vol] 107 mmol/L Normal 98 - 11 0 meq/L [facility]; [facility] Work Phone: CO2 [Moles/Vol] 29 mmol/L Normal 22 - 32 meq/L [facility]; [facility] Work Phone: Creatinine [Mass/Vol] 0.70 mg/dL Normal 0.50 - 1.20 mg/dL [facility]; [facility] Work Phone: GFR/1.73 sq M.predicted among blacks MDRD (S/P/Bld) [Vol rate/Area] mL/min/{1.73_m2} Normal [facility].; [facility]. Work Phone: GFR/1.73 sq M.predicted among non-blacks MDRD (S/P/Bld) [Vol rate/Area] mL/min/{1.73_m2} Normal [facility].; [facility], [facility]. Work Phone: Globulin (S) [Mass/Vol] 3.0 g/dL Normal 1.5 - 3.8 g/dL [facility].; [facility], [facility]. Work Phone: Glucose [Mass/Vol] 123 mg/dL Abnormal 70 - 110 mg/dL [facility].; [facility]. Work Phone: Ketones Ql (U) Negative Normal [facility].; [facility]. Work Phone: Magnesium [Mass/Vol] 518 mg/dL Normal 250 - 5 50 mg/dL [facility].; [facility], [facility]. Work Phone: Potassium [Moles/Vol] 4.1 mmol/L Normal 3.5 - 5.0 meq/L [facility].; [facility], [facility]. Work Phone: Protein [Mass/Vol] 6.9 g/dL Normal 6.0 - 8.5 g/dL [facility] [facility], [facility]. Work Phone: Sodium [Moles/Vol] 143 mmol/L Normal 136 - 145 meq/L [facility].; [facility]. Work Phone: Urea nitrogen [Mass/Vol] 13.0 mg/dL Normal 8.0 - 22.0 mg/dL [facility] [employer] [facility] [place] [employer] [facility] [place]. Work Phone: Urea nitrogen/Creatinine [Mass ratio] 18.6 {ratio} Normal 10.0 - 22.0 {ratio} [facility] [employer] [facility] [place] [employer] [facility] [place]. Work Phone: Laboratory - Coagulationon 09-28-2017 aPTT Coag (Bld) [Time] 30.7 s Normal 25.0 - 35.0 s [facility] [employer] [facility] [employer] [facility] [place]. Work Phone: INR Coag (PPP) [Relative time] 1.0 {INR} Normal [facility] [employer] [facility] [place] [facility] [employer] [facility] [place]. Work Phone: PT Coag (PPP) [Time] 11.0 s Normal 9.0 - 1 4.5 s [facility] [employer] [facility] [place]. Work Phone: Laboratory - Hematology and Cell countson 09-28-2017 Basophils (Bld) [#/Vol] 0.10 {10^3/mcL} Normal 0.00 - 0.27 {10^3/mcL} [facility] [employer]. Work Phone: Basophils/100 WBC (Bld) 1.1 % Normal 0.0 - 2.5 % [facility] [employer]. Work Phone: Eosinophils (Bld) [#/Vol] 0.10 {10^3/mcL} Normal 0.00 - 0.65 {10^3/mcL} [facility] [employer] [facility] [place] [employer] Work Phone: Eosinophils/100 WBC (Bld) 2.1 % Normal 0.0 - 6.0 % [facility]; [facility] Work Phone: Erythrocyte distribution width (RBC) [Ratio] 13.0 % Normal 11.5 - 15.5 % [facility]; [facility] Work Phone: Hematocrit (Bld) [Volume fraction] 43.6 % Normal 34.0 - 46.0 % [facility]; [facility] Work Phone: Hemoglobin (Bld) [Mass/Vol] 14.8 g/dL Normal 12.0 - 16.0 g/dL [facility]; [facility] Work Phone: Lymphocytes (Bld) [#/Vol] 2.00 {10^3/mcL} Normal 0.90 - 4.32 {10^3/mcL} [facility]; [facility] Work Phone: Lymphocytes/100 WBC (Bld) 31.8 % Normal 20.0 - 40.0 % [facility]; [facility] Work Phone: MCH (RBC) [Entitic mass] 29.4 pg Normal 27.0 - 33.0 pg [facility]; [facility] Work Phone: MCHC (RBC) [Mass/Vol] 34.0 g/dL Normal 32.0 - 36.0 g/dL [facility]; [facility] Work Phone: MCV (RBC) [Entitic vol] 86.6 fL Normal 80.0 - 99.0 fL [facility]; [facility] Work Phone: Monocytes (Bld) [#/Vol] 0.30 {10^3/mcL} Normal 0.09 - 1.40 {10^3/mcL} [facility].; [facility]. Work Phone: Monocytes/100 WBC (Bld) 4.7 % Normal 2.0 - 13.0 % [facility] [employer] [facility] [place]. Work Phone: Neutrophils (Bld) [#/Vol] 3.80 {10^3/mcL} Normal 2.25 - 8.10 {10^3/mcL} [facility].; [facility], [employer]. Work Phone: Neutrophils/100 WBC (Bld) 60.3 % Normal 50.0 - 75.0 % [facility] [employer] [facility] [place].; [facility]. Work Phone: Platelet mean volume (Bld) [Entitic vol] 8.2 fL Normal 6.6 - 10.5 fL [facility] [employer] [facility] [place]. Work Phone: Platelets (Bld) [#/Vol] 234 {10^3/mcL} Normal 150 - 450 {10^3/mcL} [facility] [employer] [facility] [place]. Work Phone: RBC (Bld) [#/Vol] 5.04 {10^6/mcL} Normal 4.10 - 5.30 {10^6/mcL} [facility] [employer] [facility] [place], [employer]. Work Phone: WBC (Bld) [#/Vol] 6.20 {10^3/mcL} Normal 4.50 - 10.80 {10^3/mcL} [facility] [employer] [facility] [place] [employer] [facility], [place], [employer]. Work Phone: Laboratory - Specimen inform ationon 09-28-2017 Appearance (U) Clear-Clear Normal [facility] [employer] [facility] [place].; [facility] [employer] [facility] [place], Inc[employer] Work Phone: Color (U) Yellow-Yellow Normal [facility] [employer] [facility] [place] [employer] [facility] [place], Inc. Work Phone: Laboratory - Urinalysison Glucose Test strip (U) [Mass/Vol] Negative Normal [facility] [employer] [facility] [place] [employer] [facility] [place], Inc. Work Phone: Hemoglobin Auto test strip (U) [Mass/Vol] Negative Normal [facility] [employer] [facility] [place] [employer] [facility] [place], Inc. Work Phone: No Panel Informationon 09-28 Electrolyte Balance 7.0 meq/L Normal 4.0 - 15 .0 meq/L [facility] [employer] [facility] [place] [employer] [facility] [place], Inc[employer] Work Phone: Heparin dose (APTT) None-None Normal [facility] [employer] [facility] [place] [employer] [facility] [place], Inc. Work Phone: UA Leuk Est Negative Normal [facility] [employer] [facility] [place], Inc. Work Phone: UA Nitrite Negative Normal [facility] [employer] [facility] [place] [facility] [employer] [facility] [place], Inc. Work Phone: UA pH 5.0-5.0 Normal 5.0 - 8.0 [email or web address].; [facility] [employer] [facility] [place], Inc[employer] Work Phone: UA Protein Negative Normal [facility] [place] [employer] [facility] [place], Inc[employer] Work Phone: UA Spec Grav >=1.030->=1.030 Abnormal 1.006 - 1.029 [facility], [place].; [place] [employer] [facility] [employer] Work Phone: UA Specimen Type Clean Catch-Clean Catch Normal [facility] Inc.; [facility] [employer] [facility] [place], Inc[employer] Work Phone: UA Urobilinogen 1.0-1.0 Normal 0.2 - 1.0 {E.U./dL} [facility] [employer], [employer] [facility] [employer] [facility] [place], [employer]. Work Phone: [facility] Cytology Reporton 2017 [employer] Cytology Report . Pathology ReportsAccession: Collected Date/Time: Received Date/Time: Pathologist:[id number] 09/22/2017 13:41 EDT 09/22/2017 18:00 EDT [facility] Cytology ReportSPECIMEN:Specimen Description: Liquid Prep Reflex ASCUSSpecimen: Cervical/EndocervicalScree madeleine or Diagnostic: ScreeningRELEVANT HISTORY:LMP: not givenMenopausalSPECIMEN ADEQUACY:SATISFACTORY FOR EVALUATIONENDOCERVICAL/TRA NSFORMATIONAL ZONE COMPONENT PRESENTINTERPRETATION/RESU LTS:NEGATIVE FOR INTRAEPITHELIAL LESION OR MALIGNANCYElectronically Signed byPathology report verified by [facility] Centercreened by: GLElectronically signed by Rohini RaoronSign-Out Date: 09/26/2017 10:16Performing Lab: [facility], [address] [place], [place] [address]DisclaimerThe Pap test is a screening test for cervical cancer. As evidenced by published data, it is subject to both inherent false negative and false positive results. Your patient's results should be interpreted in context with pertinent clinical history including gynecological examination. Normal [facility] ([place]) Comment on above: Performed By: #### G YCR ####[place] [address] Laboratory - Chemistry and C hemistry - challengeon 01-11-2017 25-hydroxyvitamin D3 [Mass/Vol] 44 ng/mL Normal [facility], [employer] [facility] [employer], [employer] Albumin BCP dye [Mass/Vol] 4.2 g/dL Normal 3.2 - 4.8 g/dL [facility] [employer] [facility] [place].; [facility] [employer] [facility] [place], Inc[employer] Albumin/Globulin [Mass ratio] 1.4 {ratio} Normal 0.9 - 1.6 {ratio} [facility] ALP [Catalytic activity/Vol] 78 U/L Normal 38 - 126 U/L [facility]; [facility], [facility]. ALT No additional P-5'-P [Catalytic activity/Vol] 58 U/L Abnormal 10 - 49 U/L [facility].; [facility]. ALT With P-5'-P [Catalytic activity/Vol] 58 U/L Abnormal 10 - 49 U/L [facility].; [facility]. AST [Catalytic activity/Vol] 22 U/L Normal 8 - 34 U/L [facility]; [facility] AST With P-5'-P [Catalytic activity/Vol] 22 U/L Normal 8 - 34 U/L [facility].; [facility]. Bilirubin [Mass/Vol] 0.8 mg/dL Normal 0.2 - 1 .2 mg/dL [facility]; [facility] Calcium [Mass/Vol] 9.0 mg/dL Normal 8.4 - 10. 1 mg/dL [facility]; [facility], [facility] Chloride [Moles/Vol] 104 mmol/L Normal 98 - 11 0 meq/L [facility]; [facility], [facility]. CO2 [Moles/Vol] 29 mmol/L Normal 22 - 32 meq/L [facility], [facility] Creatinine [Mass/Vol] 0.65 mg/dL Normal 0.50 - 1.20 mg/dL [facility].; [facility], [facility]. GFR/1.73 sq M.predicted among blacks MDRD (S/P/Bld) [Vol rate/Area] mL/min/{1.73_m2} Normal [facility]; [facility] Work Phone: GFR/1.73 sq M.predicted among non-blacks MDRD (S/P/Bld) [Vol rate/Area] mL/min/{1.73_m2} Normal [facility].; [facility] Work Phone: Globulin (S) [Mass/Vol] 2.9 g/dL Normal 1.5 - 3.8 g/dL [facility].; [facility] Glucose [Mass/Vol] 90 mg/dL Normal 70 - 110 mg/dL [facility].; [facility] Magnesium [Mass/Vol] 2.0 mg/dL Normal 1.6 - 2 .4 mg/dL [facility].; [facility] Phosphate [Mass/Vol] 3.8 mg/dL Normal 2.5 - 4 .5 mg/dL [facility].; [facility] Potassium [Moles/Vol] 4.3 mmol/L Normal 3.5 - 5.0 meq/L [facility].; [facility] Protein [Mass/Vol] 7.1 g/dL Normal 6.0 - 8.5 g/dL [facility].; [facility] Sodium [Moles/Vol] 140 mmol/L Normal 136 - 145 meq/L [facility].; [facility] Urea nitrogen [Mass/Vol] 22.0 mg/dL Normal 8.0 - 22.0 mg/dL [facility].; [facility], [facility] Urea nitrogen/Creatinine [Mass ratio] 33.8 {ratio} Abnormal 10.0 - 22.0 {ratio} [facility].; [facility] No Panel Informationon 01-11 Electrolyte Balance 7.0 meq/L Normal 4.0 - 15 .0 meq/L [facility]; [facility] Vital Signs Date Time Vital Sign Value Performing Clinician Marlin sahni 05-24-2024 08:16-0500 Body height 157.[address] Orlando Trejo Work Phone: [facility] 05-24-2024 08:16-0500 Body mass index (BMI) [Ratio] 33 kg/m2 Dr. Orlando Riley MD Work Phone: [facility] 05-24-2024 08:16-0500 Body weight 81.[address] Orlando Trejo Work Phone: [facility] 05-24-2024 08:16-0500 Diastolic blood pressure 86 mm[Hg] Dr. Orlando Riley MD Work Phone: [facility] 05-24-2024 08:16-0500 Systolic blood pressure 118 mm[Hg] Dr. Orlando Riley MD Work Phone: [facility] 03-29-2024 10:18-0500 Body temperature 98.4 [degF] Dr. Orlando Trejo Work Phone: [facility] 03-29-2024 10:18-0500 Body weight [address] Orlando Trejo Work Phone: [facility] 03-29-2024 10:18-0500 Diastolic blood pressure 85 mm[Hg] Dr. Orlando Riley MD Work Phone: [facility] 03-29-2024 10:18-0500 Heart rate 71 /min Dr. Orlando Trejo Work Phone: [facility] 03-29-2024 10:18-0500 Respiratory rate 16 /min Dr. Orlando Trejo Work Phone: [facility] 03-29-2024 10:18-0500 SaO2% (BldA) [Mass fraction] 97 % Dr. Orlando Riley MD Work Phone: [facility] 03-29-2024 10:18-0500 Systolic blood pressure 129 mm[Hg] Dr. Orlando Riley MD Work Phone: [facility] 03-15-2024 08:52-0500 Body weight 82.[address] Orlando Trejo Work Phone: [facility] 03-14-2024 08:42-0500 Body mass index (BMI) [Ratio] 33.3 kg/m2 Dr. Orlando Riley MD Work Phone: [facility] 11-23-2023 09:33-0400 Body height 161.29 cm LULY LOGAN RN [facility] [place] [employer] [facility] [place]. 11-23-2023 09:33-0400 Body mass index (BMI) [Ratio] 31.07 kg/m2 LULY LOGAN RN [facility] [employer] [facility], [place].; [facility] [employer] [facility] [place]. 11-23-2023 09:33-0400 Body surface area Derived from formula 1.85 m2 LULY LOGAN RN [facility] [employer] [facility] [place].; [facility] [employer] [facility] [place]. 11-23-2023 09:33-0400 Body weight 80.83 kg LULY LOGAN RN [facility] Health[facility] [place].; [facility] [place]. 11-23-2023 09:33-0400 Diastolic blood pressure 89 mm[Hg] LULY LOGAN RN [facility] [employer] [facility] [place].; [facility] HospitalMobileApps.com. Comment on above: Patient Position: Sitting; Cuff Location : Left Arm; Cuff Size: Standard 11-23-2023 09:33-0400 Heart rate 76 /min LULY LOGAN RN [facility] [employer] [facility] [place].; [facility] [employer] [facility] [place]. Comment on above: Pattern: Regular 11-23-2023 09:33-0400 Systolic blood pressure 125 mm[Hg] LULY LOGAN RN [facility], [facility].; [facility], [facility]. Comment on above: Patient Position: Sitting; Cuff Location : Left Arm; Cuff Size: Standard 08-08-2023 15:05-0400 Body height 160.02 cm SOIL CONSERVATION AIDE-C Renetta Sparkstter SOIL CONSERVATION AIDE Work Phone: [facility] 08-08-2023 15:05-0400 Body mass index (BMI) [Ratio] 32.6 kg/m2 [employer] CONSERVATION AIDE-C Renetta Indiratetter SOIL CONSERVATION AIDE Work Phone: [facility] 08-08-2023 15:05-0400 Body temperature 98 [degF] SOIL CONSERVATION AIDE-C Renetta Jacobsontetter SOIL CONSERVATION AIDE Work Phone: [facility] 08-08-2023 15:05-0400 Body weight 83.68 kg SOIL CONSERVATION AIDE-C Renetta Jacobsontetter SOIL CONSERVATION AIDE Work Phone: [facility] 08-08-2023 15:05-0400 Diastolic blood pressure 82 mm[Hg] SO[employer] CONSERVATION AIDE-C Renetta Jacobsontetter SOIL CONSERVATION AIDE Work Phone: [facility] 08-08-2023 15:05-0400 Heart rate 82 /min SOIL CONSERVATION AIDE-C Renetta Jacobsontetter SOIL CONSERVATION AIDE Work Phone: [facility] 08-08-2023 15:05-0400 Respiratory rate 16 /min SOIL CONSERVATION AIDE-C Renetta Jacobsontetter SOIL CONSERVATION AIDE Work Phone: [facility] 08-08-2023 15:05-0400 SaO2% (BldA) [Mass fraction] 97 % [employer] CONSERVATION AIDE-C Renetta Jacobsontetter SOIL CONSERVATION AIDE Work Phone: [facility] 08-08-2023 15:05-0400 Systolic blood pressure 128 mm[Hg] SOIL CONSERVATION AIDE-C Renetta Jacobsontetter SOIL CONSERVATION AIDE Work Phone: [facility] 08-01-2023 13:37-0400 Body mass index (BMI) [Ratio] 33.1 kg/m2 SOIL CONSERVATION AIDE-C Renetta Hofstetter SOIL CONSERVATION AIDE Work Phone: [facility] 08-01-2023 13:37-0400 Body weight 84.82 kg SOIL CONSERVATION AIDE-C Renetta Sparkstter SOIL CONSERVATION AIDE Work Phone: [facility] 08-01-2023 13:37-0400 Diastolic blood pressure 81 mm[Hg] SOIL CONSERVATION AIDE-C Renetta Jacobsontetter SOIL CONSERVATION AIDE Work Phone: [facility] 08-01-2023 13:37-0400 Systolic blood pressure 121 mm[Hg] SOIL CONSERVATION AIDE-C Renetta Jacobsontetter SOIL CONSERVATION AIDE Work Phone: [facility] 06-15-2023 10:17-0400 Body temperature 98 [degF] SOIL CONSERVATION AIDE-C Renetta Jacobsontetter SOIL CONSERVATION AIDE Work Phone: [facility] 06-15-2023 10:17-0400 Body weight 87.54 kg SOIL CONSERVATION AIDE-C Renetta Sparkstter SOIL CONSERVATION AIDE Work Phone: [facility] 06-15-2023 10:17-0400 Diastolic blood pressure 94 mm[Hg] SOIL CONSERVATION AIDE-C Renetta Jacobsontetter SOIL CONSERVATION AIDE Work Phone: [facility] 06-15-2023 10:17-0400 Heart rate 91 /min SOIL CONSERVATION AIDE-C Renetta Sparkstter SOIL CONSERVATION AIDE Work Phone: [facility] 06-15-2023 10:17-0400 Respiratory rate 16 /min SOIL CONSERVATION AIDE-C Renetta Sparkstter SOIL CONSERVATION AIDE Work Phone: [facility] 06-15-2023 10:17-0400 SaO2% (BldA) [Mass fraction] 97 % [employer] CONSERVATION AIDE-C Renetta Sparkstter SOIL CONSERVATION AIDE Work Phone: [facility] 06-15-2023 10:17-0400 Systolic blood pressure 134 mm[Hg] SOIL CONSERVATION AIDE-C Renetta Jacobsontetter SOIL CONSERVATION AIDE Work Phone: [facility] 05-30-2023 10:57-0500 Body height 160.02 cm SOIL CONSERVATION AIDE-C Renetta Hofstetter SOIL CONSERVATION AIDE Work Phone: [facility] 05-30-2023 10:57-0500 Body mass index (BMI) [Ratio] 34.2 kg/m2 SO[employer] CONSERVATION AIDE-C Renetta Sparkstter SOIL CONSERVATION AIDE Work Phone: [facility] 05-30-2023 10:57-0500 Body temperature 97.6 [degF] SOIL CONSERVATION AIDE-C Renetta Sparkstter SOIL CONSERVATION AIDE Work Phone: [facility] 05-30-2023 10:57-0500 Body weight 87.65 kg SOIL CONSERVATION AIDE-C Renetta Sparkstter SOIL CONSERVATION AIDE Work Phone: [facility] 05-30-2023 10:57-0500 Diastolic blood pressure 82 mm[Hg] SOIL CONSERVATION AIDE-C Renetta Sparkstter SOIL CONSERVATION AIDE Work Phone: [facility] 05-30-2023 10:57-0500 Heart rate 74 /min SOIL CONSERVATION AIDE-C Renetta Gunterer SOIL CONSERVATION AIDE Work Phone: [facility] 05-30-2023 10:57-0500 Respiratory rate 16 /min SOIL CONSERVATION AIDE-C Renetta Sparkstter SOIL CONSERVATION AIDE Work Phone: [facility] 05-30-2023 10:57-0500 SaO2% (BldA) [Mass fraction] 99 % SOIL CONSERVATION AIDE-C Renetta Sparkstter SOIL CONSERVATION AIDE Work Phone: [facility] 05-30-2023 10:57-0500 Systolic blood pressure 140 mm[Hg] SOIL CONSERVATION AIDE-C Renetta Sparkstter SOIL CONSERVATION AIDE Work Phone: [facility] 05-26-2023 11:24-0500 Body mass index (BMI) [Ratio] 34.5 kg/m2 SO[employer] CONSERVATION AIDE-C Renetta Sparkstter SOIL CONSERVATION AIDE Work Phone: [facility] 05-26-2023 11:24-0500 Body weight 88.45 kg SOIL CONSERVATION AIDE-C Renetta Sparkstter SOIL CONSERVATION AIDE Work Phone: [facility] 05-26-2023 11:24-0500 Diastolic blood pressure 83 mm[Hg] SOIL CONSERVATION AIDE-C Renetta Hofstetter SOIL CONSERVATION AIDE Work Phone: [facility] 05-26-2023 11:24-0500 Systolic blood pressure 130 mm[Hg] SOIL CONSERVATION AIDE-C Renetta Hofstetter SOIL CONSERVATION AIDE Work Phone: [facility] 04-25-2023 08:13-0500 Body height 160.02 cm SOIL CONSERVATION AIDE-C Renetta Hofstetter SOIL CONSERVATION AIDE Work Phone: [facility] 04-25-2023 08:12-0500 Body mass index (BMI) [Ratio] 34.7 kg/m2 SOIL CONSERVATION AIDE-C Renetta Hofstetter SOIL CONSERVATION AIDE Work Phone: [facility] 04-25-2023 08:12-0500 Body weight 88.9 kg SOIL CONSERVATION AIDE-C Renetta Hofstetter SOIL CONSERVATION AIDE Work Phone: [facility] 04-25-2023 08:12-0500 Diastolic blood pressure 80 mm[Hg] SOIL CONSERVATION AIDE-C Renetta Hofstetter SOIL CONSERVATION AIDE Work Phone: [facility] 04-25-2023 08:12-0500 Systolic blood pressure 121 mm[Hg] SOIL CONSERVATION AIDE-C Renetta Hofstetter SOIL CONSERVATION AIDE Work Phone: [facility] 04-02-2022 14:21-0500 Body height 161.29 cm Seble Hopper RN [facility].; [facility]. 04-02-2022 14:21-0500 Body mass index (BMI) [Ratio] 33.51 kg/m2 Seble Hopper RN [facility].; [facility]. 04-02-2022 14:21-0500 Body surface area Derived from formula 1.91 m2 Seble Hopper RN [facility].; [facility], [facility] [facility]. 04-02-2022 14:21-0500 Body weight 87.18 kg Seble Hopper RN [facility] 04-02-2022 14:21-0500 Diastolic blood pressure 86 mm[Hg] Seble Hopper RN [facility] [employer] [facility] [place] [facility] [employer] [facility] [place]. Comment on above: Patient Position: Sitting; Cuff Location : Left Arm; Cuff Size: Large 04-02-2022 14:21-0500 Heart rate 88 /min Seble Hopper RN [facility] [employer] [facility] [place] [facility] [employer] [facility] [place]. Comment on above: Pattern: Regular 04-02-2022 14:21-0500 Systolic blood pressure 148 mm[Hg] Seble Hopper RN [facility] [place] [employer] [facility] [place]. Comment on above: Patient Position: Sitting; Cuff Location : Left Arm; Cuff Size: Large 01-14-2022 15:37-0400 Body height 161.29 cm MARTIN MARTEL MD Work Phone: [facility] [employer] [facility] [place] [facility] [employer] [facility] [place]. 01-14-2022 15:37-0400 Body mass index (BMI) [Ratio] 33.7 kg/m2 MARTIN MARTEL MD Work Phone: [facility] [employer] [facility] [place] [employer] [facility] [place]. 01-14-2022 15:37-0400 Body surface area Derived from formula 1.92 m2 MARTIN MARTEL MD Work Phone: [facility] [employer] [facility] [place] [facility] Birdi. 01-14-2022 15:37-0400 Body weight 87.66 kg MARTIN MARTEL MD Work Phone: [facility] [place] Birdi. 01-14-2022 15:37-0400 Diastolic blood pressure 86 mm[Hg] MARTIN MARTEL MD Work Phone: [facility] [employer] [facility] [place] [employer] [facility] Birdi. Comment on above: Patient Position: Sitting; Cuff Location : Left Arm; Cuff Size: Standard 01-14-2022 15:37-0400 Heart rate 93 /min MARTIN MARTEL MD Work Phone: [facility] CenterDas[facility]; [facility] [employer] [facility] [place]. Comment on above: Pattern: Regular 01-14-2022 15:37-0400 Systolic blood pressure 123 mm[Hg] MARTIN MARTEL MD Work Phone: [facility] [employer] [facility] [place] [facility] CENTER[facility] [place] [employer] [facility] [place]. Comment on above: Patient Position: Sitting; Cuff Location : Left Arm; Cuff Size: Standard 11-26-2020 14:46-0400 Body height 161.29 cm LULY LOGAN RN [facility] [employer] [facility] [place] [employer] [facility] [place]. 11-26-2020 14:46-0400 Body mass index (BMI) [Ratio] 30.65 kg/m2 LULY LOGAN RN [facility] [employer] [facility] [place] [facility] [employer] [facility] [place]. 11-26-2020 14:46-0400 Body surface area Derived from formula 1.84 m2 LULY LOGAN RN [facility] [employer] [facility] [place].; [facility]. 11-26-2020 14:46-0400 Body weight 79.74 kg LULY LOGAN RN [facility] [employer] [facility] [place] [facility] [employer] [facility] [place]. 11-26-2020 14:46-0400 Diastolic blood pressure 77 mm[Hg] LULY LOGAN RN [facility] [employer] [facility] [place] [facility] [employer] [facility] [place]. Comment on above: Patient Position: Sitting; Cuff Location : Left Arm; Cuff Size: Standard 11-26-2020 14:46-0400 Heart rate 82 /min LULY LOGAN RN [facility] [employer] [facility] [place] [facility] [employer] [facility] [place]. Comment on above: Pattern: Regular 11-26-2020 14:46-0400 Inhaled oxygen concentration 21 % LULY LOGAN RN [facility] [employer] [facility] [place] [facility] [employer] [facility] [place], Inc. Comment on above: Room air 11-26-2020 14:46-0400 SaO2% (BldA) [Mass fraction] 97 % LULY LOGAN RN [facility], Inc.; [facility] [employer] [facility] [place], Inc. 11-26-2020 14:46-0400 Systolic blood pressure 114 mm[Hg] LULY LOGAN RN [facility] CenteriBid2Save Inc.; [facility] [employer] [facility] [place], Inc. Comment on above: Patient Position: Sitting; Cuff Location : Left Arm; Cuff Size: Standard 08-21-2020 09:03-0400 Body height 161.29 cm Andreea Colbert [facility], Inc.; [facility], Inc. 08-21-2020 09:03-0400 Body mass index (BMI) [Ratio] 30.41 kg/m2 Andreea Colbert [facility], Inc.; [facility] [employer] [facility] [place], Inc. 08-21-2020 09:03-0400 Body surface area Derived from formula 1.84 m2 Andreea Colbert [facility] [employer] [facility] [place], Inc.; [facility] [employer] [facility] [place], Inc. 08-21-2020 09:03-0400 Body weight 79.11 kg Andreea Colbert [facility], Inc.; [facility] [employer] [facility] [place], Inc. 08-21-2020 09:03-0400 Diastolic blood pressure 80 mm[Hg] Andreea Colbert [facility] [employer] [facility] [place], Inc.; [facility] [employer] [facility] [place], Inc. Comment on above: Patient Position: Sitting; Cuff Location : Right Arm; Cuff Size: Standard 08-21-2020 09:03-0400 Heart rate 68 /min Andreea Colbert [facility] [place] [employer] [facility] [place], Inc.; [place] [employer] [facility] [place] [employer] [facility] [place], Inc. Comment on above: Pattern: Regular 08-21-2020 09:03-0400 Systolic blood pressure 113 mm[Hg] Andreea Colbert Romero [facility] PlaceBlogger [facility] [place], Inc.; [place] [employer] [facility] PlaceBlogger [facility] [place], Inc. Comment on above: Patient Position: Sitting; Cuff Location : Right Arm; Cuff Size: Standard 07-30-2020 15:17-0400 Body height 161.29 cm Yulissa Tavera RN [facility], Inc.; [facility], Inc. 07-30-2020 15:17-0400 Body mass index (BMI) [Ratio] 30.21 kg/m2 Yulissa Tavera RN [facility], Inc.; [facility], Inc. 07-30-2020 15:17-0400 Body surface area Derived from formula 1.83 m2 Yulissa Tavera RN [facility], Inc.; [facility], Inc. 07-30-2020 15:17-0400 Body weight 78.59 kg Yulissa Tavera RN [facility], Inc.; [facility], [facility]. 07-30-2020 15:17-0400 Diastolic blood pressure 85 mm[Hg] Yulissa Tavera RN [facility], Inc.; [facility], Inc. Comment on above: Patient Position: Sitting; Cuff Location : Left Arm; Cuff Size: Large 07-30-2020 15:17-0400 Heart rate 76 /min Yulissa Tavera RN [facility], Inc.; [facility], Inc. Comment on above: Pattern: Regular 07-30-2020 15:17-0400 Systolic blood pressure 128 mm[Hg] Yulissa Tavera RN [facility], Inc.; [facility], Inc. Comment on above: Patient Position: Sitting; Cuff Location : Left Arm; Cuff Size: Large 07-25-2020 14:090400 Body height 161.29 cm PRIETO MUNOZ RN [facility], Inc.; [facility], Inc. 07-25-2020 14:09-0400 Body mass index (BMI) [Ratio] 30.34 kg/m2 PRIETO GRATE LIGIA [facility], Inc.; [facility], Inc. 07-25-2020 14:090400 Body surface area Derived from formula 1.83 m2 PRIETO MUNOZ RN [facility], Inc.; [facility], [facility]. 07-25-2020 14:090400 Body weight 78.93 kg PRIETO MUNOZ RN [facility] [employer] [facility] [place], Inc.; [facility] PlaceBlogger [facility] [place], Inc. 07-25-2020 14:09-0400 Diastolic blood pressure 78 mm[Hg] PRIETO MUNOZ RN [facility], Inc.; [facility] [place] [employer], [employer]. Comment on above: Patient Position: Sitting; Cuff Location : Right Arm; Cuff Size: Large 07-25-2020 14:09-0400 Heart rate 73 /min PRIETO MUNOZ RN [facility] [employer] [facility] [place], Inc.; [facility] [employer] [employer], Inc. Comment on above: Pattern: Regular 07-25-2020 14:090400 Systolic blood pressure 116 mm[Hg] PRIETO MUNOZ RN [facility] [employer] [facility] [place], Inc.; [facility] [place] [employer] [facility] [place], Inc. Comment on above: Patient Position: Sitting; Cuff Location : Right Arm; Cuff Size: Large 10-31-2018 09:120400 Body height 161.29 cm Kandy Norwood RN [facility] [employer] [facility] [place], Inc.; [facility] [employer] [facility] [place], Inc. 10-31-2018 09:12-0400 Body mass index (BMI) [Ratio] 31.56 kg/m2 Kandy Norwood RN [facility] [employer] [facility] [place], Inc.; [facility] [employer] [facility] [place], Inc. 10-31-2018 09:12-0400 Body surface area Derived from formula 1.86 m2 Kandy Norwood RN [facility] [employer] [facility] [place], Inc.; [facility] [employer] [facility] [place], Inc. 10-31-2018 09:12-0400 Body temperature 98.1 [degF] Kandy Norwood RN [facility] [employer] [facility] [place], Inc.; [facility] [employer], Inc. Comment on above: Method: Oral 10-31-2018 09:12-0400 Body weight 82.1 kg Kandy Norwood RN [facility] [employer] [facility] [place], Inc.; [facility] [employer] [employer], [employer]. 10-31-2018 09:12-0400 Diastolic blood pressure 84 mm[Hg] Kandy Norwood RN [facility] [employer] [facility] [place], Inc.; [place] [employer] [facility] [employer], Inc. Comment on above: Patient Position: Sitting; Cuff Location : Left Arm; Cuff Size: Standard 10-31-2018 09:12-0400 Heart rate 85 /min Kandy Norwood RN [facility] PlaceBlogger [facility] [place], Inc.; [place] [employer], Inc. Comment on above: Pattern: Regular 10-31-2018 09:12-0400 Systolic blood pressure 125 mm[Hg] Kandy Norwood RN [facility] SOCIAL [facility] [place], Inc.; [facility] [employer], Inc. Comment on above: Patient Position: Sitting; Cuff Location : Left Arm; Cuff Size: Standard 10-11-2017 15:28-0400 Body height 160.02 cm Kandy Norwood RN [facility] [employer] [facility] [place], Inc.; [facility] [employer], Inc. 10-11-2017 15:28-0400 Body mass index (BMI) [Ratio] 30.29 kg/m2 Kandy Norwood RN [facility] SOCIAL [facility] [place], Inc.; [place] [employer] [facility] [employer], Inc. 10-11-2017 15:28-0400 Body surface area Derived from formula 1.81 m2 Kandy Norwood RN [facility] SOCIAL [facility] [place], Inc.; [place] [employer], Inc. 10-11-2017 15:28-0400 Body temperature 97.6 [degF] Kandy Norwood RN [facility] [employer] [facility] [place], Inc.; [facility] [employer], Inc. Comment on above: Method: Oral 10-11-2017 15:28-0400 Body weight 77.57 kg Kandy Norwood RN [facility] PlaceBlogger [facility] [place], Inc.; [facility] [employer], Inc. 10-11-2017 15:28-0400 Diastolic blood pressure 76 mm[Hg] Kandy Norwood RN [facility] SOCIAL [facility] [place], Inc.; [place] [employer] [facility] [employer], Inc. Comment on above: Patient Position: Sitting; Cuff Location : Left Arm; Cuff Size: Standard 10-11-2017 15:28-0400 Heart rate 72 /min Kandy Norwood RN [facility] HealthME[facility] SOCIAL [facility] [place], Inc.; [facility] [employer], Inc. Comment on above: Pattern: Regular 10-11-2017 15:28-0400 Systolic blood pressure 116 mm[Hg] Kandy Norwood RN [facility] PlaceBlogger [facility] [place], Inc.; [facility] [employer], Inc. Comment on above: Patient Position: Sitting; Cuff Location : Left Arm; Cuff Size: Standard 09-29-2017 15:040400 Body height 160.02 cm Yulissa Tavera RN [facility] [place] [employer] [facility] [place], Inc.; apomio [facility] PlaceBlogger [facility] [place], Inc. 09-29-2017 15:04-0400 Body mass index (BMI) [Ratio] 30.47 kg/m2 Yulissa Tavera RN [facility] [employer] [facility] [place], Inc.; [employer] [facility] PlaceBlogger [facility] [place], Inc. 09-29-2017 15:04-0400 Body surface area Derived from formula 1.81 m2 Yulissa Tavera RN [facility] [employer] [facility] [place], Inc.; [employer] [facility] [employer], Inc. 09-29-2017 15:04-0400 Body weight 78.02 kg Yulissa Tavera RN [facility] [employer] [facility] [place], Inc.; apomio [facility] [employer], Inc. 09-29-2017 15:04-0400 Diastolic blood pressure 84 mm[Hg] Yulissa Tavera RN [facility] PlaceBlogger [facility] [place], Inc.; apomio [facility] [employer], Inc. Comment on above: Patient Position: Sitting; Cuff Location : Left Arm; Cuff Size: Large 09-29-2017 15:04-0400 Heart rate 86 /min Yulissa Tavera RN [facility] PlaceBlogger [facility] [place], Inc.; apomio [facility] [employer], Inc. Comment on above: Pattern: Regular 09-29-2017 15:04-0400 Systolic blood pressure 120 mm[Hg] Yulissa Tavera RN [facility] PlaceBlogger [facility] [place], Inc.; apomio [facility] [employer], Inc. Comment on above: Patient Position: Sitting; Cuff Location : Left Arm; Cuff Size: Large 02-03-2017 14:230400 Body height 160.02 cm Yulissa Tavera RN [facility] PlaceBlogger [facility] [place], Inc.; apomio [facility] [employer], Inc. 02-03-2017 14:23-0400 Body mass index (BMI) [Ratio] 30.47 kg/m2 Yulissa Tavera RN [facility] [place] [employer] [facility] [place], Inc.; apomio [facility] [employer], Inc. 02-03-2017 14:23-0400 Body surface area Derived from formula 1.81 m2 Yulissa Tavera RN [facility] [place] [employer] [facility] [place], Inc.; apomio [facility] [employer], Inc. 02-03-2017 14:23-0400 Body weight 78.02 kg Yulissa Tavera RN [employer].; [facility] [employer] Inc. 02-03-2017 14:23-0400 Diastolic blood pressure 79 mm[Hg] Yulissa Tavera RN [facility] [employer]ster.; apomio [facility] [employer], Inc. Comment on above: Patient Position: Standing; Cuff Locatio n: Right Arm; Cuff Size: Large 02-03-2017 14:23-0400 Heart rate 82 /min Yulissa Tavera RN [employer] ap[employer]io [facility] [employer], Inc. Comment on above: Pattern: Regular 02-03-2017 14:23-0400 Systolic blood pressure 112 mm[Hg] Yulissa Tavera RN [employer] ap[employer] [facility] [employer], [employer]ext. Comment on above: Patient Position: Standing; Cuff Locatio n: Right Arm; Cuff Size: Large 01-11-2017 10:51-0400 Body height 162.56 cm JESUSITA ROMERO [employer].; [place] [employer]ds[employer]. 01-11-2017 10:51-0400 Body mass index (BMI) [Ratio] 28.32 kg/m2 JESUSITA ROMERO [employer] [place] [employer], Inc. 01-11-2017 10:51-0400 Body surface area Derived from formula 1.8 m2 JESUSITA ROMERO [employer] [place] [employer] [facility] Minicabster. 01-11-2017 10:51-0400 Body weight 74.84 kg JESUSITA ROMERO [employer] [place] [employer]. 01-11-2017 10:51-0400 Diastolic blood pressure 86 mm[Hg] JESUSITA ROMERO [employer] Inc.; [facility] AdsIt. Comment on above: Patient Position: Sitting; Cuff Location : Left Arm; Cuff Size: Standard 01-11-2017 10:51-0400 Heart rate 80 /min JESUSITA ROMERO [employer] Inc[employer] [facility] AdsIt. Comment on above: Pattern: Regular 01-11-2017 10:51-0400 Systolic blood pressure 120 mm[Hg] JESUSITA Trejo [employer], Inc. Comment on above: Patient Position: Sitting; Cuff Location : Left Arm; Cuff Size: Standard 12-21-2016 09:53-0400 Body height 160.02 cm JESUSITA Trejo [employer] Inc.; [employer], Inc. 12-21-2016 09:53-0400 Body mass index (BMI) [Ratio] 28.7 kg/m2 JESUSITA Trejo [employer], Inc.; [facility] [employer], Inc. 12-21-2016 09:53-0400 Body surface area Derived from formula 1.77 m2 PAULINOTravis Trejo [employer] Inc.; [facility] [employer], Inc. 12-21-2016 09:53-0400 Body weight 73.48 kg PAULINOTravis Trejo [employer] Inc.; [facility] [employer], Inc. 12-21-2016 09:53-0400 Diastolic blood pressure 77 mm[Hg] JESUSITA Neil [employer] [facility] [employer], Inc. Comment on above: Patient Position: Sitting; Cuff Location : Left Arm; Cuff Size: Standard 12-21-2016 09:53-0400 Heart rate 84 /min JESUSITA Trejo [employer], Inc. Comment on above: Pattern: Regular 12-21-2016 09:53-0400 Systolic blood pressure 112 mm[Hg] PAULINOTravis Trejo [employer] [facility] FullStory, Inc. Comment on above: Patient Position: Sitting; Cuff Location : Left Arm; Cuff Size: Standard 12-14-2016 13:18-0400 Body height 160.02 cm PAULINOTravis Neil [employer], Inc.; [employer], Inc. 12-14-2016 13:18-0400 Body mass index (BMI) [Ratio] 28.87 kg/m2 Whale CommunicationsTravis Trejo [employer] Inc[employer], Inc. 12-14-2016 13:18-0400 Body surface area Derived from formula 1.77 m2 JESUSITA Neil NUPUR Garcia [employer], Inc.; [place] [employer] Jose [employer], Inc. 12-14-2016 13:18-0400 Body weight 73.94 kg JESUSITA Neil NUPUR Garcia [employer], Inc.; [place] [employer], Inc. 12-14-2016 13:18-0400 Diastolic blood pressure 95 mm[Hg] JESUSITA Trejo NUPUR Garcia [employer], Inc.; [place] [employer], Inc. Comment on above: Patient Position: Sitting; Cuff Location : Left Arm; Cuff Size: Standard 12-14-2016 13:18-0400 Heart rate 85 /min JESUSITA Neil NUPUR Garcia [employer], Inc.; [place] [employer], Inc. Comment on above: Pattern: Regular 12-14-2016 13:18-0400 Systolic blood pressure 154 mm[Hg] JESUSITA Neil NUPUR Garcia [employer] Inc.; [place] [employer], Inc. Comment on above: Patient Position: Sitting; Cuff Location : Left Arm; Cuff Size: Standard 12-03-2016 14:02-0400 Body height 160.02 cm Andreea Romero [employer], Inc.; PlaydomTOÑA [employer], Inc. 12-03-2016 14:02-0400 Body mass index (BMI) [Ratio] 28.52 kg/m2 Andreea Colbert Romero Jose [employer], Inc.; [place] [employer], Inc. 12-03-2016 14:020400 Body surface area Derived from formula 1.76 m2 Andreea Garcia [employer], Inc.; PlaydomTOÑA [employer], Inc. 12-03-2016 14:02-0400 Body weight 73.03 kg Andreea Colbert xaitment, Inc.; [facility] FullStory, Inc. 12-03-2016 14:02-0400 Diastolic blood pressure 78 mm[Hg] Andreea Garcia [employer], Inc.; [facility] FullStory, Inc. Comment on above: Patient Position: Sitting; Cuff Location : Left Arm; Cuff Size: Standard 12-03-2016 14:02-0400 Heart rate 78 /min Andreea Romero [facility] [employer] [facility] [place] [facility] [employer] [facility] [place]. Comment on above: Pattern: Regular 12-03-2016 14:02-0400 Systolic blood pressure 118 mm[Hg] Andreea Romero [facility] [employer] [facility] DelawareiBid2Save Inc.; [facility] [employer] [facility] [place], Inc. Comment on above: Patient Position: Sitting; Cuff Location : Left Arm; Cuff Size: Standard 2010 14:51-0400 Body height 160.02 cm MARTIN MARTEL MD Work Phone: [facility] [employer] [facility] [place] Vdolg [facility] [employer] [facility] [place] 2010 14:51-0400 Body mass index (BMI) [Ratio] 29.76 kg/m2 MARTIN MARTEL MD Work Phone: [facility] [employer] [facility] [place] [facility] [employer] [facility] [place] 2010 14:51-0400 Body surface area Derived from formula 1.8 m2 MARTIN MARTEL MD Work Phone: [facility] [employer] [facility] [place] Vdolg [facility] [employer] [facility] [place] 2010 14:51-0400 Body weight 76.2 kg MARTIN MARTEL MD Work Phone: [facility] [employer] [facility] [place] Vdolg [facility] [employer] [facility] [place] 2010 14:51-0400 Diastolic blood pressure 80 mm[Hg] MARTIN MARTEL MD Work Phone: [facility] SOCIAL [facility] [place] apomio [facility] [place] [employer] [facility] [place]. Comment on above: Patient Position: Sitting; Cuff Location : Left Arm; Cuff Size: Standard 2010 14:51-0400 Heart rate 88 /min MARTIN MARTEL MD Work Phone: [facility] HealthME[facility] SOCIAL [facility] [place] apomio [facility] Minicabster. Comment on above: Pattern: Regular 2010 14:51-0400 Respiratory rate 16 /min MARTIN MARTEL MD Work Phone: [facility] [employer] [facility] [place] [employer] [facility] [employer] [facility] [place]. Comment on above: Pattern: Unlabored 2010 14:51-0400 Systolic blood pressure 120 mm[Hg] MARTIN MARTEL MD Work Phone: [facility].; apomio [facility] [employer] [facility] [place] Comment on above: Patient Position: Sitting; Cuff Location : Left Arm; Cuff Size: Standard 09-10-2010 13:28-0400 Body height 160.02 cm [facility] [employer] [facility] [place]2Save [facility] Vdolg [facility] [employer] [facility] [place], Inc. 09-10-2010 13:28-0400 Body mass index (BMI) [Ratio] 28.87 kg/m2 [facility] [facility].; V[facility] 09-10-2010 13:28-0400 Body surface area Derived from formula 1.77 m2 [facility] [employer] [facility] [place].; Vdolg [facility] [employer] [facility] [place], [facility]. 09-10-2010 13:28-0400 Body weight 73.94 kg [facility].; [facility]olg [facility] [employer] [facility] [place], Inc[facility] 09-10-2010 13:28-0400 Diastolic blood pressure 75 mm[Hg] [facility] [employer] [facility] [place] Vdolg [facility] [employer] [facility] [place]. Comment on above: Patient Position: Sitting; Cuff Location : Left Arm; Cuff Size: Large 09-10-2010 13:28-0400 Heart rate 91 /min [facility] [employer] [facility] [place] [facility] [employer] [facility] [place]. Comment on above: Pattern: Regular 09-10-2010 13:28-0400 Systolic blood pressure 110 mm[Hg] [facility] [employer] [facility] [place] [employer] [facility] [employer] [facility] [place], Inc. Comment on above: Patient Position: Sitting; Cuff Location : Left Arm; Cuff Size: Large 08-27-2010 09:47-0400 Diastolic blood pressure 70 mm[Hg] CATARINA DRUMMOND MD Work Phone: [facility] [place] [place] [facility] [employer] [facility] [place]. Comment on above: Patient Position: Sitting; Cuff Location : Left Arm; Cuff Size: Large 08-27-2010 09:47-0400 Systolic blood pressure 110 mm[Hg] CATARINA DRUMMOND MD Work Phone: [facility] [employer] [facility] [place] [employer] [facility] [employer] [facility] [place]. Comment on above: Patient Position: Sitting; Cuff Location : Left Arm; Cuff Size: Large 08-27-2010 09:[id number] Body height 160.02 cm MARTIN MARTEL MD Work Phone: [facility] [employer] [facility] [place] [employer] [facility] [place]. 08-27-2010 09:[id number] Body mass index (BMI) [Ratio] 27.99 kg/m2 MARTIN MARTEL MD Work Phone: [facility] [employer] [facility] [place] 08-27-2010 09:[id number] Body surface area Derived from formula 1.75 m2 MARTIN MARTEL MD Work Phone: [facility] [employer] [facility] [place].; Vdolg [facility] [employer] [facility] [place]. 08-27-2010 09:[id number] Body temperature 98.5 [degF] MARTIN MARTEL MD Work Phone: [facility] [employer] [facility] [place] [employer] [facility] [employer] [facility] [place]. Comment on above: Method: Oral 08-27-2010 09:[id number] Body weight 71.67 kg MARTIN MARTEL MD Work Phone: [facility] [place] Vdolg [facility] [employer] [facility] [place]. 08-27-2010 [id number] Diastolic blood pressure 100 mm[Hg] MARTIN MARTEL MD Work Phone: [facility] [employer] [facility] [place] [employer] [facility] [employer] [facility] [place]. Comment on above: Patient Position: Sitting; Cuff Location : Left Arm; Cuff Size: Standard 08-27-2010 09:[id number] Heart rate 88 /min MARTIN MARTEL MD Work Phone: [employer] [facility] [place].; Vdolg [facility] [employer] [facility] [place]. Comment on above: Pattern: Regular 08-27-2010 09:11-0400 Respiratory rate 16 /min MARTIN MARTEL MD Work Phone: [facility] [place] Comment on above: Pattern: Unlabored 08-27-2010 09:11-0400 Systolic blood pressure 135 mm[Hg] MARTIN MARTEL MD Work Phone: [facility] [place] [place] [employer] [facility]. Comment on above: Patient Position: Sitting; Cuff Location : Left Arm; Cuff Size: Standard Encounters Encounter Date Encounter Type Care Provider Facility Start: 2024 ambulatory Orlando Greer Facility :[facility] Start: 09-25-2024 End: 09-25-2024 ambulatory [facility] Start: 09-17-2024 ambulatory ANABELLE CASTELLON [facility] Start: 09-05-2024 ambulatory Orlando Greer Facility :[facility] Start: 08-15-2024 ambulatory Sammie Michel [facility] Start: 08-01-2024 End: 08-01-2024 ambulatory My Malin Facility:[facility] Start: 07-17-2024 End: 07-17-2024 ambulatory Orlando Osvaldo Facility:[facility] Start: 07-10-2024 End: 07-10-2024 ambulatory Orlando Osvaldo Facility:[facility] Start: 07-04-2024 End: 07-04-2024 ambulatory Orlando Osvaldo Facility:[facility] Start: 06-28-2024 End: 06-28-2024 Office outpatient visit 25 minutes Anabelle Castellon NP Work Phone: [facility] Comment on above: Psoriasis (Primary D x) Start: 06-15-2024 End: 06-15-2024 ambulatory JOANNA LERMA Facility:[facility] Start: 06-15-2024 End: 06-15-2024 Subsequent hospital visit by physician Bone Density [facility] Work Phone: Radiology Start: 06-13-2024 End: 06-13-[address] Orlando Riley MD Work Phone: [facility] Work Phone: Start: 06-13-2024 End: 06-13-2024 Patient encounter procedure Joanna Lerma CNM -Outpatient Breast Imaging Work Phone: Start: 06-13-2024 End: 06-13-2024 ambulatory Orlando Riley Facility:[facility] Start: 05-24-2024 Encounter for gynecological examination (general) (routine) without abnormal findings Joanna Lerma [facility] Start: 05-24-2024 End: 05-24-2024 Patient encounter procedure Joanna Lerma CNM -[facility] Start: 05-24-2024 End: 05-24-2024 Patient encounter status Joanna Lerma CNM [facility] Start: 05-24-2024 End: 05-24-2024 ambulatory Orlando Riley Facility:[facility] Start: 03-29-2024 End: 03-29-2024 Patient encounter procedure Michelle MEDRANO -[facility] Work Phone: Start: 03-29-2024 End: 03-29-2024 ambulatory Orlando Riley Facility:[facility] Start: 03-19-2024 ambulatory Sammie Michel [facility] Start: 03-19-2024 Non-patient / Non-visit Dr. Sammie rouse MD -[facility] Start: 03-19-2024 End: 03-19-2024 Patient encounter procedure Michelle MEDRANO -Cardiovascular Services Work Phone: Start: 03-19-2024 End: 03-19-2024 ambulatory Orlando Riley Facility:[facility] Start: 03-15-2024 ambulatory Sammie Michel [facility] Start: 03-15-2024 Non-patient / Non-visit Dr. Sammie rouse MD -[facility] Start: 03-15-2024 End: 03-15-2024 Admission to same day surgery center Dr. Sammie Michel MD -[employer]/Special Procedures Work Phone: Start: 03-15-2024 End: 03-15-2024 ambulatory Sammie Michel Facility:[facility] Start: 02-01-2024 End: 02-01-2024 ambulatory Orlando Greer Facility:[facility] Start: 01-11-2024 ambulatory Sammie Michel [facility] Start: 01-11-2024 End: 01-11-2024 ambulatory Sammie Abernathy Facility:[facility] Start: 11-25-2023 End: 11-25-2023 Results Review MORENITA ROMERO SYRUP MIXER ASSISTANT-BC Work Phone: [facility] Start: 11-24-2023 End: 11-24-2023 ambulatory Morenita Romero Facility:[facility] Start: 11-23-2023 End: 11-23-2023 Office outpatient visit 15 minutes MORENITA ROMERO SYRUP MIXER ASSISTANT-BC Work Phone: [facility] Start: 11-10-2023 End: 11-10-2023 ambulatory Orlando Greer [facility] Start: 10-25-2023 End: 10-25-2023 ambulatory [facility] Start: 10-24-2023 End: 10-24-2023 ambulatory Orlando Greer Facility:[facility] Start: 10-24-2023 End: 10-24-2023 ambulatory Orlando Greer Facility:[facility] Start: 08-08-2023 End: 08-08-2023 ambulatory SOIL CONSERVATION AIDE-C Renetta Caro SOIL CONSERVATION AIDE Work Phone: [facility] Work Phone: Start: 08-08-2023 End: 08-08-2023 Patient encounter procedure SOIL CONSERVATION AIDE-Alannah Caro SOIL CONSERVATION AIDE Work Phone: [facility]-Radiology, [facility] Work Phone: Start: 08-08-2023 End: 08-08-2023 Patient encounter procedure SOIL CONSERVATION AIDE-Alannah Caro SOIL CONSERVATION AIDE Work Phone: [facility] Internal Medicine Work Phone: Start: 08-01-2023 End: 08-01-2023 Patient encounter procedure SOIL CONSERVATION AIDE-C Renetta Caro SOIL CONSERVATION AIDE Work Phone: [facility] [place] Work Phone: Start: 07-25-2023 Non-patient / Non-visit SOIL CONSERVATION AIDE-C Carlota Caro SOIL CONSERVATION AIDE Work Phone: [facility] Start: 07-25-2023 End: 07-25-2023 ambulatory SOIL CONSERVATION AIDE-C Renetta Caro SOIL CONSERVATION AIDE Work Phone: [facility] Work Phone: Start: 07-25-2023 End: 07-25-2023 Patient encounter procedure SOIL CONSERVATION AIDE-C Renetta Caro SOIL CONSERVATION AIDE Work Phone: [facility]-Cardiovascula r Services Work Phone: Start: 06-15-2023 End: 06-15-2023 Patient encounter procedure SOIL CONSERVATION AIDE-C Renetta Caro SOIL CONSERVATION AIDE Work Phone: [facility] Vascular Surgery Work Phone: Start: 06-01-2023 End: 06-01-2023 ambulatory SOIL CONSERVATION AIDE-C Renetta Caro SOIL CONSERVATION AIDE Work Phone: [facility] Work Phone: Start: 06-01-2023 End: 06-01-2023 Patient encounter procedure SOIL CONSERVATION AIDE-C Renetta Caro SOIL CONSERVATION AIDE Work Phone: [facility]-Laboratory, [facility] Start: 05-30-2023 End: 05-30-2023 Patient encounter procedure SOIL CONSERVATION AIDE-C Renetta Caro SOIL CONSERVATION AIDE Work Phone: [facility] Internal Medicine Work Phone: Start: 05-26-2023 End: 05-26-2023 Patient encounter procedure SOIL CONSERVATION AIDE-C Renetta Jacobsontetter SOIL CONSERVATION AIDE Work Phone: [facility]-Outpatient Bone Densitometry Work Phone: Start: 05-26-2023 End: 05-26-2023 Patient encounter procedure SOIL CONSERVATION AIDE-C Renetta Caro SOIL CONSERVATION AIDE Work Phone: [facility] Work Phone: Start: 05-18-2023 Non-patient / Non-visit SOIL CONSERVATION AIDE-C Carlota Caro SOIL CONSERVATION AIDE Work Phone: [facility] Start: 05-18-2023 Registered Referred SOIL CONSERVATION AIDE-C Candy Caro SOIL CONSERVATION AIDE Work Phone: [facility]-Cardiovascula r Services Work Phone: Start: 05-04-2023 End: 05-04-2023 ambulatory SOIL CONSERVATION AIDE-C Renetta Caro SOIL CONSERVATION AIDE Work Phone: [facility] Work Phone: Start: 05-04-2023 End: 05-04-2023 Patient encounter procedure SOIL CONSERVATION AIDE-C Renetta Caro SOIL CONSERVATION AIDE Work Phone: [facility]-Outpatient Pavilion Ultrasound Work Phone: Start: 04-25-2023 End: 04-25-2023 ambulatory SOIL CONSERVATION AIDE-C Renetta Caro SOIL CONSERVATION AIDE Work Phone: [facility] Work Phone: Start: 04-25-2023 End: 04-25-2023 Patient encounter procedure SOIL CONSERVATION AIDE-C Renetta Caro SOIL CONSERVATION AIDE Work Phone: [facility]-Laboratory, Specimen Work Phone: Start: 04-25-2023 Patient encounter procedure SOIL CONSERVATION AIDE-C Renetta Caro SOIL CONSERVATION AIDE Work Phone: [facility] Start: 04-25-2023 End: 04-25-2023 Patient encounter procedure SOIL CONSERVATION AIDE-C Renetta Caro SOIL CONSERVATION AIDE Work Phone: [facility] Start: 04-03-2022 End: 04-03-2022 Results Review MARTIN MARTEL MD Work Phone: [employer] Start: 04-02-2022 End: 04-02-2022 Lab Only MARTIN MARTEL MD Work Phone: [place] [employer] [facility] [employer] Start: 04-02-2022 End: 04-02-2022 Office outpatient visit 25 minutes MARTIN MARTEL MD Work Phone: [employer] [facility] [employer] Start: 04-02-2022 End: 04-02-2022 Patient encounter status MARTIN MARTEL MD Work Phone: [employer]; [employer] Start: 01-16-2022 End: 01-16-2022 Patient encounter procedure MARTIN MARTEL MD Work Phone: [facility] [employer] Start: 01-14-2022 End: 01-14-2022 Patient encounter procedure MARTIN MARTEL MD Work Phone: [employer] [employer] Start: 04-30-2021 End: 05-05-2021 ambulatory MATT BUTLER DO Facility:[facility] Start: 11-26-2020 End: 11-26-2020 Office outpatient visit 15 minutes MARTIN MARTEL MD Work Phone: [facility] [employer] Start: 08-21-2020 End: 08-21-2020 Office outpatient visit 15 minutes MARTIN MARTEL MD Work Phone: [place] [employer] Start: 08-20-2020 End: 08-20-2020 Follow-up encounter MARTIN MARTEL MD Work Phone: [employer] [employer] Start: 08-15-2020 End: 08-15-2020 Procedure Order MARTIN MARTEL MD Work Phone: [employer] [employer] Start: 08-07-2020 End: 08-07-2020 Procedure Order MARTIN MARTEL MD Work Phone: [employer] [employer] Start: 07-30-2020 End: 07-30-2020 Office outpatient visit 15 minutes MARTIN MARTEL MD Work Phone: [employer] Start: 07-28-2020 End: 07-28-2020 Procedure Order MARTIN MARTEL MD Work Phone: [employer] Start: 07-25-2020 End: 07-25-2020 Office outpatient visit 40 minutes MARTIN MARTEL MD Work Phone: [facility] [employer] Start: 06-11-2020 End: 06-11-2020 Orders Only Alyx Risa Huerta Work Phone: [facility] Start: 01-18-2019 End: 01-19-2019 Patient encounter procedure SMITHA CRARION [facility] Start: 01-18-2019 End: 01-18-2019 Subsequent hospital visit by physician Smitha Carrion Work Phone: [facility] [place] Comment on above: Localized swelling, mass and lump, lower limb, bilateral; Deep phlebothrombosis, antepartum, with delivery (HCC); Pain in both lower extremities Start: 12-20-2018 End: 12-20-2018 Historical Summary MARTIN MARTEL MD Work Phone: [employer] Start: 11-07-2018 End: 11-07-2018 Results Review MARTIN MARTEL MD Work Phone: [employer] Start: 10-31-2018 End: 10-31-2018 Office outpatient visit 15 minutes MARTIN MARTEL MD Work Phone: [place] [employer] Start: 10-11-2017 End: 10-11-2017 Office outpatient visit 15 minutes MARTIN MARTEL MD Work Phone: [facility] [employer] Start: 09-29-2017 End: 09-29-2017 Historical Summary MARTIN MARTEL MD Work Phone: [employer] Start: 09-29-2017 End: 09-29-2017 Office outpatient visit 15 minutes MARTIN MARTEL MD Work Phone: [employer] Start: 09-29-2017 End: 09-29-2017 Preoperative state MARTIN MARTEL MD Work Phone: [employer] Start: 09-28-2017 Ambulatory CORINNA CATY NICKERSON Facility:[facility] Start: 09-22-2017 End: 09-27-2017 Ambulatory MARISELA BOYKIN Facility:[facility] Start: 02-04-2017 End: 02-04-2017 Results Review MARTIN MARTEL MD Work Phone: [employer] Start: 02-03-2017 End: 02-03-2017 Office outpatient visit 15 minutes MARTIN MARTEL MD Work Phone: [employer] Start: 01-13-2017 End: 01-13-2017 Results Review MARTIN MARTEL MD Work Phone: [employer] Start: 01-11-2017 End: 01-11-2017 Office outpatient visit 15 minutes MARTIN MARTEL MD Work Phone: [place] [employer] Start: 01-06-2017 End: 01-06-2017 Medication Refill/Order MARTIN MARTEL MD Work Phone: [place] [employer] Start: 01-03-2017 End: 01-03-2017 Historical Summary MARTIN MARTEL MD Work Phone: [employer] Start: 12-28-2016 End: 12-28-2016 Follow-up encounter MARTIN MARTEL MD Work Phone: [employer] Start: 12-23-2016 End: 12-23-2016 Procedure Order MARTIN MARTEL MD Work Phone: [place] [employer] [facility] [employer] Start: 12-21-2016 End: 12-21-2016 Office outpatient visit 15 minutes MARTIN MARTEL MD Work Phone: [place] [employer] Start: 12-16-2016 End: 12-16-2016 Patient encounter procedure MARTIN MARTEL MD Work Phone: [employer] Start: 12-14-2016 End: 12-14-2016 Office outpatient visit 15 minutes MARTIN MARTEL MD Work Phone: [place] [employer] Start: 12-03-2016 End: 12-03-2016 Medication Refill/Order MARTIN MARTEL MD Work Phone: [place] [employer] Start: 12-03-2016 End: 12-03-2016 Office outpatient visit 15 minutes MARTIN MARTEL MD Work Phone: [place] [employer] Start: 01-06-2012 End: 01-06-2012 Injection/immunization only MARTIN MARTEL MD Work Phone: [employer] Start: 12-31-2010 End: 12-31-2010 Results Review MARTIN MARTEL MD Work Phone: [employer] Start: 12-22-2010 End: 12-22-2010 Results Review [facility]ART[facility]ARTEL MD [facility] Start: 2010 End: 2010 Patient encounter procedure [facility]ARTEL [facility] Start: 09-11-2010 End: 09-11-2010 Results Review MARTIN MARTEL MD [facility]: [facility] Start: 09-10-2010 End: 09-10-2010 Patient encounter procedure [facility]ARTEL MD [facility] Start: 09-04-2010 End: 09-04-2010 Results Review MARTIN MARTEL MD Work Phone: [facility] Start: 09-02-2010 End: 09-02-2010 Results Review MARTIN MARTEL MD Work Phone: [facility] Start: 08-28-2010 End: 08-28-2010 Patient encounter procedure MARTIN MARTEL MD Work Phone: [facility] Start: 08-27-2010 End: 08-27-2010 Patient encounter procedure MARTIN MARTEL MD [facility]: [facility] Procedures Date Procedure Procedure Detail Performing Clinician Start: 06-13-2024 Screening mammography Neil Riley MD Work Phone: Start: 11-23-2023 End: 11-23-2023 Dischrg meds reconciled w/current med list MORENITA ROMERO SYRUP MIXER ASSISTANT-BC Work Phone: Start: 08-08-2023 Plain chest X-ray SOIL CONSERVATION AIDE-C Renetta Caro SOIL CONSERVATION AIDE Work Phone: Start: 05-26-2023 Dual energy X-ray absorptiometry SOIL CONSERVATION AIDE-C Renetta Caro SOIL CONSERVATION AIDE Work Phone: Start: 05-26-2023 Screening mammography N P-C Renetta Caro SOIL CONSERVATION AIDE Work Phone: Start: 05-04-2023 Transvaginal echography SOIL CONSERVATION AIDE-C Renetta Caro SOIL CONSERVATION AIDE Work Phone: Start: 04-02-2022 End: 04-02-2022 Shingrix Tuan ROMERO MD Work Phone: Start: 04-02-2022 End: 04-02-2022 TDAP - Adacel/Boostrix Tuna ROMERO MD Work Phone: Start: 01-16-2022 End: 01-16-2022 Radex wrist complete minimum 3 views Nate CRONIN MD Work Phone: Start: 01-14-2022 End: 01-14-2022 Dischrg meds reconciled w/current med list MARTIN MARTEL MD Work Phone: Start: 04-30-2021 End: 04-30-2021 Screening mammography Tuan ROMERO MD Work Phone: Comment on above: Normal. Start: 11-26-2020 End: 11-26-2020 Dischrg meds reconciled w/current med list Nate CRONIN MD Work Phone: Start: 11-26-2020 End: 11-26-2020 Urinary Incontinence Tuan ROMERO MD Work Phone: Comment on above: Normal. Start: 08-21-2020 End: 08-21-2020 Dischrg meds reconciled w/current med list RENETTA CARO SYRUP MIXER ASSISTANT-C Work Phone: Start: 08-15-2020 End: 08-20-2020 Us transvaginal RENETTA CARO SYRUP MIXER ASSISTANT-C Work Phone: Start: 07-30-2020 End: 07-30-2020 Dischrg meds reconciled w/current med list RENETTA CARO SYRUP MIXER ASSISTANT-C Work Phone: Start: 07-25-2020 End: 08-20-2020 Ct abdomen w/o & w/contrast material RENETTA Canales GORDO SYRUP MIXER ASSISTANT-C Work Phone: Comment on above: 1.4 cm adrenal nodul e noted on MRI 09/27/17. recommended adrenal washout CT Start: 07-25-2020 End: 07-25-2020 Dischrg meds reconciled w/current med list RENETTA GUNTERDYLLAN SYRUP MIXER ASSISTANT-C Work Phone: Start: 01-18-2019 Dup-scan xtr veins complete bilateral study External Transcribed Start: 11-06-2018 End: 11-06-2018 Electromyography Tuan ROMERO MD Work Phone: Comment on above: Normal. 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 NickersonL4-5 Christ ctomy Adenoid excision Tuan MIJARES MD Work Phone: Comment on above: Child H/O: surgery Status post kyphoplasty Tuan ROMERO MD Work Phone: H/O: surgery Status post kyphoplasty MARTIN MARTEL MD Work Phone: H/O: surgery Status post kyphoplasty MARTIN MARTEL MD Work Phone: Screening colonoscopy Tuan ROMERO MD Work Phone: Comment on above: had less than 10 yea rs ago but uncertain when Tonsillectomy Tuan ROMERO MD Work Phone: Comment on above: Child Vaccination given Tuan BAUGH MD Work Phone: Comment on above: Discussed. Had the i llness but not the vaccine. Plan of Treatment Date Care Activity Detail Author Start: 2037 RSV Vaccine (1 - 1-d ose 75+ series) RSV Vaccine (1 - 1-dose 75+ series) [facility] Start: 04-02-2032 Tetanus vaccination Imm-DTaP/T dap/Td (2 - Td or Tdap) [facility] Start: 04-02-2032 Urine microalbumin profile DTaP,Tdap,Td Vaccine (2 - Td or Tdap) [facility] Start: 04-04-2024 Depression screening Depression Melissa al Screen [facility] Start: 04-04-2024 Screening for substa nce abuse Alcohol and Drug Screen [facility] Start: 03-29-2024 Patient referral [facility] Work Phone: Start: 03-15-2024 Patient discharge [facility] Start: 12-04-2023 Covid-19 Vaccine ( season) Covid-19 Vaccine ( season) [facility] Start: 12-04-2023 [id number] ( season) [id number]-90 ( season) [facility] Start: 12-04-2023 Influenza vaccination C [facility] Start: 11-23-2023 Radex spine lumbosac ral minimum 4 views X-RAY L/S SPINE - COMPLETE - 3 VIEWS ([id number]) Start: 23-Nov-2023 Intent [facility], [facility]. Start: 11-23-2023 Radex spine thoracic 2 views X-RAY THORACIC SPINE, TWO VIEWS ([id number]) Start: 23-Nov-2023 Intent [employer]; [facility] [employer] [facility] [place] Start: 11-23-2023 Radiologic examinati on pelvis 1/2 views X-RAY OF PELVIS AND RIGHT HIP, TWO VIEWS ([id number]) Start: 23-Nov-2023 [email or web address] [employer] [facility] [place] Start: 08-08-2023 Evaluation of diagno stic study results [facility] Start: 05-30-2023 Patient referral [facility] Work Phone: Start: 04-25-2023 Patient referral [facility] Work Phone: Start: 05-28-2022 Imm-Zoster, Recombin ant (2 of 2) Imm-Zoster, Recombinant (2 of 2) [facility] Start: 05-28-2022 Shingrix Vaccine (2 of 2) Shingrix Vaccine (2 of 2) [facility] Start: 04-23-2022 Diabetes Screening Diabetes Screenin g [facility] Start: 01-14-2022 Radex foot complete minimum 3 views X-RAY FOOT - COMPLETE - 3 VIEWS ([id number]) : Fall 6 weeks ago. L 5th metatarsal pain Start: 14-Jan-2022 [facility] Rocketmiles; [facility] [employer] [facility] [place]. Start: 11-26-2020 Dup-scan xtr veins unilateral/limited study UNILATERAL DOPPLER ULTRASOUND OF VEINS OF EXTREMITIES (96123) : left lower extremity Start: 26-Nov-2020 [facility] FullStory.; [facility] Birdi. Start: 11-26-2020 Patient Education [facility]; [facility] Birdi. Start: 08-07-2020 Us pelvic nonobstetr ic real-time image complete US PELVIS, COMPLETE ([id number]) Start: 07-Aug-2020 [facility] Bit[employer]ender; [facility] Birdi. Start: 07-30-2020 Mri spinal canal lum bar w/o & w/contr matrl MRI LUMBAR SPINE W/O & W CONTRAST for post surgery/mass/infection ([id number]) - IV Contrast per Protocol Start: 30-Jul-2020 Intent Comments: 6MM lesion in L5 vertebral body [facility] Minicabster.; [facility] PlaceBlogger [facility], [place], Yext. Comment on above: 6MM lesion in L5 leatha tebral body Start: 07-28-2020 Ct abdomen & pelvis w/contrast material CT ABDOMEN AND PELVIS, WITH CONTRAST ([id number]) Start: 28-Jul-2020 Intent [facility] Minicabster.; [facility] [employer] [facility] [place], Inc. Start: 07-25-2020 Rheumatoid factor quantitative [email or web address].; [facility] Inc[facility] Start: 07-25-2020 Ct abdomen & pelvis w/o contrst 1/> body re CT ABD/ PELVIS WITH AND W/O CONTRAST (42221) - IV Contrast per Protocol Start: 25-Jul-2020 Intent Comments: concern for lytic lesion in upper coccyx on xray 02/03/17 [facility]; [facility] SOCIAL [facility] [place] Inc. Comment on above: concern for lytic le bernadette in upper coccyx on xray 02/03/17 Start: 07-25-2020 Patient Education [facility] [employer]; [facility] [employer], Inc. Start: 12-04-2019 Influenza vaccinatio n given Sequential Influenza Vaccine (#1) [facility] Start: 12-03-2018 Influenza vaccinatio n given SEQUENTIAL INFLUENZA VACCINE (#1) [facility] Start: 10-31-2018 Motor &/sens nrv cnd j preconf eltrd array limb NERVE CONDUCTION STUDY OF SINGLE EXTREMITY USING PRECONFIGURED ELECTRODE ARRAY ([id number]) Start: 31-Oct-2018 Intent Comments: both upper extremities [facility] [employer]; [facility] [employer], Inc. Comment on above: both upper extremiti es Start: 10-31-2018 Ndl emg 2 xtr w/wo related paraspinal areas EMG 2 LIMBS ([id number]) Start: 31-Oct-2018 Intent Comments: upper extremities [facility] [employer].; [facility] [employer], Inc. Comment on above: upper extremities Start: 02-03-2017 Radex sacrum & coccy x minimum 2 views X-RAY OF COCCYX, TWO VIEWS ([id number]) Start: 03-Feb-2017 [facility] FullStory.; [employer] [facility] [employer], Yext. Start: 02-03-2017 Radex spine lumbosac ral minimum 4 views X-RAY L/S SPINE - COMPLETE - 3 VIEWS ([id number]) Start: 03-Feb-2017 [facility] [employer].; [employer] [facility] [employer], Inc. Start: 02-03-2017 Radiologic examinati on pelvis 1/2 views X-RAY PELVIS, TWO VIEWS (76697) Start: 03-Feb-2017 [facility] [employer].; [employer], Inc. Start: 12-23-2016 Us pelvic nonobstetr ic real-time image complete TRANSABDOMINAL ([id number]) Start: 23-Dec-2016 [facility] FullStory.; [facility] [employer] Start: 12-21-2016 Mri spinal canal lum bar w/o & w/contr matrl MRI LUMBAR SPINE W/O & W CONTRAST for post surgery/mass/infection (65196) - IV Contrast per Protocol Start: 21-Dec-2016 [facility] FullStory.; [facility] [employer], Inc. Start: 12-21-2016 Comprehensive metabo lic panel FullStory.; [facility] [employer], Yext. Start: 12-21-2016 Assay of phosphorus inorganic FullStory.; [facility] [employer], Yext. Start: 12-21-2016 Assay of magnesium FullStory.; [facility] [employer], Inc. Start: 12-21-2016 25 hydroxy includes fractions if performed FullStory.; [facility] [employer], Inc. Start: 12-14-2016 Radex spine lumbosac ral minimum 4 views X-RAY L/S SPINE - COMPLETE - 3 VIEWS ([id number]) Start: 14-Dec-2016 [facility] FullStory.; [facility] [employer], Inc. Start: 2012 Administration of he rpes zoster vaccine Zoster Vaccines (1 of 2) [facility] Start: 2012 Pneumococcal Vaccine : 50+ (1 of 1 - PCV) Pneumococcal Vaccine: 50+ (1 of 1 - PCV) [facility] Start: 2012 Screening for malign ant neoplasm of colon [facility] Start: 01-06-2012 Iiv3 vaccine split v irus 0.5 ml dosage im use FLU VACCINE, 3 YRS & >, IM (50785) Date: 06-Jan-2012 [facility]. Start: 10-23-2007 Lipid panel Lipid Screening [facility] Start: 10-23-2007 Screening for malign ant neoplasm of colon [facility] Start: 2002 Screening for malign ant neoplasm of breast [facility] Start: 10-23-1983 Screening for malign ant neoplasm of cervix [facility] Start: 1980 Anxiety Screening Anxiety Screening [facility] Start: 1980 Depression Screening Depression Scre [facility] Start: 1980 Hepatitis C antibody , confirmatory test Hepatitis C Screening [facility] Start: 1980 Hepatitis C screening Hep[facility] Start: 1980 HIV screening HIV Screening [facility] Start: 1980 Hypertension screening Hyperte nsion Screening (#1) [facility] Start: 1978 COVID-19 Vaccine (1 of 2) COVID-19 Vaccine (1 of 2) [facility] Start: 1977 HIV screening HIV Screening [facility] Start: 1977 HIV Screening HIV Screening [facility] Start: 1974 Adolescent depressio n screening assessment Depression Screening (PHQ9) [facility] Start: 1965 History and physical examination, annual for health maintenance Wellness Visit [facility] Start: 1962 Anxiety Screening Anxiety Screening [facility] Start: 1962 Diabetes mellitus screening Diabetes Screening [facility] Start: 1962 Hepatitis C antibody , confirmatory test HEPATITIS C SCREENING [facility] Start: 1962 Hepatitis C screening Hepatitis C Sc [facility] Start: 1962 Lipid panel Lipid Screening [facility] Start: 1962 Screening for malign ant neoplasm of cervix [facility] Start: 1962 [facility]: 1962 Tetanus vaccination [facility] Start: 1962 Tobacco Screening Tobacco Screening [facility] DXA Bone [Mass/Area] Bone density [facility] DXA Bone [Mass/Area] Bone density [facility] MG Breast - bilatera l Screening [facility] Patient referral [facility] Work Phone: US Pelvis transvaginal [facility] Influenza (3 yea rs and up) Scheduled for Administration Intent [facility] [employer] [facility] [place]; [facility] Immunizations Immunization Date Immunization Notes Care Provider Fa mariella 04-02-2022 zoster vaccine recombinant MARTIN MARTEL MD Work Phone: [facility]; [facility]. Comment on above: Site: Right Sumeet G iven: * Zoster / Shingles (Recombinant) (01/31/19) 04-02-2022 tetanus toxoid, redu rogelio diphtheria toxoid, and acellular pertussis vaccine, adsorbed MARTIN MARTEL MD Work Phone: [facility] [employer] [facility] [place]; [facility] [employer] [facility] [place]. Comment on above: Site: Left ArmMARIA ELENA Gi benita: * Tdap (Tetanus, Diphtheria, Pertussis) Vaccine (11/07/20) 04-02-2022 *IMMUNIZATION ADMIN (13361) MARTIN MARTEL MD Work Phone: [facility] [employer] [facility] [place]; [facility] [employer] [facility] [place] 01-06-2012 IMMUNIZATION ADMIN (84935) MARTIN MARTEL MD Work Phone: [facility] adMingle - Share Your Passion!; [facility] [employer] [facility] [place] 09-01-2005 tetanus and diphther ia toxoids, adsorbed, preservative free, for adult use (2 Lf of tetanus toxoid and 2 Lf of diphtheria toxoid) MARTIN MARTEL MD Work Phone: [facility] [employer] - [employer] Your Passion!; [facility] [employer] [facility] [place] Payers Date Payer Category Payer Unknown [id number] 2023 Self-pay [id number] 2020 Private Health Insurance AULTCAR E [id number] 2018 Unknown [id number] 2018 Unknown HEALTHREACH [facility] HEALTHREACH xxxxxxxxxxx 2018-Present [id number] 2018 Unknown COMMERCIAL COMME RCIAL MISCELLANEOUS [id number] 2018-Present [id number] .[id number] 2017 Unknown [id number] 1960 Unknown [id number] 2.840.1.887652.3.579.2 .902 1962 Unknown [id number] 2.16840.1.439759.3.579.2 .627 1962 Unknown [id number] 2.16840.1.049105.3.579.2 .1249 1960 Unknown [id number] 2.16840.1.620553.3.579.2 .651 Unknown AULTCARE Unknown [id number] 2.16840.1.230656.3.579.2 .462 Unknown [id number] 2.16.840.1.103915.3.579.2 .462 Unknown [id number] 2.16840.1.553293.3.579.2 .462 Unknown [id number] 2.16.840.1.090863.3.579.2 .462 Unknown [id number] 2.840.1.578014.3.579.2 .462 Unknown [id number] 2.840.1.403590.3.579.2 .462 Unknown [id number] 2.840.1.242392.3.579.2 .462 Unknown [id number] 2.840.1.775308.3.579.2 .462 Unknown [id number] 2.840.1.564849.3.579.2 .462 Unknown [id number] 2.840.1.165136.3.579.2 .462 Unknown [id number] 2.840.1.871239.3.579.2 .462 Unknown [id number] 2.840.1.537963.3.579.2 .462 Unknown [id number] 2.840.1.911652.3.579.2 .462 Unknown [id number] 2.840.1.055648.3.579.2 .462 Unknown [id number] 2.840.1.172655.3.579.2 .462 Unknown [id number] 2.840.1.751341.3.579.2 .462 Unknown [id number] 2.840.1.149525.3.579.2 .462 Unknown [id number] 2.840.1.574495.3.579.2 .462 Unknown [id number] 2.840.1.337713.3.579.2 .462 Unknown [id number] 2.840.1.714967.3.579.2 .462 Unknown [id number] 2.16.840.1.313652.3.579.2 .462 Unknown [id number] 2.16.840.1.302525.3.579.2 .462 Social History Date Type Detail Facility Tobacco smoking stat us NHIS Unknown if ever smoked [facility] Sex Assigned At Not on file [facility] Start: 04-25-2023 End: 06-24-2023 Tobacco smoking status NHIS Unknown if ever smoked [facility] Start: 1960 Sex Assigned At Female [facility] Alcohol Use: Alcohol Use: ; N o Alcohol Use. [facility] Tobacco use: Tobacco use: ; F ormer smoker. [facility]; [facility] Start: 03-15-2024 Ex-smoker [facility] Start: 03-12-2020 History of Social function [facility] Start: 03-12-2020 Area Deprivation Index Area Deprivation Index Answer Date Recorded National Score (1-100), lower number is lower risk Not on file 03/12/2020 State Score (1-10), lower number is lower risk Not on file 03/12/2020 Data from: https://www.neighborhood atlas.[facility]/ . Last address used for calculation Not on file 03/12/2020 [facility] National Score (1-10 0), lower number is lower risk Not on file [facility] Start: 02-22-2024 Gender identity Identifies as female gender (finding) [facility] Start: 02-22-2024 Sexual orientation Heterosexual (finding) [facility] Start: 06-28-2024 Tobacco smoking status NHIS Never smoked tobacco [facility] Work Phone: Start: 06-28-2024 Tobacco use and exposure Smokeless tobacco non-user [facility] Work Phone: Start: 06-28-2024 Alcoholic beverage intake Ex-drinker (finding) [facility] Start: 06-22-2024 Sex Female (finding) [facility] Medical Equipment Procedure Code Equipment Code Equipment Origin al Text Equipment Identifier Dates Hysterectomy, total, abdominal HEMOBLAST ISSA FDA Start: 08-19-2023 SLING, ALTIS VAGINAL FDA Start: 08-19-2023 Clinical Notes 08-29-2020 to 06-28-2024 Anabelle Castellon NP - 06/28/2024 3:11 PM EDTCliJuliano holliday, RT(R) - 06/15/2024 1:05 PM EDT Note Date & Type Note Facility 06-28-2024 History of Present illness Narrative Images from the original note were not included. [facility] [address] [facility] [address] [facility] [address] ANABELLE CASTELLON NP NAME: Reyna Ott, , :1960 PCP: No primary care provider on file. Dermatology Specialty Care Provider: ANABELLE CASTELLON NP Psoriasis Follow Up Patient consents to telehealth appointment. Location of patient: [place], [place] Location of provider: [place], [place] HPI: Patient seen in follow up to review labs and dermatology recommendations. Her CBC/CMP, inflammatory markers, nutrient and lipids are all WNL. Celiac, TB/hepatitis serologies negative. Past Medical History: Diagnosis Date Roxanne's disease Lumbar compression fracture (HCC-CMS) Osteoporosis Psoriasis Thoracic compression fracture (HCC-CMS) Past Surgical History: Procedure Laterality Date HYSTERECTOMY, FULL Family History Problem Relation Name Age of Onset Stroke Mother Psoriasis Brother Social History Tobacco Use Smoking status: Never Smokeless tobacco: Never Substance Use Topics Alcohol use: Not Currently Drug use: Never Social History Substance and Sexual Activity Sexual Activity Not on file Patient has no known allergies. Current Medications Medication Sig clobetasoL (TEMOVATE) 0.05 % cream Apply 1 Application topically 2 (two) times daily clobetasoL (OLUX) 0.05 % foam Apply 1 Application topically 2 (two) times daily Vitals: BP: ()/() Arterial Line BP 1: ()/() There is no height or weight on file to calculate BMI. Physical Exam (Modified due to the nature of telehealth visit): General: NAD HENT: NC AT, EOMI, anicteric Neck: No obvious goiter Resp: Breathing comfortably ANH: Normal muscle bulk & tone Head: % 15 Erythema: mild Induration: mod Desquamation: mod Arms: % Erythema: Induration: Desquamation: Trunk: % Erythema: Induration: Desquamation: Legs: % Erythema: Induration: Desquamation: Psych: Insight and judgment intact. Pleasant and cooperative Data Scores: DLQI: 3 PASI:1 No results found for any previous visit. Assessment/Plan: Plaque Psoriasis L40.0 Low disease activity. Biologic naive. -discussed with dermatology who is not recommending systemic treatment at this time -discussed lifestyle components to aid in improving gut microbiome/inflammatory response including nutrition, stress management, movement and sleep -continue clobetasol foam and cream Care Plan: Assessment Conditions: Psoriasis Summary: We re starting your personalized treatment for Psoriasis. As we go through this health journey together, we will work to uncover the root causes of your conditions. We will use a three-part approach in your treatment: proven medications, targeted supplementation, and supportive lifestyle adjustments as appropriate to your care. Your care team will work with you at a pace that feels comfortable for you. This team may include a clinical pharmacist to ensure you get access to the right medication, your medical provider, specialists, a health ice hockey coach, and a patient navigator. This care plan includes ways you can impact how much this medical condition affects you. Our health coaches -- who are experts in helping patients incorporate small lifestyle habits that lead to big health changes -- can help you with any of these recommendations. Health Strategies Sleep Poor sleep is a major factor that can worsen symptoms of psoriasis. To improve your sleep, consider strategies like avoiding heavy meals after dinner, keeping your room dark, minimizing screen time in the evening, and practicing simple breathwork before bed. Our health coaches are here to help you find the most effective sleep strategies tailored to you. We can also use wearable devices to track your sleep and monitor the impact of different approaches as you work towards optimizing your rest. Movement Regular physical activity can significantly alleviate symptoms. Incorporating stretching and cardiovascular exercises, tailored to your ability, may help improve your condition. We can personalize an exercise plan to fit your needs and your life. Supplements We will discuss adding some supplements that can help with your symptoms by directly targeting inflammation and immune system overactivity. Nutrition The foods you eat have a significant impact not only on how you feel but also on how much psoriasis affects you. Your diet can either increase inflammation or help reduce it, and since inflammation is the chirinos process behind the symptoms and potential damage caused by overactive immune diseases, managing your diet is crucial. Our personalized Anti-inflammatory Nutrition Plan is designed to minimize inflammation and, as a result, reduce disease activity. We will share a document with you that introduces the plan, but our health coaches are here to support you in implementing it. They can provide more detailed information and guide you through gradual changes to identify what has the most positive impact on your skin and joints. They may even be able to send you some foods to try. Stress Stress has a direct effect on inflammation, which is the underlying cause of symptoms in overactive immunity related diseases. Managing stress can therefore play a crucial role in reducing physical symptoms. Techniques like breathwork, prayer, and mindfulness are just a few ways to lessen the impact of stress on your body. Our health coaches can help you find the best stress management approach tailored to your needs. We can even utilize wearable devices to assess how different strategies improve your body's response to stress. Accountability 1. Check in with your ice hockey coach regularly so that your care team can adjust your plan accordingly 2. Answer questionnaires as they are delivered to you 3. Check your [facility] yessenia References: https://pubmed.ncbi.nlm.nih.gov/ 50496382/ Diet and AutoImmune Disease https://pubmed.ncbi.nlm.nih.gov/ 34371284/ Diet and Rheumatoid Arthritis https://pubmed.ncbi.nlm.nih.gov/ 58496316/ Exercise and Inflammation in AutoImmune Disease https://pubmed.ncbi.nlm.nih.gov/ 49791319/ Stress and Immune function https://pubmed.ncbi.nlm.nih.gov/ 45124128/ Sleep and immunity https://www.ncbi.nlm.nih.gov/pmc /articles/NVE5698013/ Vitamin D and Autoimmune Disease https://www.NanoHorizons.com/1733-9329//325 [place] 3 fatty acids and Rheumatoid Arthritis Assessment Detail: The total time spent with the patient including chart review/prep: 35m Total time spent documenting/creating care plan: 10 F/U Next medical visit due: will reassess symptoms in 3 mo Discuss with patient the need to maintain the medical relationship for primary care and urgent care needs documented in this encounter [facility] 06-15-2024 History of Present illness Narrative Radiology Service Progress Note PATIENT NAME: Reyna Ott DATE OF SERVICE: June 15, 2024 TIME: 1:20 PM PATIENT IDENTITY VERIFICATION COMPLETED USING TWO (2) IDENTIFIERS: Name and Date of confirmed by patient verbally. FALL SCREENING: Has the patient had 2 falls in the last year or 1 fall with injury or currently using an Ambulatory Assistive Device (Walker, Cane, Wheelchair, Crutches, etc.)? No PATIENT GENDER DATA: Assigned female at . status: : No status: NO. PATIENT RELEVANT IMPLANT DATA REVIEWED: Not Applicable PATIENT PRESENTS WITH AN IMPLANTABLE OR ATTACHED BOX REPAIRER: No RADIOLOGY DEPARTMENT: Bone Density PERIPHERAL IV DATA: Not applicable SIGNED BY: RT Mabel(Nate) June 15, 2024 1:20 PM documented in this encounter [facility] 06-15-2024 Note HNO ID: [id number] Author: JULIANO BERKOWITZ RT(R) Service: ? Author Type: Technologist Type: Progress Notes Filed: 06/15/2024 13:21 Note Text: Radiology Service Progress Note PATIENT NAME: Reyna Ott DATE OF SERVICE: June 15, 2024 TIME: 1:20 PM PATIENT IDENTITY VERIFICATION COMPLETED USING TWO (2) IDENTIFIERS: Name and Date of confirmed by patient verbally. FALL SCREENING: Has the patient had 2 falls in the last year or 1 fall with injury or currently using an Ambulatory Assistive Device (Walker, Cane, Wheelchair, Crutches, etc.)? No PATIENT GENDER DATA: Assigned female at . status: : No status: NO. PATIENT RELEVANT IMPLANT DATA REVIEWED: Not Applicable PATIENT PRESENTS WITH AN IMPLANTABLE OR ATTACHED BOX REPAIRER: No RADIOLOGY DEPARTMENT: Bone Density PERIPHERAL IV DATA: Not applicable SIGNED BY: Juliano Berkowitz, RT(R) June 15, 2024 1:20 PM [facility] 03-15-2024 Evaluation note Diagnosis Onset Date Resolution Symptomatic varicose veins of left lower extremity acute March 15 024 8:13am Spider veins of both lower extremities acute March 29, 2024 9:44am Symptomatic varicose veins of left lower extremity acute March 29 024 9:44am Encounter for routine gynecological examination noneactive May 24, 025 8:13am [facility] Work Phone: 1(146) 758-238412-12-2024 [facility] Medical Records Department [address] [place] [address] History Physical Exam 03/15/24 1013 MR#: [id number] Acct: [id number] Name: LAN OTT Rep #: [id number] : 1960 63 From: Sammie Michel MD PCP: Dr. Orlando Riley MD Status:[facility] Location: [facility] HPI - General HPI Narrative LAN OTT, is a 63 F who presents with recurrent LLE venous insufficiency with heaviness/pain and painful varicose veins worse at the end of the day. She previously underwent GSV ablation and it appears to have recanalized. [facility] Medical History Incomplete uterovaginal prolapse Wears contact lenses Wears glasses Post-menopausal Arthritis Injury of back Back pain History of diverticulitis Former smoker History of pain when walking History of edema DVT (deep venous thrombosis) Psoriasis Roxanne's disease Vision problems Vascular disease Osteoporosis Osteopenia Bone fracture Back problem Fibroid uterus Home Medications ???Medication ???Instructions ???Recorded ???Last Taken ???Type omega-3 fatty acids 1,250 mg 1,250 mg PO DAILY SUPPLEMENT 09/17/20 08/12/23 History capsule calcium 1 tab PO DAILY SUPPLEMENT 05/30/23 08/12/23 History lsez-R9-joxbhbkp-inosit-silicon 300 mg-200 unit-37.5 mg tablet (Bone Density Calcium Plus D) magnesium glycinate 250 mg PO DAILY SUPPLEMENT 05/30/23 08/12/23 History multivitamin (Daily Multi-Vitamin 1 tab PO DAILY SUPPLEMENT 05/30/23 08/12/23 History tablet) estradiol 0.01% (0.1 mg/gram) 2 g vaginal 2XW 10/24/23 Unknown History vaginal cream Allergy/AdvReac Type Severity Reaction Status Date / Time gluten Allergy Intermediate Upset Verified 02/01/24 08:31 Stomach Family History Mother Age: 84 Osteoporosis Diabetes Hypertension Grandmother Heart disease Grandfather Myocardial infarction Surgical History Status post LOLIS-BSO Status post ablation of incompetent vein using laser H/O kyphoplasty History of back surgery S/P T A (status post tonsillectomy and adenoidectomy) Social History adopted: No household members: spouse housing: house number of children: 2 current occupational status: employed 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 current occupational exposures/hazards: No pets and animals: No history of recent travel: No sexually active: Yes Smoking Status: Former smoker quit date: 04/04/93 pack-years: 5 Electronic Cigarette Use: not used alcohol intake: never substance use type: does not use caffeine: Yes Type: coffee Number of servings: 2 eating out: rarely or never what type of physical activity do you participate in: walking and weight training frequency: 3-4 times per week dex/tenriism: None seatbelt use: always do you feel safe at home: Yes additional social history: - [employer] - [employer]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 [employer] ROS Constitutional Constitutional: Denies chills, fever(s), frequent falls, lethargy or weakness Eyes Eyes: Denies blind spots, change in vision or loss of vision ENT HEENT: Denies bleeding gums, hoarseness or sore throat Cardiovascular Cardiovascular: Denies abdominal pain, bluish discoloration of hand/feet, chest pain with activity, claudication, cold extremities, cyanosis, dyspnea on exertion, erythema on extremities, irregular heart rhythm, leg edema, leg ulcers, numbness in extremities or weakness in extremities Respiratory/Chest Respiratory/Chest: Denies cough, excessive phlegm production, shortness of breath at rest, shortness of breath with exertion or wheezing Gastrointestinal Gastrointestinal: Denies anorexia, change in stool character, constipation, diarrhea, melena or rectal bleeding Genitourinary Genitourinary: Denies dysuria or hematuria Musculoskeletal Musculoskeletal: Denies abnormal gait Integumentary Integumentary: Reports other Details: ; Denies erythema, non-healing lesions or wounds Neurologic Neurologic: Denies abnormal speech, focal weakness, headache(s), loss of vision, numbness, paresthesias or sensory deficit Hematologic/Lymphatic Hematologic/Lymphatic: Denies easy bleeding, easy bruising or lymphadenopathy Vital Signs Vital Signs Vital Signs: Weight Weight: 182 lb Body Mass Index (BMI) 33.3 Physical Exam Const alert, oriented x3, no apparent distress and healthy appearing General Appearance: cooperative; Negative for combative or lethargic Orientation / Consciousness: awake Exam Limitations: no limitations HEENT Head and Scalp: normocephalic and atraumatic Eyes EOMs intact bilaterally General Eye: normal appearance of (more content not included)...[facility]10-09-2024 [facility] Medical Records Department [address] [place] [address] History Physical Exam 01/11/24929 MR#: [id number] Acct: [id number] Name: LAN OTT Rep #: [id number] : 1960 63 From: Sammie Michel MD PCP: Dr. Orlando Riley MD Status:[facility] Location: [facility] HPI - General HPI Narrative LAN OTT, is a 63 F who presents to the office today for follow up of bilateral lower extremity tightness/pain/edema, painful varicose veins, reticular veins, prior GSV ablations and phlebectomies. She also had a significantly enlarged uterus and recently underwent hysterectomy. There was hope that removal of enlarged uterus would relieve any potential compression of pelvic veins but she unfortunately has had no significant change in symptoms. [facility] Medical History Incomplete uterovaginal prolapse Wears contact lenses Wears glasses Post-menopausal Arthritis Injury of back Back pain History of diverticulitis Former smoker History of pain when walking History of edema DVT (deep venous thrombosis) Psoriasis Roxanne's disease Vision problems Vascular disease Osteoporosis Osteopenia Bone fracture Back problem Fibroid uterus Home Medications ???Medication ???Instructions ???Recorded ???Last Taken ???Type omega-3 fatty acids 1,250 mg 1,250 mg PO DAILY SUPPLEMENT 09/17/20 08/12/23 History capsule calcium 1 tab PO DAILY SUPPLEMENT 05/30/23 08/12/23 History imym-A7-dpbawmay-inosit-silicon 300 mg-200 unit-37.5 mg tablet (Bone Density Calcium Plus D) magnesium glycinate 250 mg PO DAILY SUPPLEMENT 05/30/23 08/12/23 History multivitamin (Daily Multi-Vitamin 1 tab PO DAILY SUPPLEMENT 05/30/23 08/12/23 History tablet) Evenity 210 mg/2.34 mL (105 210 mg (2.34 mL) subcut QMONTH 12 10/24/23 Unknown Rx mg/1.17 mL x 2) subcutaneous months #2.34 mL syringe (romosozumab-aqqg) estradiol 0.01% (0.1 mg/gram) 2 g vaginal 2XW 10/24/23 Unknown History vaginal cream Allergy/AdvReac Type Severity Reaction Status Date / Time gluten Allergy Intermediate Upset Verified 11/10/23 13:35 Stomach Family History Mother Age: 83 Osteoporosis Diabetes Hypertension Grandmother Heart disease Grandfather Myocardial infarction Surgical History Status post LOLIS-BSO Status post ablation of incompetent vein using laser H/O kyphoplasty History of back surgery S/P T A (status post tonsillectomy and adenoidectomy) Social History adopted: No household members: spouse housing: house number of children: 2 current occupational status: employed 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 current occupational exposures/hazards: No pets and animals: No history of recent travel: No sexually active: Yes Smoking Status: Former smoker quit date: 04/04/93 pack-years: 5 Electronic Cigarette Use: not used alcohol intake: never substance use type: does not use caffeine: Yes Type: coffee Number of servings: 2 eating out: rarely or never what type of physical activity do you participate in: walking and weight training frequency: 3-4 times per week dxe/tenriism: None seatbelt use: always do you feel safe at home: Yes additional social history: - [employer] - [employer]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 ROS Constitutional Constitutional: Denies chills, fever(s), frequent falls, lethargy or weakness Eyes Eyes: Denies blind spots, change in vision or loss of vision ENT HEENT: Denies bleeding gums, hoarseness or sore throat Cardiovascular Cardiovascular: Denies abdominal pain, bluish discoloration of hand/feet, chest pain with activity, claudication, cold extremities, cyanosis, dyspnea on exertion, erythema on extremities, irregular heart rhythm, leg edema, leg ulcers, numbness in extremities or weakness in extremities Respiratory/Chest Respiratory/Chest: Denies cough, excessive phlegm production, shortness of breath at rest, shortness of breath with exertion or wheezing Gastrointestinal Gastrointestinal: Denies anorexia, change in stool character, constipation, diarrhea, melena or rectal bleeding Genitourinary Genitourinary: Denies dysuria or hematuria Musculoskeletal Musculoskeletal: Denies abnormal gait Integumentary Integumentary: Reports other Details: ; Denies erythema, non-healing lesions or wounds Neurologic Neurologic: Denies abnormal speech, focal weakness, headache(s), loss of vision, numbness, paresthesias or sensory deficit Hematologic/Lymphatic Hematologic/Lymphatic: Denies easy bleeding, easy bruising or lymphadenopathy Vital Signs Vital Signs Vital Signs: Weight Weight (more content not included)...[facility]01-22-2024 Note Pap Smear Specimen AdequacyJanuary 2023 5:07pmComment.Satisfactory for evaluation. Endocervical and/or squamous metaplasticcells (endocervical component)are present.[facility] A#[id number] Comment on above:Satisfactory for evaluation. Endocervical and/or squamous metaplasticcells (endocervical component)are present.04-25-2023 NotePap Smear Specimen AdequacyJanuary 2023 5:07pmComment.Satisfactory for evaluation. Endocervical and/or squamous metaplasticcells (endocervical component)are present.[facility] A#[id number] [facility] Medical CenterComment on above: Satisfactory for evaluation. Endocervical and/or squamous metaplasticcells (endocervical component)are present.04-25-2023 NotePap Smear Specimen Adequacy April 25, 2023 5:07pmComment.Satisfactory for evaluation. Endocervical and/or squamous metaplasticcells (endocervical component)are present.[facility] A#[id number] [facility] CenterComp[facility] on above:Satisfactory for evaluation. Endocervical and/or squamous metaplasticcells (endocervical component)are present.04-25-2023 NotePap Smear Specimen AdequacyJan2023 6:07pmComment.Satisfactory for evaluation. Endocervical and/or squamous metaplasticcells (endocervical component)are present.[facility] A#[id number] [facility] Medical CenterComment on above:Satisfactory for evaluation. Endocervical and/or squamous metaplasticcells (endocervical component)are present.04-25-2023 NotePap Smear Specimen AdequacyJanuary 2023 6:07pmComment.Satisfactory for evaluation. Endocervical and/or squamous metaplasticcells (endocervical component)are present.[facility] A#[id number] [facility] CenterCompromed[facility] on above:Satisfactory for evaluation. Endocervical and/or squamous metaplasticcells (endocervical component)are present.08-29-2020 NoteHNO ID: [id number] Author: Kolby Rawls MD Service: ? Author Type: Physician Type: Progress Notes Filed: 08/29/2020 3:40 PM Note Text: [facility] EVALUATION (This was a 30 minute office visit with more than 50% of time spent counseling the patient. 08/29/2020 Referring Physician: Sammie Romero MD [address] [place] [address] [place] [id number] Primary Care Physician: Ashish Martel CLINICAL INDICATION/HISTORY: [facility] [...] over the right knee. She has constant lblq-grb-rnveqnn sensation in her legs.She has been using [...] phlebectomy and/or sclerotherapy for primary varicosities. Kolby Rawls, [facility]* Diagnosis Onset Date Resolution Status Adult idiopathic generalized osteoporosis acute Encounter for well woman exa m with routine gynecological exam acute Fibroid uterus acute Encounter for routine gynecological examination noneactive [facility] Work Phone: Evaluation note* Diagnosis Onset Date Resolution Status Adult idiopathic generalized osteoporosis acute Fibroid uterus acute Encounter for well woman exa m with routine gynecological exam resolved Encounter for routine gynecological examination noneactive Fibroid uterus acute Fibroid uterus acute Immunization declined noneac tive Screening for cardiovascular condition noneactive Establishing care with new doctor, encounter for noneactive Osteoporosis noneactive Varicose veins of both lower extremities noneactive Psoriasis noneactive [facility] Work Phone: Evaluation note* Diagnosis Onset Date Resolution Status Adult idiopathic generalized osteoporosis acute Fibroid uterus acute Encounter for well woman chela canales with routine gynecological exam resolved Encounter for routine gynecological examination noneactive Fibroid uterus acute Fibroid uterus acute Immunization declined noneac tive Screening for cardiovascular condition noneactive Establishing care with new doctor, encounter for noneactive Osteoporosis noneactive Varicose veins of both lower extremities noneactive Psoriasis noneactive Venous insufficiency (chronic) (peripheral) chronic Fibroid uterus acute Chest pain in adult noneacti ve Right foot pain noneactive [facility] Work Phone: Evaluation note* Diagnosis Onset Date Resolution Status Adult idiopathic generalized osteoporosis acute Fibroid uterus acute Encounter for well woman chela canales with routine gynecological exam resolved Encounter for routine gynecological examination noneactive Fibroid uterus acute Fibroid uterus acute Immunization declined noneac tive Screening for cardiovascular condition noneactive Establishing care with new doctor, encounter for noneactive Osteoporosis noneactive Varicose veins of both lower extremities noneactive Psoriasis noneactive Venous insufficiency (chronic) (peripheral) chronic [facility] Work Phone: Evaluation note* Diagnosis Psoriasis- Primary Other psoriasis [facility] this [facility] Work Phone: Summary Purpose Family History No Family History Records Found Relationship Condition Age at Onset Recorded Date/T jennifer mother Osteoporosis Unknown Brother (s) Status:Active Comments:In good health. 2. Father Status:Active Comments:In good health. Mother Status:Active Comments:In good health. Genie Paredes. Osteoporosis. Sister (s) Status:Active Comments:0. Relationship Condition Age at Onset Recorded Date/T jennifer mother Osteoporosis Unknown Diabetes mellitus Unknown Hypertension Unknown grandmother Cardiac disease Unknown grandfather Myocardial infarction Unknown Brother (s) Status:Active Comments:In good health. 2. Father Status:Active Comments:In good health. Mother Status:Active Comments:In good health. Genie Paredes. Osteoporosis. Sister (s) Status:Active Comments:0. Brother (s) Status:Active Comments:In good health. 2. Father Status:Active Comments:In good health. Mother Status:Active Comments:In good health. Genie Gatten. Osteoporosis. Sister (s) Status:Active Comments:0. Brother (s) Status:Active Comments:In good health. 2. Father Status:Active Comments:In good health. Mother Status:Active Comments:In good health. Genie Gatten. Osteoporosis. Sister (s) Status:Active Comments:0. Brother (s) Status:Active Comments:In good health. 2. Father Status:Active Comments:In good health. Mother Status:Active Comments:In good health. Genie Gatten. Osteoporosis. Sister (s) Status:Active Comments:0. 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 No December 15, 2023 1:45pm Advance Directives on File No Dece 2023 9:54am Living Will No March 15 9:52am Do you have a Healthcare Power of Booking Clerk? No March 15, 2024 9:52am Advance Directives No March 9:52am Reason for Referral Status Reason Specialty Diagnoses / Procedures Referre d By Contact Referred To Contact Closed Cardiology Diagnoses Localized swelling, mass and lump, lower limb, bilateral Deep phlebothrombosis, antepartum, with delivery (HCC) Pain in both lower extremities Procedures Ultrasound duplex venous legs Smitha Millan, DO [address] [address] Assessments Diagnosis Localized swelling, mass and lump, lower limb, bilateral Deep phlebothrombosis, antepartum, with delivery (HCC) Deep phlebothrombosis, antepartum, with delivery Pain in both lower extremities Chief Complaint and Reason for Visit Chief 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 EST CARE - PPW SENT CONSULT-VARICOSE VEIN BLE SWELLING TAHBSO cassyki combo PAIN IN RIGHT FOOT, TIGHTNESS IN CHEST Reason for Visit Adult idiopathic gen eralized osteoporosis Fibroid uterus Encounter for well woman exam with routine gynecological exam Encounter for routine gynecological examination Fibroid uterus Fibroid uterus Immunization declined Screening for cardiovascular condition Establishing care with new doctor, encounter for Osteoporosis Varicose veins of both lower extremities Psoriasis Venous insufficiency (chronic) (peripheral) Fibroid uterus Chest pain in adult Right foot pain Chief Complaint 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 EST CARE - PPW SENT CONSULT-VARICOSE VEIN BLE SWELLING Reason for Visit Adult idiopathic gen eralized osteoporosis Fibroid uterus Encounter for well woman exam with routine gynecological exam Encounter for routine gynecological examination Fibroid uterus Fibroid uterus Immunization declined Screening for cardiovascular condition Establishing care with new doctor, encounter for Osteoporosis Varicose veins of both lower extremities Psoriasis Venous insufficiency (chronic) (peripheral) Chief Complaint Admit Date LLE SFJ LIGATION SAPHENOUS VEIN ABLATION March 15, 2024 8:13am LLE SFJ LIGATION SAPHENOUS VEIN ABLATION March 15, 2024 10:13am LLE POST OP March 19, 2024 1:10pm POST LLE SF LIGATION & SAPHENOUS VEIN AB LATION FU March 29, 2024 9:44am 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) May 24, 2024 8:13am SCREENING June 13, 2024 7:3 0am Reason for Visit Admit Date Symptomatic varicose veins of left lower extremity March 15, 2024 8:13am Spider veins of both lower extremities D ecember 26th, 2024 9:44am Symptomatic varicose veins of left lower extremity March 29, 2024 9:44am Encounter for routine gynecological exam ination May 24, 2024 8:13am Additional Source Comments INFORMATION SOURCE (unrecogn ized section and content) DATE CREATED AUTHOR 09/28/2017 [facility] ([place]) DATE CREATED AUTHOR AUTHOR'S ORGANIZ ATION 08/19/2019 [facility] nt DATE CREATED AUTHOR AUTHOR'S ORGANIZ ATION 08/09/2020 [facility] DATE CREATED AUTHOR AUTHOR'S ORGANIZ ATION 09/29/2020 [facility] DATE CREATED AUTHOR AUTHOR'S ORGANIZ ATION 12/05/2020 [facility] DATE CREATED AUTHOR AUTHOR'S ORGANIZ ATION 04/03/2022 [facility] ([place]) DATE CREATED AUTHOR AUTHOR'S ORGANIZ ATION 06/20/2024 [facility] DATE CREATED AUTHOR AUTHOR'S ORGANIZ ATION 09/18/2024 [facility] DATE CREATED AUTHOR AUTHOR'S ORGANIZ ATION 10/04/2024 [facility] DATE CREATED AUTHOR AUTHOR'S ORGANIZ ATION 2024 [facility] Reason for Visit (unrecogniz ed section and content) Status Reason Specialty Diagnoses / Procedures Referre d By Contact Referred To Contact Closed Cardiology Diagnoses Localized swelling, mass and lump, lower limb, bilateral Deep phlebothrombosis, antepartum, with delivery (HCC) Pain in both lower extremities Procedures Ultrasound duplex venous legs Smitha Millan, DO [address] [address] Care Teams (unrecognized sec tion and content) Team Status: Active Member Role Status Dates Renetta Caro NP, NP-C Primary Care Provider Acti ve Team Status: Inactive Member Role Status Dates Rneetta Caro NP, SHERRIE-C Primary Care Provider, Ref erring Provider Active Joanna Lerma CNM Attending Provider Active Team Status: Inactive Member Role Status Dates Renetta Caro NP, SHERRIE-C Primary Care Provider Acti ve Joanna Lerma CNM Attending Provider Active Team Status: Inactive Member Role Status Dates Renetta Caro NP, SOIL CONSERVATION AIDE-C Primary Care Provider Acti ve Joanna Lerma CNM Attending Provider, Referring Pro vider Active Team Status: Active Member Role Status Dates Dr. Orlando Riley MD Primary Care Provider Active Team Status: Inactive Member Role Status Dates Renetta Caro SOIL CONSERVATION AIDE, SOIL CONSERVATION AIDE-C Referring Provider Active Dr. Orlando Riley MD Primary Care Provider, Attendi ng Provider Active Team Status: Inactive Member Role Status Dates Renetta Caro SOIL CONSERVATION AIDE, SOIL CONSERVATION AIDE-C Referring Provider Active Dr. Kayla Johnson MD Attending Provider Active Dr. Orlando Riley MD Primary Care Provider Active Team Status: Active Member Role Status Dates Renetta Caro SOIL CONSERVATION AIDE, SOIL CONSERVATION AIDE-C Primary Care Provider Acti ve Dr. Andre Graves MD Attending Provider Active Team Status: Inactive Member Role Status Joanna Lerma CNM Attending Provider, Referring Pro vider Active Dr. Orlando Riley MD Primary Care Provider Active Team Status: Active Member Role Status Renetta Caro SOIL CONSERVATION AIDE, SOIL CONSERVATION AIDE-C Primary Care Provider Acti ve Self Referred Attending Provider, Referring Provider A ctive Team Status: Inactive Member Role Status Dates Dr. Orlando Riley MD Primary Care Provider, Attendi ng Provider Active Team Status: Inactive Member Role Status Dates Dr. Orlando Riley MD Referring Provider Active MARCELA Sprague Attending Provider Active Team Status: Inactive Member Role Status Dates Dr. Kayla Johnson MD Attending Provider Active Dr. Orlando Riley MD Primary Care Provider, Referri ng Provider Active Team Status: Active Member Role Status Dates Dr. Orlando Riley MD Primary Care Provider Active Dr. Sammie Michel MD Attending Provider Active MARCELA Sprague Referring Provider Active Team Status: Inactive Member Role Status Dates Dr. Orlando Riley MD Primary Care Pro vider, Attending Provider, Referring Provider Active Team Status: Inactive Member Role Status Dates MARCELA Sprague Attending Provider, Referring Provid er Active Dr. Orlando Riley MD Primary Care Provider Active Team Status: Active Member Role Status Dates Dr. Orlando Riley MD Primary Care Provider Active Dr. 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 Orlando Riley MD Primary Care Provider Active Start: March 15, 2024 End: March 15, 2024 MARCELA Sprague Other Provider Active Start: 2023 End: March 15, 2024 Dr. Sammie Michel MD Attending Provider Active S tart: March 15, 2024 End: March 15, 2024 Dr. Sammie Michel MD Referring Provider Active S tart: March 15, 2024 End: March 15, 2024 Team Status: Active Member Role Status Dates Dr. Orlando Riley MD Primary Care Provider Active Start: March 15, 2024 MARCELA Sprague Other Provider Active Start: 2023 Dr. Sammie Michel MD Attending Provider Active S tart: March 15, 2024 Dr. Sammie Michel MD Referring Provider Active S tart: March 15, 2024 Dr. Sammie Michel MD Other Provider Active Start : March 15, 2024 Team Status: Inactive Member Role Status Dates Dr. Orlando Riley MD Primary Care Provider Active Start: March 19, 2024 End: March 19, 2024 MARCELA Sprague Attending Provider Active Star t: March 19, 2024 End: March 19, 2024 MARCELA Sprague Referring Provider Active Star t: March 19, 2024 End: March 19, 2024 Team Status: Active Member Role Status Dates Dr. Orlando Riley MD Primary Care Provider Active Start: March 19, 2024 Dr. Sammie Michel MD Attending Provider Active S tart: March 19, 2024 MARCELA Sprague Referring Provider Active Star t: March 19, 2024 Team Status: Inactive Member Role Status Dates Dr. Orlando Riley MD Primary Care Provider Active Start: March 29, 2024 End: March 29, 2024 Dr. Orlando Riley MD Referring Provider Active Start: March 29, 2024 End: March 29, 2024 MARCELA Sprague Attending Provider Active Star t: March 29, 2024 End: March 29, 2024 Team Status: Inactive Member Role Status Dates Dr. Orlando Riley MD Primary Care Provider Active Start: May 24, 2024 End: May 24, 2024 Dr. Orlando Riley MD Referring Provider Active Start: May 24, 2024 End: May 24, 2024 Joanna Lerma CNM Attending Provider Active S tart: May 24, 2024 End: May 24, 2024 Team Status: Inactive Member Role Status Dates Dr. Orlando Riley MD Primary Care Provider Active Start: June 13, 2024 End: June 13, 2024 Joanna Lerma CNM Attending Provider Active S tart: June 13, 2024 End: June 13, 2024 Joanna Lerma CNM Referring Provider Active S tart: June 13, 2024 End: June 13, 2024 Goals (unrecognized section and content) Goals may be documented in a n alternate sectionGoals may be documented in an alternate sectionGoals may be documented in an alternate sectionGoals may be documented in an alternate sectionGoals may be documented in an alternate sectionGoals may be documented in an alternate section Source Comments (unrecognize d section and content) In the event this informatio n is protected by the Federal Confidentiality of Alcohol and Drug Abuse Patient Records regulations: The Federal rules restrict any use of the information to criminally investigate or prosecute any alcohol or drug abuse patient.[facility] FOR RECORDS PERTAINING TO PATIENTS WHO ARE [...] BE BASED ON THE PRIMARY CLINICAL RECORDS. [facility]. provides no warranty or guarantee of the accuracy or completeness of information in this document.
--- NOTE | 2025-01-06 21:10 | RAD_ITS ---
PROCEDURE: PELVIS 1 OR 2 VIEWS 01/06/2025 REASON FOR EXAM: TRAUMA TECHNIQUE: Procedure Code: RADPEL Modality: DX Procedure: PELVIS 1 OR 2 VIEWS COMPARISON: None. FINDINGS: No acute fracture or dislocation. Degenerative changes including disc space narrowing and marginal osteophytosis are noted in the lower lumbar spine. No focal soft tissue swelling. A moderate amount of stool is noted within the visualized colon. RAD/Pelvis 1 or 2 Views IMPRESSION: As above. Reading Location: [id number]
--- NOTE | 2025-01-06 21:41 | ED.VIS.FALL ---
HPI HPI - Fall History of Present Illness Chief Complaint: Fall Narrative Narrative: Chief complaint and HPI: 64-year-old female with past medical history of osteoporosis, DDD presents for evaluation of bilateral rib pain. Patient states 2 days ago she had a mechanical fall. She states that she landed mostly on her chest. States she has been having pain in the bilateral ribs. Hurts to cough. She denies any shortness of breath or chest pain. No bruising of the ribs. No LOC and not on blood thinners. She states she has a small area of bruising over her previous . Denies abdominal pain, nausea, vomiting, dysuria, numbness/tingling. Review of systems: See HPI Medications: As listed on the chart Allergies: As listed on the chart PFSH: Per chart Vital signs: As listed on the chart. Reviewed. Physical exam: Gen: A&O x3, NAD Head: Normocephalic, atraumatic Eyes: No sclera icterus, conjunctiva clear ENT: Moist mucous membranes, face atraumatic Neck: Trachea midline, full range of motion, nontender CV: RRR, no murmurs, patient has tenderness to palpation of the bilateral lateral ribs-palpation recreates her pain, no external signs of trauma, no crepitus Resp: Lungs CTA BL, no w/r/c GI: Abd soft, non-distended, non-tender, no r/r/g, small area of ecchymosis in the midline of her located in the subcutaneous pannus-has mild tenderness to palpation which is located over the pubic symphysis Musc: Full ROM, no deformity, no spinal TTP, no amelia step-offs, back nontender diffusely including the muscles Skin: Warm, dry, intact Neuro: Alert, oriented, grossly intact, sensation intact, GCS 15 Psych: Cooperative, appropriate mood and affect [facility] Medical History Hemorrhoids Incomplete uterovaginal prolapse Wears contact lenses Wears glasses Post-menopausal Arthritis Injury of back Back pain History of diverticulitis Former smoker History of pain when walking History of edema DVT (deep venous thrombosis) Psoriasis Roxanne's disease Vision problems Vascular disease Osteoporosis Osteopenia Bone fracture Back problem Fibroid uterus Home Medications ?Medication ?Instructions ?Recorded ?Last Taken ?Type omega-3 fatty acids 1,250 mg 1,250 mg PO DAILY SUPPLEMENT 09/17/20 08/12/23 History capsule calcium 1 tab PO DAILY SUPPLEMENT 05/30/23 08/12/23 History orpj-Y4-oexfatki-inosit-silicon 300 mg-200 unit-37.5 mg tablet (Bone Density Calcium Plus D) magnesium glycinate 250 mg PO DAILY SUPPLEMENT 05/30/23 08/12/23 History multivitamin (Daily Multi-Vitamin 1 tab PO DAILY SUPPLEMENT 05/30/23 08/12/23 History tablet) estradiol 0.01% (0.1 mg/gram) 2 g vaginal 2XW 10/24/23 Unknown History vaginal cream clobetasol 0.05 % topical foam topical BID PRN 05/24/24 Unknown History Hydrocortisone 2.5%/lidocaine 5% #30 ea 08/01/24 Unknown Rx suppository (cmpd) (hydrocortisone 2.5%/lidocaine 5% suppository (compound)) Allergy/AdvReac Type Severity Reaction Status Date / Time gluten Allergy Intermediate Upset Verified 01/06/25 18:50 Stomach Family History Mother Age: 84 Osteoporosis Diabetes Hypertension CVA (cerebral vascular accident) Grandmother Heart disease Grandfather Myocardial infarction Surgical History Status post LOLIS-BSO Status post ablation of incompetent vein using laser H/O kyphoplasty History of back surgery S/P T&A (status post tonsillectomy and adenoidectomy) Social History adopted: No household members: spouse housing: house number of children: 2 current occupational status: employed 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 current occupational exposures/hazards: No pets and animals: No history of recent travel: No sexually active: Yes Smoking Status: Former smoker quit date: 04/04/93 pack-years: 5 Electronic Cigarette Use: not used alcohol intake: never substance use type: does not use caffeine: Yes Type: coffee Number of servings: 2 eating out: rarely or never what type of physical activity do you participate in: walking and weight training frequency: 3-4 times per week dex/amish: None seatbelt use: always do you feel safe at home: Yes additional social history: - [employer] - [employer]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 EXAM Physical Exam Const Vital Signs: 01/06/25 18:51 01/06/25 20:14 Temperature 97 F L Temperature Source Temporal Pulse Rate 99 Respiratory Rate 20 H Respiratory Effort Non-Labored Short of Breath Respiratory Depth Normal Respiratory Pattern Normal Blood Pressure 173/102 H Blood Pressure Mean 125 Pulse Ox 98 Oxygen Delivery Method Room Air Room Air MDM MDM MDM Narrative Medical decision making narrative: 64-year-old female with past medical history of osteoporosis, DDD presents for evaluation of bilateral rib pain. Patient states 2 days ago she had a mechanical fall. She states that she landed mostly on her chest. States she has been having pain in the bilateral ribs. Triage note states abdominal pain however patient denies abdominal pain. She does have pain however though in the 12 ribs bilaterally. Patient had CT chest without contrast ordered in triage. I agree with the order. Will add on pelvic x-ray given patient is tender over the pubic symphysis where her ecchymosis is located. Differential includes contusion, fracture. Offered IM Toradol. Patient declined. Cannot have narcotics secondary to driving. CT of the chest with left base atelectasis but no rib fractures. Patient has a mild T12 vertebral body compression deformity of indeterminate acuity. I suspect this is chronic as patient has no tenderness to palpation in the spine or this region. X-ray of the pelvis was personally viewed interpreted by me, ED physician. No fracture or dislocation. Degenerative changes per radiology. Radiology in agreement. Patient's pain is likely secondary to bilateral rib contusions. Recommended Motrin and Tylenol as needed for pain. Follow-up with primary care physician. Will give IS. Patient confirmed understanding the plan. Patient stable to discharge home. Impression: 1. Bilateral rib contusion 2. Soft tissue contusion 3. Mild T12 vertebral body compression deformity of indeterminate acuity 4. Mechanical fall Radiography Diagnostic Testing: Clinical Impression(s) from Imaging Studies Chest CT 01/06/25 19:20 IMPRESSION: No focal consolidations. Left base atelectasis. Mild pulmonary emphysema. T8 and L1 vertebral body cement vertebroplasty material. Mild T12 vertebral body compression deformity of indeterminate acuity. Reading Location: [facility] Pelvis X-Ray 01/06/25 21:10 IMPRESSION: As above. Reading Location: [id number] Discharge Plan Triage Chief Complaint: Fall ED Provider: Kip Martinez Dx/Rx/DC Orders Prescriptions: No Action omega-3 fatty acids 1,250 mg capsule 1,250 mg PO DAILY Bone Density Calcium Plus D 300-200-37.5 mg-unit-mg tablet 1 tab PO DAILY multivitamin [Daily Multi-Vitamin] Tablet 1 tab PO DAILY magnesium glycinate 100 mg magnesium capsule 250 mg PO DAILY estradiol 0.01 % (0.1 mg/gram) cream 2 g vaginal 2XW clobetasol 0.05 % foam topical BID PRN (DME) hydrocortisone 2.5%/lidocaine 5% suppository (compound) Suppository See Rx Instructions .ROUTE Qty: 30 2RF Rx Instructions: Insert rectally BID Primary Care Provider: Leeann Riley Referrals: Leeann Riley MD [Primary Care Provider, Internal Medicine] Print Language: Sami
--- NOTE | 2025-01-06 22:21 | ED.RN ---
RADIOLOGY CALLED FOR DELAY IN RESULTS
[2025-01-06 22:59] VITALS: BP 138/78; PULSE 90; RESP 16; TEMP 36.7; O2SAT 95
== END 2025-01-06 23:04 | disposition home or self-care (01) ==
PROVIDERS: Emergency Provider Surgery; PCP Internal Medicine; Visit Provider Surgery
DX: S20.20XA Contusion of thorax, unspecified, initial encounter (principal); Z86.718 Personal history of other venous thrombosis and embolism; Z87.891 Personal history of nicotine dependence; W19.XXXA Unspecified fall, initial encounter
CPT/HCPCS: 71250; 72170; 99282